=== PATIENT | male | born 1940 | race Caucasian/White ===

== ENCOUNTER 2019-12-14 09:30 | Outpatient (CLI) | payer MEDICARE, SELFPAY ==
--- NOTE | ~2019-12-14 | CT_ITS ---
EXAMINATION: CT lumbar spine [facility] EXAM DATE: 12/14/2019 10:36 INDICATION: Spinal stenosis, chronic low back pain. TECHNIQUE: Spiral CT of the lumbar spine was performed without contrast. Axial, coronal and sagittal images were reviewed. The dose-length product (DLP) for this examination was 900.25 mGy-cm. The e xposure was tailored according to patient size (auto mA exposure control), and iterative reconstructi on (ASIR) was used as additional dose reduction technique. Comparison is made to prior examination fr 08/18/2018. FINDINGS: There is partially sacralized L5 segment, transitional with a rudimentary L5-S1 disc space. Rudimentary T12 ribs. There is vacuum disc phenomenon from T11 through L5. Moderate to severe loss o f the L1-2 disc height, moderate loss at the other imaged thoracolumbar levels. Vertebral body height s relatively well-maintained. There is 5 mm anterolisthesis L4 on L5, 3 mm retrolisthesis L3 on L4 and 2 mm retrolisthesis L1 on L2 and L2 on L3. No spondylolysis. There are small to moderate-sized thoracic endplate bridging osteoph ytes. Scattered arterial sclerotic disease and mild sigmoid diverticulosis. Level by level evaluation: T11-12: There is a mild diffuse disc bulge. Facet arthropathy: Mild. Neural foraminal stenosis: Mild to moderate left. Central canal stenosis: Mild. T12-L1: There is a mild diffuse disc bulge. Facet arthropathy: Mild. Neural foraminal stenosis: No stenosis. Central canal stenosis: No stenosis. L1-L2: There is moderate disc osteophyte complex. Facet arthropathy: Mild to moderate. Neural foraminal stenosis: Moderate bilateral. Central canal stenosis: Mild to moderate. L2-L3: There is a moderate diffuse disc bulge. Facet arthropathy: Mild to moderate. Neural foraminal stenosis: Mild to moderate bilateral. Central canal stenosis: Mild to moderate. L3-L4: There is a moderate diffuse disc bulge. Facet arthropathy: Moderate to severe . Ligamentum flavum enlargement . Neural foraminal stenosis: Mild to moderate right, mild left. Central canal stenosis: Moderate. L4-L5: There is a moderate diffuse disc bulge. Facet arthropathy: Severe . Ligamentum flavum enlargement . Neural foraminal stenosis: Mild to moderate bilateral. Central canal stenosis: Severe. L5-S1: There is a congenitally narrowed disc space. Facet arthropathy: Mild to moderate. Neural foraminal stenosis: Mild right. Central canal stenosis: Mild. No appreciable interval change compared to 2019 exam. No acute lumbar findings. IMPRESSION: 1. Transitional sacralized L5 segment. 2. L4-5 grade 1 anterolisthesis, severe central canal stenosis. Moderate to severe central canal jalil nosis L3-4. 3. Lesser spondylosis above. Reviewed, dictated and finalized at location A. IMPRESSION: 1. Transitional sacralized L5 segment. 2. L4-5 grade 1 anterolisthesis, severe central canal stenosis. Moderate to se heri central canal stenosis L3-4. 3. Lesser spondylosis above.
== END 2019-12-14 09:31 | disposition home or self-care (01) ==
PROVIDERS: PCP Internal Medicine; Visit Provider Internal Medicine
DX: M54.5 Low back pain (principal)
CPT/HCPCS: 72131

== ENCOUNTER 2020-06-03 10:24 | Inpatient (IN) | payer MEDICARE, SELFPAY ==
[2020-06-03] VITALS (33 sets, daily range): BP systolic 97–130; BP diastolic 50–102; PULSE 69–85; RESP 13–20; TEMP 36.5–37.8; O2SAT 96–100; BMI 22.6
--- NOTE | ~2020-06-03 | XR_ITS ---
XR chest 1V portable DATE: 06/03/2020 11:32 INDICATION: Cough, fever. TECHNIQUE: Portable AP chest on June 03, 2020 at 1119 hours COMPARISON: None FINDINGS: Borderline heart size. Aortic calcification and unfolding. There is patchy infiltrate in the left perihilar and particularly lower lung zones. There is mild infiltrate or atelectasis in the right lower lung zone. No pleural effusion. No pneumothorax. Degenerative spurring of the thoracic spine. Osteopenia. IMPRESSION: Left perihilar and lower lung infiltrate and/atelectasis Mild infiltrate or atelectasis in the right lower lung Aortic atherosclerosis Osteopenia Reviewed, dictated and finalized at location B. ST WORKER
--- NOTE | ~2020-06-03 | XR_ITS ---
XR shoulder RT min 2V DATE: 06/03/2020 11:32 INDICATION: Fall yesterday. Right shoulder pain TECHNIQUE: 4 views COMPARISON: None FINDINGS: Diffuse osteopenia. Normal alignment at the acromion clavicular joint. There is evidence of right rotator cuff atrophy. N o fracture or dislocation, periosteal reaction or bone destruction is detected. Degenerative spurring of the thoracic spine. IMPRESSION: No fracture or dislocation Osteopenia Rotator cuff atrophy Reviewed, dictated and finalized at location B. TECHNICIAN
--- NOTE | ~2020-06-03 | XR_ITS ---
XR hip BI 2V w AP pelvis DATE: 06/03/2020 11:31 INDICATION: Hip pain following a fall yesterday. TECHNIQUE: AP pelvis. AP and lateral views of each hip COMPARISON: None FINDINGS: Diffuse osteopenia. Right total hip arthroplasty. Moderately severe osteoarthritic change at the left hip joint. The pubic symphysis and sacroiliac joints are normally aligned. No recent pelvic fracture is evident. No pelvic bone destruction is detected. No fracture or dislocation of either hip is noted. There is extensive calcification of the femoral arteries bilaterally. Prostate calcification. IMPRESSION: Moderately severe left hip osteoarthritis Status post right total hip arthroplasty Osteopenia No pelvic or hip fracture or dislocation is detected Reviewed, dictated and finalized at location B. ER SPORTS MANAGER
--- NOTE | ~2020-06-03 | CT_ITS ---
EXAMINATION: CT brain wo con DATE: 06/03/2020 11:19 INDICATION: Fall. Weakness. TECHNIQUE: Computed tomography (CT) of the head was performed without intravenous contrast. The mA wa s adjusted according to patient size. Iterative reconstruction technique was employed. Exam dose: 68 1.00 mGy-cm total exam DLP. COMPARISON: 01/29/2015 CT brain FINDINGS: Bilateral vertebral artery and carotid siphon internal carotid artery calcifications. There is nonspecific image attenuation of the subcortical and periventricular cerebral white matter, likel y due to chronic small vessel ischemic changes. No intracranial mass lesion or hemorrhage or cerebrovascular accident. No midline shifts or mass effe cts. No subdural or epidural hematoma. No skull fracture or bone destruction. The paranasal sinuses and mastoid air cells are normally developed and aerated. IMPRESSION: Cerebral atherosclerosis and chronic small vessel ischemic changes of the cerebral white matter No acute intracranial finding Reviewed, dictated and finalized at Location A. Reviewed, dictated and finalized at location B. SON ENGINEER
--- NOTE | ~2020-06-03 | CT_ITS ---
EXAMINATION: CT cervical spine wo con DATE: 06/03/2020 11:19 INDICATION: Fall. Weakness. TECHNIQUE: Computed tomography (CT) of the cervical spine was performed without intravenous contrast. Automated exposure control and iterative reconstruction technique were employed. Exam dose: 206.05 mGy-cm total exam DLP. COMPARISON: 01/29/2015 CT cervical spine FINDINGS: There is mild levoscoliosis of the cervical spine. No fracture or dislocation or locked facet. No prevertebral soft tissue swelling. C1 and C2 are normally aligned and the odontoid process is intact. There is 2.4 mm anterolisthesis at C3-4. There is severe degenerative disc disease and 3.3 mm retrolisthesis at C4-5. Moderately severe degenerative disc disease at C5-6 with minimal retrolisthesis. There is degenerative change at the apophyseal joints. There is fusion at the C3-4 apophyseal joints on the left. Uncovertebral joint spurring is noted at C3-4, C4-5 and C5-6, particularly pronounced on the right at C4-5. IMPRESSION: Prominent cervical spondylosis Reviewed, dictated and finalized at Location A. Reviewed, dictated and finalized at location B. IPPING CLERK
--- NOTE | 2020-06-03 10:25 | ECG_ITS ---
Measurements Intervals [place] Rate: 79 P: 60 [place]: 173 QRS: 47 QRSD: 102 T: 63 QT: 361 QTc: 414 Interpretive Statements SINUS RHYTHM INCOMPLETE RIGHT BUNDLE BRANCH BLOCK BASELINE ARTIFACT- I, II, III, AVR, AVL, AVF, V1-V4 BORDERLINE ECG Electronically Signed On 06-03-2020 10:48:13 CLASS A LIN[facility]AN by Dennys Burdick D.O.
--- NOTE | 2020-06-03 10:44 | PC.NURSE ---
patient here via EMS from home with increased weakness. arrives to this ED alert and oriented. see initial notes. denies known head injury. denies LOC. concerned for dehydration. provider in room now. on court recording monitor. EKG done. waiting for further orders.
--- NOTE | 2020-06-03 11:00 | ED.WEAKNESS ---
HPI - Weakness General Chief complaint: Weakness <Yissel Galeano PA-C - Last Filed: 06/03/20 12:56> Stated complaint: increased weakness <Yissel Galeano PA-C - Last Filed: 06/03/20 12:56> Time Seen by Provider: 06/03/20 10:29 <Yissel Galeano PA-C - Last Filed: 06/03/20 12:56> Source: patient <SARINA Da Silva Last Filed: 06/03/20 12:56> Mode of arrival: EMS <SARINA DaS ilva Last Filed: 06/03/20 12:56> Limitations: no limitations <Yissel Galeano PA-C - Last Filed: 06/03/20 12:56> History of Present Illness HPI Narrative: This is a 80 year old male that presents to the ER for generalized weakness. Reports over the last couple of days he has had trouble getting around his house. He lives at home with his who is in a wheelchair. Reports he had a fall yesterday. He had tripped over his carpet and fell on his left side. He does not think that he hit his head. He did not lose consciousness. Reports today he was having trouble getting out of bed, so they called EMS for lift assist. Patient decided to come be evaluated for generalized weakness. He does also report a cough and some congestion. Reports a fever. Also reports dysuria which started today. Denies chest pain, shortness of breath, abdominal pain, vomiting, or dysuria. <Yissel Galeano PA-C - Last Filed: 06/03/20 12:56> Related Data Home medications: Home Medications Medication Instructions Recorded Confirmed aspirin 81 mg tablet,delayed 81 mg PO DAILY 03/14/19 06/03/20 release finasteride 5 mg tablet 5 mg PO DAILY 03/14/19 06/03/20 multivitamin 1 tablet PO DAILY 03/14/19 06/03/20 peg 400-propylene glycol 0.4 %-0.3 1 drop EACH EYE BID 03/14/19 06/03/20 % eye drops psyllium seed (sugar) oral powder 1 tsp PO ONCE 03/14/19 06/03/20 mlxoqptqbiz-[id number]-hyal 750 tablet PO BID 12/10/19 06/03/20 750 mg-100 mg-125 mg-1.65 mg tablet polyethylene glycol 3350 17 17 gm PO DAILY 12/10/19 06/03/20 gram/dose oral powder folic acid 0.8 mg capsule 0.8 mg PO DAILY 02/05/20 04/03/20 mecobalamin (vitamin B12) 1,000 1,000 mcg PO DAILY 02/05/20 06/03/20 mcg chewable tablet carvedilol 12.5 mg BID 06/03/20 06/03/20 <Yissel Galeano PA-C - Last Filed: 06/03/20 12:56> Allergies/Adverse reactions: Allergies Allergy/AdvReac Type Severity Reaction Status Date / Time hydrochlorothiazide Allergy Unknown Hyponatremi Verified 06/03/20 15:53 a <Yissel Galeano PA-C - Last Filed: 06/03/20 12:56> Review of Systems Review of Systems: Narrative: CONSTITUTIONAL: Reports fever ENT: Reports congestion CARDIOVASCULAR: Denies chest pain RESPIRATORY: Reports cough. Denies dyspnea. GASTROINTESTINAL: Denies abdominal pain, nausea, vomiting GENITOURINARY: Reports dysuria. Denies hematuria. MUSCULOSKELETAL: Reports joint pain, and myalgia. NEUROLOGIC: Reports generalized weakness. <Yissel Galeano PA-C - Last Filed: 06/03/20 12:56> All systems reviewed & are unremarkable except as noted in HPI and below <Yissel Galeano PA-C - Last Filed: 06/03/20 12:56> [facility] Past Medical History Medical History: Medical History (Updated 06/03/20 @ 14:55 by Marilu Rosario NP) Abnormal finding of blood chemistry Arthralgia Benign essential hypertension BMI 24.0-24.9, adult BMI 25.0-25.9,adult BPH (benign prostatic hyperplasia) Chronic low back pain Colon cancer screening Constipation DJD (degenerative joint disease), multiple sites Elevated glucose Encounter for Medicare annual wellness exam Glaucoma Hyperlipidemia 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
[2020-06-03] MEDS: SODIUM CHLORIDE 0.9% IV 1,000 ML 999 ML IV CONT (11:13)
[2020-06-03 11:20] LABS: Add Urine Microscopic? YES; Appearance Urine Clear (Clear); Bilirubin Urine Negative (Negative); Blood Urine Negative (Negative); Color Urine Yellow (Yellow); Glucose Urine UA Negative (Negative); Ketones Urine Trace mg/dL (Negative); Leukocyte Esterase Ur Negative LEU/UL (Negative); Mucus Urine Rare /lpf; Nitrate Urine Negative (Negative); Protein Urine 1+ mg/dL (Negative); RBC Urine 0-2 /hpf (0-2); Specific Grav Ur 1.021 (1.001-1.035); Urobilinogen Urine Negative mg/dL (<2.0); WBC Urine 0-3 /hpf
[2020-06-03 11:48] LABS: Hematocrit 30.4 % (42.0-52.0); Hemoglobin 10.1 g/dL (14.0-18.0); Mean Corpuscular HGB Conc 33.2 g/dl (32-36); Mean Corpuscular Hemoglobin 32.9 pg (26-34); Platelet Count Result 131 k/mm3 (150-375); Red Blood Count 3.07 M/mm3 (4.6-6.20); White Blood Count 7.9 K/mm3 (4.5-10.0)
[2020-06-03 11:58] LABS: Lipase 62 U/L (23-300)
[2020-06-03 12:00] LABS: Lactic Acid Reflex 0.7 mmol/L (0.7-2.1)
[2020-06-03 12:02] LABS: Alanine Aminotransferase 22 U/L (4-50); Albumin Level 3.1 g/dL (3.5-5.1); Alkaline Phosphatase 34 U/L (38-126); Anion Gap 8 mmol/L (8-16); Aspartate Amino Transferase 30 U/L (17-59); Bilirubin,Total 0.3 mg/dL (0.2-1.3); Blood Urea Nitrogen 32 mg/dL (9-20); CRP 4.9 mg/dL (<1.0); Calcium 8.1 mg/dL (8.4-10.2); Carbon Dioxide 24 mmol/L (22-30); Chloride 107 mmol/L (98-107); Estimated CRCL calculation 66 ml/min; Estimated Glomerular Filt Rate > 60; Glucose 126 mg/dL (75-110); Potassium 3.3 mmol/L (3.4-5.0); Sodium 139 mmol/L (137-145)
[2020-06-03 12:04] LABS: Band Neutrophils Percent 4 % (0-6); Basophils Absolute Manual 0.07 K/mm3 (0.0-0.1); Basophils Percent Manual 1 % (0-1); Lymphocytes Absolute Manual 0.94 K/mm3 (1.1-4.5); Microcytosis 1+ (NORMAL); Monocytes Absolute Manual 0.15 K/mm3 (0.1-0.90); Monocytes Percent Manual 2 % (3-9); Neutrophils Absolute Manual 6.71 K/mm3 (1.3-6.7); Neutrophils Percent Manual 81 % (46-73); Platelet Estimate Adequate (Adequate); Total Cells Counted 100
[2020-06-03 12:05] LABS: Hypochromasia 1+ (NORMAL)
--- NOTE | 2020-06-03 12:10 | PC.NURSE ---
Called lab to add on Ldh and ferritin @ [phone]
[2020-06-03 12:21] LABS: Lactate Dehydrogenase 466 U/L (313-618)
--- NOTE | 2020-06-03 13:06 | PCCCNOTE ---
Spoke with patient concerning admission. Pt concerned that is wheelchair bound and may need assistance at home. Pt states that is capable and uses the phone without problem and may be able to call a cousin to assist. Informed pt to let know to call 911 if she cannot care for herself at home and needs assistance.
[2020-06-03] MEDS: POTASSIUM CHLORIDE 20 MEQ PACKET (FOR LIQUID) 40 MEQ PO (13:15)
--- NOTE | 2020-06-03 13:15 | PC.NURSE ---
assisting patient to drink OJ with KCL and water. denies any other needs. aware of plan for admission. no bed assignment yet. will update patient's when bed assigned.
--- NOTE | 2020-06-03 13:30 | PC.NURSE ---
2nd IV antibiotic started. resting on stretcher. on monitoring and evaluation advisor. alert. oriented. denies pain but states that he is weak and tired.
--- NOTE | 2020-06-03 14:30 | PC.NURSE ---
resting on stretcher. IV antibiotics done. patient finished KCL/OJ. ice water given. aware of admission upstairs. waiting for transfer.
--- NOTE | 2020-06-03 14:35 | PM.IMHP ---
H&P: HPI History of Present Illness Date/Time: 06/03/20 14:35 Chief Complaint: shortness of breath Narrative: Fernando Nava is a 80 year old male who lives at home with his who lives in wheelchair. The patient came to the emergency room due to generalized weakness. The last couple days the patient has been feeling really weak and having difficulty ambulating his house. His is not been able to help him much and she is wheelchair bound. The patient stated that he tripped over his carpeted yesterday and fell on his right side. The patient does not think that he hit his head or lost consciousness. The patient was doing okay but was unable to get out of bed today. He said he got up during the night to urinate but this morning he was not able to get out of bed. He said he thought he had a low-grade fever and a cough and some congestion. No chest pain now. No nausea vomiting. Patient has been able to take all of his medications except this a.m. doses. He stated he just did not have time to take his morning meds because it could get a bed. Patient was given Tylenol in the emergency. Patient was hydrated with IV fluids as well. Urinalysis was obtained but did not offer of any infection. The patient was also swabbed for COVID-19. His H&H is 10.1 and 30.4. Potassium was 3.3. Patient had been admitted for this several years ago but his sodium was low at that time. Today his sodium is normal. His blood sugars 126 but is last A1c last she was 5.6. He is not diabetic. Hip and pelvis x-ray was read as moderately severe left hip osteoarthritis status post right hip arthroplasty osteopenia at and no pelvic or hip fracture dislocations detected. Right shoulder x-ray was read as no fracture dislocation osteopenia rotator cuff atrophy. Chest x-ray was read by radiology is left perihilar lower lung infiltrate and atelectasis. Mild infiltrate or atelectasis in the right lower lung. Aortic atherosclerosis. And osteopenia. Cervical spine CT was read as prominent cervical spondylosis. Head CT was read as cerebral atherosclerosis and chronic small vessel ischemic changes of the cerebral white matter. no acute intracranial finding. Patient was given IV Tylenol, IV fluids Rocephin, azithromycin, and potassium liquid in the emergency room. The patient is being admitted to observation date of service is 06/03/2020. Review of Systems Review of Systems: All systems reviewed & are unremarkable except as noted in HPI and below Constitutional: Constitutional: Reports as per HPI and Reports no additional constitutional complaints Eyes: Eyes: Reports as per HPI and Reports no additional eye complaints ENT: Reports system reviewed and no additional complaints, except as documented and Reports Normal hearing present Cardiovascular: Cardiovascular: Reports no additional cardiovascular complaints Respiratory: Respiratory: Reports no additional respiratory complaints and Reports no additional respiratory complaints Gastrointestinal: Gastrointestinal: Reports as per HPI and Reports no additional gastrointestinal complaints Musculoskeletal: Musculoskeletal: Reports no additional musculoskeletal complaints Integumentary/Breasts: Skin/Breast: Reports system reviewed and no additional complaints, except as docu and Reports as per HPI Neurologic: Reports system reviewed and no additional complaints, except as documented, Reports as per HPI and Reports Normal hearing present Psychiatric: Psychiatric: Reports no additional psychiatric complaints and Reports as per HPI Endocrine: Endocrine: Reports no additional endocrine complaints Hematologic/Lymphatic: Hematologic/Lymphatic: Reports no additional hematologic/lymphatic complaints Allergic/Immunologic: Allergic/Immunologic: Reports no additional allergic/immunologic complaints [facility] Past Medical History Medical History (Updated 06/03/20 @ 14:55 by Marilu Rosario NP) Abnormal finding of blood lynda
--- NOTE | 2020-06-03 15:30 | PC.NURSE ---
attempted to notify patient's of admission to [facility] and provide phone number. no answer. does not have voicemail set up on her cell phone.
--- NOTE | 2020-06-03 15:39 | ADMGEN ---
This patient, Fernando Nava, was admitted to [facility] Surg Room 326-01. Patient/family oriented to hospital policies and general routines including ID bracelet, bed and alarms, visiting hours, pain management, procedures, bathroom and other care routines, personal items, smoking policy, room service/diet, and visiting hours. Information on how to activate the Rapid Response Team has been discussed. Patient/Family are encouraged to report perceived risks to care and to ask questions if they do not understand what they are told or what they should do.
[2020-06-03 21:18] LABS: SARS-CoV-2 RNA PCR Negative
[2020-06-04] VITALS (9 sets, daily range): BP systolic 99–128; BP diastolic 50–67; PULSE 65–92; RESP 16–20; TEMP 36.3–36.9; O2SAT 96–100
[2020-06-04 06:39] LABS: Lactic Acid Reflex 0.8 mmol/L (0.7-2.1)
[2020-06-04 06:41] LABS: Hematocrit 27.5 % (42.0-52.0); Mean Corpuscular HGB Conc 32.7 g/dl (32-36); Mean Corpuscular Hemoglobin 31.9 pg (26-34); Mean Corpuscular Volume 97.5 fl (80-100); Mean Platelet Volume 10.9 fl (7.4-10.4); Platelet Count Result 120 k/mm3 (150-375); Red Blood Count 2.82 M/mm3 (4.6-6.20); Red Cell Distribution Width 13.3 % (11.5-14.5); White Blood Count 7.9 K/mm3 (4.5-10.0)
[2020-06-04 06:43] LABS: Alanine Aminotransferase 21 U/L (4-50); Albumin Level 2.7 g/dL (3.5-5.1); Alkaline Phosphatase 32 U/L (38-126); Anion Gap 2 mmol/L (8-16); Aspartate Amino Transferase 28 U/L (17-59); Bilirubin,Total 0.3 mg/dL (0.2-1.3); Blood Urea Nitrogen 22 mg/dL (9-20); Calcium 8.2 mg/dL (8.4-10.2); Carbon Dioxide 26 mmol/L (22-30); Chloride 108 mmol/L (98-107); Estimated CRCL calculation 66 ml/min; Estimated Glomerular Filt Rate > 60; Glucose 108 mg/dL (75-110); Lactate Dehydrogenase 368 U/L (313-618); Magnesium 1.9 mg/dL (1.6-2.3); Potassium 3.5 mmol/L (3.4-5.0); Sodium 136 mmol/L (137-145)
[2020-06-04 07:10] LABS: Band Neutrophils Percent 8 % (0-6); Monocytes Absolute Manual 0.23 K/mm3 (0.1-0.90); Monocytes Percent Manual 3 % (3-9); Neutrophils Absolute Manual 6.55 K/mm3 (1.3-6.7); Neutrophils Percent Manual 75 % (46-73); Total Cells Counted 100
[2020-06-04] MEDS: PSYLLIUM POWDER PACKET 1 PACKET BY MOUTH (09:31)
[2020-06-04] MEDS: polyethylene glycoL 3350 17 GM POWD.PACK PO (09:31)
[2020-06-04] MEDS: PRAVASTATIN SODIUM 20 MG TABLET PO (09:32)
[2020-06-04] MEDS: carvediloL 25 MG TABLET BY MOUTH ×2 (09:32→21:12)
[2020-06-04] MEDS: ASPIRIN 81 MG ENTERIC TABLET PO (09:32)
[2020-06-04] MEDS: CYANOCOBALAMIN 1,000 MCG TABLET 1000 MCG PO (09:32)
[2020-06-04] MEDS: MULTIVITAMINS THERAPEUTIC TAB (*BKC) 1 TABLET PO (09:33)
[2020-06-04] MEDS: lisinopriL 20 MG TABLET 40 MG PO (09:33)
[2020-06-04] MEDS: FINASTERIDE 5 MG TABLET PO (09:33)
[2020-06-04] MEDS: amLODIPine BESYLATE 2.5 MG TABLET BY MOUTH (09:33)
[2020-06-04 09:50] LABS: Free T4 Free Thyroxine Reflex 1.28 ng/dL (0.78-2.19)
[2020-06-04 11:00] LABS: Total Triiodothyronine (T3) 0.52 NG/ML (0.97-1.69)
--- NOTE | 2020-06-04 11:21 | PCNSR ---
On 06/04/20, the student, Hien Velazquez, provided care and completed [facility] documentation on this patient. I have reviewed the student's documentation and agree with the findings.
--- NOTE | 2020-06-04 12:56 | PC.NURSE ---
Spoke to Dr. Tomlinson about pt bp being lower. 88\43 then retook and best bp was 95\57. Said to hold lisinopril 2100 dose today only.Also to hold carvedilol if sbp is less than 90.
[2020-06-04] MEDS: CALCIUM CARBONATE (TUMS) 500 MG (200 MG ELEMENTAL) PO (16:45)
--- NOTE | 2020-06-04 18:42 | PM.IMPN ---
Progress Note: A&P Assessment and Plan (1) Pneumonia: Qualifiers: Laterality: bilateral Lung location: lower lobe of lung Pneumonia type: due to unspecified organism Qualified Code(s): J18.9 - Pneumonia, unspecified organism Code(s): J18.9 - Pneumonia, unspecified organism Status: Acute Assessment and Plan: Continue Rocephin and Zithromax Improved (2) Person under investigation for severe acute respiratory syndrome coronavirus 2 (SARS-CoV-2) infection: Code(s): Z20.822 - Contact with and (suspected) exposure to COVID-19 Status: Acute Assessment and Plan: Ruled out. (3) Generalized weakness: Code(s): R53.1 - Weakness Status: Acute Assessment and Plan: Participating on therapy with PT/OT (4) Chronic low back pain: Qualifiers: Back pain laterality: right Sciatica presence: with sciatica Sciatica laterality: sciatica of right side Qualified Code(s): M54.41 - Lumbago with sciatica, right side; G89.29 - Other chronic pain Code(s): M54.5 - Low back pain; G89.29 - Other chronic pain Status: Acute Assessment and Plan: Stable Supportive care (5) BMI 24.0-24.9, adult: Code(s): Z68.24 - Body mass index [BMI] 24.0-24.9, adult Status: Acute Assessment and Plan: On dietary supplement. (6) DJD (degenerative joint disease), multiple sites: Qualifiers: Osteoarthritis type: primary Qualified Code(s): M89.49 - Other hypertrophic osteoarthropathy, multiple sites Code(s): M15.9 - Polyosteoarthritis, unspecified Status: Acute Assessment and Plan: Unchanged. Subjective Date/time seen: 06/04/20 18:42 Patient states that he feels well but weak. Review of Systems Review of Systems: Narrative: No new issues. Constitutional: Comments: no fevers, no rigors, no chills. Cardiovascular: Comments: no chest pain, no pnd, no orthopnea. Respiratory: Comments: sob with activity Gastrointestinal: Comments: no n/v/abdominal pain. Musculoskeletal: Comments: generalized weakness. Integumentary/Breasts: Comments: no rashes. Neurologic: Comments: no sensory motor deficit. Exam Narrative: Exam Narrative: Sitting in chair. Const: General: cooperative, comfortable, no acute distress, alert, awake and Physically active Nutritional Appearance: average body habitus Orientation/consciousness: patient oriented x3 HENMT: Head: normal to inspection and normocephalic Ears: hearing grossly normal bilaterally General nose exam: Normal external nose present Face and sinus: normal facial exam Eyes: General: appearance normal, both eyes and all related structures Pupils: Equal, round and reactive pupils present EOM: EOMs intact bilaterally Neck: Neck: no lymphadenopathy, supple and no JVD Lymphatic: no lymphadenopathy noted Resp: Effort & Inspection: normal respiratory effort and able to speak in complete sentences Auscultation: clear to auscultation bilaterally Cardio: Rate: regular rate Rhythm: regular rhythm GI: GI Palp: Yes Soft to palpation and Yes No hepatosplenomegaly present Skin: Lesions: no lesions Rashes: no rashes Wounds: no wounds Neuro: General: patient oriented x3 and CN's II-XI intact bilaterally Cranial nerves: Yes CN's II-XII intact bilaterally and Yes Equal, round and reactive pupils present Cognition (Neuro): normal cognition Speech: normal speech Motor exam (neuro): 5/5 motor strength present throughout Extrem: General: no pedal edema Objective Data Vital Signs Vital Signs: Vital Signs - 24 hr 06/03/20 20:00 06/04/20 00:00 06/04/20 04:00 Temperature 97.7 F 98.2 F 98.2 F Pulse Rate 78 74 73 Respiratory Rate 18 18 16 Blood Pressure 104/50 L 118/52 L 127/52 L Pulse Oximetry 97 97 96 06/04/20 08:00 06/04/20 09:32 06/04/20 12:00 Temperature 97.5 F L 98.4 F Pulse Rate 83 65 70 Respiratory Rate 18 18 Blood Pressure 126/50 L 99/54 L Pulse Oxime
[2020-06-05] VITALS (11 sets, daily range): BP systolic 105–149; BP diastolic 52–60; PULSE 66–77; RESP 18–20; TEMP 36.6–36.7; O2SAT 97–99
[2020-06-05] MEDS: amLODIPine BESYLATE 2.5 MG TABLET BY MOUTH (08:39)
[2020-06-05] MEDS: ASPIRIN 81 MG ENTERIC TABLET PO (08:40)
[2020-06-05] MEDS: carvediloL 25 MG TABLET BY MOUTH ×2 (08:40→22:13)
[2020-06-05] MEDS: CYANOCOBALAMIN 1,000 MCG TABLET 1000 MCG PO (08:41)
[2020-06-05] MEDS: FINASTERIDE 5 MG TABLET PO (08:41)
[2020-06-05] MEDS: MULTIVITAMINS THERAPEUTIC TAB (*BKC) 1 TABLET PO (08:42)
[2020-06-05] MEDS: polyethylene glycoL 3350 17 GM POWD.PACK PO (08:42)
[2020-06-05] MEDS: PRAVASTATIN SODIUM 20 MG TABLET PO (08:42)
[2020-06-05] MEDS: PSYLLIUM POWDER PACKET 1 PACKET BY MOUTH (08:42)
[2020-06-05] MEDS: lisinopriL 20 MG TABLET 40 MG PO ×2 (08:42→22:14)
--- NOTE | 2020-06-05 15:59 | PM.IMPN ---
Progress Note: A&P Assessment and Plan (1) Pneumonia: Qualifiers: Laterality: bilateral Lung location: lower lobe of lung Pneumonia type: due to unspecified organism Qualified Code(s): J18.9 - Pneumonia, unspecified organism Code(s): J18.9 - Pneumonia, unspecified organism Status: Acute Assessment and Plan: On Rocephin and Zithromax Improved (2) Osteopenia: Code(s): M85.80 - Other specified disorders of bone density and structure, unspecified site Status: Chronic Assessment and Plan: Not on biphosphonates Follow up in the outpatient setting. (3) Person under investigation for severe acute respiratory syndrome coronavirus 2 (SARS-CoV-2) infection: Code(s): Z20.822 - Contact with and (suspected) exposure to COVID-19 Status: Acute Assessment and Plan: Ruled out (4) Acute hypokalemia: Code(s): E87.6 - Hypokalemia Status: Acute Assessment and Plan: Replace as needed Continue to monitor (5) Generalized weakness: Code(s): R53.1 - Weakness Status: Acute Assessment and Plan: Continue PT/OT (6) Chronic low back pain: Qualifiers: Back pain laterality: right Sciatica presence: with sciatica Sciatica laterality: sciatica of right side Qualified Code(s): M54.41 - Lumbago with sciatica, right side; G89.29 - Other chronic pain Code(s): M54.5 - Low back pain; G89.29 - Other chronic pain Status: Acute Assessment and Plan: Stable (7) DJD (degenerative joint disease), multiple sites: Qualifiers: Osteoarthritis type: primary Qualified Code(s): M89.49 - Other hypertrophic osteoarthropathy, multiple sites Code(s): M15.9 - Polyosteoarthritis, unspecified Status: Acute Assessment and Plan: Unchanged (8) Spinal stenosis: Qualifiers: Spinal region: unspecified Qualified Code(s): M48.00 - Spinal stenosis, site unspecified Code(s): M48.00 - Spinal stenosis, site unspecified Status: Acute Assessment and Plan: Unchanged. Subjective Date/time seen: 06/05/20 15:59 Patient states that he feels weak. Review of Systems Review of Systems: Narrative: Feels weak. Constitutional: Comments: no fevers, no chills, no rigors. Cardiovascular: Comments: no chest pain, no orthopnea, no pnd. Respiratory: Comments: no cough, no sputum production. Gastrointestinal: Comments: poor appetite, no n/v/abdominal pain. Musculoskeletal: Comments: back pain. Integumentary/Breasts: Comments: no rashes Neurologic: Comments: no focal sensory motor deficit. Exam Narrative: Exam Narrative: Sitting in chair. Const: General: cooperative, comfortable, no acute distress, alert, awake and Physically active Nutritional Appearance: thin Orientation/consciousness: patient oriented x3 HENMT: Head: normocephalic Ears: hearing grossly normal bilaterally Face and sinus: normal facial exam Eyes: General: appearance normal, both eyes and all related structures Pupils: Equal, round and reactive pupils present EOM: EOMs intact bilaterally Neck: Neck: no lymphadenopathy, supple and no JVD Lymphatic: no lymphadenopathy noted Resp: Effort & Inspection: normal respiratory effort Auscultation: clear to auscultation bilaterally Cardio: Jugular venous distension: no JVD Rate: regular rate Rhythm: regular rhythm GI: GI Palp: Yes Soft to palpation and Yes No hepatosplenomegaly present Skin: Lesions: no lesions Rashes: no rashes Wounds: no wounds Neuro: General: patient oriented x3 and CN's II-XI intact bilaterally Cranial nerves: Yes CN's II-XII intact bilaterally and Yes Equal, round and reactive pupils present Cognition (Neuro): normal cognition Speech: normal speech Motor exam (neuro): 5/5 motor strength present throughout Extrem: General: no pedal edema Objective Data Vital Signs Vital Signs: Vital Signs - 24 hr 06/04/20 16:00
[2020-06-06] VITALS: PULSE 63
[2020-06-06 04:00] VITALS: PULSE 66
[2020-06-06 06:00] VITALS: BP 136/61; PULSE 75; RESP 18; TEMP 37.1; O2SAT 98
[2020-06-06] MEDS: amLODIPine BESYLATE 2.5 MG TABLET BY MOUTH (09:16)
[2020-06-06] MEDS: carvediloL 25 MG TABLET BY MOUTH ×2 (09:17→09:18)
[2020-06-06] MEDS: ASPIRIN 81 MG ENTERIC TABLET PO (09:19)
[2020-06-06] MEDS: CYANOCOBALAMIN 1,000 MCG TABLET 1000 MCG PO (09:34)
[2020-06-06] MEDS: FINASTERIDE 5 MG TABLET PO (09:34)
[2020-06-06] MEDS: lisinopriL 20 MG TABLET 40 MG PO (09:34)
[2020-06-06] MEDS: polyethylene glycoL 3350 17 GM POWD.PACK PO (09:35)
[2020-06-06] MEDS: PSYLLIUM POWDER PACKET 1 PACKET BY MOUTH (09:37)
[2020-06-06] MEDS: PRAVASTATIN SODIUM 20 MG TABLET PO (09:37)
--- NOTE | 2020-06-06 12:13 | PM.DS ---
DS: Admitting Diagnosis Admitting Diagnosis Admitting Diagnosis: (1) Pneumonia: (2) Person under investigation for severe acute respiratory syndrome coronavirus 2 (SARS-CoV-2) infection: (3) Acute hypokalemia: (4) Generalized weakness: (5) BPH (benign prostatic hyperplasia): (6) Hyperlipidemia: (7) Benign essential hypertension: DS: Summary Hospital Course Reason for hospitalization: Weakness. Hospital Course: Fernando Nava is a 80 year old male who lives at home with his . The patient came to the emergency room due to generalized weakness. The last couple days the patient had been feeling really weak and having difficulty ambulating his house. His is not been able to help him much and she is wheelchair bound. The patient stated that he tripped over his carpeted yesterday and fell on his right side, no LOC. He was unable to get out of bed the next day. He said he got up during the night to urinate but in the morning he was not able to get up. He felt had a low-grade fever and a cough and some congestion, no chest pain . No nausea or vomiting. He has been able to take all of his medications except this a.m. as he was not able to get up from bed. He was given Tylenol in the emergency. Patient was hydrated with IV fluids as well. Urinalysis was obtained but did not show any infection. The patient was also swabbed for COVID-19. His H&H is 10.1 and 30.4. Potassium was 3.3. Patient had been admitted for this several years ago but his sodium was low at that time. Today his sodium is normal. His blood sugars 126 but is last A1c last she was 5.6. He is not diabetic. Hip and pelvis x-ray was read as moderately severe left hip osteoarthritis status post right hip arthroplasty osteopenia at and no pelvic or hip fracture dislocations detected. Right shoulder x-ray was read as no fracture dislocation osteopenia rotator cuff atrophy. Chest x-ray was read by radiology is left perihilar lower lung infiltrate and atelectasis. Mild infiltrate or atelectasis in the right lower lung. Aortic atherosclerosis. And osteopenia. Cervical spine CT was read as prominent cervical spondylosis. Head CT was read as cerebral atherosclerosis and chronic small vessel ischemic changes of the cerebral white matter. no acute intracranial finding. Patient was given IV Tylenol, IV fluids Rocephin, azithromycin, and potassium liquid in the emergency room. The patient is being admitted to observation date of service is 06/03/2020. Patient participated in therapy sessions with PT/OT Was hydrated. No consults were obtained. No procedures were done. Patient was discharged home. Patient was ruled out for Covid 19 He was treated for community pneumonia Time Spent with Patient Time attestation: Total time spent providing and/or coordinating discharge services: Exam Const: General: comfortable, no acute distress, well developed, alert and awake Nutritional Appearance: thin Orientation/consciousness: patient oriented x3 HENMT: Head: normal to inspection, normocephalic and atraumatic Ears: hearing grossly normal bilaterally General nose exam: Normal external nose present Face and sinus: normal facial exam Eyes: General: appearance normal, both eyes and all related structures Pupils: Equal, round and reactive pupils present EOM: EOMs intact bilaterally Neck: Neck: no lymphadenopathy and no JVD Resp: Effort & Inspection: normal respiratory effort Auscultation: clear to auscultation bilaterally Cardio: Jugular venous distension: no JVD Rate: regular rate Rhythm: regular rhythm GI: GI Palp: Yes Soft to palpation and Yes No hepatosplenomegaly present Skin: Rashes: no rashes Neuro: General: patient oriented x3 and CN's II-XI intact bilaterally Cranial nerves: Yes CN's II-XII intact bilaterally and Yes Equal, round and reactive pupils present Speech: normal speech Gait exam (Neuro): No
[2020-06-06] MEDS: MULTIVITAMINS THERAPEUTIC TAB (*BKC) 1 TABLET PO (13:54)
== END 2020-06-06 12:45 | disposition home or self-care (01) | DRG 195 ==
LOC: ANHED 12:50 → ANH3MEDSUR 14:43
PROVIDERS: Nurse Practitioner; Physician Assistant; Admitting Provider Internal Medicine; Emergency Provider General Practice; PCP Internal Medicine; Visit Provider Internal Medicine
DX: J18.9 Pneumonia, unspecified organism (principal); Z20.822 Contact with and (suspected) exposure to COVID-19; W01.0XXA Fall on same level from slipping, tripping and stumbling without subsequent striking against object, initial encounter; M85.80 Other specified disorders of bone density and structure, unspecified site; E87.6 Hypokalemia; G89.29 Other chronic pain; M15.9 Polyosteoarthritis, unspecified; M48.00 Spinal stenosis, site unspecified; I10 Essential (primary) hypertension; E78.5 Hyperlipidemia, unspecified; E55.9 Vitamin D deficiency, unspecified; Z96.641 Presence of right artificial hip joint; N40.0 Benign prostatic hyperplasia without lower urinary tract symptoms
CPT/HCPCS: 36415; 70450; 71045; 72125; 73030; 73521; 80053; 81001; 82728; 83605; 83615; 83690; 83735; 84100; 84439; 84443; 84480; 85025; 85055; 86140; 87040; 87804; 93005; 96365; 96367; 96376; 97110; 97116; 97161; 97165; 97530; 97535; 99285; A9270; C9803; G0378; J0131; J0456; J0696; J7030; U0003; U0005

== ENCOUNTER 2020-12-15 07:14 | Inpatient (IN) | payer MEDICARE, SELFPAY ==
[2020-12-15] VITALS (11 sets, daily range): BP systolic 133–186; BP diastolic 54–80; PULSE 60–104; RESP 16–20; TEMP 36.4–36.8; O2SAT 94–100; BMI 23.7
--- NOTE | ~2020-12-15 | XR_ITS ---
EXAMINATION: XR chest 1V portable INDICATION: Dizziness TECHNIQUE: Portable AP chest at 0749 hours COMPARISON: 06/03/2020 FINDINGS: The lungs are free of acute opacities. There is no pleural effusion or pneumothorax. The ca rdiomediastinal silhouette is normal. IMPRESSION: 1. No acute cardiopulmonary abnormality. Reviewed, dictated and finalized at location A.
--- NOTE | ~2020-12-15 | MR_ITS ---
EXAMINATION: MR brain/brain stem wo/w con EXAM DATE: 12/15/2020 14:59 INDICATION: Disequilibrium . TECHNIQUE: Magnetic resonance imaging (MRI) of the brain/brain stem obtained without contrast. Sagit samantha T1, axial diffusion, gradient echo (T2*), T1, T2, FLAIR sequences obtained. Patient was then inj ected with 15 cc intravenous Multihance contrast. Axial and coronal postcontrast T1 weighted sequence s obtained. There is no prior study for comparison. FINDINGS: There are no areas of restricted diffusion to suggest acute infarction. There is no acute hemorrhage seen on the T2*, a hemosiderin sensitive sequence. No intraparenchymal brain mass lesion. There is mild periventricular and subcortical T2/FLAIR signal hyperintensity, nonspecific but probab ly related to small vessel ischemic disease (microangiopathy). Mild cerebral atrophy. There are no extra-axial collections. Flow voids are seen in the cerebral arteries on the T2-weighted sequences consistent with their expected patency. Patient has had bilateral ocular lens surgery. Soft tissue is unremarkable. There are no areas of abnormal enhancement on the postcontrast images. IMPRESSION: 1. No acute intracranial findings. 2. Chronic age related findings. Reviewed, dictated and finalized at location B.
--- NOTE | ~2020-12-15 | CT_ITS ---
EXAMINATION: CT brain wo con EXAM DATE: 12/15/2020 09:33 INDICATION: Dizziness. Balance disorder . TECHNIQUE: Spiral CT of the head was performed without contrast. Axial, coronal and sagittal images were reviewed. The dose-length product (DLP) for this examination was 605.33 mGy-cm. The exposure w as tailored according to patient size, and iterative reconstruction (ASIR) was used as additional dos e reduction technique. Comparison is made to prior examination from 06/03/2020. FINDINGS: There is no acute intraparenchymal hemorrhage. No evidence of intraparenchymal brain mass lesion. No evidence of acute infarction. Please note that initial head CT has limited sensitivity f or small or acute infarctions. There is mild periventricular and subcortical hypodensity, nonspecific but probably related to small vessel ischemic disease. There is mild prominence of the sulci and v entricles related to cerebral atrophy. There is intracranial carotid arteriosclerosis. There are n o extra-axial collections. There is no mass effect or midline shift. Patient has had bilateral ocul ar lens surgery. Soft tissue is unremarkable. The visualized sinuses and mastoid air cells are well aerated. IMPRESSION: 1. No acute intracranial findings. 2. Chronic age related findings. Reviewed, dictated and finalized at location B.
--- NOTE | 2020-12-15 07:32 | ED.GENADULT ---
HPI - General Adult General Chief complaint: Unspecified Stated complaint: STIFFNESS Time Seen by Provider: 12/15/20 07:32 Source: patient, EMS and RN notes reviewed Mode of arrival: EMS Limitations: no limitations History of Present Illness HPI narrative: Patient is 80 years old white male lives with his at home brought to the emergency room by ambulance because of dizziness and heaviness of the lower extremity bilaterally noticed more this morning. Patient complaining of weeks of balance issues FOR weeks. Today was standing shaving, trying to put his hands on the countertop around the sink which was slippery, patient felt unable to keep his standing and his legs are heavy, called his to call 911 patient was wondering if he have a stroke or not. Currently patient is awake, alert and oriented x4 denying any symptom except dry mouth. Patient did not eat his breakfast or took his medication this morning prior to arrival. Patient is fully vaccinated for COVID-19, patient is DNR. Patient on baby aspirin once a day, history of spinal stenosis, hypertension, hyperlipidemia Related Data Home Medications Medication Instructions Recorded Confirmed aspirin 81 mg tablet,delayed 81 mg PO DAILY 03/14/19 08/15/20 release finasteride 5 mg tablet 5 mg PO DAILY 03/14/19 08/15/20 multivitamin 1 tablet PO DAILY 03/14/19 08/15/20 peg 400-propylene glycol 0.4 %-0.3 1 drop EACH EYE BID 03/14/19 08/15/20 % eye drops vkgggizriqt-[id number]-hyal 750 tablet PO BID 12/10/19 08/15/20 750 mg-100 mg-125 mg-1.65 mg tablet polyethylene glycol 3350 17 17 gm PO DAILY 12/10/19 08/15/20 gram/dose oral powder mecobalamin (vitamin B12) 1,000 1,000 mcg PO DAILY 02/05/20 08/15/20 mcg chewable tablet calcium polycarbophil 625 mg tablet 1,250 mg PO BID 06/27/20 08/15/20 acetaminophen 500 mg tablet 500 mg PO Q6H PRN 08/14/20 08/15/20 calcium polycarbophil 625 mg tablet 1,250 mg PO BID 08/14/20 08/15/20 folic acid 0.8 mg capsule 0.4 mg PO DAILY cap 04/29/21 04/30/21 food supplemt, lactose-reduced ea PO 08/14/20 08/15/20 0.05 gram-1.5 kcal/mL oral liquid nystatin-triamcinolone 100,000 1 applic TOPICAL BID 08/14/20 08/15/20 unit/g-0.1 % topical cream polyvinyl alcohol-povidone (PF) 1 drp EACH EYE QHS 08/14/20 08/15/20 1.4 %-0.6 % eye drops in a dropperette Allergies Allergy/AdvReac Type Severity Reaction Status Date / Time hydrochlorothiazide Allergy Unknown Hyponatremi Verified 12/15/20 07:38 a Review of Systems Review of Systems: CONSTITUTIONAL: Denies fever, chills, or sweats. EYES: Denies visual changes, redness, or discharge. ENT: Denies rhinorrhea, congestion, sore throat, or otalgia. CARDIOVASCULAR: Denies chest pain, palpitations, or edema. RESPIRATORY: Denies cough or dyspnea. GASTROINTESTINAL: Denies abdominal pain, nausea, vomiting, or diarrhea. GENITOURINARY: Denies dysuria or hematuria. SKIN: Denies rash or itching. MUSCULOSKELETAL: Denies back pain, joint pain, or myalgia. NEUROLOGIC: Denies headache, numbness, or weakness. PSYCHIATRIC: Denies anxiety or depression. [facility] Past Medical History Medical History Abnormal finding of blood chemistry Arthralgia Benign essential hypertension BMI 21.0-21.9, adult BMI 23.0-23.9, adult BMI 24.0-24.9, adult BMI 25.0-25.9,adult BPH (benign prostatic hyperplasia) Chronic low back pain Colon cancer screening Colon cancer screening Constipation DJD (degenerative joint disease), multiple sites Elevated glucose Encounter for Medicare annual wellness exam [facility] discharge follow-up Hyperlipidemia On prison drug therapy Osteopenia Pedal edema Pre-diabetes Spinal stenosis UTI (urinary tract infection) Vision changes Vitamin D deficiency Surgical History Surgical History History of cataract extraction History of removal of pigmented skin lesion
--- NOTE | 2020-12-15 07:42 | ECG_ITS ---
Measurements Intervals [place] Rate: 62 P: 115 MI: 191 QRS: 175 QRSD: 106 T: 153 QT: 392 QTc: 399 Interpretive Statements SINUS RHYTHM LIMB LEAD REVERSAL BORDERLINE R WAVE PROGRESSION, ANTERIOR LEADS BASELINE ARTIFACT- I, II, III, AVR, AVF, V1 BORDERLINE ECG Electronically Signed On 12-15-2020 8:06:52 CDT by Dennys Burdick D.O.
[2020-12-15 09:39] LABS: Basophils Percent Auto 0.5 % (0.2-1.2); Eosinophils Absolute Auto 0.2 K/mm3 (0-0.3); Eosinophils Percent Auto 2.6 % (0-4.4); Hematocrit 35.9 % (42.0-52.0); Hemoglobin 11.8 g/dL (14.0-18.0); Immature Granulocyte Absolute 0.02 K/mm3 (0.00-0.031); Immature Granulocyte Percent A 0.3 % (0-0.5); Lymphocytes Absolute Auto 1.09 K/mm3 (0.9-3.2); Mean Corpuscular HGB Conc 32.9 g/dl (32-36); Mean Corpuscular Hemoglobin 31.6 pg (26-34); Mean Corpuscular Volume 96.2 fl (80-100); Mean Platelet Volume 10.5 fl (7.4-10.4); Monocytes Absolute Auto 0.5 K/mm3 (0.1-0.6); Neutrophils Absolute Auto 3.9 K/mm3 (1.3-6.7); Neutrophils Percent Auto 68.6 % (45.5-73.1); Platelet Count Result 166 k/mm3 (150-375); Red Blood Count 3.73 M/mm3 (4.6-6.20); Red Cell Distribution Width 14.2 % (11.5-14.5); White Blood Count 5.8 K/mm3 (4.5-10.0)
[2020-12-15 09:44] LABS: Add Urine Microscopic? NO; Appearance Urine Clear (Clear); Bilirubin Urine Negative (Negative); Blood Urine Negative (Negative); Color Urine Yellow (Yellow); Glucose Urine UA Negative (Negative); Ketones Urine Negative (Negative); Leukocyte Esterase Ur Negative LEU/UL (Negative); Nitrate Urine Negative (Negative); Protein Urine Negative (Negative); Specific Grav Ur 1.012 (1.001-1.035); Urobilinogen Urine Negative mg/dL (<2.0)
[2020-12-15 09:49] LABS: Prothrombin Time 12.7 Seconds (11.1-14.7)
[2020-12-15 09:50] LABS: Partial Thromboplastin Time 30.9 SECONDS (22.3-36.8)
[2020-12-15 09:55] LABS: Alanine Aminotransferase 26 U/L (4-50); Albumin Level 4.4 g/dL (3.5-5.1); Alkaline Phosphatase 62 U/L (38-126); Anion Gap 8 mmol/L (8-16); Aspartate Amino Transferase 29 U/L (17-59); Bilirubin,Total 0.6 mg/dL (0.2-1.3); Blood Urea Nitrogen 27 mg/dL (9-20); Calcium 9.6 mg/dL (8.4-10.2); Carbon Dioxide 27 mmol/L (22-30); Chloride 100 mmol/L (98-107); Estimated CRCL calculation 64 ml/min; Estimated Glomerular Filt Rate > 60; Glucose 116 mg/dL (65-110); Potassium 3.9 mmol/L (3.4-5.0); Sodium 135 mmol/L (137-145)
[2020-12-15 10:04] LABS: Troponin I < 0.012 ng/mL (0.000-0.034)
--- NOTE | 2020-12-15 11:23 | PM.IMHP ---
H&P: HPI History of Present Illness Date/Time: 12/15/20 11:23 This is a 80-year-old gentleman with past medical history hypertension, hyperlipidemia, spinal stenosis, BPH, was brought to the emergency department by EMS with dizziness. He tells me he was in the bathroom shaving while standing. He felt like he was going to slip, lowered himself to the floor without falling, did slightly scratchy his head but there was no injury. He then let his know to call 911 he was brought to the hospital. Otherwise he has in his usual state of health. No recent changes to his medications. No other associated symptoms such as fever, chills, nausea, vomiting, abdominal pain, chest pain, or otherwise. He is appropriate vaccinated. Chief Complaint: Fall Review of Systems Review of Systems: All systems reviewed & are unremarkable except as noted in HPI and below PMFSH Past Medical History Medical History Abnormal finding of blood chemistry Arthralgia Benign essential hypertension BMI 21.0-21.9, adult BMI 23.0-23.9, adult BMI 24.0-24.9, adult BMI 25.0-25.9,adult BPH (benign prostatic hyperplasia) Chronic low back pain Colon cancer screening Colon cancer screening Constipation DJD (degenerative joint disease), multiple sites Elevated glucose Encounter for Medicare annual wellness exam [facility] follow-up 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 Osteopenia Pedal edema Pre-diabetes Spinal stenosis UTI (urinary tract infection) Vision changes Vitamin D deficiency Surgical History Surgical History History of cataract extraction History of removal of pigmented skin lesion History of total right hip arthroplasty Family History Family History Mother Family history of coronary artery disease Hypertension Diabetes mellitus Family history of arthritis Family history of cardiovascular disease Father Family history of coronary artery disease Family history of arthritis Sibling Glaucoma Hypertension Social History Social History Social History: the patient lives with his . He does not have any children. 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 Patient is a lifelong non smoker. Smoking status: Never smoker Second hand tobacco smoke exposure: No Alcohol intake: never Substance use: never Gender identity (if verbalized by the patient): Male Sexual Orientation (if Verbalized by the Patient): Straight or Heterosexual Spiritual care concerns: No Meds Home Medications and Allergies Home Medications Medication Instructions Recorded Confirmed Type aspirin 81 mg tablet,delayed 81 mg PO DAILY 03/14/19 08/15/20 History release finasteride 5 mg tablet 5 mg PO DAILY 03/14/19 08/15/20 History multivitamin 1 tablet PO DAILY 03/14/19 08/15/20 History peg 400-propylene glycol 0.4 %-0.3 1 drop EACH EYE BID 03/14/19 08/15/20 History % eye drops jldponnwkdq-gukxpdula-[id number]-hyal 750 tablet PO BID 12/10/19 08/15/20 History 750 mg-100 mg-125 mg-1.65 mg tablet polyethylene glycol 3350 17 17 gm PO DAILY 12/10/19 08/15/20 History gram/dose oral powder mecobalamin (vitamin B12) 1,000 1,000 mcg PO DAILY 02/05/20 08/15/20 History mcg chewable tablet calcium polycarbophil 625 mg tablet 1,250 mg PO BID 06/27/20 08/15/20 History pravastatin 20 mg tablet See Rx Instructions .ROUTE 07/21/20 08/15/20 Rx .COMPLEX #90 tablet acetaminophen 500 mg tablet 500 mg PO Q6H PRN 08/14/20 08/15/20 History calcium polycarbophil 625 mg tablet 1,250 mg PO BID 08/14/20 08/15/20 History folic acid 0.8 mg capsule 0.4 mg PO DAILY cap 08/14/20 08/15/20 History food supplemt, la
--- NOTE | 2020-12-15 12:26 | PC.NURSE ---
Patient transferred from ED to [address] [place] [address] via stretcher.
--- NOTE | 2020-12-15 12:27 | ADMGEN ---
This patient, Fernando Nava, was admitted to [facility] Room 315-01 at 1220. Patient/family oriented to hospital policies and general routines including ID bracelet, bed and alarms, visiting hours, pain management, procedures, bathroom and other care routines, personal items, smoking policy, room service/diet, and visiting hours. Information on how to activate the Rapid Response Team has been discussed. Patient/Family are encouraged to report perceived risks to care and to ask questions if they do not understand what they are told or what they should do.
[2020-12-15] MEDS: SODIUM CHLORIDE 0.9% IV 1,000 ML 100 ML IV CONT (12:55)
[2020-12-15 14:08] LABS: Troponin I < 0.012 ng/mL (0.000-0.034)
[2020-12-15 15:07] LABS: Folic Acid > 20.0 ng/mL (2.76->20)
[2020-12-15 15:15] LABS: Thyroid Stimulating Hormone Reflex 0.238 uIU/mL (0.465-4.68)
[2020-12-15 18:17] LABS: Free T4 Free Thyroxine Reflex 1.14 ng/dL (0.78-2.19)
[2020-12-15 21:51] LABS: Total Triiodothyronine (T3) 1.17 NG/ML (0.97-1.69)
[2020-12-15] MEDS: ARTIFICIAL TEARS OPHTH SOLN 15 ML BOTTLE 1 DROP EACH EYE (22:50)
[2020-12-15] MEDS: calcium polycarbophiL 625 MG TABLET 1250 MG PO (22:50)
[2020-12-15] MEDS: lisinopriL 20 MG TABLET BY MOUTH (22:51)
[2020-12-15] MEDS: PRAVASTATIN SODIUM 20 MG TABLET BY MOUTH (22:51)
[2020-12-15] MEDS: HEPARIN SODIUM 5,000 UNITS/ML VIAL 5000 UNITS SUB-Q (22:51)
[2020-12-15] MEDS: carvediloL 25 MG TABLET PO (22:51)
[2020-12-16] VITALS (12 sets, daily range): BP systolic 107–156; BP diastolic 60–68; PULSE 60–87; RESP 18; TEMP 36.4–37; O2SAT 96–100
[2020-12-16] MEDS: polyethylene glycoL 3350 17 GM POWD.PACK PO (09:14)
[2020-12-16] MEDS: calcium polycarbophiL 625 MG TABLET 1250 MG PO ×2 (09:14→16:57)
[2020-12-16] MEDS: FOLIC ACID 0.4 MG TABLET PO (09:15)
[2020-12-16] MEDS: FINASTERIDE 5 MG TABLET PO (09:15)
[2020-12-16] MEDS: ASPIRIN 81 MG ENTERIC TABLET PO (09:15)
[2020-12-16] MEDS: ARTIFICIAL TEARS OPHTH SOLN 15 ML BOTTLE 1 DROP EACH EYE ×2 (09:16→16:57)
[2020-12-16] MEDS: HEPARIN SODIUM 5,000 UNITS/ML VIAL 5000 UNITS SUB-Q ×2 (09:20→21:14)
--- NOTE | 2020-12-16 11:43 | PM.IMPN ---
Progress Note: A&P Assessment and Plan (1) Fall: Qualifiers: Encounter type: subsequent encounter Qualified Code(s): W19.XXXD - Unspecified fall, subsequent encounter Code(s): W19.XXXA - Unspecified fall, initial encounter Status: Acute Assessment and Plan: He was standing in the bathroom shaving when he felt he was going to slip and lowered himself to the floor. There was no injury to the head. CT scan of head is negative for acute findings. Will have physical therapy and occupational therapy work with him, with safety evaluation Check vitamin-D: Normal Check thyroid status: TSH mildly decreased T4 and T3 normal B12 normal Troponin negative Electrolytes within normal limits Positive orthostatic vitals, repeat today after overnight hydration MR brain negative for any acute findings, chronic age-related findings noted. PT/OT evaluation and treatment (2) Pedal edema: Code(s): R60.0 - Localized edema Status: Acute Assessment and Plan: Mild, chronic, low-salt diet, monitor (3) Benign essential hypertension: Code(s): I10 - Essential (primary) hypertension Status: Acute Assessment and Plan: Given his orthostasis will hold his amlodipine as he also reports constipation. Monitor (4) Hyperlipidemia: Qualifiers: Hyperlipidemia type: mixed hyperlipidemia Qualified Code(s): E78.2 - Mixed hyperlipidemia Code(s): E78.5 - Hyperlipidemia, unspecified Status: Acute Assessment and Plan: Continue pravastatin (5) DVT prophylaxis: Code(s): Z29.9 - Encounter for prophylactic measures, unspecified Status: Acute Assessment and Plan: Heparin subQ Additional Plan Code status: DNR Dispo: Continue to work with physical and occupational therapy. Deemed to be weak and will require short-term rehab. Awaiting placement. The plan was discussed with the patient in detail. Subjective Date/time seen: 12/16/20 11:43 Uneventful night. Hemodynamically stable. He did have positive orthostatic drop in blood pressure from 170s to 150s systolic when checked yesterday. Appetite is good. He was able to eat all his breakfast this morning. Review of Systems Review of Systems: All systems reviewed & are unremarkable except as noted in HPI and below Exam Narrative: Gen: Alert, NAD Abd: Soft, NT, ND Heart: RRR Lungs: CTAB Ext: No lower extremity edema Objective Data Vital Signs Vital Signs: Vital Signs - 24 hr 12/15/20 12:34 12/15/20 12:40 12/15/20 13:12 Temperature 97.7 F Pulse Rate 69 63 Respiratory Rate 16 Blood Pressure 186/68 H Pulse Oximetry 99 100 12/15/20 16:00 12/15/20 18:30 12/15/20 18:31 Temperature Pulse Rate 69 Respiratory Rate Blood Pressure 172/72 H 175/74 H Pulse Oximetry 12/15/20 18:32 12/15/20 20:00 12/15/20 22:00 Temperature 97.5 F L Pulse Rate 70 64 Respiratory Rate 18 Blood Pressure 153/65 H 153/65 H Pulse Oximetry 96 12/16/20 00:00 12/16/20 04:00 12/16/20 06:00 Temperature 98.0 F Pulse Rate 64 62 68 Respiratory Rate 18 Blood Pressure 154/65 H Pulse Oximetry 96 Intake/Output Intake/Output: Intake & Output 12/13/20 12/14/20 12/15/20 12/16/20 23:59 23:59 23:59 23:59 Intake Total 620 630 Output Total 600 300 Balance 20 330 Meds/Results Medications: Active Medications Generic Name Dose Route Start Last Admin Trade Name Freq PRN Reason Stop Dose Admin Acetaminophen 500 mg 12/15/20 16:02 Acetaminophen 500 Mg Tablet PO Q6H PRN Pain Artificial Tears 1 drop 12/15/20 17:00 12/16/20 09:16 Artificial Tears Ophth Soln 15 Ml Bottle EACH EYE 1 drop BID MENDEL Administration Aspirin 81 mg 12/16/20 09:00 12/16/20 09:15 Aspirin 81 Mg Enteric Tablet PO 81 mg DAILY MENDEL Administration Calcium Polycarbophil 1,250 mg 12/15/20 17:00 12/16/20 09:14 Calcium Polycarbophil 625 Mg Tabl
[2020-12-16] MEDS: lisinopriL 20 MG TABLET PO (12:35)
[2020-12-16] MEDS: carvediloL 25 MG TABLET PO ×2 (14:54→21:14)
--- NOTE | 2020-12-16 16:31 | ECG_ITS ---
Measurements Intervals [place] Rate: 61 P: 57 MT: 180 QRS: 12 QRSD: 94 T: 36 QT: 392 QTc: 398 Interpretive Statements SINUS RHYTHM WITH SINUS ARRHYTHMIA INCOMPLETE RIGHT BUNDLE BRANCH BLOCK VOLTAGE CRITERIA FOR LVH BASELINE ARTIFACT- I, II, III, AVR, AVL, AVF BORDERLINE ECG Electronically Signed On 12-16-2020 16:43:22 CDT by Dennys Burdick D.O.
[2020-12-16] MEDS: SODIUM CHLORIDE 0.9% IV 1,000 ML 75 ML IV CONT (16:56)
[2020-12-16] MEDS: PRAVASTATIN SODIUM 20 MG TABLET BY MOUTH (21:15)
[2020-12-16] MEDS: HALOPERIDOL LACTATE 5 MG/ML VIAL IM (23:59)
[2020-12-17] VITALS (14 sets, daily range): BP systolic 120–174; BP diastolic 64–84; PULSE 56–82; RESP 14–20; TEMP 36.4–37.1; O2SAT 93–100
--- NOTE | 2020-12-17 00:14 | PM.EVENT ---
Event Note Event Note Event Note: a code purple was called because the patient was attempting to get out of bed. He stated that he needed to urinated. We were able to get him up to the bsc with 2 assist. The patient was calmer after he had urinated. Haldol had been ordered and given. He also has a dose of ativan ordered if needed.
[2020-12-17] MEDS: SODIUM CHLORIDE 0.9% IV 1,000 ML 75 ML IV CONT (06:14)
[2020-12-17 07:04] LABS: Anion Gap 10 mmol/L (8-16); Blood Urea Nitrogen 26 mg/dL (9-20); Calcium 9.4 mg/dL (8.4-10.2); Carbon Dioxide 28 mmol/L (22-30); Chloride 101 mmol/L (98-107); Estimated CRCL calculation 60 ml/min; Estimated Glomerular Filt Rate > 60; Glucose 103 mg/dL (65-110); Magnesium 2.2 mg/dL (1.6-2.3); Sodium 139 mmol/L (137-145)
--- NOTE | 2020-12-17 08:06 | PC.NURSE ---
12/16/20 at 2359--patient pulled IV out, tried to get out of bed, spilled water on floor and almost fell, staff had to catch him from falling, uncooperative, refused redirection, code soy called at this time, new orders received from doctor. TDialRNC
[2020-12-17] MEDS: lisinopriL 20 MG TABLET BY MOUTH (08:23)
[2020-12-17] MEDS: FINASTERIDE 5 MG TABLET PO (08:23)
[2020-12-17] MEDS: polyethylene glycoL 3350 17 GM POWD.PACK PO (08:23)
[2020-12-17] MEDS: ARTIFICIAL TEARS OPHTH SOLN 15 ML BOTTLE 1 DROP EACH EYE ×2 (08:23→18:36)
[2020-12-17] MEDS: calcium polycarbophiL 625 MG TABLET 1250 MG PO ×2 (08:23→18:36)
[2020-12-17] MEDS: FOLIC ACID 0.4 MG TABLET PO (08:23)
[2020-12-17] MEDS: ASPIRIN 81 MG ENTERIC TABLET PO (08:24)
[2020-12-17] MEDS: carvediloL 25 MG TABLET PO (08:24)
[2020-12-17] MEDS: HEPARIN SODIUM 5,000 UNITS/ML VIAL 5000 UNITS SUB-Q ×2 (08:25→21:16)
--- NOTE | 2020-12-17 10:40 | PM.IMPN ---
Progress Note: A&P Assessment and Plan (1) Fall: Qualifiers: Encounter type: subsequent encounter Qualified Code(s): W19.XXXD - Unspecified fall, subsequent encounter Code(s): W19.XXXA - Unspecified fall, initial encounter Status: Acute Assessment and Plan: He was standing in the bathroom shaving when he felt he was going to slip and lowered himself to the floor. There was no injury to the head. CT scan of head is negative for acute findings. Will have physical therapy and occupational therapy work with him Vitamin-D and B12 normal. Check thyroid status: TSH mildly decreased T4 and T3 normal Troponin negative Electrolytes within normal limits Positive orthostatic vitals, repeat today after overnight hydration consistent with persistent orthostatics. Recommend slow transitions. Avoid prolonged standing. Thigh-high compressive stockings while awake to decrease venous pooling. Decrease carvedilol dose. MR brain negative for any acute findings, chronic age-related findings noted. (2) Pedal edema: Code(s): R60.0 - Localized edema Status: Acute Assessment and Plan: Mild, chronic, low-salt diet, monitor (3) Benign essential hypertension: Code(s): I10 - Essential (primary) hypertension Status: Acute Assessment and Plan: Given his orthostasis will hold his amlodipine as he also reports constipation. Will increase his lisinopril to his home dose but decrease the dose of carvedilol to see if that will decrease his orthostasis. (4) Hyperlipidemia: Qualifiers: Hyperlipidemia type: mixed hyperlipidemia Qualified Code(s): E78.2 - Mixed hyperlipidemia Code(s): E78.5 - Hyperlipidemia, unspecified Status: Acute Assessment and Plan: Continue pravastatin (5) DVT prophylaxis: Code(s): Z29.9 - Encounter for prophylactic measures, unspecified Status: Acute Assessment and Plan: Heparin subQ Additional Plan Code status: DNR Dispo: Continue to work with physical and occupational therapy. Deemed to be weak and will require short-term rehab. Awaiting placement. The plan was discussed with the patient in detail. Subjective Date/time seen: 12/17/20 10:40 He did have a rough night, got confused and tried to climb out of bed. Was screaming imaginary people that he was seeing. He was given Haldol and slept the rest of the night. This morning he is alert and pleasant. He had good insight into what happened and is apologetic reporting he realizes he is in a different place than he is used to with confusion. This morning hemodynamically stable. Afebrile. Exam Narrative: Gen: Alert, NAD Abd: Soft, NT, ND Heart: RRR Lungs: CTAB Ext: No lower extremity edema Objective Data Vital Signs Vital Signs: Vital Signs - 24 hr 12/16/20 12:00 12/16/20 14:00 12/16/20 14:05 Temperature 98.6 F Pulse Rate 65 64 Respiratory Rate 18 Blood Pressure 121/68 107/60 Pulse Oximetry 98 12/16/20 14:54 12/16/20 16:00 12/16/20 20:00 Temperature Pulse Rate 68 60 70 Respiratory Rate 18 Blood Pressure Pulse Oximetry 98 12/16/20 21:14 12/16/20 22:00 12/17/20 00:00 Temperature 97.6 F Pulse Rate 79 65 78 Respiratory Rate 18 Blood Pressure 156/64 H Pulse Oximetry 100 12/17/20 04:00 12/17/20 06:00 12/17/20 07:50 Temperature 98.3 F 97.7 F Pulse Rate 82 70 67 Respiratory Rate 18 16 Blood Pressure 169/64 H 171/84 H Pulse Oximetry 98 99 12/17/20 08:00 12/17/20 08:05 12/17/20 08:10 Temperature 97.7 F 97.7 F Pulse Rate 63 67 72 Respiratory Rate 16 16 16 Blood Pressure 171/84 H 174/70 H 120/68 Pulse Oximetry 99 98 97 12/17/20 08:24 Temperature Pulse Rate 64 Respiratory Rate Blood Pressure Pulse Oximetry Intake/Output Intake/Output: Intake & Output 12/14/20 12/15/20 12/16/20 12/17/20 23:59 23:59 23:59 23:59 Intake Total 1620 1660 1240 Output Total 600 550 2
--- NOTE | 2020-12-17 15:40 | PC.NURSE ---
On 12/17/20, the students, Barb Marie and Nell Woodruff, provided care and completed [facility] Medical documentation on this patient. I have reviewed the student's documentation and agree with the findings.
[2020-12-17] MEDS: carvediloL 12.5 MG TABLET PO (21:15)
[2020-12-17] MEDS: PRAVASTATIN SODIUM 20 MG TABLET BY MOUTH (21:16)
[2020-12-18] VITALS (11 sets, daily range): BP systolic 123–177; BP diastolic 60–76; PULSE 55–70; RESP 16–18; TEMP 37.3–37.6; O2SAT 97–100
[2020-12-18] MEDS: lisinopriL 20 MG TABLET 40 MG BY MOUTH (08:16)
[2020-12-18] MEDS: ARTIFICIAL TEARS OPHTH SOLN 15 ML BOTTLE 1 DROP EACH EYE (08:16)
[2020-12-18] MEDS: calcium polycarbophiL 625 MG TABLET 1250 MG PO (08:17)
[2020-12-18] MEDS: FOLIC ACID 0.4 MG TABLET PO (08:17)
[2020-12-18] MEDS: ASPIRIN 81 MG ENTERIC TABLET PO (08:17)
[2020-12-18] MEDS: carvediloL 12.5 MG TABLET PO (08:17)
[2020-12-18] MEDS: FINASTERIDE 5 MG TABLET PO (08:17)
[2020-12-18] MEDS: HEPARIN SODIUM 5,000 UNITS/ML VIAL 5000 UNITS SUB-Q (08:18)
[2020-12-18] MEDS: polyethylene glycoL 3350 17 GM POWD.PACK PO (08:18)
--- NOTE | 2020-12-18 15:09 | PM.DS ---
DS: Admitting Diagnosis Admitting Diagnosis Fall DS: Discharge Diagnosis Discharge Diagnosis (1) Disequilibrium syndrome: Code(s): E87.8 - Other disorders of electrolyte and fluid balance, not elsewhere classified Status: Acute (2) Pedal edema: Code(s): R60.0 - Localized edema Status: Acute (3) Generalized weakness: Code(s): R53.1 - Weakness Status: Acute DS: Summary Hospital Course Reason for hospitalization: Patient slipped. Hospital Course: This is a 80-year-old gentleman with past medical history hypertension, hyperlipidemia, spinal stenosis, BPH, was brought to the emergency department by EMS with dizziness. He recalls that he was in the bathroom shaving while standing. He felt like he was going to slip, lowered himself to the floor without falling, did slightly scratchy his head but there was no injury. He then let his know to call 911 and then he was brought to the hospital. Otherwise he has in his usual state of health. No recent changes to his medications. No other associated symptoms such as fever, chills, nausea, vomiting, abdominal pain, chest pain, or otherwise. He is appropriate vaccinated. Vitamin-D and B12 normal. TSH was mildly decreased T4 and T3 normal. Troponin negative. Electrolytes within normal limits On admission, he was found to have positive orthostatic vitals. He was rehydrated; his carvedilol dose was lowered. Recommend slow transitions. Avoid prolonged standing. Thigh-high compressive stockings while awake to decrease venous pooling. A head CT scan has been unrevealing. MR brain negative for any acute findings, chronic age-related findings noted. He was evaluated by physical therapy and occupational therapy and deemed to be an excellent candidate for SNF acute rehabilitation. He did did experience an episode of confusion. He was given Haldol and slept the rest of the night. Time spent discussing smoking cessation with patient: more than 10 minutes Status at Discharge Functional status at discharge: independent ambulation Overall status at discharge: patient is back to baseline Time Spent with Patient Time attestation: Total time spent providing and/or coordinating discharge services: Time spent: Less than 30 minutes Exam Narrative: Gen: Alert, NAD Abd: Soft, NT, ND Heart: RRR Lungs: CTAB Ext: No lower extremity edema DS: Data Data Completed and Pending Completed studies during hospitalization: ITS Impressions Chest X-Ray 12/15/20 07:59 IMPRESSION: 1. No acute cardiopulmonary abnormality. Head CT 12/15/20 09:34 IMPRESSION: 1. No acute intracranial findings. 2. Chronic age related findings. Brain MRI 12/15/20 15:08 IMPRESSION: 1. No acute intracranial findings. 2. Chronic age related findings. Discharge Plan Discharge Attending physician on discharge: Faith Hahn Discharging Clinician: Faith Hahn Anticipated Discharge Date/Time: 12/18/20 15:30 Patient Disposition: SNF Activity: august shower Diet: heart healthy Discharge Instructions: Fall precautions. Core strengthening exercises. Patient Instructions: Weakness (DC), Core Strengthening Exercises (DC) Patient Language: Malay Stand Alone Forms: General Discharge Information, Jail Discharge Follow-up/Referrals: Jarrod Orta MD [Primary Care Provider] - Discharge Medications: Continued aspirin [Adult Low Dose Aspirin] 81 mg tablet,delayed release (DR/EC) 81 mg PO DAILY RF: 0 finasteride 5 mg tablet 5 mg PO DAILY RF: 0 multivitamin Tablet 1 tablet PO DAILY RF: 0 Systane Ultra 0.4-0.3 % drops 1 drop EACH EYE BID RF: 0 polyethylene glycol 3350 [Miralax] 17 gram/dose powder 17 gm PO DAILY RF: 0 Glucos Chond Cplx Advanced 750 mg-100 mg- 125 mg-1.65 mg tablet 750 tablet PO BID RF: 0 calcium polycarbophil [FiberCon] 625 mg tablet 1,250 mg PO BID RF: 0 nysta
== END 2020-12-18 18:45 | DRG 641 ==
LOC: ANHED 09:50 → ANH3MEDSUR 11:08
PROVIDERS: Admitting Provider Internal Medicine Nephrology; Emergency Provider Emergency Medicine; PCP Internal Medicine; Visit Provider Internal Medicine
DX: E87.8 Other disorders of electrolyte and fluid balance, not elsewhere classified (principal); R60.0 Localized edema; R53.1 Weakness; R42 Dizziness and giddiness; R41.0 Disorientation, unspecified; I10 Essential (primary) hypertension; E78.2 Mixed hyperlipidemia; N40.0 Benign prostatic hyperplasia without lower urinary tract symptoms; M48.00 Spinal stenosis, site unspecified; Z66 Do not resuscitate; Z98.49 Cataract extraction status, unspecified eye; Z79.82 Long term (current) use of aspirin; Z79.899 Other long term (current) drug therapy
CPT/HCPCS: 36415; 70450; 70553; 71045; 80048; 80053; 81003; 82306; 82607; 82746; 83735; 84439; 84443; 84480; 84484; 85025; 85610; 85730; 93005; 97110; 97116; 97161; 97165; 97530; 97535; 99285; A9270; A9577; J1630; J1644; J2060; J7030

== ENCOUNTER 2021-02-10 15:31 | Emergency (ER) | payer MEDICARE, SELFPAY ==
[2021-02-10 15:46] VITALS: BP 124/62; PULSE 67; RESP 12; TEMP 36.3; O2SAT 99
[2021-02-10 16:02] LABS: Basophils Percent Auto 0.2 % (0.2-1.2); Eosinophils Percent Auto 0.2 % (0-4.4); Hematocrit 29.9 % (42.0-52.0); Hemoglobin 9.9 g/dL (14.0-18.0); Immature Granulocyte Absolute 0.03 K/mm3 (0.00-0.031); Immature Granulocyte Percent A 0.3 % (0-0.5); Lymphocytes Absolute Auto 0.95 K/mm3 (0.9-3.2); Lymphocytes Percent Auto 9.6 % (18.3-44.2); Mean Corpuscular HGB Conc 33.1 g/dl (32-36); Mean Corpuscular Hemoglobin 31.9 pg (26-34); Mean Corpuscular Volume 96.5 fl (80-100); Mean Platelet Volume 10.8 fl (7.4-10.4); Monocytes Percent Auto 10.6 % (2.6-8.5); Neutrophils Absolute Auto 7.8 K/mm3 (1.3-6.7); Neutrophils Percent Auto 79.1 % (45.5-73.1); Platelet Count Result 167 k/mm3 (150-375); Red Cell Distribution Width 14.1 % (11.5-14.5); White Blood Count 9.9 K/mm3 (4.5-10.0)
[2021-02-10 16:13] LABS: Alanine Aminotransferase 32 U/L (4-50); Albumin Level 3.6 g/dL (3.5-5.1); Alkaline Phosphatase 46 U/L (38-126); Anion Gap 6 mmol/L (8-16); Aspartate Amino Transferase 30 U/L (17-59); Bilirubin,Total 0.4 mg/dL (0.2-1.3); Blood Urea Nitrogen 54 mg/dL (9-20); Calcium 8.9 mg/dL (8.4-10.2); Carbon Dioxide 25 mmol/L (22-30); Chloride 105 mmol/L (98-107); Estimated CRCL calculation 43 ml/min; Estimated Glomerular Filt Rate > 60; Glucose 122 mg/dL (65-110); Potassium 4.4 mmol/L (3.4-5.0); Sodium 136 mmol/L (137-145)
--- NOTE | 2021-02-10 16:14 | ED.GENADULT ---
HPI - General Adult General Chief complaint: Urogenital-Male Stated complaint: uti Time Seen by Provider: 02/10/21 15:35 Source: patient and RN notes reviewed History of Present Illness HPI narrative: Patient is a 81 y/o male complaining of mild to moderate burning with urination for several days. There is no known alleviating or exacerbating factor. He has no fever, chills, nausea, vomiting or back pain. Related Data Home Medications Medication Instructions Recorded Confirmed aspirin 81 mg tablet,delayed 81 mg PO DAILY 03/14/19 01/02/21 release finasteride 5 mg tablet 5 mg PO DAILY 03/14/19 01/02/21 multivitamin 1 tablet PO DAILY 03/14/19 01/02/21 peg 400-propylene glycol 0.4 %-0.3 1 drop EACH EYE BID 03/14/19 01/02/21 % eye drops [id number]-prsvbyhpn-[id number]-hyal 750 tablet PO BID 12/10/19 01/02/21 750 mg-100 mg-125 mg-1.65 mg tablet polyethylene glycol 3350 17 17 gm PO DAILY 12/10/19 01/02/21 gram/dose oral powder mecobalamin (vitamin B12) 1,000 1,000 mcg PO DAILY 02/05/20 01/02/21 mcg chewable tablet acetaminophen 500 mg tablet 500 mg PO Q6H PRN 08/14/20 01/02/21 food supplemt, lactose-reduced 1 ea PO TID 08/14/20 01/02/21 0.05 gram-1.5 kcal/mL oral liquid nystatin-triamcinolone 100,000 1 applic TOPICAL BID PRN 08/14/20 01/02/21 unit/g-0.1 % topical cream polyvinyl alcohol-povidone (PF) 1 drp EACH EYE QHS 08/14/20 01/02/21 1.4 %-0.6 % eye drops in a dropperette carvedilol [Coreg] See Rx Instructions .ROUTE .COMPLEX 12/15/20 01/02/21 folic acid 0.8 mg capsule 400 mcg PO BID cap 01/01/21 01/02/21 Allergies Allergy/AdvReac Type Severity Reaction Status Date / Time hydrochlorothiazide Allergy Unknown Hyponatremi Verified 01/01/21 13:52 a Review of Systems Constitutional: Constitutional: Denies chills, Denies fever(s), Denies headache(s) and Denies weakness Eyes: Eyes: Denies blurry vision ENT: Denies headache(s) and Denies neck pain Cardiovascular: Cardiovascular: Denies chest pain and Denies dyspnea Respiratory: Respiratory: Denies cough and Denies dyspnea Gastrointestinal: Gastrointestinal: Denies abdominal pain, Denies diarrhea, Denies nausea and Denies vomiting Genitourinary: Genitourinary: Denies hematuria and Reports dysuria Musculoskeletal: Musculoskeletal: Denies back pain and Denies neck pain Neurologic: Denies headache(s) and Denies weakness PMFSH Past Medical History Medical History Abnormal finding of blood chemistry Arthralgia Benign essential hypertension BMI 21.0-21.9, adult BMI 23.0-23.9, adult BMI 24.0-24.9, adult BMI 25.0-25.9,adult BPH (benign prostatic hyperplasia) Chronic low back pain Colon cancer screening Colon cancer screening Constipation DJD (degenerative joint disease), multiple sites Elevated glucose Encounter for Medicare annual wellness exam [facility] discharge follow-up Hyperlipidemia On fdc drug therapy Osteopenia Pedal edema Pre-diabetes Spinal stenosis UTI (urinary tract infection) Vision changes Vitamin B12 deficiency Vitamin D deficiency Surgical History Surgical History History of cataract extraction History of removal of pigmented skin lesion History of total right hip arthroplasty Family History Family History Mother Family history of coronary artery disease Hypertension Diabetes mellitus Family history of arthritis Family history of cardiovascular disease Father Family history of coronary artery disease Family history of arthritis Sibling Glaucoma Hypertension Social History Social History Social History: the patient lives with his . He does not have any children. He worked for [employer]. The patient is a full code last is the durable attorne
[2021-02-10 16:34] VITALS: BP 132/68; PULSE 65; RESP 18; O2SAT 98
[2021-02-10 16:40] LABS: Add Urine Microscopic? YES; Appearance Urine Cloudy (Clear); Bilirubin Urine Negative (Negative); Blood Urine Negative (Negative); Color Urine Amber (Yellow); Glucose Urine UA Negative (Negative); Ketones Urine Negative (Negative); Leukocyte Esterase Ur Negative LEU/UL (Negative); Mucus Urine Rare /lpf; Nitrate Urine Negative (Negative); Protein Urine Negative (Negative); RBC Urine 0-2 /hpf (0-2); Urobilinogen Urine Negative mg/dL (<2.0); WBC Urine 0-3 /hpf
[2021-02-10 21:20] VITALS: BP 133/70; PULSE 71; RESP 17; O2SAT 97
== END 2021-02-10 21:27 | disposition home or self-care (01) ==
PROVIDERS: Emergency Provider Emergency Medicine; PCP Internal Medicine
DX: N41.9 Inflammatory disease of prostate, unspecified (principal); I10 Essential (primary) hypertension; N40.0 Benign prostatic hyperplasia without lower urinary tract symptoms; H40.9 Unspecified glaucoma; E78.5 Hyperlipidemia, unspecified; M85.80 Other specified disorders of bone density and structure, unspecified site; R73.03 Prediabetes; Z87.440 Personal history of urinary (tract) infections; E55.9 Vitamin D deficiency, unspecified; E53.8 Deficiency of other specified B group vitamins; Z96.641 Presence of right artificial hip joint; Z98.49 Cataract extraction status, unspecified eye; Z87.891 Personal history of nicotine dependence; Z77.22 Contact with and (suspected) exposure to environmental tobacco smoke (acute) (chronic); Z79.82 Long term (current) use of aspirin
CPT/HCPCS: 36415; 80053; 81001; 85025; 99283

== ENCOUNTER 2021-05-19 21:14 | Observation (INO) | payer MEDICARE, SELFPAY ==
--- NOTE | ~2021-05-19 | CT_ITS ---
EXAMINATION: CT brain wo con EXAM DATE: 05/19/2021 22:52 INDICATION: Weakness. TECHNIQUE: Spiral CT of the head was performed without contrast. Axial, coronal and sagittal images were reviewed. The dose-length product (DLP) for this examination was 605.33 mGy-cm. The exposure w as tailored according to patient size, and iterative reconstruction (ASIR) was used as additional dos e reduction technique. Comparison is made to prior examination from 12/16/2019. FINDINGS: There is no acute intraparenchymal hemorrhage. No evidence of intraparenchymal brain mass lesion. No evidence of acute infarction. Please note that initial head CT has limited sensitivity f or small or acute infarctions. There is mild to moderate periventricular and subcortical hypodensity, nonspecific but probably related to small vessel ischemic disease. There is mild to moderate promi nence of the sulci and ventricles related to cerebral atrophy. There is intracranial carotid arteri osclerosis. There are no extra-axial collections. There is no mass effect or midline shift. Patien t has had bilateral ocular lens surgery. Soft tissue is unremarkable. The visualized sinuses and ma stoid air cells are well aerated. IMPRESSION: 1. No acute intracranial findings. 2. Chronic age related findings. Reviewed, dictated and finalized at location [facility]
[2021-05-19 21:30] VITALS: BP 132/57; PULSE 67; RESP 14; O2SAT 96
[2021-05-19 21:33] VITALS: TEMP 36.9
[2021-05-19 21:34] VITALS: PULSE 65
[2021-05-19 22:00] VITALS: BP 148/65; PULSE 65; RESP 16; O2SAT 97
--- NOTE | 2021-05-19 22:01 | ECG_ITS ---
Measurements Intervals Dawson Rate: 70 P: 44 VT: 211 QRS: 3 QRSD: 94 T: 34 QT: 377 QTc: 409 Interpretive Statements SINUS RHYTHM WITH SINUS ARRHYTHMIA WITH FIRST DEGREE AV BLOCK LEFT VENTRICULAR HYPERTROPHY BASELINE ARTIFACT- I, II, III, AVR, AVL, AVF, V1-V6 ABNORMAL ECG Electronically Signed On 05-20-2021 6:34:00 ASSISTANT STRENGTH COACH by Dennys Burdick D.O.
--- NOTE | 2021-05-19 22:24 | ED.WEAKNESS ---
HPI - Weakness General Chief complaint: Weakness Stated complaint: gen weak, R leg pain Time Seen by Provider: 05/19/21 21:29 Source: patient Mode of arrival: ambulatory Limitations: no limitations History of Present Illness HPI Narrative: Patient is an 81-year-old male complaining of generalized weakness that started yesterday but worse tonight, I was not able to get out of my bed accompanied by right lower extremity pain which he states is due to his arthritis. Patient states that his right lower extremity pain is nothing new. Any speech or visual disturbance, focal weakness or numbness, chest pain, shortness of breath, abdominal pain, nausea, vomiting, diarrhea or urinary symptoms. Related Data Home Medications Medication Instructions Recorded Confirmed aspirin 81 mg tablet,delayed 81 mg PO DAILY 03/14/19 01/02/21 release finasteride 5 mg tablet 5 mg PO DAILY 03/14/19 01/02/21 multivitamin 1 tablet PO DAILY 03/14/19 01/02/21 peg 400-propylene glycol 0.4 %-0.3 1 drop EACH EYE BID 03/14/19 01/02/21 % eye drops dffsghznzqj-ujpgroejv-beec924-hyal 750 tablet PO BID 12/10/19 01/02/21 750 mg-100 mg-125 mg-1.65 mg tablet polyethylene glycol 3350 17 17 gm PO DAILY 12/10/19 01/02/21 gram/dose oral powder mecobalamin (vitamin B12) 1,000 1,000 mcg PO DAILY 02/05/20 01/02/21 mcg chewable tablet acetaminophen 500 mg tablet 500 mg PO Q6H PRN 08/14/20 01/02/21 food supplemt, lactose-reduced 1 ea PO TID 08/14/20 01/02/21 0.05 gram-1.5 kcal/mL oral liquid nystatin-triamcinolone 100,000 1 applic TOPICAL BID PRN 08/14/20 01/02/21 unit/g-0.1 % topical cream polyvinyl alcohol-povidone (PF) 1 drp EACH EYE QHS 08/14/20 01/02/21 1.4 %-0.6 % eye drops in a dropperette carvedilol [Coreg] See Rx Instructions .ROUTE .COMPLEX 12/15/20 01/02/21 folic acid 0.8 mg capsule 400 mcg PO BID cap 01/01/21 01/02/21 Allergies Allergy/AdvReac Type Severity Reaction Status Date / Time hydrochlorothiazide Allergy Unknown Hyponatremi Verified 01/01/21 13:52 a Review of Systems Review of Systems: All systems reviewed & are unremarkable except as noted in HPI and below Constitutional: Constitutional: Denies body ache(s), Denies chills, Denies excessive sweating, Denies fatigue, Denies fever(s), Denies headache(s), Denies lethargy, Denies malaise and Denies weight loss Eyes: Eyes: Denies blurry vision, Denies change in vision and Denies loss of vision ENT: Denies dizziness, Denies ear discharge, Denies headache(s), Denies lip swelling, Denies epistaxis, Denies nasal congestion, Denies neck pain, Denies throat swelling and Denies tongue swelling Cardiovascular: Cardiovascular: Denies chest pain, Denies chest pain at rest, Denies chest pain with activity, Denies diaphoresis, Denies rapid heart rate, Denies edema, Denies irregular heart rhythm, Denies lightheadedness, Denies palpitations, Denies dyspnea and Denies dyspnea on exertion Respiratory: Respiratory: Denies chest congestion, Denies cough, Denies hemoptysis, Denies dyspnea and Denies dyspnea on exertion Gastrointestinal: Gastrointestinal: Denies abdominal pain, Denies melena, Denies hematochezia, Denies diarrhea, Denies nausea, Denies vomiting and Denies hematemesis Musculoskeletal: Musculoskeletal: Denies abnormal gait, Denies deformity, Denies joint swelling, Denies limited range of motion, Denies neck pain and Denies numbness Neurologic: Denies Abnormal speech present, Denies abnormal gait, Denies confusion, Denies dizziness, Denies headache(s), Denies focal weakness, Denies loss of vision, Denies numbness, Denies Other visual disturbances, Denies Sensory deficit (Neuro) and Denies weakness Psychiatric: Psychiatric: Denies confusion, Denies depression, Denies auditory hallucinations, Denies homicidal ideation and Denies suicidal ideation Endocrine: Endocrine: Denies cold intolerance, Denies excessive sweating, Denies fatigue, Denies heat intolerance and Denies palpitations Hematol
[2021-05-19 22:33] VITALS: BP 150/79; PULSE 72; RESP 18; O2SAT 96
[2021-05-19 23:00] VITALS: BP 165/78; PULSE 67; RESP 16; O2SAT 98
[2021-05-19 23:21] LABS: Basophils Percent Auto 0.4 % (0.2-1.2); Eosinophils Absolute Auto 0.1 K/mm3 (0-0.3); Eosinophils Percent Auto 1.8 % (0-4.4); Hematocrit 32.8 % (42.0-52.0); Hemoglobin 10.7 g/dL (14.0-18.0); Immature Granulocyte Absolute 0.02 K/mm3 (0.00-0.031); Immature Granulocyte Percent A 0.3 % (0-0.5); Lymphocytes Absolute Auto 1.02 K/mm3 (0.9-3.2); Lymphocytes Percent Auto 14.2 % (18.3-44.2); Mean Corpuscular HGB Conc 32.6 g/dl (32-36); Mean Corpuscular Hemoglobin 31.6 pg (26-34); Mean Corpuscular Volume 96.8 fl (80-100); Mean Platelet Volume 10.5 fl (7.4-10.4); Monocytes Absolute Auto 0.7 K/mm3 (0.1-0.6); Monocytes Percent Auto 9.3 % (2.6-8.5); Neutrophils Absolute Auto 5.3 K/mm3 (1.3-6.7); Platelet Count Result 169 k/mm3 (150-375); Red Blood Count 3.39 M/mm3 (4.6-6.20); Red Cell Distribution Width 14.2 % (11.5-14.5); White Blood Count 7.2 K/mm3 (4.5-10.0)
[2021-05-19 23:33] LABS: Alanine Aminotransferase 28 U/L (4-50); Albumin Level 4.3 g/dL (3.5-5.1); Alkaline Phosphatase 66 U/L (38-126); Anion Gap 4 mmol/L (8-16); Aspartate Amino Transferase 32 U/L (17-59); Bilirubin,Total 0.3 mg/dL (0.2-1.3); Blood Urea Nitrogen 41 mg/dL (9-20); Calcium 9.5 mg/dL (8.4-10.2); Carbon Dioxide 27 mmol/L (22-30); Chloride 105 mmol/L (98-107); Estimated Glomerular Filt Rate > 60; Glucose 115 mg/dL (65-110); Potassium 4.7 mmol/L (3.4-5.0); Sodium 136 mmol/L (137-145)
[2021-05-19 23:45] LABS: Troponin I < 0.012 ng/mL (0.000-0.034)
[2021-05-20] VITALS (12 sets, daily range): BP systolic 138–166; BP diastolic 54–85; PULSE 58–73; RESP 16–20; TEMP 36.3–36.6; O2SAT 96–100; BMI 26.9
[2021-05-20] MEDS: LACTATED RINGERS 1,000 ML 200 ML IV CONT (01:00)
--- NOTE | 2021-05-20 01:04 | PC.NURSE ---
RN attempted to walk pt with no success. Pt was able to stand with max assist pt unable to stand on his own. Once Rn let go of pt he fell back into the bed unable to bear all of his weight while standing. RN made MD aware. Family also updated.
[2021-05-20 01:20] LABS: Add Urine Microscopic? YES; Appearance Urine Clear (Clear); Bilirubin Urine Negative (Negative); Blood Urine Negative (Negative); Color Urine Amber (Yellow); Glucose Urine UA Negative (Negative); Ketones Urine Negative (Negative); Leukocyte Esterase Ur Negative LEU/UL (Negative); Nitrate Urine Negative (Negative); Protein Urine Negative (Negative); RBC Urine 0-2 /hpf (0-2); Squamous Epithelial Cell Urine Rare /hpf (Few); Urobilinogen Urine Negative mg/dL (<2.0); WBC Urine 0-3 /hpf
[2021-05-20 02:12] LABS: SARS-CoV-2 RNA PCR Negative
--- NOTE | 2021-05-20 05:10 | ADMGEN ---
This patient, Fernando Nava, was admitted to Medical Room 245-. Patient/family oriented to hospital policies and general routines including ID bracelet, bed and alarms, visiting hours, pain management, procedures, bathroom and other care routines, personal items, smoking policy, room service/diet, and visiting hours. Information on how to activate the Rapid Response Team has been discussed. Patient/Family are encouraged to report perceived risks to care and to ask questions if they do not understand what they are told or what they should do.
[2021-05-20] MEDS: LACTATED RINGERS 1,000 ML 90 ML IV CONT ×2 (06:24→19:08)
--- NOTE | 2021-05-20 09:48 | PM.IMHP ---
H&P: HPI History of Present Illness Date/Time: 05/20/21 09:48 Chief complaint generalized weakness and deconditioning. History of present illness: This is 83-year-old gentleman with a past medical history including but not limited to degenerative joint disease, chronic low back pain, prediabetes and fall presented emergency department after he could not get up from his bed. Patient is an 81-year-old male complaining of generalized weakness that started yesterday but worse tonight, I was not able to get out of my bed accompanied by right lower extremity pain which he states is due to his arthritis. Patient states that his right lower extremity pain is nothing new. Any speech or visual disturbance, focal weakness or numbness, chest pain, shortness of breath, abdominal pain, nausea, vomiting, diarrhea or urinary symptoms. Patient is admitted under observation status. Chief Complaint: Generalized weakness. Review of Systems Review of Systems: All systems reviewed & are unremarkable except as noted in HPI and below Constitutional: Constitutional: Reports as per HPI, Reports no additional constitutional complaints, Denies body ache(s), Denies chills, Denies excessive sweating, Denies fatigue, Denies fever(s), Denies headache(s), Denies lethargy, Denies malaise, Denies weakness and Denies weight loss Eyes: Eyes: Reports as per HPI, Denies blurry vision, Denies change in vision and Denies loss of vision ENT: Reports as per HPI, Denies dizziness, Denies ear discharge, Denies headache(s), Denies lip swelling, Denies epistaxis, Denies nasal congestion, Denies neck pain, Denies throat swelling and Denies tongue swelling Cardiovascular: Cardiovascular: Reports as per HPI, Reports no additional cardiovascular complaints, Denies chest pain, Denies chest pain at rest, Denies chest pain with activity, Denies diaphoresis, Denies rapid heart rate, Denies edema, Denies irregular heart rhythm, Denies lightheadedness, Denies palpitations, Denies dyspnea and Denies dyspnea on exertion Respiratory: Respiratory: Reports as per HPI, Reports no additional respiratory complaints, Denies chest congestion, Denies cough, Denies hemoptysis, Denies dyspnea and Denies dyspnea on exertion Gastrointestinal: Gastrointestinal: Reports as per HPI, Reports no additional gastrointestinal complaints, Denies abdominal pain, Denies melena, Denies hematochezia, Denies diarrhea, Denies nausea, Denies vomiting and Denies hematemesis Genitourinary: Genitourinary: Reports no additional male genitourinary complaints and Reports as per HPI Musculoskeletal: Musculoskeletal: Reports no additional musculoskeletal complaints, Reports as per HPI, Denies abnormal gait, Denies deformity, Denies joint swelling, Denies limited range of motion, Denies neck pain and Denies numbness Integumentary/Breasts: Skin/Breast: Reports system reviewed and no additional complaints, except as docu and Reports as per HPI Neurologic: Reports system reviewed and no additional complaints, except as documented, Reports as per HPI, Denies Abnormal speech present, Denies abnormal gait, Denies confusion, Denies dizziness, Denies headache(s), Denies focal weakness, Denies loss of vision, Denies numbness, Denies Other visual disturbances, Denies Sensory deficit (Neuro) and Denies weakness Psychiatric: Psychiatric: Reports no additional psychiatric complaints, Reports as per HPI, Denies confusion, Denies depression, Denies auditory hallucinations, Denies homicidal ideation and Denies suicidal ideation Endocrine: Endocrine: Denies cold intolerance, Denies excessive sweating, Denies fatigue, Denies heat intolerance and Denies palpitations Hematologic/Lymphatic: Hematologic/Lymphatic: Denies easy bleeding and Denies easy bruising Allergic/Immunologic: Allergic/Immunologic: Denies lip swelling, Denies throat swelling and Denies tongue swelling PMFSH Past Medical History Medical History A
[2021-05-20] MEDS: TOLNAFTATE 1% POWDER 45 GM BTL 1 APPLIC TOPICAL ×2 (10:09→20:07)
[2021-05-20 10:36] LABS: Basophils Percent Auto 0.5 % (0.2-1.2); Eosinophils Absolute Auto 0.1 K/mm3 (0-0.3); Eosinophils Percent Auto 2.2 % (0-4.4); Hematocrit 31.8 % (42.0-52.0); Hemoglobin 10.5 g/dL (14.0-18.0); Immature Granulocyte Absolute 0.01 K/mm3 (0.00-0.031); Immature Granulocyte Percent A 0.2 % (0-0.5); Lymphocytes Absolute Auto 1.09 K/mm3 (0.9-3.2); Lymphocytes Percent Auto 19.7 % (18.3-44.2); Mean Corpuscular Hemoglobin 31.9 pg (26-34); Mean Corpuscular Volume 96.7 fl (80-100); Mean Platelet Volume 10.2 fl (7.4-10.4); Monocytes Absolute Auto 0.6 K/mm3 (0.1-0.6); Neutrophils Absolute Auto 3.7 K/mm3 (1.3-6.7); Neutrophils Percent Auto 66.4 % (45.5-73.1); Platelet Count Result 159 k/mm3 (150-375); Red Blood Count 3.29 M/mm3 (4.6-6.20); Red Cell Distribution Width 14.4 % (11.5-14.5); White Blood Count 5.5 K/mm3 (4.5-10.0)
[2021-05-20] MEDS: PRAVASTATIN SODIUM 20 MG TABLET PO (11:08)
[2021-05-20] MEDS: MULTIVITAMINS THERAPEUTIC TAB (*BKC) 1 TABLET PO (11:08)
[2021-05-20] MEDS: amLODIPine BESYLATE 2.5 MG TABLET PO (11:08)
[2021-05-20] MEDS: FINASTERIDE 5 MG TABLET PO (11:08)
[2021-05-20] MEDS: lisinopriL 20 MG TABLET 40 MG PO (11:08)
[2021-05-20] MEDS: CYANOCOBALAMIN 1,000 MCG TABLET 1000 MCG PO (11:08)
[2021-05-20] MEDS: carvediloL 12.5 MG TABLET PO ×2 (11:08→20:07)
[2021-05-20] MEDS: ASPIRIN 81 MG ENTERIC TABLET PO (11:08)
[2021-05-20 11:24] LABS: Thyroid Stimulating Hormone 0.354 uIU/mL (0.465-4.680)
[2021-05-20 11:29] LABS: Creatine Kinase 153 U/L (55-170)
[2021-05-20 11:37] LABS: Vitamin D 25 Hydroxy 42.2 ng/mL
[2021-05-20 11:47] LABS: Vitamin B12 > 1000.0 pg/mL (239-931)
[2021-05-21 03:57] VITALS: PULSE 72; RESP 17; TEMP 36.4; O2SAT 98
[2021-05-21 04:28] VITALS: BP 168/77
[2021-05-21] MEDS: LACTATED RINGERS 1,000 ML 90 ML IV CONT (05:35)
[2021-05-21] MEDS: lisinopriL 20 MG TABLET 40 MG PO (08:32)
[2021-05-21] MEDS: ASPIRIN 81 MG ENTERIC TABLET PO (08:32)
[2021-05-21] MEDS: carvediloL 12.5 MG TABLET PO (08:32)
[2021-05-21] MEDS: MULTIVITAMINS THERAPEUTIC TAB (*BKC) 1 TABLET PO (08:32)
[2021-05-21] MEDS: CYANOCOBALAMIN 1,000 MCG TABLET 1000 MCG PO (08:32)
[2021-05-21] MEDS: amLODIPine BESYLATE 2.5 MG TABLET PO (08:33)
[2021-05-21] MEDS: TOLNAFTATE 1% POWDER 45 GM BTL 1 APPLIC TOPICAL (08:33)
[2021-05-21] MEDS: FINASTERIDE 5 MG TABLET PO (08:33)
[2021-05-21] MEDS: PRAVASTATIN SODIUM 20 MG TABLET PO (08:33)
--- NOTE | 2021-05-21 13:31 | PM.DS ---
DS: Admitting Diagnosis Discharge Date 05/21/2021 Admitting Diagnosis (1) Weakness generalized: Code(s): R53.1 - Weakness Status: Acute Assessment and Plan: Patient has experienced recurrent falls over the past 6 months. He denies 4 prior to this admission. He has previously been and wall into outpatient physical therapy with some improvement. Physical therapy and occupational therapy evaluation. Patient will be monitored on the medical unit. He was started on telemonitoring. No telemetry events overnight. Check B12, vitamin-D, TSH and cortisol. (2) Vitamin B12 deficiency: Code(s): E53.8 - Deficiency of other specified B group vitamins Status: Acute Assessment and Plan: Check vitamin B12 level and supplement as needed. (3) Dizziness: Code(s): R42 - Dizziness and giddiness Status: Acute Assessment and Plan: Patient is symptomatic at the time of my evaluation. (4) Fall: Qualifiers: Encounter type: subsequent encounter Qualified Code(s): W19.XXXD - Unspecified fall, subsequent encounter Code(s): W19.XXXA - Unspecified fall, initial encounter Status: Acute (5) Vitamin D deficiency: Code(s): E55.9 - Vitamin D deficiency, unspecified Status: Acute Assessment and Plan: Check vitamin-D level. (6) Elevated glucose: Code(s): R73.09 - Other abnormal glucose Status: Acute Assessment and Plan: HGB A1c is 5.3. Fasting blood sugar was 115. No indication for serial monitoring. DS: Discharge Diagnosis Discharge Diagnosis (1) Weakness generalized: Code(s): R53.1 - Weakness Status: Acute Assessment and Plan: Patient has experienced recurrent falls over the past 6 months. He denies 4 prior to this admission. He has previously been and wall into outpatient physical therapy with some improvement. Physical therapy and occupational therapy evaluation. Patient will be monitored on the medical unit. He was started on telemonitoring. No telemetry events overnight. Check B12, vitamin-D, TSH and cortisol. (2) Vitamin B12 deficiency: Code(s): E53.8 - Deficiency of other specified B group vitamins Status: Acute Assessment and Plan: Check vitamin B12 level and supplement as needed. (3) Dizziness: Code(s): R42 - Dizziness and giddiness Status: Acute Assessment and Plan: Patient is symptomatic at the time of my evaluation. (4) Fall: Qualifiers: Encounter type: subsequent encounter Qualified Code(s): W19.XXXD - Unspecified fall, subsequent encounter Code(s): W19.XXXA - Unspecified fall, initial encounter Status: Acute (5) Vitamin D deficiency: Code(s): E55.9 - Vitamin D deficiency, unspecified Status: Acute Assessment and Plan: Check vitamin-D level. (6) Elevated glucose: Code(s): R73.09 - Other abnormal glucose Status: Acute Assessment and Plan: HGB A1c is 5.3. Fasting blood sugar was 115. No indication for serial monitoring. DS: Summary Hospital Course Reason for hospitalization: Chief Complaint: Generalized weakness. Hospital Course: This is 83-year-old gentleman with a past medical history including but not limited to degenerative joint disease, chronic low back pain, prediabetes and fall presented emergency department after he could not get up from his bed. Patient is an 81-year-old male complaining of generalized weakness that started yesterday but worse tonight, I was not able to get out of my bed accompanied by right lower extremity pain which he states is due to his arthritis. Patient states that his right lower extremity pain is nothing new. Any speech or visual disturbance, focal weakness or numbness, chest pain, shortness of breath, abdominal pain, nausea, vomiting, diarrhea or urinary symptoms. Patient is admitted under observation status. For hospital course, see diagnosis above. Statu
[2021-05-21 14:15] VITALS: BP 156/71; PULSE 89; RESP 14; TEMP 36.2; O2SAT 100
[2021-05-21 14:49] LABS: Free T4 Free Thyroxine 1.04 ng/mL (0.78-2.19)
== END 2021-05-21 17:25 ==
LOC: ANHED 05-20 00:08 → ANH2MED 05-20 03:33
PROVIDERS: Internal Medicine; Admitting Provider Internal Medicine; Emergency Provider Emergency Medicine; PCP Internal Medicine; Visit Provider Internal Medicine
DX: R53.1 Weakness (principal); R26.81 Unsteadiness on feet; R42 Dizziness and giddiness; M79.604 Pain in right leg; R73.09 Other abnormal glucose; M54.9 Dorsalgia, unspecified; G89.29 Other chronic pain; W19.XXXA Unspecified fall, initial encounter; I10 Essential (primary) hypertension; H40.9 Unspecified glaucoma; E78.5 Hyperlipidemia, unspecified; M85.80 Other specified disorders of bone density and structure, unspecified site; E55.9 Vitamin D deficiency, unspecified; E53.8 Deficiency of other specified B group vitamins; Z87.891 Personal history of nicotine dependence; Z79.82 Long term (current) use of aspirin; Z20.822 Contact with and (suspected) exposure to COVID-19
CPT/HCPCS: 36415; 70450; 80053; 81001; 82306; 82550; 82607; 84439; 84443; 84484; 85025; 93005; 96360; 96361; 97110; 97161; 97165; 97530; 97535; 99285; A9270; C9803; G0378; J7120; U0003; U0005

== ENCOUNTER 2021-10-30 14:10 | Outpatient (CLI) | payer MEDICARE, SELFPAY ==
--- NOTE | ~2021-10-30 | XR_ITS ---
XR ankle RT 2V DATE: 10/30/2021 14:35 INDICATION: Fall. Ankle injury, pain TECHNIQUE: 2 views COMPARISON: None FINDINGS: There is soft tissue swelling of the right ankle. No fracture or dislocation of the ankle or disruption of the ankle mortise is detected. No periosteal reaction or bone destruction. Mild posterior calcaneal enthesopathy. Prominent posterior tibial artery calcification. IMPRESSION: Soft tissue swelling; no fracture or dislocation Prominent posterior tibial artery calcification Reviewed, dictated and finalized at location A.
--- NOTE | ~2021-10-30 | XR_ITS ---
XR hip RT 2V w AP pelvis DATE: 10/30/2021 14:35 INDICATION: Fall TECHNIQUE: AP pelvis. AP and lateral views of right hip COMPARISON: 06/03/2020 pelvis and bilateral hips FINDINGS: Status post right hip arthroplasty. Stable chronic bony spur-like process from the inferolateral aspect of the right ilium, present on . No pelvic fracture or bone destruction is detected. Normal alignment at the pubic symphysis and sacro iliac joints. There is osteopenia. There is prominent left hip osteoarthritis including joint space narrowing and spurring. IMPRESSION: Status post right hip arthroplasty Moderately severe osteoarthritis of left hip Osteopenia Reviewed, dictated and finalized at location A.
== END 2021-10-30 14:11 | disposition home or self-care (01) ==
PROVIDERS: PCP Internal Medicine; Visit Provider Internal Medicine
DX: M25.471 Effusion, right ankle (principal); M85.851 Other specified disorders of bone density and structure, right thigh; M16.11 Unilateral primary osteoarthritis, right hip; M79.89 Other specified soft tissue disorders
CPT/HCPCS: 73502; 73600

== ENCOUNTER 2021-11-09 08:45 | Inpatient (IN) | payer MEDICARE, SELFPAY ==
--- NOTE | ~2021-11-09 | XR_ITS ---
EXAMINATION: XR chest 1V portable DATE: 11/15/2021 05:54 INDICATION: Pneumonia TECHNIQUE: frontal view of the chest was obtained. COMPARISON: Chest radiograph dated 11/11/[address] dated 11/04/2021 FINDINGS: Improved aeration of the lungs. There is some mild perihilar bronchial wall thickening. There is been some decrease in mild patchy airspace opacities in the infrahilar regions of the bilateral lower regina g zones. No pleural effusion or pneumothorax. The cardiomediastinal silhouette is normal. There is mo re contrast material at the hepatic flexure of the colon related to earlier modified swallow study. IMPRESSION: 1. Decrease in mild opacities in bilateral lower lung zones consistent with improving pneumonia. Reviewed, dictated and finalized at location A. IMPRESSION: 1. Decrease in mild opacities in bilateral lower lung zones consistent with imp roving pneumonia.
--- NOTE | ~2021-11-09 | XR_ITS ---
EXAMINATION: XR chest 1V portable INDICATION: Transient alteration of awareness TECHNIQUE: Portable AP chest at 1036 hours COMPARISON: 11/09/2021 FINDINGS: There are minimal airspace opacities of the lung bases. No pleural effusion or pneumothorax . The cardiomediastinal silhouette is normal. IMPRESSION: 1. Minimal bibasilar airspace opacities, consistent with atelectasis versus pneumonia. Reviewed, dictated and finalized at location B. IMPRESSION: 1. Minimal bibasilar airspace opacities, consistent with atelectasis versus pne umonia.
--- NOTE | ~2021-11-09 | XR_ITS ---
EXAMINATION: XR chest 1V 11/09/2021 09:33 INDICATION: Altered mental status. Weakness. PROCEDURE: AP view of the chest COMPARISON: 12/15/2020 FINDINGS: The lungs are clear. The cardiomediastinal silhouette is within normal limits. There are no pleural effusions. There is no pneumothorax suspected. IMPRESSION: 1: NO ACUTE CARDIOPULMONARY DISEASE. Reviewed, dictated and finalized at location A.
--- NOTE | ~2021-11-09 | XR_ITS ---
MODIFIED ESOPHAGRAM HISTORY: Aspiration TECHNIQUE: Modified barium esophagram was performed on 11/14/2021. I administered fluoroscopy and perf ormed the exam with speech pathologist. Patient was seated for lateral fluoroscopic imaging for [place] stion of thin liquids, pudding, solids and quantified amounts, followed by thin liquids in uncontroll ed amounts. This was recorded on tape. 2 fluoroscopic spot images were recorded. The DAP for this pro cedure was 2.948 Gycm2. The amount of fluoroscopy time used during this procedure was 0.7 minutes. FINDINGS: Oral stage: Adequate function. Pharyngeal stage: There is reduced pharyngeal squeeze with vallecular and piriform sinus residue. No laryngeal penetration or aspiration.. Cervical/esophageal stage: Adequate function. IMPRESSION: Patient tolerated regular consistency oral feedings in the upright position. Please kenny elate with speech pathologist findings and specific feeding recommendations. Reviewed, dictated and finalized at location A. IMPRESSION: Patient tolerated regular consistency oral feedings in the upright position. Please correlate with speech pathologist findings and specific feedi ng recommendations.
--- NOTE | ~2021-11-09 | CT_ITS ---
EXAMINATION: CT brain wo con INDICATION: Altered mental status COMPARISON: 05/19/2021 TECHNIQUE: Standard unenhanced head CT. The dose-length product (DLP) was 681.00 mGy-cm. The mA was a djusted according to patient size. Iterative reconstruction technique was employed. FINDINGS: There is no acute intraparenchymal hemorrhage. No evidence of mass lesion. No evidence of a cute infarction. There is mild periventricular and subcortical hypodensity probably related to small vessel ischemic disease. There is mild prominence of the sulci and ventricles related to cerebral atr ophy. Intracranial calcified cerebral atherosclerosis is noted. There are no extra-axial collections. There is no mass effect or midline shift. Changes in the globes are likely from ocular lens surgery. The visualized sinuses and mastoid air cells are well aerated. IMPRESSION: 1. No acute intracranial abnormality. 2. Age related findings. Reviewed, dictated and finalized at location B.
--- NOTE | ~2021-11-09 | CT_ITS ---
EXAMINATION: CTA chest PE protocol DATE: 11/12/2021 17:21 INDICATION: Hypoxia, cough. Positive d-dimer. Covid-positive. TECHNIQUE: Computed tomography angiography (CTA) of the chest was performed with 100 mL Omnipaque-350 intravenous contrast timed to evaluate the pulmonary arteries. Coronal maximum intensity projection 3D-reconstructions were created by the technologist. Automated exposure control and iterative reconst ruction technique were employed. Exam dose: 383.03 mGy-cm total exam DLP. COMPARISON: 11/11/2021 portable AP chest FINDINGS: There is diagnostic contrast enhancement of the pulmonary arteries and no evidence of pulmo nary embolism. No thoracic aortic aneurysm or dissection is detected. Heart size is within normal limits. Coronary artery calcification. No hilar or mediastinal mass lesion or lymphadenopathy. No pericardial effusion. Small bilateral pleural effusions. There are mild patchy bilateral upper lobe infiltrates and more pr ominent bilateral lower lobe infiltrate and atelectasis, right greater than left. Degenerative spurri ng of the thoracic spine. No suspicious osteolytic or osteoblastic lesions are noted. IMPRESSION: Bilateral pulmonary infiltrates, more prominent in the lower lobes, right greater than l eft and bilateral small pleural effusions No evidence of pulmonary embolism Reviewed, dictated and finalized at Location A. Reviewed, dictated and finalized at location B. IMPRESSION: Bilateral pulmonary infiltrates, more prominent in the lower lobes , right greater than left and bilateral small pleural effusions No evidence of pulmonary embolism
--- NOTE | ~2021-11-09 | CT_ITS ---
EXAMINATION: CT brain wo con DATE: 11/13/2021 14:40 INDICATION: Confusion. Covid positive. TECHNIQUE: Computed tomography (CT) of the head was performed without intravenous contrast. The dose- length product was 605.33 mGy-cm. Automated exposure control and iterative reconstruction technique w ere employed. COMPARISON: CT dated 11/09/2021 FINDINGS: Mild generalized atrophy. There are scattered mild periventricular and subcortical white ma tter changes, most likely related to small vessel ischemic disease (microangiopathy). No ventriculome chantel or midline shift. Basilar cisterns are patent. There is intracranial atherosclerosis. Paranasal sinuses and mastoids are pneumatized. No depressed skull fractures. No acute intracranial hemorrhage, infarction or mass. IMPRESSION: 1. No acute intracranial abnormality. 2: Chronic age-related findings. Reviewed, dictated and finalized at location A.
[2021-11-09 08:47] VITALS: BP 139/69; PULSE 66; RESP 18; TEMP 37.2; O2SAT 99
--- NOTE | 2021-11-09 09:10 | ECG_ITS ---
Measurements Intervals [place] Rate: 64 P: 42 [place]: 208 QRS: 9 QRSD: 96 T: 20 QT: 361 QTc: 375 Interpretive Statements SINUS RHYTHM LEFT VENTRICULAR HYPERTROPHY BASELINE ARTIFACT- I, II, III, AVR, AVL, AVF, V1-V6 BORDERLINE ECG Electronically Signed On 11-09-2021 9:56:47 CDT by Dennys Burdick D.O.
--- NOTE | 2021-11-09 09:21 | PC.NURSE ---
pt wallet given to home health aide to return to .
[2021-11-09 09:47] LABS: Basophils Percent Auto 0.4 % (0.2-1.2); Eosinophils Absolute Auto 0.1 K/mm3 (0-0.3); Eosinophils Percent Auto 1.9 % (0-4.4); Hematocrit 30.3 % (42.0-52.0); Hemoglobin 9.8 g/dL (14.0-18.0); Immature Granulocyte Absolute 0.02 K/mm3 (0.00-0.031); Immature Granulocyte Percent A 0.4 % (0-0.5); Lymphocytes Absolute Auto 0.49 K/mm3 (0.9-3.2); Lymphocytes Percent Auto 9.3 % (18.3-44.2); Mean Corpuscular HGB Conc 32.3 g/dl (32-36); Mean Corpuscular Hemoglobin 31.5 pg (26-34); Mean Corpuscular Volume 97.4 fl (80-100); Mean Platelet Volume 9.9 fl (7.4-10.4); Monocytes Absolute Auto 0.9 K/mm3 (0.1-0.6); Monocytes Percent Auto 17.3 % (2.6-8.5); Neutrophils Absolute Auto 3.7 K/mm3 (1.3-6.7); Neutrophils Percent Auto 70.7 % (45.5-73.1); Platelet Count Result 182 k/mm3 (150-375); Red Blood Count 3.11 M/mm3 (4.6-6.20); Red Cell Distribution Width 15.1 % (11.5-14.5); White Blood Count 5.3 K/mm3 (4.5-10.0)
[2021-11-09 09:58] LABS: INR 1.2; Prothrombin Time 14.6 Seconds (11.1-14.7)
[2021-11-09 09:59] LABS: Partial Thromboplastin Time 33.1 SECONDS (22.3-36.8)
[2021-11-09 10:00] LABS: Lactic Acid Reflex 0.8 mmol/L (0.7-2.0)
[2021-11-09 10:01] LABS: Alanine Aminotransferase 20 U/L (6-50); Albumin Level 3.7 g/dL (3.5-5.1); Alkaline Phosphatase 66 U/L (38-126); Anion Gap 7 mmol/L (8-16); Aspartate Amino Transferase 26 U/L (17-59); Bilirubin,Total 0.3 mg/dL (0.2-1.3); Blood Urea Nitrogen 26 mg/dL (9-20); Calcium 9.1 mg/dL (8.4-10.2); Carbon Dioxide 27 mmol/L (22-30); Chloride 101 mmol/L (98-107); Estimated Glomerular Filt Rate > 60; Glucose 94 mg/dL (65-110); Potassium 4.2 mmol/L (3.4-5.0); Sodium 135 mmol/L (137-145)
[2021-11-09 10:02] LABS: Appearance Urine Slightly Cloudy (Clear); Bilirubin Urine Negative (Negative); Blood Urine Negative (Negative); Color Urine Yellow (Yellow); Glucose Urine UA Negative (Negative); Ketones Urine Negative (Negative); Leukocyte Esterase Ur Negative LEU/UL (Negative); Nitrate Urine Negative (Negative); Protein Urine Negative (Negative); Urobilinogen Urine 0.2 mg/dL (<2.0); pH Urine 7.5 (5.0-9.0)
[2021-11-09] MEDS: SODIUM CHLORIDE 0.9% IV 1,000 ML 999 ML IV CONT (10:05)
[2021-11-09 10:12] LABS: Amorphous Sediment Urine Few; Budding Yeast Urine Present /hpf; Mucus Urine Rare /lpf; WBC Urine 0-3 /hpf
[2021-11-09 10:22] LABS: Add Urine Microscopic? YES
--- NOTE | 2021-11-09 10:33 | ED.GENADULT ---
HPI - General Adult General Chief complaint: Weakness Stated complaint: weakness Source: RN notes reviewed History of Present Illness HPI narrative: Patient presents emergency department from home via EMS for weakness. Patient's caregiver is here with him currently states the patient was able to get up and ambulate today states that he has been having increased weakness over the past several days. Patient currently is awake and alert x2 at his baseline he denies any current pain he denies any chest pain shortness of breath abdominal pain nausea or vomiting patient states he has been feeling more tired over the past several days. Caregiver does state that they have been treating her rash in the patient's bilateral inguinal crease that they believe is a yeast infection Related Data Home Medications Medication Instructions Recorded Confirmed aspirin 81 mg tablet,delayed 81 mg PO DAILY 03/14/19 10/15/21 release (Adult Low Dose Aspirin) finasteride 5 mg tablet 5 mg PO DAILY 03/14/19 10/15/21 multivitamin 1 tablet PO DAILY 03/14/19 10/15/21 peg 400-propylene glycol 0.4 %-0.3 1 drop ophthalmic (eye) BID 03/14/19 10/15/21 % eye drops (Systane Ultra) [id number] 750 tablet PO BID 12/10/19 10/15/21 750 mg-100 mg-125 mg-1.65 mg tablet (Glucosamine Chondroit Complx Advan) polyethylene glycol 3350 17 17 gm PO DAILY 12/10/19 10/15/21 gram/dose oral powder (Miralax) acetaminophen 500 mg tablet 500 mg PO Q6H PRN Pain 08/14/20 10/15/21 (Tylenol Extra Strength) food supplemt, lactose-reduced 1 ea PO TID 08/14/20 10/15/21 0.05 gram-1.5 kcal/mL oral liquid (Ensure Plus) polyvinyl alcohol-povidone (PF) 1 drp EACH EYE QHS PRN Dry Eyes 08/14/20 10/15/21 1.4 %-0.6 % eye drops in a dropperette (Refresh Classic (PF)) Allergies Allergy/AdvReac Type Severity Reaction Status Date / Time hydrochlorothiazide Allergy Unknown Hyponatremi Verified 10/14/21 13:46 a Review of Systems Review of Systems: Gen.: Denies fevers or chills Eyes: Denies eye pain or visual change ENT: Denies congestion Respiratory: Denies shortness of breath or cough CV: Denies chest pain or palpitations GI: Denies abdominal pain nausea, emesis or diarrhea Musculoskeletal: Denies back pain or muscle pain Neuro: See HPI Skin: Denies rash Except as documented, all other systems reviewed and negative [facility] Past Medical History Medical History Abnormal finding of blood chemistry Arthralgia Benign essential hypertension BMI 21.0-21.9, adult BMI 23.0-23.9, adult BMI 24.0-24.9, adult BMI 25.0-25.9,adult BMI 26.0-26.9,adult BPH (benign prostatic hyperplasia) Chronic low back pain Colon cancer screening Colon cancer screening Constipation DJD (degenerative joint disease), multiple sites Elevated glucose Encounter for Medicare annual wellness exam Fall Glaucoma Hip pain, right Hospital discharge follow-up Hyperlipidemia Impacted cerumen of both ears 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 Osteopenia Pain and swelling of right ankle Pedal edema Pre-diabetes Spinal stenosis UTI (urinary tract infection) Vision changes Vitamin B12 deficiency Vitamin D deficiency Surgical History Surgical History History of cataract extraction History of removal of pigmented skin lesion History of total right hip arthroplasty Family History Family History Mother Family history of cardiovascular disease Diabetes mellitus Family history of arthritis Family history of coronary artery disease Hypertension Acute myocardial infarction Father Family history of arthritis Family history of coronary artery disease Sibling Glaucoma Hypertension Social History Social History Social History: the patient lives with his
[2021-11-09 11:29] LABS: SARS-CoV-2 RNA PCR Positive
--- NOTE | 2021-11-09 15:05 | PC.NURSE ---
This patient, Fernando Nava, was admitted to [facility] Surg Room 325-01. Patient/family oriented to hospital policies and general routines including ID bracelet, bed and alarms, visiting hours, pain management, procedures, bathroom and other care routines, personal items, smoking policy, room service/diet, and visiting hours.Report received from Valeria CHRISTY. Information on how to activate the Rapid Response Team has been discussed. Patient/Family are encouraged to report perceived risks to care and to ask questions if they do not understand what they are told or what they should do.
[2021-11-09 15:08] LABS: Thyroid Stimulating Hormone Reflex 0.081 uIU/mL (0.465-4.68)
[2021-11-09 15:10] VITALS: O2SAT 96; BMI 30.3
[2021-11-09 15:38] VITALS: BP 156/67; PULSE 64; RESP 18; TEMP 36.3; O2SAT 96
--- NOTE | 2021-11-09 15:45 | PM.IMHP ---
H&P: HPI History of Present Illness Date/Time: 11/09/21 15:45 Chief Complaint: weakness Narrative: date of service: 11/09/2021 Fernando Nava is an 81-year-old male with a history of BPH, hypertension, hyperlipidemia, and glaucoma who presented to the emergency department on 11/09/2021 with complaints of increased weakness. The patient is a fair historian. Information obtained from the ER note indicates that the patient presented with his caregiver who was concerned because he was not able to get up and ambulate. He had reportedly been more fatigued over the past several days. The patient does not relay this to me and his stated complaint is that he has had a cough for about 2 days. He does endorse feeling weak. He also states that he has had some irritation of his left groin that has been burning. His caregiver has been applying powder to this region which has improved. he denies any recent sick contacts. He did complete his COVID vaccination and believes he received two boosters. he does endorse feeling congested and has phlegm in his throat. He denies shortness of breath. He feels his voice is hoarse. On presentation to the ED, his vital signs were stable, he was afebrile, hemoglobin was 9.8, additional laboratory workup unremarkable, UA without concerns for infection, head CT with no acute findings, and CXR with no acute cardiopulmonary disease. PCR was positive for COVID-19. on evaluation in the ED, the patient was too weak to stand and therefore he is being admitted to the hospitalist service. supervising physician for this history and physical is Dr. Olivia Miranda Review of Systems Review of Systems: all systems reviewed with pertinent positives and negative as per HPI. He denies urinary symptoms including dysuria or hematuria. He does indicate that he occasionally has a slow stream. He had a fall about 2 weeks ago and hurt his ankle but he states this is resolved now. He typically gets around using a walker and sometimes will use a wheelchair. He states he has not really been out of bed all the past 2 days due to his weakness. Prior to this, he felt he was ambulating without difficulty and denied unsteadiness. He also endorses fatigue. Denies fevers or chills. No nausea or vomiting. States his appetite has been fair. He reports regular bowel movements and denies any blood in his stool. Denies chest pain or palpitations. He denies dizziness or lightheadedness. He keeps his eyes closed throughout most of the encounter. He states his eyes burn when he opens them due to salt water. he was not able to clarify on what this meant, but states this has been persistent for quite some time. He denies dysphagia or odynophagia. He states his main difficulty is getting food to his mouth as he does have a tremor when he is attempting to feed himself. He also has limited use of his hands due to severe arthritis. [facility] Past Medical History Medical History (Updated 11/09/21 @ 16:54 by Mayi Anton PA-C) Benign essential hypertension BPH (benign prostatic hyperplasia) Chronic low back pain Constipation DJD (degenerative joint disease), multiple sites Glaucoma Hyperlipidemia Impacted cerumen of both ears Osteopenia Pre-diabetes Spinal stenosis Vitamin B12 deficiency Vitamin D deficiency Surgical History Surgical History History of cataract extraction History of removal of pigmented skin lesion History of total right hip arthroplasty Family History Family History Mother Family history of cardiovascular disease Diabetes mellitus Family history of arthritis Family history of coronary artery disease Hypertension Acute myocardial infarction Father Family history of arthritis Family history of coronary artery disease Sibling Glaucoma Hypertension Social History Social History (
[2021-11-09 16:50] LABS: Free T4 Free Thyroxine Reflex 1.14 ng/dL (0.78-2.19)
[2021-11-09 17:46] LABS: Total Triiodothyronine (T3) 0.96 NG/ML (0.97-1.69)
[2021-11-09 20:00] VITALS: BP 129/52; PULSE 71; RESP 18; TEMP 37.2; O2SAT 100
[2021-11-09] MEDS: ARTIFICIAL TEARS OPHTH SOLN 15 ML BOTTLE 1 DROP EACH EYE (20:52)
[2021-11-09] MEDS: guaiFENesin 12 HR 600 MG TABCR PO (20:53)
[2021-11-09] MEDS: lisinopriL 20 MG TABLET 40 MG PO (20:53)
[2021-11-09] MEDS: PRAVASTATIN SODIUM 20 MG TABLET PO (20:55)
[2021-11-09 23:34] VITALS: BP 126/57; PULSE 71; RESP 17; TEMP 37.2; O2SAT 99
[2021-11-10 04:00] VITALS: BP 133/54; PULSE 72; RESP 17; TEMP 36.9; O2SAT 96
[2021-11-10 06:26] LABS: Basophils Percent Auto 0.5 % (0.2-1.2); Eosinophils Percent Auto 0.2 % (0-4.4); Hematocrit 29.4 % (42.0-52.0); Hemoglobin 9.6 g/dL (14.0-18.0); Immature Granulocyte Absolute 0.03 K/mm3 (0.00-0.031); Immature Granulocyte Percent A 0.5 % (0-0.5); Lymphocytes Absolute Auto 0.84 K/mm3 (0.9-3.2); Lymphocytes Percent Auto 15.3 % (18.3-44.2); Mean Corpuscular HGB Conc 32.7 g/dl (32-36); Mean Corpuscular Hemoglobin 31.3 pg (26-34); Mean Corpuscular Volume 95.8 fl (80-100); Mean Platelet Volume 10.2 fl (7.4-10.4); Neutrophils Absolute Auto 3.5 K/mm3 (1.3-6.7); Neutrophils Percent Auto 64.5 % (45.5-73.1); Platelet Count Result 161 k/mm3 (150-375); Red Blood Count 3.07 M/mm3 (4.6-6.20); Red Cell Distribution Width 14.9 % (11.5-14.5); White Blood Count 5.5 K/mm3 (4.5-10.0)
[2021-11-10 06:38] LABS: Alanine Aminotransferase 17 U/L (6-50); Albumin Level 3.3 g/dL (3.5-5.1); Alkaline Phosphatase 63 U/L (38-126); Anion Gap 7 mmol/L (8-16); Aspartate Amino Transferase 24 U/L (17-59); Bilirubin,Total 0.2 mg/dL (0.2-1.3); Blood Urea Nitrogen 21 mg/dL (9-20); CRP 4.7 mg/dL (<1.0); Calcium 8.5 mg/dL (8.4-10.2); Carbon Dioxide 26 mmol/L (22-30); Chloride 101 mmol/L (98-107); Estimated CRCL calculation 57 ml/min; Estimated Glomerular Filt Rate > 60; Glucose 89 mg/dL (65-110); Lactate Dehydrogenase 359 U/L (313-618); Potassium 4.1 mmol/L (3.4-5.0); Sodium 134 mmol/L (137-145)
[2021-11-10 08:00] VITALS: BP 131/55; PULSE 68; RESP 20; TEMP 36.7; O2SAT 91; O2SAT 96
[2021-11-10] MEDS: ARTIFICIAL TEARS OPHTH SOLN 15 ML BOTTLE 1 DROP EACH EYE ×2 (08:09→16:47)
[2021-11-10] MEDS: ENOXAPARIN 40 MG/0.4 ML SYRINGE SUB-Q (08:10)
[2021-11-10] MEDS: guaiFENesin 12 HR 600 MG TABCR PO ×2 (08:10→20:20)
[2021-11-10] MEDS: amLODIPine BESYLATE 2.5 MG TABLET PO (08:10)
[2021-11-10] MEDS: lisinopriL 20 MG TABLET 40 MG PO ×2 (08:11→20:20)
[2021-11-10] MEDS: ASPIRIN 81 MG ENTERIC TABLET PO (08:11)
[2021-11-10] MEDS: FOLIC ACID 0.4 MG TABLET PO (08:11)
[2021-11-10] MEDS: FINASTERIDE 5 MG TABLET PO (08:11)
[2021-11-10] MEDS: polyethylene glycoL 3350 17 GM POWD.PACK PO (08:13)
[2021-11-10] MEDS: TOLNAFTATE 1% POWDER 45 GM BTL 1 APPLIC TOPICAL ×2 (08:33→20:22)
[2021-11-10 12:00] VITALS: BP 129/50; PULSE 70; RESP 20; TEMP 36.8; O2SAT 99
--- NOTE | 2021-11-10 14:34 | PM.IMPN ---
Progress Note: A&P Assessment and Plan (1) COVID-19: Code(s): U07.1 - COVID-19 Status: Acute Assessment and Plan: PCR positive on 11/09/2021 CXR shows no acute findings patient with no supplemental oxygen requirement not a candidate for steroids or antiviral therapy as he is not hypoxic supportive care as needed. Bronchodilators, expectorants, incentive spirometry continue isolation precautions patient completed COVID vaccination and 2 boosters (2) Weakness: Code(s): R53.1 - Weakness Status: Acute Assessment and Plan: Suspect has been ongoing issue due to physical deconditioning, worsened secondary to acute viral illness B12, folate within normal limits appreciate PT/ OT eval. He will likely require rehab (3) Anemia: Code(s): D64.9 - Anemia, unspecified Status: Acute Assessment and Plan: appears stable on review of prior labs continue to monitor H&H evaluate iron panel (4) Falls: Code(s): W19.XXXA - Unspecified fall, initial encounter Status: Acute Assessment and Plan: patient with history of recent falls fall precautions appreciate PT/OT eval (5) Abnormal TSH: Code(s): R79.89 - Other specified abnormal findings of blood chemistry Status: Acute Assessment and Plan: TSH low with normal T4 Will need repeat reflex TSH as an outpatient upon resolution of acute illness Subjective Date/time seen: 11/10/21 14:34 Interval history: Date of service: 11/10/2021 Fernando Nava is an 81-year-old male with a history of BPH, hypertension, hyperlipidemia, and glaucoma?who is seen in follow up for COVID-19. He continues to endorse weakness. He still does not open his eyes still today. He states they are sensitive if he opens them. He tells me that drops usually help but he did not allow RN to give him eyedrops today. He endorses phlegm in his throat. He is having a hard time coughing it up. He denies shortness of breath. He denies chest pain. No abdominal pain, nausea, vomiting, fever, or chills. Review of Systems Review of Systems: All systems reviewed & are unremarkable except as noted in HPI and below Exam Narrative: General: Well-nourished, chronically ill-appearing 81-year-old male, sitting up in a chair with his eyes closed, comfortable, NARD Neuro: awake, alert and oriented to self only (states he is at [facility] and the year is 2018), speech clear, no focal neuro deficits noted HEENMT: normocephalic, atraumatic, does not open eyes, sclerae anicteric Respiratory: clear to auscultation bilaterally, nonlabored breathing Cardio: regular rate, regular rhythm with S1-S2 Abdomen: nondistended, normoactive bowel sounds, soft, nontender to palpation Extremities: no edema, erythema, or tenderness to palpation, DP pulses 2+ bilaterally Skin: no rashes or lesions, warm and dry Psych: appropriate mood, flat affect, judgment and insight fair Objective Data Vital Signs Vital Signs: Vital Signs - 24 hr 11/09/21 15:38 11/09/21 15:10 11/09/21 20:00 Temperature 97.4 F L 98.9 F Pulse Rate 64 71 Respiratory Rate 18 18 Blood Pressure 156/67 H 129/52 L Pulse Oximetry 96 96 100 Oxygen Delivery Room Air 11/09/21 20:00 11/09/21 23:34 11/10/21 04:00 Temperature 98.9 F 98.5 F Pulse Rate 71 71 72 Respiratory Rate 18 17 17 Blood Pressure 126/57 L 133/54 L Pulse Oximetry 100 99 96 Oxygen Delivery Room Air 11/10/21 08:28 11/10/21 08:00 11/10/21 08:00 Temperature 98.1 F Pulse Rate 68 Respiratory Rate 20 Blood Pressure 131/55 L Pulse Oximetry 96 91 Oxygen Delivery Room Air Room Air 11/10/21 12:00 Temperature 98.3 F Pulse Rate 70 Respiratory Rate 20 Blood Pressure 129/50 L Pulse Oximetry 99 Oxygen Delivery Intake/Output Intake/Output: Intake & Output 11/07/21 11/08/21 11/09/21 11/10/21 23:59 23:59 23:59 23:59 Intake Tot
[2021-11-10 20:00] VITALS: BP 128/54; PULSE 62; RESP 20; TEMP 36.5; O2SAT 84
[2021-11-10] MEDS: PRAVASTATIN SODIUM 20 MG TABLET PO (20:20)
[2021-11-11] VITALS (12 sets, daily range): BP systolic 113–143; BP diastolic 57–66; PULSE 64–75; RESP 18–28; TEMP 36.4–37.1; O2SAT 88–97
[2021-11-11 06:00] LABS: Hematocrit 31.2 % (42.0-52.0); Hemoglobin 10.1 g/dL (14.0-18.0); Mean Corpuscular HGB Conc 32.4 g/dl (32-36); Mean Corpuscular Hemoglobin 30.9 pg (26-34); Mean Corpuscular Volume 95.4 fl (80-100); Platelet Count Result 154 k/mm3 (150-375); Red Blood Count 3.27 M/mm3 (4.6-6.20); Red Cell Distribution Width 14.8 % (11.5-14.5); White Blood Count 5.8 K/mm3 (4.5-10.0)
[2021-11-11 06:11] LABS: Anion Gap 9 mmol/L (8-16); Blood Urea Nitrogen 23 mg/dL (9-20); Calcium 8.2 mg/dL (8.4-10.2); Carbon Dioxide 21 mmol/L (22-30); Chloride 101 mmol/L (98-107); Estimated CRCL calculation 63 ml/min; Estimated Glomerular Filt Rate > 60; Glucose 112 mg/dL (65-110); Potassium 3.7 mmol/L (3.4-5.0); Sodium 131 mmol/L (137-145)
[2021-11-11 07:26] LABS: Iron 12 ug/dL (49-181)
[2021-11-11 07:35] LABS: Percent Iron Saturation 5 % (20-50)
[2021-11-11] MEDS: ALBUTEROL SULFATE (*SP) AEROSOL 1 PUFF 2 PUFF INHALATION (08:39)
--- NOTE | 2021-11-11 10:00 | PM.IMPN ---
Progress Note: A&P Assessment and Plan (1) COVID-19: Code(s): U07.1 - COVID-19 Status: Acute Assessment and Plan: PCR positive on 11/09/2021 CXR shows no acute findings Oxygen has been applied at 3L for additional support, however, it seems to be possible fluid overload Consider antiviral and steroid therapy supportive care as needed. Bronchodilators, expectorants, incentive spirometry continue isolation precautions patient completed COVID vaccination and 2 boosters (2) Weakness: Code(s): R53.1 - Weakness Status: Acute Assessment and Plan: Suspect has been ongoing issue due to physical deconditioning, worsened secondary to acute viral illness B12, folate within normal limits appreciate PT/ OT eval. He will likely require rehab (3) Anemia: Code(s): D64.9 - Anemia, unspecified Status: Acute Assessment and Plan: appears stable on review of prior labs Current H/H 10.1/31.2 continue to monitor H&H Anemia labs iron 12, TIBC 238, % sat 5, ferritin 137 Iron supplement added BID (4) Falls: Code(s): W19.XXXA - Unspecified fall, initial encounter Status: Acute Assessment and Plan: patient with history of recent falls fall precautions appreciate PT/OT eval (5) Abnormal TSH: Code(s): R79.89 - Other specified abnormal findings of blood chemistry Status: Acute Assessment and Plan: TSH low with normal T4 Will need repeat reflex TSH as an outpatient upon resolution of acute illness Time Spent With Patient Time with patient: Greater than 35 minutes Subjective Date/time seen: 11/11/21 1000 Interval history: 11/11/21 1000 Patient is doing ok. He denies any chest pain, abdominal pain, weakness, fatigue, nausea, vomiting. He did sound very gurgly when I went in. I had to NT suction him, and got out a lot of greenish, florez fluid that was sent to the lab for culture. He did state that he feels a lot better after the suction. He also stated that he was not a fan of the procedure. Date of service: 11/10/2021 Fernando Nava is an 81-year-old male with a history of BPH, hypertension, hyperlipidemia, and glaucoma?who is seen in follow up for COVID-19. He continues to endorse weakness. He still does not open his eyes still today. He states they are sensitive if he opens them. He tells me that drops usually help but he did not allow RN to give him eyedrops today. He endorses phlegm in his throat. He is having a hard time coughing it up. He denies shortness of breath. He denies chest pain. No abdominal pain, nausea, vomiting, fever, or chills. Review of Systems Review of Systems: All systems reviewed & are unremarkable except as noted in HPI and below Objective Data Vital Signs Vital Signs: Vital Signs - 24 hr 11/10/21 20:00 11/11/21 00:00 11/11/21 04:00 Temperature 97.7 F 98.8 F 98.4 F Pulse Rate 62 64 75 Respiratory Rate 20 18 18 Blood Pressure 128/54 L 143/64 H 139/64 Pulse Oximetry 84 L 97 90 Oxygen Delivery Oxygen Flow Rate 11/11/21 08:12 11/11/21 08:44 11/11/21 08:54 Temperature Pulse Rate 72 72 Respiratory Rate 20 20 Blood Pressure Pulse Oximetry 93 Oxygen Delivery Nasal Cannula Oxygen Flow Rate 3 11/11/21 08:00 11/11/21 11:59 Temperature 98.3 F 97.8 F Pulse Rate 67 75 Respiratory Rate 28 H 28 H Blood Pressure 126/57 L 125/66 Pulse Oximetry 88 L 91 Oxygen Delivery Oxygen Flow Rate Intake/Output Intake/Output: Intake & Output 11/08/21 11/09/21 11/10/21 11/11/21 23:59 23:59 23:59 23:59 Intake Total 1240 2170 Balance 1240 2170 Meds/Results Medications: Active Medications Generic Name Dose Route Start Last Admin Trade Name Freq PRN Reason Stop Dose Admin Acetaminophen 650 mg 11/09/21 14:05 Acetaminophen 325 Mg Tablet PO Q4H PRN Mild pain 1-3 Albuterol 2 puff 11/09/21 14:05
[2021-11-11] MEDS: FUROSEMIDE INJ 40 MG/4 ML VIAL IV PUSH (10:28)
[2021-11-11] MEDS: ASPIRIN 81 MG ENTERIC TABLET PO (10:32)
[2021-11-11] MEDS: FINASTERIDE 5 MG TABLET PO (10:32)
[2021-11-11] MEDS: amLODIPine BESYLATE 2.5 MG TABLET PO (10:32)
[2021-11-11] MEDS: lisinopriL 20 MG TABLET 40 MG PO ×2 (10:32→21:33)
[2021-11-11] MEDS: FERROUS SULFATE 324 MG TABLET PO (10:33)
[2021-11-11] MEDS: ENOXAPARIN 40 MG/0.4 ML SYRINGE SUB-Q (10:33)
[2021-11-11] MEDS: FOLIC ACID 0.4 MG TABLET PO (10:33)
[2021-11-11] MEDS: guaiFENesin 12 HR 600 MG TABCR PO ×2 (10:33→21:33)
[2021-11-11] MEDS: TOLNAFTATE 1% POWDER 45 GM BTL 1 APPLIC TOPICAL ×2 (10:34→21:33)
[2021-11-11] MEDS: ARTIFICIAL TEARS OPHTH SOLN 15 ML BOTTLE 1 DROP EACH EYE ×2 (10:34→16:29)
[2021-11-11] MEDS: FUROSEMIDE INJ 40 MG/4 ML VIAL (10:35)
[2021-11-11] MEDS: polyethylene glycoL 3350 17 GM POWD.PACK PO (10:46)
[2021-11-11] MEDS: PRAVASTATIN SODIUM 20 MG TABLET PO (21:33)
[2021-11-12] VITALS (7 sets, daily range): BP systolic 118–146; BP diastolic 55–62; PULSE 66–91; RESP 17–20; TEMP 36.1–36.8; O2SAT 90–97
[2021-11-12 06:42] LABS: Hematocrit 29.8 % (42.0-52.0); Hemoglobin 9.9 g/dL (14.0-18.0); Mean Corpuscular HGB Conc 33.2 g/dl (32-36); Mean Corpuscular Hemoglobin 31.2 pg (26-34); Mean Platelet Volume 10.4 fl (7.4-10.4); Platelet Count Result 150 k/mm3 (150-375); Red Blood Count 3.17 M/mm3 (4.6-6.20); Red Cell Distribution Width 14.7 % (11.5-14.5); White Blood Count 5.4 K/mm3 (4.5-10.0)
[2021-11-12 07:18] LABS: Alanine Aminotransferase 20 U/L (6-50); Albumin Level 3.1 g/dL (3.5-5.1); Alkaline Phosphatase 54 U/L (38-126); Anion Gap 9 mmol/L (8-16); Aspartate Amino Transferase 29 U/L (17-59); Bilirubin,Total 0.4 mg/dL (0.2-1.3); Blood Urea Nitrogen 27 mg/dL (9-20); Calcium 8.2 mg/dL (8.4-10.2); Carbon Dioxide 24 mmol/L (22-30); Chloride 100 mmol/L (98-107); Estimated CRCL calculation 52 ml/min; Estimated Glomerular Filt Rate > 60; Glucose 107 mg/dL (65-110); Magnesium 2.2 mg/dL (1.6-2.3); Potassium 3.5 mmol/L (3.4-5.0); Sodium 133 mmol/L (137-145)
[2021-11-12 07:27] LABS: INR 1.2
[2021-11-12 07:28] LABS: Partial Thromboplastin Time 39.5 SECONDS (22.3-36.8)
[2021-11-12 07:42] LABS: D Dimer 3.79 ug/mL (<0.48)
[2021-11-12 08:47] LABS: Band Neutrophils Percent 35 % (0-6); Lymphocytes Absolute Manual 0.86 K/mm3 (1.1-4.5); Lymphocytes Percent Manual 16 % (18-44); Monocytes Absolute Manual 0.54 K/mm3 (0.1-0.90); Monocytes Percent Manual 10 % (3-9); Neutrophils Absolute Manual 3.94 K/mm3 (1.3-6.7); Neutrophils Percent Manual 38 % (46-73); Platelet Estimate Adequate (Adequate); Total Cells Counted 100
[2021-11-12] MEDS: FOLIC ACID 0.4 MG TABLET PO (09:21)
[2021-11-12] MEDS: FINASTERIDE 5 MG TABLET PO (09:21)
[2021-11-12] MEDS: guaiFENesin 12 HR 600 MG TABCR PO ×2 (09:21→20:47)
[2021-11-12] MEDS: ASPIRIN 81 MG ENTERIC TABLET PO (09:21)
[2021-11-12] MEDS: amLODIPine BESYLATE 2.5 MG TABLET PO (09:21)
[2021-11-12] MEDS: FERROUS SULFATE 324 MG TABLET PO ×2 (09:21→16:26)
[2021-11-12] MEDS: ENOXAPARIN 40 MG/0.4 ML SYRINGE SUB-Q (09:22)
[2021-11-12] MEDS: lisinopriL 20 MG TABLET 40 MG PO ×2 (09:22→20:47)
[2021-11-12] MEDS: TOLNAFTATE 1% POWDER 45 GM BTL 1 APPLIC TOPICAL ×2 (09:24→20:47)
[2021-11-12] MEDS: ARTIFICIAL TEARS OPHTH SOLN 15 ML BOTTLE 1 DROP EACH EYE ×2 (09:24→16:25)
[2021-11-12] MEDS: polyethylene glycoL 3350 17 GM POWD.PACK PO (09:31)
[2021-11-12] MEDS: FUROSEMIDE INJ 40 MG/4 ML VIAL IV PUSH (12:41)
--- NOTE | 2021-11-12 12:45 | PM.IMPN ---
Progress Note: A&P Assessment and Plan (1) COVID-19: Code(s): U07.1 - COVID-19 Status: Acute Assessment and Plan: PCR positive on 11/09/2021 CXR shows no acute findings Oxygen has been weaned off Consider antiviral and steroid therapy supportive care as needed. Bronchodilators, expectorants, incentive spirometry continue isolation precautions patient completed COVID vaccination and 2 boosters (2) Weakness: Code(s): R53.1 - Weakness Status: Acute Assessment and Plan: Suspect has been ongoing issue due to physical deconditioning, worsened secondary to acute viral illness B12, folate within normal limits appreciate PT/ OT eval. He will likely require rehab (3) Anemia: Code(s): D64.9 - Anemia, unspecified Status: Acute Assessment and Plan: appears stable on review of prior labs Current H/H 9.9/29.8 continue to monitor H&H Anemia labs iron 12, TIBC 238, % sat 5, ferritin 137 Iron supplement added BID (4) Falls: Code(s): W19.XXXA - Unspecified fall, initial encounter Status: Acute Assessment and Plan: patient with history of recent falls fall precautions appreciate PT/OT eval (5) Abnormal TSH: Code(s): R79.89 - Other specified abnormal findings of blood chemistry Status: Acute Assessment and Plan: TSH low with normal T4 Will need repeat reflex TSH as an outpatient upon resolution of acute illness (6) Elevated d-dimer: Code(s): R79.89 - Other specified abnormal findings of blood chemistry Status: Acute Assessment and Plan: Dimer 3.79 Probably related to covid CTA ordered Continue lovenox Time Spent With Patient Time with patient: Greater than 35 minutes Subjective Date/time seen: 11/12/21 1245 Interval history: 11/12/21 1245 patient is sitting in the chair when I went in there. I did ask the patient a cough any did have a good cough. He does sound tight a rattling and raspy was able to NT suction him. Patient also was really unable to help support himself or get himself up out of the chair did get him back to bed and he did have a bowel movement. sputum samples collected at the time of NT suction. Patient was coherent however according to the nurse the said he is very confused. He currently denies any chest pain, shortness of breath, nausea, vomiting, diarrhea, constipation, weakness or fatigue. Was able to put the patient on room air and is currently satting 91%. 11/11/21 1000 Patient is doing ok. He denies any chest pain, abdominal pain, weakness, fatigue, nausea, vomiting. He did sound very gurgly when I went in. I had to NT suction him, and got out a lot of greenish, florez fluid that was sent to the lab for culture. He did state that he feels a lot better after the suction. He also stated that he was not a fan of the procedure. Date of service: 11/10/2021 Fernando Nava is an 81-year-old male with a history of BPH, hypertension, hyperlipidemia, and glaucoma?who is seen in follow up for COVID-19. He continues to endorse weakness. He still does not open his eyes still today. He states they are sensitive if he opens them. He tells me that drops usually help but he did not allow RN to give him eyedrops today. He endorses phlegm in his throat. He is having a hard time coughing it up. He denies shortness of breath. He denies chest pain. No abdominal pain, nausea, vomiting, fever, or chills. Review of Systems Review of Systems: All systems reviewed & are unremarkable except as noted in HPI and below Exam Const: General: cooperative, no acute distress, well developed, alert, awake, ill appearing and tired appearing Nutritional Appearance: well nourished Orientation/consciousness: oriented to person, oriented to place, oriented to time and patient oriented x3 Limitations: no limitations
[2021-11-12] MEDS: levoFLOXacin 750 MG TABLET PO (16:25)
[2021-11-12] MEDS: PRAVASTATIN SODIUM 20 MG TABLET PO (20:47)
[2021-11-13] VITALS (8 sets, daily range): BP systolic 124–153; BP diastolic 59–66; PULSE 60–73; RESP 16–20; TEMP 35.7–37.2; O2SAT 94–100
--- NOTE | 2021-11-13 | ECHO_ITS ---
Patient Info Name: Fernando Nava Age: 81 years : 1940 Gender: Male Ht: 58 in Wt: 199 lbs BSA: 1.98 m2 HR: 62 bpm BP: 148 / 61 mmHg Technical Quality: Poor Exam Date: 11/13/2021 11:04 AM Exam Location: [facility] Patient Status: Inpatient Admit Date: 11/11/2021 Staff Ordering Physician: Charles Manley Kitchen Chef: Bao Mcclure RDCS, RT Attending Provider: Olivia Miranda MD Referring Physician: Vineet GAMEZ; Exam Type: CA echo doppler color flow Study Info Indications R06.02 - Shortness of breath Complete two-dimensional, color flow and Doppler transthoracic echocardiogram is performed. Summary 1. Complete two-dimensional, color flow and Doppler transthoracic echocardiogram is performed. 2. Technically suboptimal study due to poor sonographic images. 3. Left ventricular chamber dimension is moderately enlarged. 4. Left ventricular systolic function is preserved, estimated at 50-55%. 5. There is mildly increased left ventricular wall thickness. 6. The left ventricular diastolic function is grade I diastolic dysfunction. 7. E/e' 8 is minimally elevated. 8. Right ventricular systolic function is reduced based on abnormal TAPSE 1.5 cm. 9. The mitral valve has moderately calcified annulus. 10. No pulmonary hypertension, estimated pulmonary arterial systolic pressure is 33 mmHg. Left Ventricle Technically suboptimal study due to poor sonographic images. Left ventricular systolic function is preserved, estimated at 50-55%. E/e' 8 is minimally elevated. Left ventricular chamber dimension is moderately enlarged. There is mildly increased left ventricular wall thickness. The left ventricular diastolic function is grade I diastolic dysfunction. Right Ventricle Right ventricular systolic function is reduced based on abnormal TAPSE 1.5 cm. Right ventricular chamber dimension is not well visualized. Left Atria Left atrial chamber dimension is normal. Right Atria Right atrial chamber dimension is not well visualized. Aortic Valve The aortic valve is probable trileaflet. There is no aortic valve stenosis. There is no aortic valve regurgitation. Pulmonic Valve There is no pulmonic regurgitation. Mitral Valve The mitral valve has moderately calcified annulus. There is no mitral valve stenosis. There is no mitral valve regurgitation. Tricuspid Valve There is no tricuspid valve regurgitation. No pulmonary hypertension, estimated pulmonary arterial systolic pressure is 33 mmHg. Pericardium/Pleural There is no pericardial effusion. Inferior Vena Cava Inferior vena cava is not well visualized. Aorta The aortic root size at the sinus of Valsalva is not well visualized. Left Ventricular Outflow Tract Name Value Normal LVOT 2D LVOT Diameter 2.1 cm LVOT Doppler LVOT Peak Gradient 2 mmHg LVOT Mean Gradient 1 mmHg LVOT VTI 15 cm LVOT VTI/AV VTI Ratio 1.0 LVOT Stroke Volume 51 ml LVOT CO
[2021-11-13 06:25] LABS: Basophils Percent Auto 0.2 % (0.2-1.2); Eosinophils Percent Auto 0.2 % (0-4.4); Hematocrit 32.7 % (42.0-52.0); Hemoglobin 10.7 g/dL (14.0-18.0); Immature Granulocyte Absolute 0.02 K/mm3 (0.00-0.031); Immature Granulocyte Percent A 0.4 % (0-0.5); Lymphocytes Absolute Auto 0.61 K/mm3 (0.9-3.2); Lymphocytes Percent Auto 12.8 % (18.3-44.2); Mean Corpuscular HGB Conc 32.7 g/dl (32-36); Mean Corpuscular Hemoglobin 31.3 pg (26-34); Mean Corpuscular Volume 95.6 fl (80-100); Mean Platelet Volume 10.5 fl (7.4-10.4); Monocytes Absolute Auto 0.5 K/mm3 (0.1-0.6); Monocytes Percent Auto 9.9 % (2.6-8.5); Neutrophils Absolute Auto 3.6 K/mm3 (1.3-6.7); Neutrophils Percent Auto 76.5 % (45.5-73.1); Platelet Count Result 187 k/mm3 (150-375); Red Blood Count 3.42 M/mm3 (4.6-6.20); Red Cell Distribution Width 14.7 % (11.5-14.5); White Blood Count 4.8 K/mm3 (4.5-10.0)
[2021-11-13 06:46] LABS: Alanine Aminotransferase 37 U/L (6-50); Albumin Level 3.4 g/dL (3.5-5.1); Alkaline Phosphatase 61 U/L (38-126); Anion Gap 7 mmol/L (8-16); Aspartate Amino Transferase 47 U/L (17-59); Bilirubin,Total 0.6 mg/dL (0.2-1.3); Blood Urea Nitrogen 28 mg/dL (9-20); Calcium 8.8 mg/dL (8.4-10.2); Carbon Dioxide 30 mmol/L (22-30); Chloride 99 mmol/L (98-107); Estimated CRCL calculation 48 ml/min; Estimated Glomerular Filt Rate 58; Glucose 107 mg/dL (65-110); Magnesium 2.3 mg/dL (1.6-2.3); Potassium 3.8 mmol/L (3.4-5.0); Sodium 136 mmol/L (137-145)
[2021-11-13 06:48] LABS: NT Pro B Type Natriuretic Pept 482 pg/mL (5-100)
[2021-11-13] MEDS: amLODIPine BESYLATE 2.5 MG TABLET PO (10:14)
[2021-11-13] MEDS: ASPIRIN 81 MG ENTERIC TABLET PO (10:14)
[2021-11-13] MEDS: FERROUS SULFATE 324 MG TABLET PO (10:15)
[2021-11-13] MEDS: FOLIC ACID 0.4 MG TABLET PO (10:15)
[2021-11-13] MEDS: FINASTERIDE 5 MG TABLET PO (10:15)
--- NOTE | 2021-11-13 10:15 | PM.IMPN ---
Progress Note: A&P Assessment and Plan (1) COVID-19: Code(s): U07.1 - COVID-19 Status: Acute Assessment and Plan: PCR positive on 11/09/2021 CXR shows no acute findings CTA showed no PE bilateral infiltrates Oxygen has been weaned off Consider antiviral and steroid therapy Levaquin added Dimer- 3.79, Ferritin 253, CRP 22 11/13/21 Continue to trend labs supportive care as needed. Bronchodilators, expectorants, incentive spirometry continue isolation precautions patient completed COVID vaccination and 2 boosters BNP 482, Lasix is being given by day (2) Pneumonia: Qualifiers: Laterality: bilateral Lung location: lower lobe of lung Pneumonia type: due to unspecified organism Qualified Code(s): J18.9 - Pneumonia, unspecified organism Code(s): J18.9 - Pneumonia, unspecified organism Status: Acute Assessment and Plan: CTA indicates bilateral infiltrates Levaquin on board Trend Chest xray WBC is 4.8 Trend labs Adjust therapy as indicated Sputum culture growth of normal jaylene Swallow study ordered for possible aspiration (3) Weakness: Code(s): R53.1 - Weakness Status: Acute Assessment and Plan: Suspect has been ongoing issue due to physical deconditioning, worsened secondary to acute viral illness B12, folate within normal limits appreciate PT/ OT eval. He will likely require rehab (4) Anemia: Code(s): D64.9 - Anemia, unspecified Status: Acute Assessment and Plan: appears stable on review of prior labs Current H/H 10.7/11.1 continue to monitor H&H Anemia labs iron 12, TIBC 238, % sat 5, ferritin 137 Iron supplement added BID (5) Falls: Code(s): W19.XXXA - Unspecified fall, initial encounter Status: Acute Assessment and Plan: patient with history of recent falls fall precautions appreciate PT/OT eval (6) Abnormal TSH: Code(s): R79.89 - Other specified abnormal findings of blood chemistry Status: Acute Assessment and Plan: TSH low with normal T4 Will need repeat reflex TSH as an outpatient upon resolution of acute illness (7) Elevated d-dimer: Code(s): R79.89 - Other specified abnormal findings of blood chemistry Status: Acute Assessment and Plan: Dimer 3.79 Probably related to covid CTA shows bilateral infiltrates, no PE Elevated probably related to COVID Continue lovenox (8) Benign essential hypertension: Code(s): I10 - Essential (primary) hypertension Status: Acute Assessment and Plan: Current BP is 132/59 Continue home lisinopril 40mg PO Q12H Trend BP Adjust therapy as indicated Plan Talked to his about care, planning, and care from here 17 minutes Time Spent With Patient Time with patient: Greater than 35 minutes Subjective Date/time seen: 11/13/21 1015 Interval history: 11/13/21 1015 Patient is doing a little bit better it seems. He is back on 1 L however he denies being short of breath however then he says he can not breathe. It was noted that when he does eat or drink he does cough. Patient will say things like he can not breathe because he has COVID and he can not cough because he has COVID. CT did show that he has a bilateral infiltrate in the lower lobes. Patient also seems to be confused at times but is easy to reorient. Head CT is ordered and speech therapies also ordered for swallow study for possible aspiration 11/12/21 1245 patient is sitting in the chair when I went in there. I did ask the patient a cough any did have a good cough. He does sound tight a rattling and gill was able to NT suction him. Patient also was really unable to help support himself or get himself up out of the chair did get him back to bed and he did have a bowel movement. sputum samples [facility]
--- NOTE | 2021-11-13 10:15 | P.PNIM_ITS ---
Progress Note: A&P Assessment and Plan (1) COVID-19: Code(s): U07.1 - COVID-19 Status: Acute Assessment and Plan: * PCR positive on 11/09/2021 * CXR shows no acute findings * CTA showed no PE bilateral infiltrates * Oxygen has been weaned off * Consider antiviral and steroid therapy * Levaquin added * Dimer- 3.79, Ferritin 253, CRP 22 11/13/21 * Continue to trend labs * supportive care as needed. Bronchodilators, expectorants, incentive spirometry * continue isolation precautions * patient completed COVID vaccination and 2 boosters * BNP 482, Lasix is being given by day (2) Pneumonia: Qualifiers: Laterality: bilateral Lung location: lower lobe of lung Pneumonia type: due to unspecified organism Qualified Code(s): J18.9 - Pneumonia, unspecified organism Code(s): J18.9 - Pneumonia, unspecified organism Status: Acute Assessment and Plan: * CTA indicates bilateral infiltrates * Levaquin on board * Trend Chest xray * WBC is 4.8 * Trend labs * Adjust therapy as indicated * Sputum culture growth of normal jaylene * Swallow study ordered for possible aspiration (3) Weakness: Code(s): R53.1 - Weakness Status: Acute Assessment and Plan: * Suspect has been ongoing issue due to physical deconditioning, worsened secondary to acute viral illness * B12, folate within normal limits * appreciate PT/ OT eval. He will likely require rehab (4) Anemia: Code(s): D64.9 - Anemia, unspecified Status: Acute Assessment and Plan: * appears stable on review of prior labs * Current H/H 10.7/11.1 * continue to monitor H&H * Anemia labs iron 12, TIBC 238, % sat 5, ferritin 137 * Iron supplement added BID (5) Falls: Code(s): W19.XXXA - Unspecified fall, initial encounter Status: Acute Assessment and Plan: patient with history of recent falls * fall precautions * appreciate PT/OT eval (6) Abnormal TSH: Code(s): R79.89 - Other specified abnormal findings of blood chemistry Status: Acute Assessment and Plan: * TSH low with normal T4 * Will need repeat reflex TSH as an outpatient upon resolution of acute illness (7) Elevated d-dimer: Code(s): R79.89 - Other specified abnormal findings of blood chemistry Status: Acute Assessment and Plan: * Dimer 3.79 * Probably related to covid * CTA shows bilateral infiltrates, no PE * Elevated probably related to COVID * Continue lovenox (8) Benign essential hypertension: Code(s): I10 - Essential (primary) hypertension Status: Acute Assessment and Plan: * Current BP is 132/59 * Continue home lisinopril 40mg PO Q12H * Trend BP * Adjust therapy as indicated Plan Talked to his about care, planning, and care from here 17 minutes Time Spent With Patient Time with patient: Greater than 35 minutes Subjective Date/time seen: 11/13/21 1015 Interval history: 11/13/21 1015 Patient is doing a little bit better it seems. He is back on 1 L however he denies being short of breath however then he says he can not breathe. It was noted that when he does eat or drink he does cough. Patient will say things like he can not breathe because he has COVID and he can not cough because he has
[2021-11-13] MEDS: guaiFENesin 12 HR 600 MG TABCR PO (10:16)
[2021-11-13] MEDS: ENOXAPARIN 40 MG/0.4 ML SYRINGE SUB-Q (10:17)
[2021-11-13] MEDS: FUROSEMIDE INJ 40 MG/4 ML VIAL IV PUSH (10:20)
[2021-11-13] MEDS: polyethylene glycoL 3350 17 GM POWD.PACK PO (10:20)
[2021-11-13] MEDS: lisinopriL 20 MG TABLET 40 MG PO (10:21)
[2021-11-13] MEDS: TOLNAFTATE 1% POWDER 45 GM BTL 1 APPLIC TOPICAL ×2 (10:25→21:14)
[2021-11-13] MEDS: ARTIFICIAL TEARS OPHTH SOLN 15 ML BOTTLE 1 DROP EACH EYE ×2 (10:25→17:06)
[2021-11-13] MEDS: ACETAMINOPHEN 325 MG TABLET 650 MG PO (10:37)
--- NOTE | 2021-11-13 13:14 | PCSTNOTE ---
Bedside swallowing evaluation completed, please refer to evaluation report.
[2021-11-14] VITALS (7 sets, daily range): BP systolic 113–147; BP diastolic 64–94; PULSE 55–87; RESP 18–20; TEMP 36.1–36.8; O2SAT 95–99
[2021-11-14 06:19] LABS: Basophils Percent Auto 0.5 % (0.2-1.2); Eosinophils Absolute Auto 0.1 K/mm3 (0-0.3); Eosinophils Percent Auto 2.3 % (0-4.4); Hematocrit 33.4 % (42.0-52.0); Hemoglobin 11.1 g/dL (14.0-18.0); Immature Granulocyte Absolute 0.03 K/mm3 (0.00-0.031); Immature Granulocyte Percent A 0.8 % (0-0.5); Lymphocytes Absolute Auto 0.97 K/mm3 (0.9-3.2); Lymphocytes Percent Auto 25.1 % (18.3-44.2); Mean Corpuscular HGB Conc 33.2 g/dl (32-36); Mean Corpuscular Hemoglobin 31.5 pg (26-34); Mean Corpuscular Volume 94.9 fl (80-100); Mean Platelet Volume 10.1 fl (7.4-10.4); Monocytes Absolute Auto 0.5 K/mm3 (0.1-0.6); Monocytes Percent Auto 12.7 % (2.6-8.5); Neutrophils Absolute Auto 2.3 K/mm3 (1.3-6.7); Neutrophils Percent Auto 58.6 % (45.5-73.1); Platelet Count Result 213 k/mm3 (150-375); Red Blood Count 3.52 M/mm3 (4.6-6.20); Red Cell Distribution Width 14.3 % (11.5-14.5); White Blood Count 3.9 K/mm3 (4.5-10.0)
[2021-11-14 06:41] LABS: Alanine Aminotransferase 40 U/L (6-50); Albumin Level 3.5 g/dL (3.5-5.1); Alkaline Phosphatase 52 U/L (38-126); Anion Gap 9 mmol/L (8-16); Aspartate Amino Transferase 48 U/L (17-59); Bilirubin,Total 0.6 mg/dL (0.2-1.3); Blood Urea Nitrogen 25 mg/dL (9-20); Calcium 8.5 mg/dL (8.4-10.2); Carbon Dioxide 28 mmol/L (22-30); Chloride 99 mmol/L (98-107); Estimated CRCL calculation 57 ml/min; Estimated Glomerular Filt Rate > 60; Glucose 98 mg/dL (65-110); Magnesium 2.4 mg/dL (1.6-2.3); Potassium 3.4 mmol/L (3.4-5.0); Sodium 136 mmol/L (137-145)
[2021-11-14] MEDS: ENOXAPARIN 40 MG/0.4 ML SYRINGE SUB-Q (08:56)
[2021-11-14] MEDS: ARTIFICIAL TEARS OPHTH SOLN 15 ML BOTTLE 1 DROP EACH EYE ×2 (08:57→15:26)
[2021-11-14] MEDS: TOLNAFTATE 1% POWDER 45 GM BTL 1 APPLIC TOPICAL ×2 (08:57→21:08)
--- NOTE | 2021-11-14 10:00 | PM.IMPN ---
Progress Note: A&P Assessment and Plan (1) COVID-19: Code(s): U07.1 - COVID-19 Status: Acute Assessment and Plan: PCR positive on 11/09/2021 CXR shows no acute findings, repeat xray in the am CTA showed no PE bilateral infiltrates Oxygen has been weaned off, continues on room air Consider antiviral and steroid therapy Levaquin added, day 3 Dimer- 3.79, Ferritin 253, CRP 22 11/13/21 Continue to trend labs supportive care as needed. Bronchodilators, expectorants, incentive spirometry continue isolation precautions patient completed COVID vaccination and 2 boosters BNP 482, No indication for lasix today (2) Pneumonia: Qualifiers: Laterality: bilateral Lung location: lower lobe of lung Pneumonia type: due to unspecified organism Qualified Code(s): J18.9 - Pneumonia, unspecified organism Code(s): J18.9 - Pneumonia, unspecified organism Status: Acute Assessment and Plan: CTA indicates bilateral infiltrates Levaquin on board Trend Chest xray, repeat in the am WBC is 3.9 Trend labs Adjust therapy as indicated Sputum culture growth of normal jaylene Barium swallow has been ordered awaiting recommendations (3) Weakness: Code(s): R53.1 - Weakness Status: Acute Assessment and Plan: Suspect has been ongoing issue due to physical deconditioning, worsened secondary to acute viral illness B12, folate within normal limits appreciate PT/ OT eval. He will likely require rehab (4) Anemia: Code(s): D64.9 - Anemia, unspecified Status: Acute Assessment and Plan: appears stable on review of prior labs Current H/H 11.4/33.4 continue to monitor H&H Anemia labs iron 12, TIBC 238, % sat 5, ferritin 137 Iron supplement added BID (5) Falls: Code(s): W19.XXXA - Unspecified fall, initial encounter Status: Acute Assessment and Plan: patient with history of recent falls fall precautions appreciate PT/OT eval (6) Abnormal TSH: Code(s): R79.89 - Other specified abnormal findings of blood chemistry Status: Acute Assessment and Plan: TSH low with normal T4 Will need repeat reflex TSH as an outpatient upon resolution of acute illness (7) Elevated d-dimer: Code(s): R79.89 - Other specified abnormal findings of blood chemistry Status: Acute Assessment and Plan: Dimer 3.79 Probably related to covid CTA shows bilateral infiltrates, no PE Elevated probably related to COVID Continue lovenox (8) Benign essential hypertension: Code(s): I10 - Essential (primary) hypertension Status: Acute Assessment and Plan: Current BP is 146/75 Continue home lisinopril 40mg PO Q12H Trend BP Adjust therapy as indicated Time Spent With Patient Time with patient: Greater than 35 minutes Subjective Date/time seen: 11/14/21 1000 Interval history: 11/14/21 1000 Patient sitting in the chair. Patient stated that he is doing okay right now. He denies any chest pain, shortness of breath, nausea, vomiting, diarrhea, constipation, weakness or fatigue. Patient did state that he is still having a productive cough and that there was a lot coming up. He also stated that he is having trouble with the days as they are starting to really run together. He also stated that he knows he is in the hospital he knows who he is the date was not accurate. 11/13/21 1015 Patient is doing a little bit better it seems. He is back on 1 L however he denies being short of breath however then he says he can not breathe. It was noted that when he does eat or drink he does cough. Patient will say things like he can not breathe because he has COVID and he can not cough because he has COVID. CT did show that he has a bilateral infiltrate in the lower lobes. Patient also seems to be con
--- NOTE | 2021-11-14 10:00 | P.PNIM_ITS ---
Progress Note: A&P Assessment and Plan (1) COVID-19: Code(s): U07.1 - COVID-19 Status: Acute Assessment and Plan: * PCR positive on 11/09/2021 * CXR shows no acute findings, repeat xray in the am * CTA showed no PE bilateral infiltrates * Oxygen has been weaned off, continues on room air * Consider antiviral and steroid therapy * Levaquin added, day 3 * Dimer- 3.79, Ferritin 253, CRP 22 11/13/21 * Continue to trend labs * supportive care as needed. Bronchodilators, expectorants, incentive spirometry * continue isolation precautions * patient completed COVID vaccination and 2 boosters * BNP 482, No indication for lasix today (2) Pneumonia: Qualifiers: Laterality: bilateral Lung location: lower lobe of lung Pneumonia type: due to unspecified organism Qualified Code(s): J18.9 - Pneumonia, unspecified organism Code(s): J18.9 - Pneumonia, unspecified organism Status: Acute Assessment and Plan: * CTA indicates bilateral infiltrates * Levaquin on board * Trend Chest xray, repeat in the am * WBC is 3.9 * Trend labs * Adjust therapy as indicated * Sputum culture growth of normal jaylene * Barium swallow has been ordered awaiting recommendations (3) Weakness: Code(s): R53.1 - Weakness Status: Acute Assessment and Plan: * Suspect has been ongoing issue due to physical deconditioning, worsened secondary to acute viral illness * B12, folate within normal limits * appreciate PT/ OT eval. He will likely require rehab (4) Anemia: Code(s): D64.9 - Anemia, unspecified Status: Acute Assessment and Plan: * appears stable on review of prior labs * Current H/H 11.4/33.4 * continue to monitor H&H * Anemia labs iron 12, TIBC 238, % sat 5, ferritin 137 * Iron supplement added BID (5) Falls: Code(s): W19.XXXA - Unspecified fall, initial encounter Status: Acute Assessment and Plan: patient with history of recent falls * fall precautions * appreciate PT/OT eval (6) Abnormal TSH: Code(s): R79.89 - Other specified abnormal findings of blood chemistry Status: Acute Assessment and Plan: * TSH low with normal T4 * Will need repeat reflex TSH as an outpatient upon resolution of acute illness (7) Elevated d-dimer: Code(s): R79.89 - Other specified abnormal findings of blood chemistry Status: Acute Assessment and Plan: * Dimer 3.79 * Probably related to covid * CTA shows bilateral infiltrates, no PE * Elevated probably related to COVID * Continue lovenox (8) Benign essential hypertension: Code(s): I10 - Essential (primary) hypertension Status: Acute Assessment and Plan: * Current BP is 146/75 * Continue home lisinopril 40mg PO Q12H * Trend BP * Adjust therapy as indicated Time Spent With Patient Time with patient: Greater than 35 minutes Subjective Date/time seen: 11/14/21 1000 Interval history: 11/14/21999 Patient sitting in the chair. Patient stated that he is doing okay right now. He denies any chest pain, shortness of breath, nausea, vomiting, diarrhea, constipation, weakness or fatigue. Patient did state that he is still having a productive cough and that there was a lot coming up. He also stated that he is
--- NOTE | 2021-11-14 11:46 | PC.NURSE ---
pt at [facility]
--- NOTE | 2021-11-14 12:27 | PCSTNOTE ---
Please refer to the Modified Barium Swallow Evaluation in the EMR.
--- NOTE | 2021-11-14 15:03 | PC.NURSE ---
pt to possible discharge tomorrow, pt to work with speech tomorrow prior to discharging, diet reordered per SKIP Mccoy
[2021-11-15] VITALS: PULSE 55
[2021-11-15 04:00] VITALS: BP 143/77; PULSE 60; PULSE 71; RESP 18; TEMP 36.4; O2SAT 96
[2021-11-15 06:29] LABS: Basophils Percent Auto 0.3 % (0.2-1.2); Eosinophils Absolute Auto 0.1 K/mm3 (0-0.3); Eosinophils Percent Auto 3.3 % (0-4.4); Hematocrit 34.5 % (42.0-52.0); Hemoglobin 11.4 g/dL (14.0-18.0); Immature Granulocyte Absolute 0.05 K/mm3 (0.00-0.031); Immature Granulocyte Percent A 1.3 % (0-0.5); Lymphocytes Absolute Auto 0.97 K/mm3 (0.9-3.2); Lymphocytes Percent Auto 24.6 % (18.3-44.2); Mean Corpuscular Hemoglobin 31.1 pg (26-34); Monocytes Absolute Auto 0.5 K/mm3 (0.1-0.6); Monocytes Percent Auto 12.9 % (2.6-8.5); Neutrophils Absolute Auto 2.3 K/mm3 (1.3-6.7); Neutrophils Percent Auto 57.6 % (45.5-73.1); Platelet Count Result 225 k/mm3 (150-375); Red Blood Count 3.67 M/mm3 (4.6-6.20); Red Cell Distribution Width 14.2 % (11.5-14.5)
[2021-11-15 06:37] LABS: Alanine Aminotransferase 39 U/L (6-50); Albumin Level 3.4 g/dL (3.5-5.1); Alkaline Phosphatase 64 U/L (38-126); Anion Gap 10 mmol/L (8-16); Aspartate Amino Transferase 39 U/L (17-59); Bilirubin,Total 0.5 mg/dL (0.2-1.3); Blood Urea Nitrogen 26 mg/dL (9-20); Calcium 8.7 mg/dL (8.4-10.2); Carbon Dioxide 25 mmol/L (22-30); Chloride 102 mmol/L (98-107); Estimated CRCL calculation 57 ml/min; Estimated Glomerular Filt Rate > 60; Glucose 99 mg/dL (65-110); Magnesium 2.2 mg/dL (1.6-2.3); Potassium 3.3 mmol/L (3.4-5.0); Sodium 137 mmol/L (137-145)
[2021-11-15 08:00] VITALS: BP 139/74; PULSE 60; PULSE 70; RESP 18; TEMP 36.4; O2SAT 97
[2021-11-15 08:57] VITALS: O2SAT 95
[2021-11-15] MEDS: ENOXAPARIN 40 MG/0.4 ML SYRINGE SUB-Q (09:27)
[2021-11-15] MEDS: ARTIFICIAL TEARS OPHTH SOLN 15 ML BOTTLE 1 DROP EACH EYE ×2 (09:27→17:17)
[2021-11-15] MEDS: TOLNAFTATE 1% POWDER 45 GM BTL 1 APPLIC TOPICAL (09:27)
[2021-11-15] MEDS: POTASSIUM CHLORIDE 20 MEQ TABLET 40 MEQ PO (09:27)
--- NOTE | 2021-11-15 09:30 | PM.DS ---
DS: Admitting Diagnosis Discharge Date 11/15/21929 Admitting Diagnosis COVID, PNA, anemia DS: Discharge Diagnosis Discharge Diagnosis (1) COVID-19: Code(s): U07.1 - COVID-19 Status: Acute Assessment and Plan: PCR positive on 11/09/2021 CXR shows no acute findings, repeat xray in the am CTA showed no PE bilateral infiltrates Oxygen has been weaned off, continues on room air Consider antiviral and steroid therapy Levaquin added, day 4 Dimer- 3.79, Ferritin 253, CRP 22 11/13/21 Continue to trend labs supportive care as needed. Bronchodilators, expectorants, incentive spirometry continue isolation precautions patient completed COVID vaccination and 2 boosters BNP 482, No indication for lasix today (2) Pneumonia: Qualifiers: Laterality: bilateral Lung location: lower lobe of lung Pneumonia type: due to unspecified organism Qualified Code(s): J18.9 - Pneumonia, unspecified organism Code(s): J18.9 - Pneumonia, unspecified organism Status: Acute Assessment and Plan: CTA indicates bilateral infiltrates Levaquin on board Trend Chest xray, repeat in the am WBC is 4.0 Trend labs Adjust therapy as indicated Sputum culture growth of normal jaylene Barium swallow has been ordered awaiting recommendations (3) Weakness: Code(s): R53.1 - Weakness Status: Acute Assessment and Plan: Suspect has been ongoing issue due to physical deconditioning, worsened secondary to acute viral illness B12, folate within normal limits appreciate PT/ OT eval. He will likely require rehab (4) Anemia: Code(s): D64.9 - Anemia, unspecified Status: Acute Assessment and Plan: appears stable on review of prior labs Current H/H 11.4/34.5 continue to monitor H&H Anemia labs iron 12, TIBC 238, % sat 5, ferritin 137 Iron supplement added BID (5) Falls: Code(s): W19.XXXA - Unspecified fall, initial encounter Status: Acute Assessment and Plan: patient with history of recent falls fall precautions appreciate PT/OT eval (6) Abnormal TSH: Code(s): R79.89 - Other specified abnormal findings of blood chemistry Status: Acute Assessment and Plan: TSH low with normal T4 Will need repeat reflex TSH as an outpatient upon resolution of acute illness (7) Elevated d-dimer: Code(s): R79.89 - Other specified abnormal findings of blood chemistry Status: Acute Assessment and Plan: Dimer 3.79 Probably related to covid CTA shows bilateral infiltrates, no PE Elevated probably related to COVID Continue lovenox (8) Benign essential hypertension: Code(s): I10 - Essential (primary) hypertension Status: Acute Assessment and Plan: Current BP is 139/74 Continue home lisinopril 40mg PO Q12H Trend BP Adjust therapy as indicated DS: Summary Hospital Course Hospital Course: patient is an 81-year-old male with a past medical history of BPH, hypertension, hyperlipidemia, glaucoma who reported to the ED with complaints of increased weakness. Chest x-ray from today showed mild opacities in the bilateral lower zones consistent with improving pneumonia. Sputum culture was obtained however grew normal jaylene. Patient was noted to be iron deficient any anemia and iron was started on patient. CTA was performed to rule out PE. BNP was slightly elevated at 42 Lasix has been given p.r.n.. Patient did become very gurgly and was unable to clear secretions. Patient was into section multiple times and patient was encouraged to cough. Patient also became confused head CT was performed showed No intracranial abnormality. patient was supplied with supplemental oxygen which has been weaned to room air. Patient currently denies any chest pain, shortness of breath, nausea, vomiting, diarrhe
--- NOTE | 2021-11-15 09:30 | P.DS_ITS ---
DS: Admitting Diagnosis Discharge Date 11/15/21929 Admitting Diagnosis COVID, PNA, anemia DS: Discharge Diagnosis Discharge Diagnosis (1) COVID-19: Code(s): U07.1 - COVID-19 Status: Acute Assessment and Plan: * PCR positive on 11/09/2021 * CXR shows no acute findings, repeat xray in the am * CTA showed no PE bilateral infiltrates * Oxygen has been weaned off, continues on room air * Consider antiviral and steroid therapy * Levaquin added, day 4 * Dimer- 3.79, Ferritin 253, CRP 22 11/13/21 * Continue to trend labs * supportive care as needed. Bronchodilators, expectorants, incentive spirometry * continue isolation precautions * patient completed COVID vaccination and 2 boosters * BNP 482, No indication for lasix today (2) Pneumonia: Qualifiers: Laterality: bilateral Lung location: lower lobe of lung Pneumonia type: due to unspecified organism Qualified Code(s): J18.9 - Pneumonia, un specified organism Code(s): J18.9 - Pneumonia, unspecified organism Status: Acute Assessment and Plan: * CTA indicates bilateral infiltrates * Levaquin on board * Trend Chest xray, repeat in the am * WBC is 4.0 * Trend labs * Adjust therapy as indicated * Sputum culture growth of normal jaylene * Barium swallow has been ordered awaiting recommendations (3) Weakness: Code(s): R53.1 - Weakness Status: Acute Assessment and Plan: * Suspect has been ongoing issue due to physical deconditioning, worsened second tiffanie to acute viral illness * B12, folate within normal limits * appreciate PT/ OT eval. He will likely require rehab (4) Anemia: Code(s): D64.9 - Anemia, unspecified Status: Acute Assessment and Plan: * appears stable on review of prior labs * Current H/H 11.4/34.5 * continue to monitor H&H * Anemia labs iron 12, TIBC 238, % sat 5, ferritin 137 * Iron supplement added BID (5) Falls: Code(s): W19.XXXA - Unspecified fall, initial encounter Status: Acute Assessment and Plan: patient with history of recent falls * fall precautions * appreciate PT/OT eval (6) Abnormal TSH: Code(s): R79.89 - Other specified abnormal findings of blood chemistry Status: Acute Assessment and Plan: * TSH low with normal T4 * Will need repeat reflex TSH as an outpatient upon resolution of acute illness (7) Elevated d-dimer: Code(s): R79.89 - Other specified abnormal findings of blood chemistry Status: Acute Assessment and Plan: * Dimer 3.79 * Probably related to covid * CTA shows bilateral infiltrates, no PE * Elevated probably related to COVID * Continue lovenox (8) Benign essential hypertension: Code(s): I10 - Essential (primary) hypertension Status: Acute Assessment and Plan: * Current BP is 139/74 * Continue home lisinopril 40mg PO Q12H * Trend BP * Adjust therapy as indicated DS: Summary Hospital Course Hospital Course: patient is an 81-year-old male with a past medical history of BPH, hypertension, hyperlipidemia, glaucoma who reported to the ED with complaints of increased weakness. Chest x-ray from today showed mild opacities in the bilateral lower zones consistent with improving pneumonia. Sputum culture was obtained however
[2021-11-15 12:00] VITALS: BP 135/68; PULSE 62; PULSE 75; RESP 18; TEMP 36.6; O2SAT 97
[2021-11-15 16:00] VITALS: BP 150/83; PULSE 66; PULSE 73; RESP 20; TEMP 36.9; O2SAT 96
[2021-11-15] MEDS: FERROUS SULFATE 324 MG TABLET PO (17:17)
== END 2021-11-15 18:30 | DRG 177 ==
LOC: ANHED 11:37 → ANH3MEDSUR 13:42
PROVIDERS: Physician Assistant; Admitting Provider Family Medicine; Emergency Provider Emergency Medicine; PCP Internal Medicine; Visit Provider Nurse Practitioner
DX: U07.1 COVID-19 (principal); J18.9 Pneumonia, unspecified organism; I10 Essential (primary) hypertension; N40.0 Benign prostatic hyperplasia without lower urinary tract symptoms; M15.9 Polyosteoarthritis, unspecified; D50.9 Iron deficiency anemia, unspecified; E78.5 Hyperlipidemia, unspecified; E55.9 Vitamin D deficiency, unspecified; E53.8 Deficiency of other specified B group vitamins; G89.29 Other chronic pain; H40.9 Unspecified glaucoma; R73.03 Prediabetes; R21 Rash and other nonspecific skin eruption; R53.1 Weakness; M48.00 Spinal stenosis, site unspecified; M85.80 Other specified disorders of bone density and structure, unspecified site; Z79.899 Other long term (current) drug therapy; R79.89 Other specified abnormal findings of blood chemistry; Z79.82 Long term (current) use of aspirin; Z98.49 Cataract extraction status, unspecified eye; Z96.641 Presence of right artificial hip joint; Z91.81 History of falling
CPT/HCPCS: 36415; 70450; 71045; 71275; 80048; 80053; 81001; 82728; 83540; 83550; 83605; 83615; 83735; 83880; 84439; 84443; 84480; 85025; 85027; 85380; 85610; 85730; 86140; 87070; 87205; 92526; 92610; 92611; 93005; 93306; 94640; 96372; 97110; 97162; 97166; 97530; 97535; 99285; A9270; C9803; G0378; J1650; J1940; J1956; J7030; Q9967; U0003; U0005

== ENCOUNTER 2021-12-06 21:51 | Inpatient (IN) | payer MEDICARE, SELFPAY ==
--- NOTE | ~2021-12-06 | CT_ITS ---
EXAMINATION: CT brain wo con DATE: 12/06/2021 22:35 INDICATION: Weakness. Transient alteration of awareness. TECHNIQUE: Computed tomography (CT) of the head was performed without intravenous contrast. The mA wa s adjusted according to patient size. Iterative reconstruction technique was employed. The dose-lengt h product was 605.33 mGy-cm. COMPARISON: Head CT 11/13/2021 FINDINGS: There are scattered areas of low attenuation in the cerebral white matter, which is within normal limits for the patient's age. There is no intracranial hemorrhage, acute infarction, or abnorm al intracranial mass lesion. The ventricles are normal in size. There is mild mucosal thickening in t he ethmoid sinuses. The mastoid air cells are normal. IMPRESSION: 1. Normal aging brain. Reviewed, dictated and finalized at location A. IMPRESSION: 1. Normal aging brain.
--- NOTE | ~2021-12-06 | US_ITS ---
. EXAMINATION: US renal BI DATE: 12/07/2021 13:30 INDICATION: Acute kidney injury. TECHNIQUE: Multiple ultrasound grayscale images of the kidneys were obtained. COMPARISON: CT abdomen and pelvis 12/22/2018 FINDINGS: The right kidney measures 10.9 x 4.8 x 5.2 cm. The left kidney measures 11.6 x 5.5 x 5.0 cm. The kidn eys demonstrate normal parenchymal echogenicity. There is no hydronephrosis. The bladder is normal. IMPRESSION: 1. Normal kidneys. No hydronephrosis. Reviewed, dictated and finalized at location A.
--- NOTE | ~2021-12-06 | US_ITS ---
EXAMINATION: US venous doppler [facility] DATE: 12/08/2021 09:38 INDICATION: Concern for deep venous thrombosis presenting unresponsive post syncopal episode with gen eralized abdominal pain. TECHNIQUE: Grayscale ultrasound images without and with compression and Doppler ultrasound images of the bilateral lower extremity veins were obtained. COMPARISON: None. FINDINGS: The visualized portions of right common femoral vein, profunda (deep) femoral vein, femoral vein, pop liteal vein, posterior tibial veins, peroneal veins, gastrocnemius vein and greater saphenous vein ou tflow are patent. The visualized portions of left common femoral vein, profunda femoral vein, femoral vein, popliteal v ein, posterior tibial veins, peroneal veins, gastrocnemius vein and greater saphenous vein outflow ar e patent. IMPRESSION: 1. No deep venous thrombosis in either lower limb. Reviewed, dictated and finalized at location A.
--- NOTE | ~2021-12-06 | XR_ITS ---
EXAMINATION: XR abdomen obstructive series DATE: 12/07/2021 14:02 INDICATION: Generalized abdominal pain. TECHNIQUE: Upright and supine views of the abdomen on 3 radiographs were obtained. COMPARISON: Chest CT 11/12/2021 FINDINGS: There are no dilated loops of bowel. There is a small volume of stool in the colon. No free intraperitoneal gas. There is a total right hip arthroplasty. IMPRESSION: 1. Normal bowel gas pattern. Reviewed, dictated and finalized at location A.
--- NOTE | ~2021-12-06 | XR_ITS ---
EXAMINATION: XR chest 1V portable DATE: 12/06/2021 22:30 INDICATION: Syncope. TECHNIQUE: A single frontal view of the chest was obtained. COMPARISON: Chest single view 11/15/2021, chest CT 11/12/2021 FINDINGS: The patient is rotated to his right. There are mild airspace opacities in the lower lung zo brian. No pleural effusion or pneumothorax. The heart size is normal. IMPRESSION: 1. Mild airspace opacities in the lower lung zones, consistent with atelectasis versus pneumonia. Reviewed, dictated and finalized at location A.
[2021-12-06 21:52] VITALS: BP 127/66; PULSE 96; RESP 18; TEMP 36.9; O2SAT 97
--- NOTE | 2021-12-06 22:00 | ECG_ITS ---
Measurements Intervals [place] Rate: 93 P: 59 PA: 176 QRS: 23 QRSD: 88 T: 68 QT: 344 QTc: 430 Interpretive Statements SINUS RHYTHM LOW QRS VOLTAGE IN PRECORDIAL LEADS [QRS DEFLECTION < 1.0 mV IN CHEST LEADS] NONSPECIFIC T-WAVE ABNORMALITY BORDERLINE ECG COMPARED TO ECG 11/09/2021 08:54:06 T-WAVE ABNORMALITY NOW PRESENT Electronically Signed On 12-07-2021 16:14:33 CDT by Orville Ramirez M.D.
--- NOTE | 2021-12-06 22:06 | ED.GENADULT ---
HPI - General Adult General Chief complaint: Altered Mental Status Stated complaint: unresponsive at [facility] home did 2 min of cpr Time Seen by Provider: 12/06/21 21:53 Source: patient, EMS, RN notes reviewed and old records reviewed Mode of arrival: EMS Limitations: dementia History of Present Illness HPI narrative: This is an 81 year old male who presents from skilled nursing for unresponsiveness. EMS states patient was found in wheelchair slumped over and unresponsive. [facility] staff placed patient in his bed and started CPR on patient for 2 minutes. IT has been reported that CPR was stopped because patient was agitated. EMS states on their arrival, patient had strong pulses and her was alert oriented x 3. He complains of some chest soreness from CPR. He states he is upset that he was bother at skilled nursing. He states he does not remember being dizziness, lightheaded, sob, or chest pain. Related Data Home Medications Medication Instructions Recorded Confirmed aspirin 81 mg tablet,delayed 81 mg PO DAILY 03/14/19 12/07/21 release (Adult Low Dose Aspirin) finasteride 5 mg tablet 5 mg PO DAILY 03/14/19 12/07/21 multivitamin 1 tablet PO 1200 03/14/19 12/07/21 peg 400-propylene glycol 0.4 %-0.3 1 drop ophthalmic (eye) BID 03/14/19 12/07/21 % eye drops (Systane Ultra) polyethylene glycol 3350 17 17 gm PO DAILY PRN Constipation 12/10/19 12/07/21 gram/dose oral powder (Miralax) acetaminophen 500 mg tablet 500 mg PO Q6H PRN Pain 08/14/20 12/07/21 (Tylenol Extra Strength) amlodipine 2.5 mg tablet 2.5 mg PO DAILY 11/09/21 12/07/21 cranberry fruit concentrate 250 mg 250 mg PO BID 11/09/21 12/07/21 chewable tablet (Azo Cranberry) folic acid 400 mcg tablet 0.4 mg PO DAILY 11/09/21 12/07/21 [id number]-[id number]-ith C-Mn 500 1 cap PO BID 11/09/21 12/07/21 mg-400 mg capsule (Glucosamine Chondroitin Maximum Strength) lisinopril 40 mg tablet 40 mg PO Q12H 11/09/21 12/07/21 omega 3-vlt-erb-fish oil 1,000 mg 1,000 cap PO 1700 11/09/21 12/07/21 (120 mg-180 mg) capsule (Fish Oil) pravastatin 20 mg tablet 20 mg PO HS 11/09/21 12/07/21 phenazopyridine 200 mg tablet 250 mg PO BID 12/07/21 12/07/21 Allergies Allergy/AdvReac Type Severity Reaction Status Date / Time hydrochlorothiazide Allergy Unknown Hyponatremi Verified 11/09/21 16:05 a Review of Systems Review of Systems: All systems reviewed & are unremarkable except as noted in HPI and below Constitutional: Constitutional: Denies chills, Denies fatigue and Denies fever(s) ENT: Denies nasal congestion and Denies sore throat Cardiovascular: Cardiovascular: Denies chest pain Respiratory: Respiratory: Denies chest congestion and Denies cough Gastrointestinal: Gastrointestinal: Denies abdominal pain, Denies nausea and Denies vomiting [facility] Past Medical History Medical History (Updated 12/07/21 @ 00:15 by Lori Davidson MD) Arthralgia BPH (benign prostatic hyperplasia) Disequilibrium syndrome DJD (degenerative joint disease), multiple sites Glaucoma Hyperlipidemia Osteopenia Pneumonia Spinal stenosis Subclinical hyperthyroidism UTI (urinary tract infection) Vitamin B12 deficiency Vitamin D deficiency Surgical History Surgical History History of cataract extraction History of removal of pigmented skin lesion History of total right hip arthroplasty Family History Family History Mother Family history of cardiovascular disease Diabetes mellitus Family history of arthritis Family history of coronary artery disease Hypertension Acute myocardial infarction Father Family history of arthritis Family history of coronary artery disease Sibling Glaucoma Hypertension Social History Social History (Updated 11/09/21 @ 16:51 by Mayi Anton PA-C) Social History: Mr. Nava lives at home with his . Both he and his
[2021-12-06 22:13] LABS: Alveolar/Arterial O2 Gradient 60.1 mmHg; Base Excess ABG 1.1 mEq/l (+/-2.0); Fractional Inspired Oxygen 32 %; Oxygen Content ABG 10.9 %vol (16.0-22.0); Oxygen Saturation ABG 98.6 % (95.0-100.0); Oxyhemoglobin 91.9 % THb (90.0-100.0); PCO2 ABG 36.5 mmHg (35.0-45.0); PO2 ABG 125.4 mmHg (80.0-100.0); PO2 FiO2 Ratio Arterial Blood 3.92 %; Total Hemoglobin 8.2 g/dL (12.0-18.0); pH ABG 7.453 (7.350-7.450)
[2021-12-06 22:14] LABS: Device NASAL CANNULA; Modified Allen's Test Pass; Site Drawn LEFT RADIAL
--- NOTE | 2021-12-06 22:27 | PC.NURSE ---
Pt Covid + on 11/09/21.
[2021-12-06 23:01] LABS: Basophils Absolute Auto 0.1 K/mm3 (0.0-0.1); Basophils Percent Auto 0.4 % (0.2-1.2); Eosinophils Absolute Auto 0.1 K/mm3 (0-0.3); Eosinophils Percent Auto 0.5 % (0-4.4); Hematocrit 27.5 % (42.0-52.0); Hemoglobin 8.6 g/dL (14.0-18.0); Immature Granulocyte Absolute 0.12 K/mm3 (0.00-0.031); Lymphocytes Absolute Auto 0.83 K/mm3 (0.9-3.2); Lymphocytes Percent Auto 6.7 % (18.3-44.2); Mean Corpuscular HGB Conc 31.3 g/dl (32-36); Mean Corpuscular Hemoglobin 30.7 pg (26-34); Mean Corpuscular Volume 98.2 fl (80-100); Mean Platelet Volume 10.5 fl (7.4-10.4); Monocytes Absolute Auto 0.9 K/mm3 (0.1-0.6); Monocytes Percent Auto 7.3 % (2.6-8.5); Neutrophils Absolute Auto 10.5 K/mm3 (1.3-6.7); Neutrophils Percent Auto 84.1 % (45.5-73.1); Platelet Count Result 188 k/mm3 (150-375); Red Cell Distribution Width 15.5 % (11.5-14.5); White Blood Count 12.4 K/mm3 (4.5-10.0)
[2021-12-06 23:11] LABS: Alanine Aminotransferase 21 U/L (6-50); Albumin Level 3.7 g/dL (3.5-5.1); Alkaline Phosphatase 85 U/L (38-126); Anion Gap 9 mmol/L (8-16); Aspartate Amino Transferase 27 U/L (17-59); Bilirubin,Total 1.6 mg/dL (0.2-1.3); Blood Urea Nitrogen 39 mg/dL (9-20); Calcium 9.4 mg/dL (8.4-10.2); Carbon Dioxide 24 mmol/L (22-30); Chloride 103 mmol/L (98-107); Estimated CRCL calculation 27 ml/min; Estimated Glomerular Filt Rate 31; Glucose 136 mg/dL (65-110); Lactic Acid Reflex 0.9 mmol/L (0.7-2.0); Potassium 4.1 mmol/L (3.4-5.0); Sodium 136 mmol/L (137-145)
[2021-12-06 23:16] LABS: INR 1.1; Prothrombin Time 13.9 Seconds (11.1-14.7)
--- NOTE | 2021-12-06 23:16 | PC.NURSE ---
Patient report received from WESTLEY Win. Assumed care of patient at this time.
[2021-12-06 23:20] LABS: Add Urine Microscopic? YES; Appearance Urine Clear (Clear); Bilirubin Urine 1+ (Negative); Blood Urine 1+ (Negative); Glucose Urine UA Trace mg/dL (Negative); Ketones Urine 1+ mg/dL (Negative); Leukocyte Esterase Ur 3+ LEU/UL (Negative); Nitrate Urine Positive (Negative); Protein Urine 2+ mg/dL (Negative); Specific Grav Ur <= 1.005 (1.001-1.035)
[2021-12-06 23:22] LABS: Troponin I < 0.012 ng/mL (0.000-0.034)
[2021-12-06 23:22] LABS: Color Urine Dark Orange (Yellow)
[2021-12-06 23:24] LABS: Bacteria Urine Trace /hpf; Squamous Epithelial Cell Urine Rare /hpf (Few)
[2021-12-06] MEDS: SODIUM CHLORIDE 0.9% IV 1,000 ML 999 ML IV CONT (23:27)
--- NOTE | 2021-12-06 23:33 | PC.NURSE ---
Patients calls to get update.
[2021-12-06 23:41] LABS: Thyroid Stimulating Hormone 0.324 uIU/mL (0.465-4.680)
[2021-12-07] VITALS (17 sets, daily range): BP systolic 108–133; BP diastolic 48–64; PULSE 81–108; RESP 12–24; TEMP 36.4–37.4; O2SAT 93–97; BMI 26.0
--- NOTE | 2021-12-07 | ECHO_ITS ---
Patient Info Name: Fernando Nava Age: 81 years : 1940 Gender: Male Ht: 71 in Wt: 186 lbs BSA: 2.07 m2 HR: 95 bpm BP: 125 / 59 mmHg Heart Rhythm: Sinus Rhythm Technical Quality: Poor Exam Date: 12/07/2021 11:16 AM Exam Location: [facility] Pulmonary Patient Status: Inpatient Admit Date: 12/07/2021 Staff Ordering Physician: Yves Kilgore MD Integrated Logistics Support Manager: Florencia Jarquin RDCS Attending Provider: Wendy Childers DO Exam Type: CA echo dop color flow w con Study Info Indications - cardiac arrest Complete two-dimensional, color flow and Doppler transthoracic echocardiogram is performed with contrast to opacify the left ventricle and to improve the deliniation of the left ventricle endocardial borders. Contrast/Agitated Saline Contrast/Ag. Saline: Definity Amount: 3.00 ml Administered By: Florencia Jarquin RDCS Existing IV Access: Yes IV Access Condition: patent with no signs of infiltration Summary 1. Technically suboptimal study due to poor sonographic images. 2. Left ventricular chamber dimension is mildly enlarged. 3. Left ventricular systolic function is normal, estimated at 60-65%. 4. The left ventricular diastolic function is grade I diastolic dysfunction. 5. E/e' 9 is minimally elevated. 6. Left atrial chamber dimension is mildly enlarged. 7. There is mild aortic valve sclerosis. 8. No pulmonary hypertension, estimated pulmonary arterial systolic pressure is 35 mmHg. Left Ventricle Technically suboptimal study due to poor sonographic images. E/e' 9 is minimally elevated. Left ventricular chamber dimension is mildly enlarged. Left ventricular systolic function is normal, estimated at 60-65%. The left ventricular diastolic function is grade I diastolic dysfunction. Right Ventricle Right ventricular chamber dimension is normal. Right ventricular systolic function is normal. Left Atria Left atrial chamber dimension is mildly enlarged. Right Atria Right atrial chamber dimension is normal. Aortic Valve The aortic valve is trileaflet. There is mild aortic valve sclerosis. There is no aortic valve stenosis. There is no aortic valve regurgitation. Pulmonic Valve There is no pulmonic regurgitation. Mitral Valve There is no mitral valve stenosis. There is no mitral valve regurgitation. Tricuspid Valve There is no tricuspid valve regurgitation. No pulmonary hypertension, estimated pulmonary arterial systolic pressure is 35 mmHg. Pericardium/Pleural There is no pericardial effusion. Inferior Vena Cava Normal inferior vena cava with >50% collapse upon inspiration consistent with normal right atrial pressure, 5 mmHg. Aorta The aortic root size at the sinus of Valsalva is normal. Left Ventricular Outflow Tract Name Value Normal LVOT 2D LVOT Diameter 2.11 cm LVOT Doppler LVOT Peak Gradient 4 mmHg LVOT Mean Gradient 2 mmHg LVOT VTI 15.88 cm LVOT VTI/AV VTI Ratio 0.59 LVOT Stroke Volum
--- NOTE | 2021-12-07 00:22 | PC.NURSE ---
Patient calls back to get update. Informed her that patient will be admitted.
--- NOTE | 2021-12-07 08:54 | PM.IMHP ---
H&P: HPI History of Present Illness Date/Time: 12/07/21 08:54 Chief Complaint: Unresponsive episodes Narrative: 81yo male with dementia, BPH, HTN and HLD here after being found unresponsive at the care home. Patient is alert but confused and unable to provide history. When asked was hospitalized he states ?I was walking down the road was stung by a bug?. Majority history obtained from his and from the chart. Patient was hospitalized here in the end of October COVID pneumonia. He was also treated for bacterial pneumonia. He was discharged on 11/15/2021 to [facility] in [place]. While at that facility, he developed an episode of unresponsiveness. The staff did CPR and patient was sent to [facility] for evaluation. The states that an evaluation was completed but no etiology was found. She does not believe that a stress test or heart catheterization was performed. She does mention that the patient does have a history of episodes of difficulty awakening at home and when he does awaken he becomes agitated. Patient was discharged from [facility] around November 25. At [facility], he has been doing well as far as the is aware. She has not seen him because of COVID. She was not told the that the patient was having any concerning symptoms. She felt the patient was eating well. There has been no nausea, vomiting or diarrhea that she was aware of. No other symptoms such as chest pain or shortness of breath. On the evening prior to admission, care home staff noted patient was unresponsive. He was in wheelchair slumped over. Patient was moved to a bed and CPR was started. The states she was told that the patient's pulse was ?weak?. Per EMS notes, patient was unresponsive, whitehead and no pulse appreciated. Patient placed in bed on CPR board and CPR performed for about 2 minutes. CPR was stopped when patient awoke and became agitated. EMS arrived and patient has strong pulses. Patient has no memory of this but according to the notes he was upset that he was bothered. He denied dizziness, lightheadedness, shortness of breath or chest pain prior to the onset of symptoms. He did complain of soreness in the chest. EKG in the field showing no acute ST findings. Patient brought to the ED for evaluation. In [facility] ED, he ws hemodynamically stable. EKG showed normal sinus rhythm with minor nonspecific T-wave changes. Chest x-ray showed mild airspace opacities in the lower lung zones consistent with atelectasis versus pneumonia. Brain CT showed normal aging brain. No acute findings. Labs showing elevated WBC to 12K, worsening anemia with Hgb 8.6, and МАРИНА with BUN 39 and Cr 2.1. TB 1.6 but LFTs o/w normal. UA abnormal as well. He was given Rocephin once and IV fluid bolus. He was admitted for further care. Spoke with about care plan. Verified with that patient is Full Code. Review of Systems Review of Systems: ROS unobtainable: Yes unobtainable due to mental status PMFSH Past Medical History Medical History (Updated 12/07/21 @ 09:16 by Yves Kilgore MD) Arthralgia Benign essential hypertension BPH (benign prostatic hyperplasia) Dementia Disequilibrium syndrome DJD (degenerative joint disease), multiple sites Glaucoma Hyperlipidemia Osteopenia Pneumonia Spinal stenosis Subclinical hyperthyroidism UTI (urinary tract infection) Vitamin B12 deficiency Vitamin D deficiency Surgical History Surgical History History of cataract extraction History of removal of pigmented skin lesion History of total right hip arthroplasty Family History Family History Mother Family history of cardiovascular disease Diabetes mellitus Family history of arthritis Family history of coronary artery disease Hypertension Acute myocardial infarction Father Fam
[2021-12-07] MEDS: SODIUM CHLORIDE 0.9% IV 1,000 ML 70 ML IV CONT (11:16)
[2021-12-07] MEDS: MULTIVITAMINS THERAPEUTIC TAB (*BKC) 1 TABLET PO (11:22)
[2021-12-07] MEDS: polyethylene glycoL 3350 17 GM POWD.PACK PO (11:23)
[2021-12-07] MEDS: PERFLUTREN LIPID MICROSPHERES 1.5 ML VIAL DILUTED TO 10 ML TOTAL VOLUME IV PUSH (11:40)
--- NOTE | 2021-12-07 12:01 | IVDEFINITY ---
Prior to administration of IV Definity the patient was educated on the risks and benefits of the imaging enhancing agent including potential adverse side effects. The patient verbalized understanding. Allergies were verified. No exclusion criteria were identified and at least one of the following inclusion criteria were met: 1) physician request, 2) patient technically difficult to image (per the [place] [employer] guidelines of two or more segments not discernable within the apical view), or 3) questionable left ventricular function. ?
[2021-12-07 12:16] LABS: Basophils Absolute Auto 0.1 K/mm3 (0.0-0.1); Basophils Percent Auto 0.5 % (0.2-1.2); Eosinophils Absolute Auto 0.1 K/mm3 (0-0.3); Eosinophils Percent Auto 1.2 % (0-4.4); Hematocrit 26.2 % (42.0-52.0); Hemoglobin 8.1 g/dL (14.0-18.0); Immature Granulocyte Absolute 0.09 K/mm3 (0.00-0.031); Immature Granulocyte Percent A 0.8 % (0-0.5); Lymphocytes Absolute Auto 0.66 K/mm3 (0.9-3.2); Lymphocytes Percent Auto 5.9 % (18.3-44.2); Mean Corpuscular HGB Conc 30.9 g/dl (32-36); Mean Corpuscular Hemoglobin 30.8 pg (26-34); Mean Corpuscular Volume 99.6 fl (80-100); Mean Platelet Volume 10.1 fl (7.4-10.4); Monocytes Absolute Auto 0.9 K/mm3 (0.1-0.6); Monocytes Percent Auto 8.1 % (2.6-8.5); Neutrophils Absolute Auto 9.4 K/mm3 (1.3-6.7); Neutrophils Percent Auto 83.5 % (45.5-73.1); Platelet Count Result 177 k/mm3 (150-375); Red Blood Count 2.63 M/mm3 (4.6-6.20); Red Cell Distribution Width 15.7 % (11.5-14.5); Reticulocyte Hemoglobin Conten 34.1 pg (28.2-35.7); Reticulocyte Percent 2.58 % (0.7-4.3); Reticulocytes Absolute 0.07 B/L (32.2-175.7); White Blood Count 11.2 K/mm3 (4.5-10.0)
[2021-12-07 12:27] LABS: Lactate Dehydrogenase 252 U/L (120-246); Lipase 61 U/L (23-300)
[2021-12-07 12:31] LABS: Alanine Aminotransferase 20 U/L (6-50); Albumin Level 3.4 g/dL (3.5-5.1); Alkaline Phosphatase 74 U/L (38-126); Anion Gap 6 mmol/L (8-16); Aspartate Amino Transferase 25 U/L (17-59); Bilirubin,Total 1.3 mg/dL (0.2-1.3); Blood Urea Nitrogen 35 mg/dL (9-20); CRP 5.1 mg/dL (<1.0); Calcium 8.7 mg/dL (8.4-10.2); Carbon Dioxide 26 mmol/L (22-30); Chloride 104 mmol/L (98-107); Creatine Kinase 113 U/L (55-170); Estimated CRCL calculation 30 ml/min; Estimated Glomerular Filt Rate 34; Glucose 112 mg/dL (65-110); Potassium 4.2 mmol/L (3.4-5.0); Sodium 136 mmol/L (137-145)
[2021-12-07 12:40] LABS: Troponin I 0.015 ng/mL (0.000-0.034)
[2021-12-07 12:52] LABS: Iron 35 ug/dL (49-181)
[2021-12-07 13:01] LABS: Percent Iron Saturation 16 % (20-50)
[2021-12-07 13:36] LABS: Folic Acid > 20.0 ng/mL (2.76->20)
[2021-12-07] MEDS: FERROUS SULFATE 324 MG TABLET PO (18:12)
[2021-12-07] MEDS: ARTIFICIAL TEARS OPHTH SOLN 15 ML BOTTLE 1 DROP EACH EYE (18:12)
[2021-12-07 19:02] LABS: Creatinine Urine 76.2 mg/dL
[2021-12-07 19:31] LABS: IFOB Positive Control Positive; Immunochemical Fecal Occult Bl Positive (N)
[2021-12-07 19:35] LABS: Sodium Urine Random 89 meq/L
[2021-12-07] MEDS: methylPREDNISolone SOD SUCC 40 MG VIAL IV PUSH (19:59)
[2021-12-07] MEDS: PRAVASTATIN SODIUM 20 MG TABLET PO (19:59)
[2021-12-07 20:26] LABS: Eosinophil Urine None Seen % (None Seen)
--- NOTE | 2021-12-07 23:09 | PCRCNOTE ---
Pt placed on apnea link CHRISTIANO screening monitor. Pt on room air and sleeping soundly when applied at 2300.
[2021-12-08] VITALS (16 sets, daily range): BP systolic 124–162; BP diastolic 51–79; PULSE 73–102; RESP 12–18; TEMP 36.3–37.4; O2SAT 93–99
[2021-12-08] MEDS: SODIUM CHLORIDE 0.9% IV 1,000 ML 70 ML IV CONT ×2 (01:24→17:10)
[2021-12-08] MEDS: methylPREDNISolone SOD SUCC 40 MG VIAL IV PUSH (05:39)
[2021-12-08] MEDS: FINASTERIDE 5 MG TABLET PO (08:56)
[2021-12-08] MEDS: FOLIC ACID 0.4 MG TABLET PO (08:56)
[2021-12-08] MEDS: amLODIPine BESYLATE 2.5 MG TABLET PO (08:57)
[2021-12-08] MEDS: FERROUS SULFATE 324 MG TABLET PO ×2 (08:57→17:12)
[2021-12-08] MEDS: ARTIFICIAL TEARS OPHTH SOLN 15 ML BOTTLE 1 DROP EACH EYE ×2 (08:57→18:12)
[2021-12-08] MEDS: ASPIRIN 81 MG ENTERIC TABLET PO (08:58)
[2021-12-08 09:22] LABS: Hemoglobin 8.2 g/dL (14.0-18.0); Mean Corpuscular HGB Conc 29.3 g/dl (32-36); Mean Corpuscular Hemoglobin 30.9 pg (26-34); Mean Corpuscular Volume 105.7 fl (80-100); Mean Platelet Volume 10.7 fl (7.4-10.4); Platelet Count Result 163 k/mm3 (150-375); Red Blood Count 2.65 M/mm3 (4.6-6.20); Red Cell Distribution Width 16.6 % (11.5-14.5); White Blood Count 12.7 K/mm3 (4.5-10.0)
[2021-12-08 09:44] LABS: Alanine Aminotransferase 19 U/L (6-50); Albumin Level 3.5 g/dL (3.5-5.1); Alkaline Phosphatase 80 U/L (38-126); Anion Gap 13 mmol/L (8-16); Aspartate Amino Transferase 23 U/L (17-59); Blood Urea Nitrogen 29 mg/dL (9-20); Calcium 8.2 mg/dL (8.4-10.2); Carbon Dioxide 19 mmol/L (22-30); Chloride 107 mmol/L (98-107); Estimated CRCL calculation 33 ml/min; Estimated Glomerular Filt Rate 39; Glucose 144 mg/dL (65-110); Potassium 4.1 mmol/L (3.4-5.0); Sodium 139 mmol/L (137-145)
[2021-12-08 10:22] LABS: Band Neutrophils Percent 14 % (0-6); Lymphocytes Absolute Manual 0.63 K/mm3 (1.1-4.5); Monocytes Absolute Manual 0.12 K/mm3 (0.1-0.90); Monocytes Percent Manual 1 % (3-9); Neutrophils Absolute Manual 11.93 K/mm3 (1.3-6.7); Neutrophils Percent Manual 80 % (46-73); Total Cells Counted 100
[2021-12-08 10:23] LABS: Platelet Estimate Adequate (Adequate)
[2021-12-08 10:24] LABS: Anisocytosis 1+ (NORMAL)
--- NOTE | 2021-12-08 10:24 | WPDNEUROLOGY ---
Neurology EEG Report General Information Date of Study: 12/08/21 TEST eeg DIAGNOSIS possible seizures CONDITION OF RECORDING awake drowsy and sleep EEG NUMBER [id number] CLINICAL HISTORY patient says he is here in the hospital because he was acting funny and family made him come in. EEG DESCRIPTION Background rhythm consists of low to medium voltage 5 to 7 hertz per 2nd theta admixed with 3 to 4 hertz per 2nd delta activity and intermittent low-voltage 15 to 18 hertz per 2nd beta activity. Bilateral symmetrical sleep activity seen during sleep. Hyperventilation not done. Photic stimulation not done. Non paroxysmal. Nonfocal. Nonlateralizing. IMPRESSION Abnormal record due to the presence of bihemispheric theta and delta activity with absence of normal background rhythm. These abnormalities are suggestive of underlying organic or metabolic encephalopathy or else postictal state clinical correlation recommended
[2021-12-08 11:06] LABS: Lactate Dehydrogenase 283 U/L (120-246)
[2021-12-08] MEDS: MULTIVITAMINS THERAPEUTIC TAB (*BKC) 1 TABLET PO (12:51)
--- NOTE | 2021-12-08 16:06 | PM.IMPN ---
Progress Note: A&P Assessment and Plan (1) Unresponsive episode: Code(s): R41.89 - Other symptoms and signs involving cognitive functions and awareness Status: Acute Assessment and Plan: Patient again had an unresponsive event that resulted in CPR. This has occurred at 2 separate facilities. He has had difficulty with waking up at home but CPR has never been performed. Cardiac arrest unlikely with negative troponin and EKG by EMS showing no acute changes. He may have episodes of bradycardia while sleeping (CHRISTIANO?) giving the impression that he has lost a pulse. Apnea link not bad with AHI 9.4 and RI 14 but spending 242minutes with SpO2<88%. Unresponsiveness could be related to UTI and/or acute kidney injury. Consider also seizures. EEG was positive. CT of the brain showed no acute findings. Echo showing EF 60-65% with grade I diastolic dysfunction. Will consult Neuro. Doubt TIA but he did have possible AFib. Will continue tele. Consider cardiac monitoring as outpatient. O2 at night and check apnea link on nocturnal O2. (2) Acute kidney injury: Code(s): N17.9 - Acute kidney failure, unspecified Status: Acute Assessment and Plan: Patient with acute kidney injury. Etiology unclear. No evidence of recent contrast study. He is on lisinopril but not on diuretic therapy. Probably related to acute UTI. Renal ultrasound normal. Cr trending down slowly. Continue IV fluids. (3) Acute UTI: Code(s): N39.0 - Urinary tract infection, site not specified Status: Acute Assessment and Plan: UA noted. Patient did receive a dose of Rocephin in the ED. BCx NGTD. Urine culture not collected but collected after Abx started. Continue IV antibiotics. Urine culture could be negative since he has already received antibiotics. (4) Anemia: Code(s): D64.9 - Anemia, unspecified Status: Acute Assessment and Plan: Patient with chronic anemia running mostly in the 9-11 range. Hemoglobin 11.4 after discharge on 11/15/2021. Hemoglobin 8.6 on admission. Unclear if he is having episodes of blood loss. Stool is guaiac positive. He is on aspirin but not on PPI or H2 ne. He is on iron to suggest underlying iron deficiency. He has positive FINA. No schistocytes by smear. LDH 283. B12/Folate normal. Iron low with 16% saturation. Steroids added for possible hemolysis but even the Bili level normal now. Hemolysis seeming less likely. Stop steroids. Hematology consulted. Add PPI. Continue iron. (5) Benign essential hypertension: Code(s): I10 - Essential (primary) hypertension Status: Acute Assessment and Plan: BP stable. 128/51. Continue amlodipine. Lisinopril remains on hold. (6) Abnormal TSH: Code(s): R79.89 - Other specified abnormal findings of blood chemistry Status: Acute Assessment and Plan: TSH has been low for the past few months. Free T4 has been normal so no treatment required. (7) Dementia: Code(s): F03.90 - Unspecified dementia without behavioral disturbance Status: Acute Assessment and Plan: Patient is alert but confused related to his underlying dementia. He probably also has Parkinisons clinically. Follow. Neuro to see. Continue PT/OT. Plan DVT Prophylaxis: Heparin Code status: Full Diet: heart healthy Subjective Date/time seen: 12/08/21 16:06 Interval history: 81yo male with dementia, BPH, HTN and HLD here after being found unresponsive at the assisted.? Patient is alert but confused. History is unreliable. Review of Systems Review of Systems: ROS unobtainable: Yes unobtainable due to mental status Exam Narrative: AF 97.4 128/51 89 12 96% ra Gen - NARD Chest - CTA bilaterally, nml RR CV - RRR. S1-S2. Telemetry showing 1 brief run of narrow complex irregular rhythm possibly AFib. Abd -soft. Nontender. Positive bowel sounds. Ext -trace ross ankle edema. Neuro -aler
[2021-12-08] MEDS: PANTOPRAZOLE SODIUM IV 40 MG VIAL IV PUSH (20:45)
[2021-12-08] MEDS: PRAVASTATIN SODIUM 20 MG TABLET PO (20:45)
--- NOTE | 2021-12-08 21:40 | PCRCNOTE ---
pt placed on 2 liters NC for his apnea link test. SP02 96%
[2021-12-09] VITALS (8 sets, daily range): BP systolic 135–155; BP diastolic 61–68; PULSE 70–86; RESP 16–20; TEMP 36.4–36.8; O2SAT 95–99
[2021-12-09 06:39] LABS: Basophils Percent Auto 0.1 % (0.2-1.2); Hematocrit 24.6 % (42.0-52.0); Hemoglobin 7.6 g/dL (14.0-18.0); Immature Granulocyte Absolute 0.19 K/mm3 (0.00-0.031); Immature Granulocyte Percent A 1.3 % (0-0.5); Lymphocytes Absolute Auto 1.11 K/mm3 (0.9-3.2); Lymphocytes Percent Auto 7.3 % (18.3-44.2); Mean Corpuscular HGB Conc 30.9 g/dl (32-36); Mean Corpuscular Volume 97.2 fl (80-100); Mean Platelet Volume 10.8 fl (7.4-10.4); Monocytes Percent Auto 6.8 % (2.6-8.5); Neutrophils Absolute Auto 12.8 K/mm3 (1.3-6.7); Neutrophils Percent Auto 84.5 % (45.5-73.1); Platelet Count Result 174 k/mm3 (150-375); Red Blood Count 2.53 M/mm3 (4.6-6.20); Red Cell Distribution Width 16.3 % (11.5-14.5); White Blood Count 15.2 K/mm3 (4.5-10.0)
[2021-12-09 06:57] LABS: Albumin Level 3.1 g/dL (3.5-5.1); Anion Gap 7 mmol/L (8-16); Blood Urea Nitrogen 31 mg/dL (9-20); Calcium 7.8 mg/dL (8.4-10.2); Carbon Dioxide 22 mmol/L (22-30); Chloride 108 mmol/L (98-107); Estimated CRCL calculation 35 ml/min; Estimated Glomerular Filt Rate 42; Glucose 119 mg/dL (65-110); Magnesium 1.8 mg/dL (1.6-2.3); Potassium 3.9 mmol/L (3.4-5.0); Sodium 137 mmol/L (137-145)
[2021-12-09] MEDS: SODIUM CHLORIDE 0.9% IV 1,000 ML 70 ML IV CONT ×2 (08:00→23:32)
[2021-12-09] MEDS: FINASTERIDE 5 MG TABLET PO (09:24)
[2021-12-09] MEDS: FOLIC ACID 0.4 MG TABLET PO (09:24)
[2021-12-09] MEDS: PANTOPRAZOLE SODIUM IV 40 MG VIAL IV PUSH ×2 (09:24→21:28)
[2021-12-09] MEDS: ASPIRIN 81 MG ENTERIC TABLET PO (09:25)
[2021-12-09] MEDS: polyethylene glycoL 3350 17 GM POWD.PACK PO (09:25)
[2021-12-09] MEDS: FERROUS SULFATE 324 MG TABLET PO ×2 (09:25→17:26)
[2021-12-09] MEDS: amLODIPine BESYLATE 2.5 MG TABLET PO (09:25)
[2021-12-09] MEDS: ARTIFICIAL TEARS OPHTH SOLN 15 ML BOTTLE 1 DROP EACH EYE ×2 (09:25→17:25)
--- NOTE | 2021-12-09 11:24 | PM.IMPN ---
Progress Note: A&P Assessment and Plan (1) Unresponsive episode: Code(s): R41.89 - Other symptoms and signs involving cognitive functions and awareness Status: Acute Assessment and Plan: Patient again had an unresponsive event that resulted in CPR. This has occurred at 2 separate facilities. He has had difficulty with waking up at home but CPR has never been performed. Cardiac arrest unlikely with negative troponin and EKG by EMS showing no acute changes. He may have episodes of bradycardia while sleeping (CHRISTIANO?) giving the impression that he has lost a pulse. Apnea link not bad with AHI 9.4 and RI 14 but spending 242minutes with SpO2<88%. Unresponsiveness could be related to UTI and/or acute kidney injury. Consider also seizures. EEG with bihemispheric theta and delta activity with absence of normal background rhythm. Suggestive of underlying organic or metabolic encephalopathy state. CT of the brain showed no acute findings. Echo showing EF 60-65% with grade I diastolic dysfunction. Consulted Neuro. Doubt TIA but he did have possible AFib. Will continue tele. Consider cardiac monitoring as outpatient. O2 at night and check apnea link on nocturnal O2. Leukocytosis worsened today likely due to steroid treatment. Hemoglobin continues to lower no known sign of bleeding anywhere. FOBT does come back positive. Consult GI on PPI IV b.i.d. Only antiplatelet therapy is aspirin not on any anticoagulant. Some of the drop in H&H some of this would be related to hemodilution On admission creatinine was 2.1 to improve down to 1.6 baseline 0.9-1 Repeat apnea link waiting 2 L nasal cannula with oxygen desaturation less than 88% of 7 minute (day prior apnea had desaturation less than 88% of 242 minute) (2) Acute kidney injury: Code(s): N17.9 - Acute kidney failure, unspecified Status: Acute Assessment and Plan: Patient with acute kidney injury. Etiology unclear. No evidence of recent contrast study. He is on lisinopril but not on diuretic therapy. Probably related to acute UTI. Renal ultrasound normal. Cr trending down slowly. Continue IV fluids. (3) Acute UTI: Code(s): N39.0 - Urinary tract infection, site not specified Status: Acute Assessment and Plan: UA noted. Patient did receive a dose of Rocephin in the ED. BCx NGTD. Urine culture not collected but collected after Abx started. Continue IV antibiotics. Urine culture could be negative since he has already received antibiotics. (4) Anemia: Code(s): D64.9 - Anemia, unspecified Status: Acute Assessment and Plan: Patient with chronic anemia running mostly in the 9-11 range. Hemoglobin 11.4 after discharge on 11/15/2021. Hemoglobin 8.6 on admission. Unclear if he is having episodes of blood loss. Stool is guaiac positive. He is on aspirin but not on PPI or H2 ne. He is on iron to suggest underlying iron deficiency. He has positive FINA. No schistocytes by smear. LDH 283. B12/Folate normal. Iron low with 16% saturation. Steroids added for possible hemolysis but even the Bili level normal now. Hemolysis seeming less likely. Stop steroids. Hematology consulted. Add PPI. Continue iron. FOBT is positive GI consulted PPI b.i.d. Hold aspirin hemodynamics stable (5) Benign essential hypertension: Code(s): I10 - Essential (primary) hypertension Status: Acute Assessment and Plan: BP stable. 128/51. Continue amlodipine. Lisinopril remains on hold due to renal dysfunction (6) Abnormal TSH: Code(s): R79.89 - Other specified abnormal findings of blood chemistry Status: Acute Assessment and Plan: TSH has been low for the past few months. Free T4 has been normal so no treatment required. (7) Dementia: Code(s): F03.90 - Unspecified dementia without behavioral disturbance Status: Acute Assessment and Plan: Patient is alert but confused related to his under
--- NOTE | 2021-12-09 12:28 | PDONCCN ---
HPI - Date of Consult Date/Time: 12/09/21 12:28 Requesting Physician: Ashu Wills MD Primary Care Provider: Jarrod Orta MD - Consult Narrative Reason for consult: Normocytic anemia Narrative: Fernando Nava is a 81 year old male with history of hypertension, hyperlipidemia and dementia [facility]. According the patient he was walking in the park and stung by about and brought into the hospital by some bystanders. Patient was hospitalized to the hospital in October due to COVID pneumonia. He denies any previous history of kidney disease but informed me that he was anemic in the past as well. He denies any melena hematochezia but does have some blood in the urine occasionally. He has been eating fine and weight remain stable. Labs showed hemoglobin of 8.6. Iron level was low at 35 with saturation of 16%. Ferritin was elevated. Total bilirubin was slightly elevated but came down to normal. LDH was slightly high elevated. Creatinine was 2.1 with kidney function of about 31%. Head CT came back normal. He was diagnosed with UTI and has been receiving treatment with IV antibiotics. He remains tired and fatigued. Review of Systems - Review of Systems All systems reviewed & are unremarkable except as noted in HPI and [facility] Medical History: Medical History (Last Updated 12/07/21 @ 09:16 by Yves Kilgore MD) Arthralgia Benign essential hypertension BPH (benign prostatic hyperplasia) Dementia Disequilibrium syndrome DJD (degenerative joint disease), multiple sites Glaucoma Hyperlipidemia Osteopenia Pneumonia Spinal stenosis Subclinical hyperthyroidism UTI (urinary tract infection) Vitamin B12 deficiency Vitamin D deficiency Surgical History: Surgical History (Last Reviewed 12/07/21 @ 09:16 by Yves Kilgore MD) History of cataract extraction History of removal of pigmented skin lesion History of total right hip arthroplasty Family History: Family History (Last Reviewed 12/07/21 @ 09:16 by Yves Kilgore MD) Mother Family history of cardiovascular disease Diabetes mellitus Family history of arthritis Family history of coronary artery disease Hypertension Acute myocardial infarction Father Family history of arthritis Family history of coronary artery disease Sibling Glaucoma Hypertension - Social History Social History: Social History (Last Updated 12/07/21 @ 09:18 by Yves Kilgore MD) Alcohol Use: Alcohol intake: unknown Substance Use: Substance use: unknown Others: Spiritual care concerns: No Smoking Status: Smoking status: Never smoker Exam - Vital Signs Vital Signs - 24 hr 12/08/21 14:00 12/08/21 16:00 12/08/21 16:30 Temperature 36.5 C Pulse Rate 89 87 82 Respiratory Rate 12 Blood Pressure 139/64 Pulse Oximetry 95 Oxygen Delivery Oxygen Flow Rate Fraction of Inspired Oxygen 12/08/21 18:00 12/08/21 20:00 12/08/21 20:00 Temperature 37.4 C Pulse Rate 81 86 86 Respiratory Rate 16 Blood Pressure 146/72 H Pulse Oximetry 93 Oxygen Delivery Oxygen Flow Rate Fraction of Inspired Oxygen 12/08/21 20:45 12/08/21 21:41 12/08/21 23:47 Temperature 37.3 C Pulse Rate 84 83 Respiratory Rate 14 16 Blood Pressure 151/79 H Pulse Oximetry 94 96 Oxygen Delivery Room Air Nasal Cannula Oxygen Flow Rate 2 Fraction of Inspired Oxygen 28 12/09/21 00:00 12/09/21 04:00 12/09/21 07:59 Temperature Pulse Rate 72 82 83 Respiratory Rate Blood Pressure Pulse Oximetry 97 Oxygen Delivery Nasal Cannula Oxygen Flow Rate 1.5 Fraction of Inspired Oxygen 12/09/21 08:00 12/09/21 08:00 12/09/21 08:00 Temperature 36.4 C Pulse Rate 83 80 Respiratory Rate 16 Blood Pressure 155/68 H Pulse Oximetry 98 Oxygen Delivery Room Air Oxygen Flow Rate Fraction of Inspired Oxygen - Exam HEENT: EOMI, PERRL
--- NOTE | 2021-12-09 12:37 | WPDNEURCNPN ---
Assessment and Plan Assessment and plan (1) Dementia: Code(s): F03.90 - Unspecified dementia without behavioral disturbance Status: Acute (2) Unresponsive episode: Code(s): R41.89 - Other symptoms and signs involving cognitive functions and awareness Status: Acute (3) Anemia: Code(s): D64.9 - Anemia, unspecified Status: Acute (4) Falls: Code(s): W19.XXXA - Unspecified fall, initial encounter Status: Acute (5) Neurologic gait dysfunction: Code(s): R26.9 - Unspecified abnormalities of gait and mobility Status: Acute Plan vasovagal syncope versus TIA in addition to the history gait dysfunction in the family raising the possibility of genetic cerebellar disease has had MRI of the brain in 2020 which was negative at this stage CT of the head is negative would like to follow the patient for the gait disorder on a regular basis present problem could be vasovagal Consult date: 12/09/21 Time Seen: 11:30 HPI: Fernando Nava is a 81 year old male admitted to the hospital for the complaints of change in the mental status through the ER where he was brought from the snf with the information that he was found in wheelchairs slumped over and unresponsive he was given CPR for 2 minutes at the snf then subsequently stopped as the patient was agitated EMS were called to the scene who noted the strong pulses and him being awake alert oriented complaining of chest soreness from CPR has been taking multiple medications as outlined including aspirin, and pravastatin, does have ongoing history of this a clue BM syndrome, with spinal stenosis and B12 deficiency and vitamin-D deficiency in addition to the history of total right hip arthroplasty but never smoker and documented initial examination grossly unremarkable with normal vital signs normal CBC and BMP with BUN 39 creatinine 2.1 blood sugar 236 lactic acid only 0.9 but UA abnormal with positive nitrate and normal ABG, subsequently negative chest x-ray negative CT scan of the head normal EKG with no AFib, subsequently Doppler study venous lower extremities negative, normal abdominal x-rays, has also been seen by store keeper for normocytic anemia Review of Systems Review of Systems: All systems reviewed & are unremarkable except as noted in HPI and below PMFSH Past Medical History Medical History (Updated 12/09/21 @ 12:51 by Sameer Conway MD) Arthralgia Benign essential hypertension BPH (benign prostatic hyperplasia) Dementia Disequilibrium syndrome DJD (degenerative joint disease), multiple sites Glaucoma Hyperlipidemia Osteopenia Pneumonia Spinal stenosis Subclinical hyperthyroidism UTI (urinary tract infection) Vitamin B12 deficiency Vitamin D deficiency Surgical History Surgical History History of cataract extraction History of removal of pigmented skin lesion History of total right hip arthroplasty Family History Family History Mother Family history of cardiovascular disease Diabetes mellitus Family history of arthritis Family history of coronary artery disease Hypertension Acute myocardial infarction Father Family history of arthritis Family history of coronary artery disease Sibling Glaucoma Hypertension Social History Social History (Updated 12/07/21 @ 09:18 by Yves Kilgore MD) Social History: He is retired from [employer]. He was at home with his but more recently now at snf. He has no children. His PCP is Dr. Orta. He has designated his , Kasie, as his surrogate decision maker. He is a full code Smoking status: Never smoker Alcohol intake: unknown Substance use: unknown Spiritual care concerns: No Meds Home Medications and Allergies Home Medications Medication Instructions Recorded Confirmed Type aspirin 81 mg tablet,delayed 81
[2021-12-09] MEDS: MULTIVITAMINS THERAPEUTIC TAB (*BKC) 1 TABLET PO (13:19)
[2021-12-09] MEDS: IRON SUCROSE COMPLEX 500 MG in SODIUM CHLORIDE 0.9% IV 250 ML 78.57 MG IVPB (13:20)
[2021-12-09] MEDS: EPOETIN ALFA-EPBX 20,000 UNITS/ML VIAL 20000 UNITS SUB-Q (13:45)
--- NOTE | 2021-12-09 15:23 | WPDGICN ---
Assessment and Plan Assessment and plan (1) Anemia: Code(s): D64.9 - Anemia, unspecified Status: Acute Assessment and Plan: Although he apparently has been anemic somewhat chronically, his blood counts are significantly lower now. His hemoglobin was up to 12 in September. Since then has been in the high 90s or up to 11.4. MCV is actually on the high side and serum ferritin is elevated at 505. Previous levels done several months ago were in the normal range. (2) Blood in stool: Code(s): K92.1 - Melena Status: Acute Assessment and Plan: I explained to the patient and his that he may have gastrointestinal pathology causing his anemia including possibility of AVMs, polyps, gastritis or ulcers. We will schedule him for EGD and colonoscopy to be done on Tuesday. Will start him on a clear liquid diet, And begin his prep tomorrow (3) Falls: Code(s): W19.XXXA - Unspecified fall, initial encounter Status: Acute Assessment and Plan: he does not recall having fallen. It is unclear if this is a recurrent issue. Anemia could be a contributing factor (4) Unresponsive episode: Code(s): R41.89 - Other symptoms and signs involving cognitive functions and awareness Status: Acute GI Consult Note Consult date/time: 12/09/21 15:23 HPI: Fernando Nava is a 81 year old male Who was admitted after he had been found unresponsive on the grounds of his fdc. He has gotten over COVID which he had 1 month ago. He has been it at [facility] and seemed to be doing well. He and his who is present during my examination states that he has had no recent gastrointestinal issues such as abdominal pain, nausea, vomiting or change in bowel habits. He states that he avoids constipation by eating a lot of fiber. He has been found to have anemia and Hemoccult-positive stools. His states that he has battled anemia most of his life. He is currently getting an iron infusion after having been seen by Hematology/Oncology. Today his hemoglobin is 7.6. On admission was 8.6 and 1 month ago was 11.4. he has Hemoccult-positive stool. He did have a Cologuard test a while back but has not had a colonoscopy for many many years. Review of Systems Review of Systems: All systems reviewed & are unremarkable except as noted in HPI and below PMFSH Past Medical History Medical History Arthralgia Benign essential hypertension BPH (benign prostatic hyperplasia) Dementia Disequilibrium syndrome DJD (degenerative joint disease), multiple sites Glaucoma Hyperlipidemia Osteopenia Pneumonia Spinal stenosis Subclinical hyperthyroidism UTI (urinary tract infection) Vitamin B12 deficiency Vitamin D deficiency Surgical History Surgical History History of cataract extraction History of removal of pigmented skin lesion History of total right hip arthroplasty Family History Family History Mother Family history of cardiovascular disease Diabetes mellitus Family history of arthritis Family history of coronary artery disease Hypertension Acute myocardial infarction Father Family history of arthritis Family history of coronary artery disease Sibling Glaucoma Hypertension Social History Social History Social History: He is retired from [employer]. He was at home with his but more recently now at fdc. He has no children. His PCP is Dr. Orta. He has designated his , Kasie, as his surrogate decision maker. He is a full code Smoking status: Never smoker Alcohol intake: unknown Substance use: unknown Spiritual care concerns: No Meds Home Medications and Allergies Home Medications Medication Instructions Record
[2021-12-09] MEDS: PRAVASTATIN SODIUM 20 MG TABLET PO (21:28)
[2021-12-09] MEDS: ACETAMINOPHEN 500 MG TABLET PO (21:29)
[2021-12-10] VITALS (9 sets, daily range): BP systolic 140–166; BP diastolic 72–79; PULSE 62–89; RESP 18–20; TEMP 36.3–37.1; O2SAT 94–97
[2021-12-10 04:48] LABS: Basophils Percent Auto 0.2 % (0.2-1.2); Eosinophils Absolute Auto 0.1 K/mm3 (0-0.3); Eosinophils Percent Auto 1.5 % (0-4.4); Hematocrit 22.8 % (42.0-52.0); Hemoglobin 7.2 g/dL (14.0-18.0); Immature Granulocyte Absolute 0.26 K/mm3 (0.00-0.031); Immature Granulocyte Percent A 2.8 % (0-0.5); Lymphocytes Absolute Auto 1.35 K/mm3 (0.9-3.2); Lymphocytes Percent Auto 14.3 % (18.3-44.2); Mean Corpuscular HGB Conc 31.6 g/dl (32-36); Mean Corpuscular Hemoglobin 30.9 pg (26-34); Mean Corpuscular Volume 97.9 fl (80-100); Mean Platelet Volume 10.8 fl (7.4-10.4); Monocytes Absolute Auto 0.8 K/mm3 (0.1-0.6); Neutrophils Absolute Auto 6.9 K/mm3 (1.3-6.7); Neutrophils Percent Auto 73.2 % (45.5-73.1); Platelet Count Result 174 k/mm3 (150-375); Red Blood Count 2.33 M/mm3 (4.6-6.20); Red Cell Distribution Width 16.9 % (11.5-14.5); White Blood Count 9.4 K/mm3 (4.5-10.0)
[2021-12-10 04:59] LABS: Alanine Aminotransferase 33 U/L (6-50); Albumin Level 2.9 g/dL (3.5-5.1); Alkaline Phosphatase 63 U/L (38-126); Anion Gap 4 mmol/L (8-16); Aspartate Amino Transferase 38 U/L (17-59); Bilirubin,Total 0.9 mg/dL (0.2-1.3); Blood Urea Nitrogen 30 mg/dL (9-20); Calcium 7.6 mg/dL (8.4-10.2); Carbon Dioxide 26 mmol/L (22-30); Chloride 109 mmol/L (98-107); Estimated CRCL calculation 35 ml/min; Estimated Glomerular Filt Rate 42; Glucose 97 mg/dL (65-110); Magnesium 1.7 mg/dL (1.6-2.3); Potassium 3.5 mmol/L (3.4-5.0); Sodium 139 mmol/L (137-145)
[2021-12-10] MEDS: FOLIC ACID 0.4 MG TABLET PO (08:33)
[2021-12-10] MEDS: PANTOPRAZOLE SODIUM IV 40 MG VIAL IV PUSH ×2 (08:33→21:55)
[2021-12-10] MEDS: ARTIFICIAL TEARS OPHTH SOLN 15 ML BOTTLE 1 DROP EACH EYE ×2 (08:33→17:31)
[2021-12-10] MEDS: polyethylene glycoL 3350 17 GM POWD.PACK PO (08:34)
[2021-12-10] MEDS: FINASTERIDE 5 MG TABLET PO (08:34)
[2021-12-10] MEDS: amLODIPine BESYLATE 2.5 MG TABLET PO (08:34)
[2021-12-10] MEDS: BISACODYL 5 MG TABLET EC 10 MG PO ×3 (12:01→21:55)
[2021-12-10] MEDS: MULTIVITAMINS THERAPEUTIC TAB (*BKC) 1 TABLET PO (12:04)
[2021-12-10] MEDS: polyethylene glycoL 3350 238 GM BOTTLE PO (14:45)
[2021-12-10 16:21] LABS: Albumin 3.1 g/dL (3.8-4.8); Alpha 1 Globulin 0.5 g/dL (0.2-0.3); Alpha 2 Globulin 0.8 g/dL (0.5-0.9); Beta 1 Globulin 0.3 g/dL (0.4-0.6); Gamma Globulin 1.1 g/dL (0.8-1.7); Protein, Total 6.2 g/dL (6.1-8.1)
--- NOTE | 2021-12-10 16:43 | PM.IMPN ---
Progress Note: A&P Assessment and Plan (1) Unresponsive episode: Code(s): R41.89 - Other symptoms and signs involving cognitive functions and awareness Status: Acute Assessment and Plan: Patient again had an unresponsive event that resulted in CPR. This has occurred at 2 separate facilities. He has had difficulty with waking up at home but CPR has never been performed. Cardiac arrest unlikely with negative troponin and EKG by EMS showing no acute changes. He may have episodes of bradycardia while sleeping (CHRISTIANO?) giving the impression that he has lost a pulse. Apnea link not bad with AHI 9.4 and RI 14 but spending 242minutes with SpO2<88%. Unresponsiveness could be related to UTI and/or acute kidney injury. Consider also seizures. EEG with bihemispheric theta and delta activity with absence of normal background rhythm. Suggestive of underlying organic or metabolic encephalopathy state. CT of the brain showed no acute findings. Echo showing EF 60-65% with grade I diastolic dysfunction. Consulted Neuro. Doubt TIA but he did have possible AFib. Will continue tele. Consider cardiac monitoring as outpatient. O2 at night and check apnea link on nocturnal O2. Leukocytosis worsened today likely due to steroid treatment. Hemoglobin continues to lower no known sign of bleeding anywhere. FOBT does come back positive. Consult GI on PPI IV b.i.d. Only antiplatelet therapy is aspirin not on any anticoagulant. Some of the drop in H&H some of this would be related to hemodilution Appreciated GI consult. Plan for EGD colonoscopy in the morning. H&H continues to drop not requiring any transfusion continue to monitor. On admission creatinine was 2.1 to improve down to 1.6 baseline 0.9-1 Repeat apnea link waiting 2 L nasal cannula with oxygen desaturation less than 88% of 7 minute (day prior apnea had desaturation less than 88% of 242 minute) needs to be on a nocturnal oxygen 2 L at night which needs to be arranged at discharge (2) Acute kidney injury: Code(s): N17.9 - Acute kidney failure, unspecified Status: Acute Assessment and Plan: Patient with acute kidney injury. Etiology unclear. No evidence of recent contrast study. He is on lisinopril but not on diuretic therapy. Probably related to acute UTI. Renal ultrasound normal. Cr trending down slowly. Continue IV fluids. (3) Acute UTI: Code(s): N39.0 - Urinary tract infection, site not specified Status: Acute Assessment and Plan: UA noted. Patient did receive a dose of Rocephin in the ED. BCx NGTD. Urine culture not collected but collected after Abx started. Continue IV antibiotics. Urine culture could be negative since he has already received antibiotics. (4) Anemia: Code(s): D64.9 - Anemia, unspecified Status: Acute Assessment and Plan: Patient with chronic anemia running mostly in the 9-11 range. Hemoglobin 11.4 after discharge on 11/15/2021. Hemoglobin 8.6 on admission. Unclear if he is having episodes of blood loss. Stool is guaiac positive. He is on aspirin but not on PPI or H2 ne. He is on iron to suggest underlying iron deficiency. He has positive FINA. No schistocytes by smear. LDH 283. B12/Folate normal. Iron low with 16% saturation. Steroids added for possible hemolysis but even the Bili level normal now. Hemolysis seeming less likely. Stop steroids. Hematology consulted. Add PPI. Continue iron. FOBT is positive GI consulted PPI b.i.d. Hold aspirin hemodynamics stable (5) Benign essential hypertension: Code(s): I10 - Essential (primary) hypertension Status: Acute Assessment and Plan: BP stable. 128/51. Continue amlodipine. Lisinopril remains on hold due to renal dysfunction (6) Abnormal TSH: Code(s): R79.89 - Other specified abnormal findings of blood chemistry Status: Acute Assessment and Plan: TSH has been low for the past few months. Free T4 has been nor
--- NOTE | 2021-12-10 16:56 | ADMGEN ---
This patient, Fernando Nava, was admitted to Medical Room 254-01. Patient/family oriented to hospital policies and general routines including ID bracelet, bed and alarms, visiting hours, pain management, procedures, bathroom and other care routines, personal items, smoking policy, room service/diet, and visiting hours. Information on how to activate the Rapid Response Team has been discussed. Patient/Family are encouraged to report perceived risks to care and to ask questions if they do not understand what they are told or what they should do.
--- NOTE | 2021-12-10 16:58 | PC.NURSE ---
This patient, Fernando Nava, was transferred to [254 ] on 12/10/21 at 1650. Personal belongings sent with patient. Report given to [WESTLEY Tamayo @ [phone] ]. Appropriate documentation sent with patient.
[2021-12-10 17:55] LABS: Glucose Point of Care 100 mg/dl (65-105)
[2021-12-10] MEDS: SODIUM CHLORIDE 0.9% IV 1,000 ML 70 ML IV CONT (21:00)
[2021-12-10] MEDS: PRAVASTATIN SODIUM 20 MG TABLET PO (21:55)
[2021-12-10 22:13] LABS: Myoglobin, Urine <27 mcg/L (<28)
[2021-12-11] VITALS (12 sets, daily range): BP systolic 134–168; BP diastolic 57–87; PULSE 67–85; RESP 16–20; TEMP 36.2–36.9; O2SAT 94–100
[2021-12-11 04:59] LABS: Basophils Percent Auto 0.4 % (0.2-1.2); Eosinophils Absolute Auto 0.3 K/mm3 (0-0.3); Hematocrit 22.1 % (42.0-52.0); Immature Granulocyte Absolute 0.37 K/mm3 (0.00-0.031); Immature Granulocyte Percent A 4.4 % (0-0.5); Lymphocytes Absolute Auto 1.78 K/mm3 (0.9-3.2); Lymphocytes Percent Auto 21.2 % (18.3-44.2); Mean Corpuscular HGB Conc 30.8 g/dl (32-36); Mean Corpuscular Hemoglobin 30.8 pg (26-34); Mean Platelet Volume 10.8 fl (7.4-10.4); Monocytes Absolute Auto 0.7 K/mm3 (0.1-0.6); Monocytes Percent Auto 8.2 % (2.6-8.5); Neutrophils Absolute Auto 5.3 K/mm3 (1.3-6.7); Neutrophils Percent Auto 62.8 % (45.5-73.1); Nucleated Red Blood Cells Absolute Auto 0.1 K/mm3 (0.0-0.012); Nucleated Red Blood Cells Perc 0.6 % (0.0-0.2); Platelet Count Result 180 k/mm3 (150-375); Red Blood Count 2.21 M/mm3 (4.6-6.20); Red Cell Distribution Width 17.1 % (11.5-14.5); White Blood Count 8.4 K/mm3 (4.5-10.0)
[2021-12-11 05:09] LABS: Hemoglobin 6.8 g/dL (14.0-18.0)
[2021-12-11 05:31] LABS: Alanine Aminotransferase 28 U/L (6-50); Albumin Level 2.7 g/dL (3.5-5.1); Alkaline Phosphatase 60 U/L (38-126); Anion Gap 5 mmol/L (8-16); Aspartate Amino Transferase 26 U/L (17-59); Bilirubin,Total 0.9 mg/dL (0.2-1.3); Blood Urea Nitrogen 18 mg/dL (9-20); Calcium 7.9 mg/dL (8.4-10.2); Carbon Dioxide 26 mmol/L (22-30); Chloride 106 mmol/L (98-107); Estimated CRCL calculation 47 ml/min; Estimated Glomerular Filt Rate 58; Glucose 95 mg/dL (65-110); Magnesium 1.5 mg/dL (1.6-2.3); Potassium 3.7 mmol/L (3.4-5.0); Sodium 137 mmol/L (137-145)
--- NOTE | 2021-12-11 07:18 | PC.NURSE ---
Dr Tomlinson notified pt hemoglobin 6.8, no order received for transfusion at this time as patient is stable.
[2021-12-11] MEDS: PANTOPRAZOLE SODIUM IV 40 MG VIAL IV PUSH ×2 (08:18→20:20)
[2021-12-11] MEDS: polyethylene glycoL 3350 17 GM POWD.PACK PO (08:18)
[2021-12-11] MEDS: CEFDINIR 300 MG CAPSULE PO ×2 (08:19→20:20)
[2021-12-11] MEDS: ARTIFICIAL TEARS OPHTH SOLN 15 ML BOTTLE 1 DROP EACH EYE ×2 (08:19→16:40)
[2021-12-11 08:35] LABS: Glucose Point of Care 86 mg/dl (65-105)
[2021-12-11] MEDS: MAGNESIUM SULF 2 GM/WATER 50ML 2 GM/50 ML BAG IVPB (09:14)
--- NOTE | 2021-12-11 11:15 | PC.NURSE ---
Patient leaving the floor at 1115 for procedure.
[2021-12-11] MEDS: LACTATED RINGERS 1,000 ML 150 ML IV CONT (11:50)
--- NOTE | 2021-12-11 12:05 | WPDANESEPPF ---
Anes - Initial Pre Proc Eval Procedure: Operation Date: 12/11/21 14:15 Proposed Procedures p Esophagogastroduodenoscopy & Colonoscopy - Jw Slaughter MD Date/Time: 12/11/21 12:05 Surgeon: Ashu Wills MD Pre Op Diagnosis: Syncope,Acute Kidney Injury,UTI,Anemia Patient Data Age: 81 Gender: M Height: 1.8 m Weight: 85.9 kg Last Vital Signs Temp 97.3 F L 12/11/21 10:58 Pulse 71 12/11/21 10:58 Resp 16 12/11/21 10:58 BP 153/64 H 12/11/21 10:58 Pulse Ox 96 12/11/21 10:58 O2 Del Method Room Air 12/11/21 08:19 O2 Flow Rate 2 12/10/21 23:30 FiO2 28 12/08/21 21:41 Allergies Allergy/AdvReac Type Severity Reaction Status Date / Time hydrochlorothiazide Allergy Unknown Hyponatremi Verified 11/09/21 16:05 a Home Medications Medication Instructions Recorded Confirmed Type aspirin 81 mg tablet,delayed 81 mg PO DAILY 03/14/19 12/07/21 History release (Adult Low Dose Aspirin) finasteride 5 mg tablet 5 mg PO DAILY 03/14/19 12/07/21 History multivitamin 1 tablet PO 1200 03/14/19 12/07/21 History peg 400-propylene glycol 0.4 %-0.3 1 drop ophthalmic (eye) BID 03/14/19 12/07/21 History % eye drops (Systane Ultra) polyethylene glycol 3350 17 17 gm PO DAILY PRN Constipation 12/10/19 12/07/21 History gram/dose oral powder (Miralax) acetaminophen 500 mg tablet 500 mg PO Q6H PRN Pain 08/14/20 12/07/21 History (Tylenol Extra Strength) amlodipine 2.5 mg tablet 2.5 mg PO DAILY 11/09/21 12/07/21 History cranberry fruit concentrate 250 mg 250 mg PO BID 11/09/21 12/07/21 History chewable tablet (Azo Cranberry) folic acid 400 mcg tablet 0.4 mg PO DAILY 11/09/21 12/07/21 History sdfnflecahl-axkzvqvqx-aoh C-Mn 500 1 cap PO BID 11/09/21 12/07/21 History mg-400 mg capsule (Glucosamine Chondroitin Maximum Strength) lisinopril 40 mg tablet 40 mg PO Q12H 11/09/21 12/07/21 History omega 1-was-khu-fish oil 1,000 mg 1,000 cap PO 1700 11/09/21 12/07/21 History (120 mg-180 mg) capsule (Fish Oil) pravastatin 20 mg tablet 20 mg PO HS 11/09/21 12/07/21 History ferrous sulfate 325 mg (65 mg 324 mg PO BIDWM #60 tabs 11/15/21 12/07/21 Rx iron) tablet phenazopyridine 200 mg tablet 250 mg PO BID 12/07/21 12/07/21 History Laboratory Tests 12/07/21 12/07/21 12/10/21 12:02 18:19 17:50 WBC RBC Hgb Hct MCV MCH MCHC RDW Plt Count MPV Immature Gran % (Auto) Neut % (Auto) Lymph % (Auto) [place] % (Auto) Eos % (Auto) Baso % (Auto) Lymph # (Auto) [place] # (Auto) Eos # (Auto) Baso # (Auto) Abs Immat Gran (auto) Absolute Neuts (auto) Absolute Nucleated RBC Nucleated RBC % Sodium Potassium Chloride Carbon Dioxide Anion Gap BUN Creatinine Estim Creat Clear Calc Estimated GFR Glucose POC Capillary Glucose 100 mg/dl mg/dl (65-105) Calcium Magnesium Total Bilirubin AST ALT Alkaline Phosphatase Total Protein 6.2 g/dL g/dL (6.1-8.1) Albumin 3.1 g/dL L g/dL (3.8-4.8) Qiyhh-4-Jhuppnwwk 0.5 g/dL H g/dL (0.2-0.3) Mbcpm-6-Umnodnwaa 0.8 g/dL g/dL (0.5-0.9) Bfgq-1-Zboosfce 0.3 g/dL L g/dL (0.4-0.6) Rwac-5-Cbnutnqj 0.4 g/dL g/dL (0.2-0.5) Gamma Globulins 1.1 g/dL g/dL (0.8-1.7) Abnorm Protein Band 1 see below Abnorm Protein Band 3 Not Reportable PEP Interpretation see below A Urine Myoglobin <27 mcg/L mcg/L (<28) Blood Type Antibody Screen Crossmatch
--- NOTE | 2021-12-11 12:40 | SUR.OPER ---
EGD end 1234 COLONOSCOPY START 1240
--- NOTE | 2021-12-11 13:30 | PC.NURSE ---
Patient returned from GI lab per stretcher.
[2021-12-11] MEDS: FINASTERIDE 5 MG TABLET PO (13:45)
[2021-12-11] MEDS: FOLIC ACID 0.4 MG TABLET PO (13:46)
[2021-12-11] MEDS: amLODIPine BESYLATE 2.5 MG TABLET PO (13:46)
[2021-12-11] MEDS: MULTIVITAMINS THERAPEUTIC TAB (*BKC) 1 TABLET PO (13:46)
[2021-12-11] MEDS: SODIUM CHLORIDE 0.9% IV 250 ML 30 ML IV CONT (13:51)
--- NOTE | 2021-12-11 14:14 | PM.IMPN ---
Progress Note: A&P Assessment and Plan (1) Unresponsive episode: Code(s): R41.89 - Other symptoms and signs involving cognitive functions and awareness Status: Acute Assessment and Plan: Patient again had an unresponsive event that resulted in CPR. This has occurred at 2 separate facilities. He has had difficulty with waking up at home but CPR has never been performed. Cardiac arrest unlikely with negative troponin and EKG by EMS showing no acute changes. He may have episodes of bradycardia while sleeping (CHRISTIANO?) giving the impression that he has lost a pulse. Apnea link not bad with AHI 9.4 and RI 14 but spending 242minutes with SpO2<88%. Unresponsiveness could be related to UTI and/or acute kidney injury. Consider also seizures. EEG with bihemispheric theta and delta activity with absence of normal background rhythm. Suggestive of underlying organic or metabolic encephalopathy state. CT of the brain showed no acute findings. Echo showing EF 60-65% with grade I diastolic dysfunction. Consulted Neuro. Doubt TIA but he did have possible AFib. Will continue tele. Consider cardiac monitoring as outpatient. O2 at night and check apnea link on nocturnal O2. Leukocytosis worsened today likely due to steroid treatment. Hemoglobin continues to lower no known sign of bleeding anywhere. FOBT does come back positive. Consult GI on PPI IV b.i.d. Only antiplatelet therapy is aspirin not on any anticoagulant. Some of the drop in H&H some of this would be related to hemodilution H&H dropped to 6.88/26 transfuse 1 unit of PRBC. Appreciated GI consult. Plan for EGD colonoscopy Today On admission creatinine was 2.1 to improve down to 1.6 baseline 0.9-1 Repeat apnea link waiting 2 L nasal cannula with oxygen desaturation less than 88% of 7 minute (day prior apnea had desaturation less than 88% of 242 minute) needs to be on a nocturnal oxygen 2 L at night which needs to be arranged at discharge (2) Acute kidney injury: Code(s): N17.9 - Acute kidney failure, unspecified Status: Acute Assessment and Plan: Patient with acute kidney injury. Etiology unclear. No evidence of recent contrast study. He is on lisinopril but not on diuretic therapy. Probably related to acute UTI. Renal ultrasound normal. Cr trending down slowly. Continue IV fluids. (3) Acute UTI: Code(s): N39.0 - Urinary tract infection, site not specified Status: Acute Assessment and Plan: UA noted. Patient did receive a dose of Rocephin in the ED. BCx NGTD. Urine culture not collected but collected after Abx started. Continue IV antibiotics. Urine culture could be negative since he has already received antibiotics. Switched to Omnicef (4) Anemia: Code(s): D64.9 - Anemia, unspecified Status: Acute Assessment and Plan: Patient with chronic anemia running mostly in the 9-11 range. Hemoglobin 11.4 after discharge on 11/15/2021. Hemoglobin 8.6 on admission. Unclear if he is having episodes of blood loss. Stool is guaiac positive. He is on aspirin but not on PPI or H2 ne. He is on iron to suggest underlying iron deficiency. He has positive FINA. No schistocytes by smear. LDH 283. B12/Folate normal. Iron low with 16% saturation. Steroids added for possible hemolysis but even the Bili level normal now. Hemolysis seeming less likely. Stop steroids. Hematology consulted. Add PPI. Continue iron. FOBT is positive GI consulted PPI b.i.d. Hold aspirin hemodynamics stable (5) Benign essential hypertension: Code(s): I10 - Essential (primary) hypertension Status: Acute Assessment and Plan: BP stable. 128/51. Continue amlodipine. Lisinopril remains on hold due to renal dysfunction (6) Abnormal TSH: Code(s): R79.89 - Other specified abnormal findings of blood chemistry Status: Acute Assessment and Plan: TSH has been low for the past few months. Free T4 has been normal so no
[2021-12-11 16:00] LABS: Hematocrit 28.6 % (42.0-52.0)
[2021-12-11] MEDS: FERROUS SULFATE 324 MG TABLET PO (16:40)
[2021-12-11 17:22] LABS: Glucose Point of Care 77 mg/dl (65-105)
[2021-12-11 20:20] LABS: Glucose Point of Care 125 mg/dl (65-105)
[2021-12-11] MEDS: PRAVASTATIN SODIUM 20 MG TABLET PO (20:20)
[2021-12-11 20:48] LABS: Soluble Transferrin Receptor 0.93 mg/L (0.76-1.76)
[2021-12-12 03:37] VITALS: BP 154/68; PULSE 82; RESP 18; TEMP 36.5; O2SAT 96
[2021-12-12 06:01] LABS: Basophils Percent Auto 0.5 % (0.2-1.2); Eosinophils Absolute Auto 0.3 K/mm3 (0-0.3); Eosinophils Percent Auto 2.9 % (0-4.4); Hematocrit 25.3 % (42.0-52.0); Hemoglobin 8.1 g/dL (14.0-18.0); Immature Granulocyte Percent A 3.5 % (0-0.5); Lymphocytes Absolute Auto 1.52 K/mm3 (0.9-3.2); Lymphocytes Percent Auto 17.6 % (18.3-44.2); Mean Corpuscular Hemoglobin 30.3 pg (26-34); Mean Corpuscular Volume 94.8 fl (80-100); Mean Platelet Volume 10.6 fl (7.4-10.4); Monocytes Absolute Auto 0.7 K/mm3 (0.1-0.6); Monocytes Percent Auto 7.7 % (2.6-8.5); Neutrophils Absolute Auto 5.9 K/mm3 (1.3-6.7); Neutrophils Percent Auto 67.8 % (45.5-73.1); Nucleated Red Blood Cells Absolute Auto 0.1 K/mm3 (0.0-0.012); Nucleated Red Blood Cells Perc 0.8 % (0.0-0.2); Platelet Count Result 164 k/mm3 (150-375); Red Blood Count 2.67 M/mm3 (4.6-6.20); Red Cell Distribution Width 17.2 % (11.5-14.5); White Blood Count 8.7 K/mm3 (4.5-10.0)
[2021-12-12 06:20] LABS: Alanine Aminotransferase 24 U/L (6-50); Albumin Level 2.8 g/dL (3.5-5.1); Alkaline Phosphatase 70 U/L (38-126); Anion Gap 5 mmol/L (8-16); Aspartate Amino Transferase 26 U/L (17-59); Blood Urea Nitrogen 14 mg/dL (9-20); Calcium 7.8 mg/dL (8.4-10.2); Carbon Dioxide 26 mmol/L (22-30); Chloride 106 mmol/L (98-107); Estimated CRCL calculation 47 ml/min; Estimated Glomerular Filt Rate 58; Glucose 101 mg/dL (65-110); Magnesium 1.9 mg/dL (1.6-2.3); Potassium 3.6 mmol/L (3.4-5.0); Sodium 137 mmol/L (137-145)
[2021-12-12 09:00] VITALS: O2SAT 98
--- NOTE | 2021-12-12 09:05 | WPDANESPN ---
Anes - Prog Note Post-Op Date/Time: 12/12/21 09:05 Cardiovascular status: normal Respiratory status: normal Airway patency: baseline Mental status: baseline (confused ) Post-Op hydration status: normal Vital Signs: Last Vital Signs Temp 97.7 F 12/12/21 03:37 Pulse 82 12/12/21 03:37 Resp 18 12/12/21 03:37 BP 154/68 H 12/12/21 03:37 Pulse Ox 96 12/12/21 03:37 O2 Del Method Room Air 12/11/21 20:31 O2 Flow Rate 2 12/10/21 23:30 FiO2 28 12/08/21 21:41 Pain Score (VAS): 0 I/O: Intake & Output 12/11/21 12/12/21 12/12/21 23:59 07:59 15:59 Intake Total 590 140 Output Total 750 Balance -160 140 Laboratory Tests 12/12/21 05:13 12/12/21 05:13 12/07/21 12/11/21 12/11/21 12:02 08:21 15:48 WBC RBC Hgb 9.0 L Hct 28.6 L MCV MCH MCHC RDW Plt Count MPV Immature Gran % (Auto) Neut % (Auto) Lymph % (Auto) [place] % (Auto) Eos % (Auto) Baso % (Auto) Lymph # (Auto) [place] # (Auto) Eos # (Auto) Baso # (Auto) Abs Immat Gran (auto) Absolute Neuts (auto) Absolute Nucleated RBC Nucleated RBC % Sodium Potassium Chloride Carbon Dioxide Anion Gap BUN Creatinine Estim Creat Clear Calc Estimated GFR Glucose POC Capillary Glucose Calcium Magnesium [place] Transferrin Receptr 0.93 Total Bilirubin AST ALT Alkaline Phosphatase Total Protein Albumin Blood Type A Positive Antibody Screen Negative Crossmatch See Detail 12/11/21 12/11/21 12/12/21 17:19 20:09 05:13 WBC 8.7 RBC 2.67 L Hgb 8.1 L Hct 25.3 L MCV 94.8 D MCH 30.3 MCHC 32.0 RDW 17.2 H Plt Count 164 MPV 10.6 H Immature Gran % (Auto) 3.5 H Neut % (Auto) 67.8 Lymph % (Auto) 17.6 L [place] % (Auto) 7.7 Eos % (Auto) 2.9 Baso % (Auto) 0.5 Lymph # (Auto) 1.52 [place] # (Auto) 0.7 H Eos # (Auto) 0.3 Baso # (Auto) 0.0 Abs Immat Gran (auto) 0.30 H Absolute Neuts (auto) 5.9 Absolute Nucleated RBC 0.1 H Nucleated RBC % 0.8 H Sodium Potassium Chloride Carbon Dioxide Anion Gap BUN Creatinine Estim Creat Clear Calc Estimated GFR Glucose POC Capillary Glucose 77 125 H Calcium Magnesium [place] Transferrin Receptr Total Bilirubin AST ALT Alkaline Phosphatase Total Protein Albumin Blood Type Antibody Screen Crossmatch 12/12/21 05:13 WBC RBC Hgb Hct MCV MCH MCHC RDW Plt Count MPV Immature Gran % (Auto) Neut % (Auto) Lymph % (Auto) [place] % (Auto) Eos % (Auto) Baso % (Auto) Lymph # (Auto) [place] # (Auto) Eos # (Auto) Baso # (Auto) Abs Immat Gran (auto) Absolute Neuts (auto) Absolute Nucleated RBC Nucleated RBC % Sodium 137 Potassium 3.6 Chloride 106 Carbon Dioxide 26 Anion Gap 5 L BUN 14 Creatinine 1.20 Estim Creat Clear Calc 47 Estimated GFR 58 L Glucose 101 POC Capillary Glucose Calcium 7.8 L Magnesium 1.9 [place] Transferrin Receptr Total Bilirubin 1.0 AST 26 ALT 24 Alkaline Phosphatase 70 Total Protein 6.0 L Albumin 2.8 L Blood Type Antibody Screen Crossmatch Post-procedural complaints: none Patient Feedback: Patient satisfied with anesthetic care.
[2021-12-12 09:08] VITALS: BP 151/81; PULSE 84; RESP 16; O2SAT 99
[2021-12-12] MEDS: CEFDINIR 300 MG CAPSULE PO ×2 (09:09→21:20)
[2021-12-12] MEDS: FOLIC ACID 0.4 MG TABLET PO (09:09)
[2021-12-12] MEDS: ASPIRIN 81 MG ENTERIC TABLET PO (09:09)
[2021-12-12] MEDS: PANTOPRAZOLE SODIUM IV 40 MG VIAL IV PUSH ×2 (09:09→21:20)
[2021-12-12] MEDS: polyethylene glycoL 3350 17 GM POWD.PACK PO (09:09)
[2021-12-12] MEDS: FINASTERIDE 5 MG TABLET PO (09:09)
[2021-12-12] MEDS: amLODIPine BESYLATE 2.5 MG TABLET PO (09:09)
[2021-12-12] MEDS: ARTIFICIAL TEARS OPHTH SOLN 15 ML BOTTLE 1 DROP EACH EYE ×2 (09:09→17:08)
[2021-12-12] MEDS: FERROUS SULFATE 324 MG TABLET PO ×2 (09:09→17:08)
[2021-12-12] MEDS: MULTIVITAMINS THERAPEUTIC TAB (*BKC) 1 TABLET PO (12:30)
[2021-12-12 13:39] VITALS: BP 127/59; PULSE 76; RESP 18; TEMP 36.7; O2SAT 98
--- NOTE | 2021-12-12 15:00 | PM.IMPN ---
Progress Note: A&P Assessment and Plan (1) Unresponsive episode: Code(s): R41.89 - Other symptoms and signs involving cognitive functions and awareness Status: Acute Assessment and Plan: Patient again had an unresponsive event that resulted in CPR. This has occurred at 2 separate facilities. He has had difficulty with waking up at home but CPR has never been performed. Cardiac arrest unlikely with negative troponin and EKG by EMS showing no acute changes. He may have episodes of bradycardia while sleeping (CHRISTIANO?) giving the impression that he has lost a pulse. Apnea link not bad with AHI 9.4 and RI 14 but spending 242minutes with SpO2<88%. Unresponsiveness could be related to UTI and/or acute kidney injury. Consider also seizures. EEG with bihemispheric theta and delta activity with absence of normal background rhythm. Suggestive of underlying organic or metabolic encephalopathy state. CT of the brain showed no acute findings. Echo showing EF 60-65% with grade I diastolic dysfunction. Consulted Neuro. Doubt TIA but he did have possible AFib. Will continue tele. Consider cardiac monitoring as outpatient. O2 at night and check apnea link on nocturnal O2. Leukocytosis worsened today likely due to steroid treatment. Hemoglobin continues to lower no known sign of bleeding anywhere. FOBT does come back positive. Consult GI on PPI IV b.i.d. Only antiplatelet therapy is aspirin not on any anticoagulant. Some of the drop in H&H some of this would be related to hemodilution H&H dropped to 6.88/ transfuse 1 unit of PRBC. Appropriate rise to 9 currently at 8 continue to monitor H&H Appreciated GI consult. 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 Diverticulosis without perforation abscess without bleeding. On admission creatinine was 2.1 to improve down to 1.6 baseline 0.9-1. Continues to improve Repeat apnea link waiting 2 L nasal cannula with oxygen desaturation less than 88% of 7 minute (day prior apnea had desaturation less than 88% of 242 minute) needs to be on a nocturnal oxygen 2 L at night which needs to be arranged at discharge (2) Acute kidney injury: Code(s): N17.9 - Acute kidney failure, unspecified Status: Acute Assessment and Plan: Patient with acute kidney injury. Etiology unclear. No evidence of recent contrast study. He is on lisinopril but not on diuretic therapy. Probably related to acute UTI. Renal ultrasound normal. Cr trending down slowly. Continue IV fluids. Will stop IV fluids (3) Acute UTI: Code(s): N39.0 - Urinary tract infection, site not specified Status: Acute Assessment and Plan: UA noted. Patient did receive a dose of Rocephin in the ED. BCx NGTD. Urine culture not collected but collected after Abx started. Continue IV antibiotics. Urine culture could be negative since he has already received antibiotics. Switched to Omnicef (4) Anemia: Code(s): D64.9 - Anemia, unspecified Status: Acute Assessment and Plan: Patient with chronic anemia running mostly in the 9-11 range. Hemoglobin 11.4 after discharge on 11/15/2021. Hemoglobin 8.6 on admission. Unclear if he is having episodes of blood loss. Stool is guaiac positive. He is on aspirin but not on PPI or H2 ne. He is on iron to suggest underlying iron deficiency. He has positive FINA. No schistocytes by smear. LDH 283. B12/Folate normal. Iron low with 16% saturation. Steroids added for possible hemolysis but even the Bili level normal now. Hemolysis seeming less likely. Stop steroids. Hematology consulted. Add PPI. Continue iron. FOBT is positive GI consulted PPI b.i.d. Hold aspirin hemodynamics stable (5) Benign essential hypertension: Code(s): I10 - Essential (primary) hypertension Status: Acute Assessment and Plan: BP stable. 128/51. Continue amlodipine. Lisinopril remains on ho
[2021-12-12 19:52] LABS: Glucose Point of Care 115 mg/dl (65-105)
[2021-12-12] MEDS: PRAVASTATIN SODIUM 20 MG TABLET PO (21:20)
[2021-12-12 21:42] VITALS: BP 158/83; PULSE 76; RESP 20; TEMP 36.3; O2SAT 98
[2021-12-13 05:17] LABS: Basophils Percent Auto 0.5 % (0.2-1.2); Eosinophils Absolute Auto 0.3 K/mm3 (0-0.3); Eosinophils Percent Auto 3.8 % (0-4.4); Hemoglobin 8.4 g/dL (14.0-18.0); Immature Granulocyte Absolute 0.24 K/mm3 (0.00-0.031); Immature Granulocyte Percent A 3.3 % (0-0.5); Lymphocytes Absolute Auto 1.77 K/mm3 (0.9-3.2); Mean Corpuscular HGB Conc 31.1 g/dl (32-36); Mean Corpuscular Hemoglobin 30.9 pg (26-34); Mean Corpuscular Volume 99.3 fl (80-100); Mean Platelet Volume 10.4 fl (7.4-10.4); Monocytes Absolute Auto 0.6 K/mm3 (0.1-0.6); Monocytes Percent Auto 8.1 % (2.6-8.5); Neutrophils Absolute Auto 4.5 K/mm3 (1.3-6.7); Neutrophils Percent Auto 60.3 % (45.5-73.1); Nucleated Red Blood Cells Perc 0.4 % (0.0-0.2); Platelet Count Result 198 k/mm3 (150-375); Red Blood Count 2.72 M/mm3 (4.6-6.20); Red Cell Distribution Width 17.8 % (11.5-14.5); White Blood Count 7.4 K/mm3 (4.5-10.0)
[2021-12-13 05:21] LABS: Alanine Aminotransferase 25 U/L (6-50); Albumin Level 3.1 g/dL (3.5-5.1); Alkaline Phosphatase 69 U/L (38-126); Anion Gap 8 mmol/L (8-16); Aspartate Amino Transferase 29 U/L (17-59); Blood Urea Nitrogen 16 mg/dL (9-20); Calcium 8.4 mg/dL (8.4-10.2); Carbon Dioxide 26 mmol/L (22-30); Chloride 104 mmol/L (98-107); Estimated CRCL calculation 47 ml/min; Estimated Glomerular Filt Rate 58; Glucose 111 mg/dL (65-110); Magnesium 1.8 mg/dL (1.6-2.3); Potassium 3.4 mmol/L (3.4-5.0); Sodium 138 mmol/L (137-145)
[2021-12-13 05:32] LABS: Total Protein/Creatinine Ratio 438 mg/g creat (22-128)
[2021-12-13 06:00] VITALS: BP 168/72; PULSE 75; RESP 21; TEMP 36.4; O2SAT 100
[2021-12-13 08:59] VITALS: BP 138/89; PULSE 88; RESP 17; O2SAT 100
[2021-12-13] MEDS: amLODIPine BESYLATE 2.5 MG TABLET PO (09:00)
[2021-12-13] MEDS: FOLIC ACID 0.4 MG TABLET PO (09:00)
[2021-12-13] MEDS: polyethylene glycoL 3350 17 GM POWD.PACK PO (09:00)
[2021-12-13] MEDS: ASPIRIN 81 MG ENTERIC TABLET PO (09:00)
[2021-12-13] MEDS: FINASTERIDE 5 MG TABLET PO (09:00)
[2021-12-13] MEDS: PANTOPRAZOLE SODIUM IV 40 MG VIAL IV PUSH ×2 (09:00→20:36)
[2021-12-13] MEDS: ARTIFICIAL TEARS OPHTH SOLN 15 ML BOTTLE 1 DROP EACH EYE ×2 (09:00→17:50)
[2021-12-13] MEDS: FERROUS SULFATE 324 MG TABLET PO ×2 (09:00→17:50)
[2021-12-13] MEDS: MULTIVITAMINS THERAPEUTIC TAB (*BKC) 1 TABLET PO (12:40)
[2021-12-13 14:48] VITALS: BP 110/63; PULSE 83; RESP 16; TEMP 36.1; O2SAT 100
--- NOTE | 2021-12-13 15:51 | P.PNIM_ITS ---
Progress Note: A&P Assessment and Plan (1) Unresponsive episode: Code(s): R41.89 - Other symptoms and signs involving cognitive functions and awareness Status: Acute Assessment and Plan: Patient again had an unresponsive event that resulted in CPR. This has occurred at 2 separate facilities. He has had difficulty with waking up at home but CPR has never been performed. Cardiac arrest unlikely with negative troponin and EKG by EMS showing no acute changes. He may have episodes of bradycardia while sleeping (CHRISTIANO?) giving the impression that he has lost a pulse. Apnea link not bad with AHI 9.4 and RI 14 but spending 242minutes with SpO2<88%. Unresponsiveness could be related to UTI and/or acute kidney injury. Consider also seizures. EEG with bihemispheric theta and delta activity with absence of normal background rhythm. Suggestive of underlying organic or metabolic encephalopathy state. CT of the brain showed no acute findings. Echo showing EF 60-65% with grade I diastolic dysfunction. Consulted Neuro. Doubt TIA but he did have possible AFib. Will continue tele. Consider cardiac monitoring as outpatient. O2 at night and check apnea link on nocturnal O2. Leukocytosis worsened today likely due to steroid treatment. Hemoglobin continues to lower no known sign of bleeding anywhere. FOBT does come back positive. Consult GI on PPI IV b.i.d. Only antiplatelet therapy is aspirin not on any anticoagulant. Some of the drop in H&H some of this would be related to hemodilution H&H dropped to 6.88/ transfuse 1 unit of PRBC. Appropriate rise to 9 currently at 8 continue to monitor H&H Appreciated GI consult. 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 Diverticulosis without perforation abscess without bleeding. On admission creatinine was 2.1 to improve down to 1.6 baseline 0.9-1. Continues to improve Repeat apnea link waiting 2 L nasal cannula with oxygen desaturation less than 88% of 7 minute (day prior apnea had desaturation less than 88% of 242 minute) needs to be on a nocturnal oxygen 2 L at night which needs to be arranged at discharge (2) Acute kidney injury: Code(s): N17.9 - Acute kidney failure, unspecified Status: Acute Assessment and Plan: Patient with acute kidney injury. Etiology unclear. No evidence of recent contrast study. He is on lisinopril but not on diuretic therapy. Probably related to acute UTI. Renal ultrasound normal. Cr trending down slowly. Continue IV fluids. stopped IV fluids (3) Acute UTI: Code(s): N39.0 - Urinary tract infection, site not specified Status: Acute Assessment and Plan: UA noted. Patient did receive a dose of Rocephin in the ED. BCx NGTD. Urine culture not collected but collected after Abx started. Continue IV antibiotics. Urine culture could be negative since he has already received antibiotics. Switched to Omnicef (4) Anemia: Code(s): D64.9 - Anemia, unspecified Status: Acute Assessment and Plan: Patient with chronic anemia running mostly in the 9-11 range. Hemoglobin 11.4 after discharge on 11/15/2021. Hemoglobin 8.6 on admission. Unclear if he is having episodes of blood loss. Stool is guaiac positive. He is on aspirin but not on PPI or H2 ne. He is on iron to suggest underlying iron deficiency. He has positive FINA. No schistocytes by smear. LDH 283. B12/Folate normal. Iron low with 16% saturation. Steroids added for possible hemolysis but even the Bili level normal now. Hemolysis seeming less likely. Stop steroids. Hematology consulted. Add PPI. Continue iron. FOBT is positive GI con
[2021-12-13 19:54] VITALS: BP 132/74; PULSE 82; RESP 18; TEMP 36.3; O2SAT 98
[2021-12-13] MEDS: PRAVASTATIN SODIUM 20 MG TABLET PO (20:36)
[2021-12-14 03:18] VITALS: BP 135/71; PULSE 84; RESP 18; TEMP 36; O2SAT 92
[2021-12-14 05:32] LABS: Basophils Percent Auto 0.6 % (0.2-1.2); Eosinophils Absolute Auto 0.3 K/mm3 (0-0.3); Eosinophils Percent Auto 3.9 % (0-4.4); Hematocrit 25.7 % (42.0-52.0); Hemoglobin 8.1 g/dL (14.0-18.0); Immature Granulocyte Absolute 0.25 K/mm3 (0.00-0.031); Immature Granulocyte Percent A 3.8 % (0-0.5); Lymphocytes Absolute Auto 1.82 K/mm3 (0.9-3.2); Lymphocytes Percent Auto 27.3 % (18.3-44.2); Mean Corpuscular HGB Conc 31.5 g/dl (32-36); Mean Corpuscular Hemoglobin 31.3 pg (26-34); Mean Corpuscular Volume 99.2 fl (80-100); Mean Platelet Volume 10.5 fl (7.4-10.4); Monocytes Absolute Auto 0.7 K/mm3 (0.1-0.6); Monocytes Percent Auto 10.7 % (2.6-8.5); Neutrophils Absolute Auto 3.6 K/mm3 (1.3-6.7); Neutrophils Percent Auto 53.7 % (45.5-73.1); Platelet Count Result 190 k/mm3 (150-375); Red Blood Count 2.59 M/mm3 (4.6-6.20); Red Cell Distribution Width 18.5 % (11.5-14.5); White Blood Count 6.7 K/mm3 (4.5-10.0)
[2021-12-14 05:42] LABS: Alanine Aminotransferase 26 U/L (6-50); Alkaline Phosphatase 68 U/L (38-126); Anion Gap 6 mmol/L (8-16); Aspartate Amino Transferase 29 U/L (17-59); Bilirubin,Total 0.9 mg/dL (0.2-1.3); Blood Urea Nitrogen 15 mg/dL (9-20); Calcium 8.1 mg/dL (8.4-10.2); Carbon Dioxide 29 mmol/L (22-30); Chloride 103 mmol/L (98-107); Estimated CRCL calculation 47 ml/min; Estimated Glomerular Filt Rate 58; Glucose 104 mg/dL (65-110); Magnesium 1.7 mg/dL (1.6-2.3); Potassium 3.2 mmol/L (3.4-5.0); Sodium 138 mmol/L (137-145)
[2021-12-14] MEDS: polyethylene glycoL 3350 17 GM POWD.PACK PO (08:17)
[2021-12-14] MEDS: amLODIPine BESYLATE 2.5 MG TABLET PO (08:18)
[2021-12-14] MEDS: PANTOPRAZOLE SODIUM IV 40 MG VIAL IV PUSH (08:18)
[2021-12-14] MEDS: FERROUS SULFATE 324 MG TABLET PO (08:18)
[2021-12-14] MEDS: ARTIFICIAL TEARS OPHTH SOLN 15 ML BOTTLE 1 DROP EACH EYE (08:18)
[2021-12-14] MEDS: FOLIC ACID 0.4 MG TABLET PO (08:18)
[2021-12-14] MEDS: ASPIRIN 81 MG ENTERIC TABLET PO (08:18)
[2021-12-14] MEDS: FINASTERIDE 5 MG TABLET PO (08:18)
--- NOTE | 2021-12-14 10:16 | PM.DS ---
DS: Admitting Diagnosis Discharge Date 12/14/2021 Admitting Diagnosis Unresponsiveness DS: Discharge Diagnosis Discharge Diagnosis (1) Unresponsive episode: Code(s): R41.89 - Other symptoms and signs involving cognitive functions and awareness Status: Acute (2) Acute kidney injury: Code(s): N17.9 - Acute kidney failure, unspecified Status: Acute (3) Acute UTI: Code(s): N39.0 - Urinary tract infection, site not specified Status: Acute (4) Anemia: Code(s): D64.9 - Anemia, unspecified Status: Acute (5) Benign essential hypertension: Code(s): I10 - Essential (primary) hypertension Status: Acute (6) Abnormal TSH: Code(s): R79.89 - Other specified abnormal findings of blood chemistry Status: Acute (7) Dementia: Code(s): F03.90 - Unspecified dementia without behavioral disturbance Status: Acute DS: Summary Hospital Course Reason for hospitalization: 81yo male with dementia, BPH, HTN and HLD here after being found unresponsive at the custodial. Patient is alert but confused and unable to provide history.? When asked was hospitalized he states ?I was walking down the road was stung by a bug?.? Majority history obtained from his and from the chart.? Patient was hospitalized here in the end of October COVID pneumonia.? He was also treated for bacterial pneumonia. He was discharged on 11/15/2021 to [facility] in [place].? While at that facility, he developed an episode of unresponsiveness.? The staff did CPR and patient was sent to [facility] for evaluation.? The states that an evaluation was completed but no etiology was found.? She does not believe that a stress test or heart catheterization was performed.? She does mention that the patient does have a history of episodes of difficulty awakening at home and when he does awaken he becomes agitated.? Patient was discharged from [facility] around November 25.? At [facility], he has been doing well as far as the is aware.? She has not seen him because of COVID.? She was not told the that the patient was having any concerning symptoms.? She felt the patient was eating well.? There has been no nausea, vomiting or diarrhea that she was aware of.? No other symptoms such as chest pain or shortness of breath.? On the evening prior to admission, custodial staff noted patient was unresponsive.? He was in wheelchair slumped over.? Patient was moved to a bed and CPR was started.? The states she was told that the patient's pulse was ?weak?.? Per EMS notes, patient was unresponsive, whitehead and no pulse appreciated. Patient placed in bed on CPR board and CPR performed for about 2 minutes. CPR was stopped when patient awoke and became agitated. EMS arrived and patient has strong pulses.? Patient has no memory of this but according to the notes he was upset that he was bothered.? He denied dizziness, lightheadedness, shortness of breath or chest pain prior to the onset of symptoms. He did complain of soreness in the chest. EKG in the field showing no acute ST findings. Patient brought to the ED for evaluation. In [facility] ED, he ws hemodynamically stable.? EKG showed normal sinus rhythm with minor nonspecific T-wave changes.? Chest x-ray showed mild airspace opacities in the lower lung zones consistent with atelectasis versus pneumonia.? Brain CT showed normal aging brain.? No acute findings. Labs showing elevated WBC to 12K, worsening anemia with Hgb 8.6, and МАРИНА with BUN 39 and Cr 2.1.? TB 1.6 but LFTs o/w normal. UA abnormal as well. He was given Rocephin once and IV fluid bolus. He was admitted for further care. Spoke with about care plan. Verified with that patient is Full Code. Hospital Course: # unresponsive episode: Patient press an unresponsive event that resulted in CPR.? This has occurred at 2 separate facilities.? He has had difficulty with waking up a
[2021-12-14 11:53] LABS: EDCOVIDSCREEN Negative (Negative)
[2021-12-14] MEDS: POTASSIUM CHLORIDE 20 MEQ TABLET 40 MEQ PO (14:09)
== END 2021-12-14 14:21 | DRG 683 ==
LOC: ANHED 12-07 00:15 → ANHIMU 12-07 02:11 → ANH2MED 12-10 16:48
PROVIDERS: Internal Medicine; Internal Medicine Gastroenterology; Admitting Provider Internal Medicine; Emergency Provider General Practice; PCP Internal Medicine; Visit Provider Internal Medicine
PROC: 0DJ08ZZ Inspection of Upper Intestinal Tract, Via Natural or Artificial Opening Endoscopic (ICD-10-PCS; CPT 43235; principal; 2021-12-11 14:15)
DX: N17.9 Acute kidney failure, unspecified (principal); K51.20 Ulcerative (chronic) proctitis without complications; N39.0 Urinary tract infection, site not specified; R55 Syncope and collapse; Z20.822 Contact with and (suspected) exposure to COVID-19; R41.89 Other symptoms and signs involving cognitive functions and awareness; I10 Essential (primary) hypertension; N40.0 Benign prostatic hyperplasia without lower urinary tract symptoms; D63.1 Anemia in chronic kidney disease; E78.5 Hyperlipidemia, unspecified; K57.30 Diverticulosis of large intestine without perforation or abscess without bleeding; H40.9 Unspecified glaucoma; M25.50 Pain in unspecified joint; G20 Parkinson's disease; F02.80 Dementia in other diseases classified elsewhere, unspecified severity, without behavioral disturbance, psychotic disturbance, mood disturbance, and anxiety; D50.9 Iron deficiency anemia, unspecified; M85.80 Other specified disorders of bone density and structure, unspecified site; K44.9 Diaphragmatic hernia without obstruction or gangrene; E53.8 Deficiency of other specified B group vitamins; E55.9 Vitamin D deficiency, unspecified; D72.829 Elevated white blood cell count, unspecified; R79.89 Other specified abnormal findings of blood chemistry; I48.91 Unspecified atrial fibrillation; Z96.641 Presence of right artificial hip joint; Z79.82 Long term (current) use of aspirin; Z86.16 Personal history of COVID-19; Z99.3 Dependence on wheelchair
CPT/HCPCS: 36415; 36430; 36600; 70450; 71045; 74019; 76775; 80053; 80069; 81001; 82248; 82274; 82550; 82570; 82607; 82728; 82746; 82805; 82948; 83540; 83550; 83605; 83615; 83690; 83735; 83874; 84155; 84156; 84165; 84166; 84238; 84300; 84443; 84484; 85014; 85018; 85025; 85046; 85610; 85730; 85999; 86140; 86850; 86880; 86900; 86901; 86920; 87040; 87086; 87088; 87426; 88184; 88305; 93005; 93970; 94762; 95816; 96361; 96365; 96366; 96367; 96375; 96376; 97110; 97162; 97167; 97530; 97535; 99285; A9270; C8929; C9113; C9803; G0378; J0696; J1756; J2704; J2920; J3475; J7030; J7050; J7120; P9016; Q5105; Q9957

== ENCOUNTER 2021-12-18 15:00 | Outpatient (CLI) | payer MEDICARE, SELFPAY ==
[2021-12-18 15:29] LABS: Basophils Percent Auto 0.7 % (0.2-1.2); Eosinophils Absolute Auto 0.2 K/mm3 (0-0.3); Eosinophils Percent Auto 3.6 % (0-4.4); Hematocrit 28.6 % (42.0-52.0); Immature Granulocyte Absolute 0.08 K/mm3 (0.00-0.031); Immature Granulocyte Percent A 1.3 % (0-0.5); Lymphocytes Absolute Auto 1.19 K/mm3 (0.9-3.2); Lymphocytes Percent Auto 19.7 % (18.3-44.2); Mean Corpuscular HGB Conc 31.5 g/dl (32-36); Mean Corpuscular Hemoglobin 31.8 pg (26-34); Mean Corpuscular Volume 101.1 fl (80-100); Mean Platelet Volume 9.8 fl (7.4-10.4); Monocytes Absolute Auto 0.5 K/mm3 (0.1-0.6); Monocytes Percent Auto 8.6 % (2.6-8.5); Neutrophils Percent Auto 66.1 % (45.5-73.1); Platelet Count Result 268 k/mm3 (150-375); Red Blood Count 2.83 M/mm3 (4.6-6.20); Red Cell Distribution Width 19.4 % (11.5-14.5)
[2021-12-18 16:03] LABS: Iron 69 ug/dL (49-181)
[2021-12-18 16:05] LABS: Alanine Aminotransferase 29 U/L (6-50); Albumin Level 3.7 g/dL (3.5-5.1); Alkaline Phosphatase 77 U/L (38-126); Anion Gap 9 mmol/L (8-16); Aspartate Amino Transferase 37 U/L (17-59); Bilirubin,Total 0.6 mg/dL (0.2-1.3); Blood Urea Nitrogen 30 mg/dL (9-20); Carbon Dioxide 23 mmol/L (22-30); Chloride 107 mmol/L (98-107); Estimated Glomerular Filt Rate 58; Glucose 161 mg/dL (65-110); Potassium 4.1 mmol/L (3.4-5.0); Sodium 139 mmol/L (137-145)
[2021-12-18 16:15] LABS: Percent Iron Saturation 27 % (20-50)
[2021-12-18 17:17] LABS: Folic Acid > 20.0 ng/mL (2.76->20)
== END 2021-12-18 15:01 | disposition home or self-care (01) ==
LOC: ANHLAB 15:04
PROVIDERS: PCP Internal Medicine; Visit Provider Internal Medicine Hematology & Oncology
DX: D64.9 Anemia, unspecified (principal)
CPT/HCPCS: 36415; 80053; 82607; 82728; 82746; 83540; 83550; 85025

== ENCOUNTER 2021-12-30 01:32 | Day surgery (SDC) | payer MEDICARE, SELFPAY ==
[2021-12-29 14:45] VITALS: BMI 26.4
--- NOTE | ~2021-12-30 | BM_ITS ---
EXAMINATION: CCL bone marrow asp w bx diag DATE: 12/30/2021 09:54 INDICATION: Chronic anemia. TECHNIQUE: A time-out was performed to verify the patient's name, date of , and procedure to b e performed. The procedure including the risks, benefits, and alternatives was discussed with the pat ient. Risks discussed included bleeding and infection. The patient understood the risks and agreed to proceed. The skin overlying the left ilium was prepped and draped in usual sterile fashion. Anesth etic was administered with 1% lidocaine subcutaneously. An 11 gauge needle was inserted into the iliu m with fluoroscopic guidance. Bone marrow was aspirated. An 8 gauge needle was then inserted into the ilium with fluoroscopic guidance. A core bone marrow biopsy was obtained. There were no immediate co mplications. Fluoroscopy exposure time was 0.0 minutes. The total number of images was 10. FINDINGS: Real-time fluoroscopy demonstrates a marker overlying the left posterior superior iliac spi ne. IMPRESSION: 1. Fluoro-guided bone marrow aspiration. 2. Fluoro-guided bone marrow core biopsy. Reviewed, dictated and finalized at location A.
[2021-12-30 08:11] VITALS: BMI 27.3
[2021-12-30 08:11] LABS: Basophils Absolute Auto 0.1 K/mm3 (0.0-0.1); Basophils Percent Auto 1.1 % (0.2-1.2); Eosinophils Absolute Auto 0.3 K/mm3 (0-0.3); Eosinophils Percent Auto 5.4 % (0-4.4); Hematocrit 31.6 % (42.0-52.0); Hemoglobin 10.1 g/dL (14.0-18.0); Immature Granulocyte Absolute 0.02 K/mm3 (0.00-0.031); Immature Granulocyte Percent A 0.4 % (0-0.5); Lymphocytes Absolute Auto 1.14 K/mm3 (0.9-3.2); Lymphocytes Percent Auto 24.8 % (18.3-44.2); Mean Corpuscular Hemoglobin 32.2 pg (26-34); Mean Corpuscular Volume 100.6 fl (80-100); Mean Platelet Volume 10.4 fl (7.4-10.4); Monocytes Absolute Auto 0.5 K/mm3 (0.1-0.6); Neutrophils Absolute Auto 2.7 K/mm3 (1.3-6.7); Neutrophils Percent Auto 58.3 % (45.5-73.1); Platelet Count Result 237 k/mm3 (150-375); Red Blood Count 3.14 M/mm3 (4.6-6.20); Red Cell Distribution Width 17.3 % (11.5-14.5); White Blood Count 4.6 K/mm3 (4.5-10.0)
[2021-12-30 08:14] VITALS: BP 152/81; PULSE 68; RESP 15; TEMP 36.4; O2SAT 100
[2021-12-30 08:41] LABS: INR 1.1; Prothrombin Time 13.4 Seconds (11.1-14.7)
[2021-12-30 09:52] VITALS: BP 177/63; PULSE 63; RESP 18; O2SAT 100
--- NOTE | 2021-12-30 13:00 | SUR.PHASEII ---
Patient sent back to [facility] with written discharge instruction and Nurse Bekah was given verbal instructions and report on patient as well. Patient and family educated care of incision, pain control, and s/s of infection. Patient and family verbalizes understanding of given instruction. Patient v/s within pre arrival range. Denies pain and discomfort. Patient discharged.
== END 2021-12-30 10:50 | disposition home or self-care (01) ==
PROVIDERS: PCP Internal Medicine; Referring Provider Internal Medicine Hematology & Oncology; Visit Provider Radiology Diagnostic Radiology
DX: D64.9 Anemia, unspecified (principal); I10 Essential (primary) hypertension; E78.5 Hyperlipidemia, unspecified; F03.90 Unspecified dementia, unspecified severity, without behavioral disturbance, psychotic disturbance, mood disturbance, and anxiety; N40.0 Benign prostatic hyperplasia without lower urinary tract symptoms; M85.80 Other specified disorders of bone density and structure, unspecified site; E55.9 Vitamin D deficiency, unspecified; E53.8 Deficiency of other specified B group vitamins; Z79.82 Long term (current) use of aspirin
CPT/HCPCS: 36415; 38222; 85025; 85610; 88184; 88185; 88305; 88311; 88313; 88341; 88342; 88360; J1642; J7040

== ENCOUNTER 2022-02-03 16:54 | Outpatient (CLI) | payer MEDICARE, SELFPAY ==
[2022-02-03 17:41] LABS: Basophils Percent Auto 0.7 % (0.2-1.2); Eosinophils Absolute Auto 0.2 K/mm3 (0-0.3); Eosinophils Percent Auto 3.1 % (0-4.4); Hemoglobin 11.3 g/dL (14.0-18.0); Immature Granulocyte Absolute 0.02 K/mm3 (0.00-0.031); Immature Granulocyte Percent A 0.4 % (0-0.5); Lymphocytes Percent Auto 18.4 % (18.3-44.2); Mean Corpuscular HGB Conc 32.3 g/dl (32-36); Mean Corpuscular Hemoglobin 32.4 pg (26-34); Mean Corpuscular Volume 100.3 fl (80-100); Mean Platelet Volume 10.9 fl (7.4-10.4); Monocytes Absolute Auto 0.6 K/mm3 (0.1-0.6); Monocytes Percent Auto 10.3 % (2.6-8.5); Neutrophils Absolute Auto 3.7 K/mm3 (1.3-6.7); Neutrophils Percent Auto 67.1 % (45.5-73.1); Platelet Count Result 189 k/mm3 (150-375); Red Blood Count 3.49 M/mm3 (4.6-6.20); White Blood Count 5.4 K/mm3 (4.5-10.0)
[2022-02-03 17:49] LABS: Hemoglobin A1C 4.9 % (<5.7)
[2022-02-03 17:53] LABS: Cholesterol 185 mg/dL (0-200); HDL Direct 74 mg/dL; Triglycerides 81 mg/dL (<150)
[2022-02-03 17:54] LABS: Alanine Aminotransferase 26 U/L (6-50); Albumin Level 4.1 g/dL (3.5-5.1); Alkaline Phosphatase 83 U/L (38-126); Anion Gap 11 mmol/L (8-16); Aspartate Amino Transferase 30 U/L (17-59); Bilirubin,Total 0.3 mg/dL (0.2-1.3); Blood Urea Nitrogen 35 mg/dL (9-20); Calcium 9.9 mg/dL (8.4-10.2); Carbon Dioxide 26 mmol/L (22-30); Chloride 102 mmol/L (98-107); Estimated Glomerular Filt Rate > 60; Glucose 101 mg/dL (65-110); Potassium 4.3 mmol/L (3.4-5.0); Sodium 139 mmol/L (137-145)
[2022-02-03 18:03] LABS: LDL Cholesterol Direct 71 mg/dL
[2022-02-03 18:11] LABS: Vitamin D 25 Hydroxy 46.4 ng/mL
[2022-02-03 18:34] LABS: Thyroid Stimulating Hormone 0.446 uIU/mL (0.465-4.680)
[2022-02-03 19:58] LABS: Iron 65 ug/dL (49-181)
[2022-02-03 20:04] LABS: Percent Iron Saturation 22 % (20-50)
[2022-02-03 20:11] LABS: Free T4 Free Thyroxine 1.46 ng/mL (0.78-2.19)
== END 2022-02-03 16:55 | disposition home or self-care (01) ==
PROVIDERS: Internal Medicine; PCP Internal Medicine; Visit Provider Internal Medicine
DX: K92.1 Melena (principal); I10 Essential (primary) hypertension; D50.9 Iron deficiency anemia, unspecified; E55.9 Vitamin D deficiency, unspecified; Z13.29 Encounter for screening for other suspected endocrine disorder; Z79.899 Other long term (current) drug therapy; E78.5 Hyperlipidemia, unspecified; R73.09 Other abnormal glucose
CPT/HCPCS: 36415; 80053; 80061; 82306; 82728; 83036; 83540; 83550; 84439; 84443; 85025

== ENCOUNTER 2022-02-05 12:48 | Observation (INO) | payer MEDICARE, SELFPAY ==
[2022-02-05] VITALS (24 sets, daily range): BP systolic 120–161; BP diastolic 58–88; PULSE 52–65; RESP 11–19; TEMP 36.4–36.6; O2SAT 90–100
--- NOTE | ~2022-02-05 | XR_ITS ---
EXAMINATION: XR chest 1V portable DATE: 02/05/2022 13:36 INDICATION: Transient alteration of awareness. TECHNIQUE: A single frontal view of the chest was obtained. COMPARISON: Chest single view 12/06/2021, chest CT 11/12/2021 FINDINGS: There is mild scarring at the lung apices. No pleural effusion or pneumothorax. The heart s ize is normal. IMPRESSION: 1. Mild scarring at the lung apices. Reviewed, dictated and finalized at location A.
--- NOTE | ~2022-02-05 | CT_ITS ---
EXAMINATION: CT brain wo con INDICATION: Altered mental status and weakness COMPARISON: 12/06/2021 TECHNIQUE: Standard unenhanced head CT. The dose-length product (DLP) was 605.33 mGy-cm. The mA was a djusted according to patient size. Iterative reconstruction technique was employed. FINDINGS: There is no acute intraparenchymal hemorrhage. No evidence of mass lesion. No evidence of a cute infarction. There is moderate periventricular and subcortical hypodensity probably related to sm all vessel ischemic disease. There is moderate prominence of the sulci and ventricles related to cere bral atrophy. Intracranial calcified cerebral atherosclerosis is noted. There are no extra-axial khushboo ections. There is no mass effect or midline shift. Changes in the globes are likely from ocular lens surgery. There is mild mucosal thickening of the paranasal sinuses. IMPRESSION: 1. No acute intracranial abnormality. 2. Age related findings. Reviewed, dictated and finalized at location B.
--- NOTE | ~2022-02-05 | XR_ITS ---
EXAMINATION: XR lumbar spine min 4V DATE: 02/06/2022 10:14 INDICATION: Nontraumatic low back pain TECHNIQUE: Anteroposterior, lateral, and bilateral oblique views of the lumbar spine, and cone-down l ateral view of the lumbosacral junction were obtained. COMPARISON: Lumbar spine CT dated 12/06/2019 FINDINGS: Left side sacralized L5 segment. 8 mm anterolisthesis L4 on L5 with associated severe bilateral facet osteoarthritis. No pars interarticularis defects. Chronic anterior wedging with 20% anterior vertebr al body height loss at T11 and 10% anterior vertebral body height loss at T12. Severe disc height los s with vacuum phenomena at L1-L2. Moderate disc height loss at L2-L3 and mild disc height loss at T11 -T12. Moderate to severe left hip osteoarthritis. Partially visualized right total hip arthroplasty. Moderate bilateral sacral clinical osteoarthritis. IMPRESSION: 1. Severe lumbar spondylosis. 2. Chronic grade 1-2 anterolisthesis L4 on sacralized L5 segment with severe bilateral facet osteoart hritis but without pars intra-articularis defects. Reviewed, dictated and finalized at location A. IMPRESSION: 1. Severe lumbar spondylosis. 2. Chronic grade 1-2 anterolisthesis L4 on sacralized L5 segment with severe bi lateral facet osteoarthritis but without pars intra-articularis defects.
--- NOTE | 2022-02-05 13:21 | ECG_ITS ---
Measurements Intervals [place] Rate: 57 P: 49 MS: 221 QRS: -8 QRSD: 87 T: 7 QT: 393 QTc: 383 Interpretive Statements SINUS BRADYCARDIA WITH PACS WITH FIRST DEGREE AV BLOCK LOW QRS VOLTAGE IN PRECORDIAL LEADS [QRS DEFLECTION < 1.0 mV IN CHEST LEADS] VOLTAGE CRITERIA FOR LVH [MEETS CRITERIA IN ONE OF: R(aVL), S(V1), R(V5), R(V5/V6)+S(V1)] COMPARED TO ECG 12/06/2021 22:41:29 HEART RATE IS REDUCED AND PREMATURE ATRIAL CONTRACTIONS ARE SEEN Electronically Signed On 02-05-2022 14:12:56 CDT by Harjit Wahl M.D.
--- NOTE | 2022-02-05 13:24 | ED.GENADULT ---
HPI - General Adult General Chief complaint: Urogenital-Male Stated complaint: uti Time Seen by Provider: 02/05/22 12:52 History of Present Illness HPI narrative: Patient is an 82-year-old male with a history of hypertension, hyperlipidemia, CKD presenting with generalized weakness. Patient lives at home with his and has a sweatband shaper to assist with the activities. Yesterday, he was noted to be generally weaker than normal. Today, the patient's sweatband shaper struggled to help him to the bathroom due to this weakness. States that he is normally able to ambulate without much assistance. Patient's is concerned he has a UTI as he has had several in the past and he has had increasing urinary frequency. Patient denies headache, chest pain, shortness of breath, cough, abdominal pain, nausea or vomiting, diarrhea, leg swelling. Related Data Home Medications Medication Instructions Recorded Confirmed aspirin 81 mg tablet,delayed 81 mg PO DAILY 03/14/19 02/05/22 release (Adult Low Dose Aspirin) finasteride 5 mg tablet 5 mg PO DAILY 03/14/19 02/06/22 multivitamin 1 tablet PO 1200 03/14/19 02/05/22 polyethylene glycol 3350 17 17 gm PO DAILY PRN Constipation 12/10/19 02/05/22 gram/dose oral powder (Miralax) acetaminophen 500 mg tablet 500 mg PO Q6H PRN Pain 08/14/20 02/05/22 (Tylenol Extra Strength) amlodipine 2.5 mg tablet 2.5 mg PO DAILY 11/09/21 02/05/22 cranberry fruit concentrate 250 mg 250 mg PO BID 11/09/21 02/05/22 chewable tablet (Azo Cranberry) birqdotkmrs-hniqvtcfm-nuh C-Mn 500 1 cap PO BID 11/09/21 02/05/22 mg-400 mg capsule (Glucosamine Chondroitin Maximum Strength) omega 3-pim-ocx-fish oil 1,000 mg 1,000 cap PO 1700 11/09/21 02/05/22 (120 mg-180 mg) capsule (Fish Oil) pravastatin 20 mg tablet 20 mg PO HS 11/09/21 02/05/22 carvedilol 12.5 mg tablet 12.5 mg PO BID 02/06/22 02/06/22 lisinopril 40 mg tablet 40 mg PO BID 02/06/22 02/06/22 Allergies Allergy/AdvReac Type Severity Reaction Status Date / Time hydrochlorothiazide Allergy Unknown Hyponatremi Verified 02/05/22 12:51 a Review of Systems Review of Systems: All systems reviewed & are unremarkable except as noted in HPI and below PMFSH Past Medical History Medical History (Updated 02/07/22 @ 20:06 by Tatiana Hobbs MD) Acquired ankle/foot deformity Aftercare following right hip joint replacement surgery Arthralgia Benign essential hypertension Bilateral sacroiliitis Blood in stool BMI 25.0-25.9,adult BPH (benign prostatic hyperplasia) Chronic pain of right lower extremity CKD (chronic kidney disease) COVID-19 Dementia Disequilibrium syndrome DJD (degenerative joint disease), multiple sites Elevated d-dimer Fall at home [facility] follow-up Hyperlipidemia Midline low back pain with right-sided sciatica Osteopenia Pneumonia Prostate cancer screening Spinal stenosis Subclinical hyperthyroidism Unexplained weight loss Unresponsive episode UTI (urinary tract infection) Vitamin B12 deficiency Vitamin D deficiency Surgical History Surgical History History of cataract extraction History of removal of pigmented skin lesion History of total right hip arthroplasty Presence of right artificial hip joint Family History Family History Mother Family history of cardiovascular disease Diabetes mellitus Family history of arthritis Family history of coronary artery disease Hypertension Acute myocardial infarction Father Family history of arthritis Family history of coronary artery disease Sibling Glaucoma Hypertension Social History Social History (Updated 02/05/22 @ 23:02 by Marilu Rosario NP) Social History: He is retired from [employer]. He was at home with his . He has no children. His PCP is Dr. Orta. He has designated his , Kasie, as his surrogate decision maker.
[2022-02-05] MEDS: SODIUM CHLORIDE 0.9% IV 1,000 ML 999 ML IV CONT (13:33)
[2022-02-05 13:38] LABS: Basophils Percent Auto 0.5 % (0.2-1.2); Eosinophils Absolute Auto 0.1 K/mm3 (0-0.3); Eosinophils Percent Auto 1.4 % (0-4.4); Hematocrit 32.7 % (42.0-52.0); Hemoglobin 10.6 g/dL (14.0-18.0); Immature Granulocyte Absolute 0.02 K/mm3 (0.00-0.031); Immature Granulocyte Percent A 0.3 % (0-0.5); Lymphocytes Absolute Auto 1.05 K/mm3 (0.9-3.2); Lymphocytes Percent Auto 16.6 % (18.3-44.2); Mean Corpuscular HGB Conc 32.4 g/dl (32-36); Mean Corpuscular Hemoglobin 32.2 pg (26-34); Mean Corpuscular Volume 99.4 fl (80-100); Mean Platelet Volume 10.3 fl (7.4-10.4); Monocytes Absolute Auto 0.7 K/mm3 (0.1-0.6); Monocytes Percent Auto 10.8 % (2.6-8.5); Neutrophils Absolute Auto 4.4 K/mm3 (1.3-6.7); Neutrophils Percent Auto 70.4 % (45.5-73.1); Platelet Count Result 171 k/mm3 (150-375); Red Blood Count 3.29 M/mm3 (4.6-6.20); Red Cell Distribution Width 14.9 % (11.5-14.5); White Blood Count 6.3 K/mm3 (4.5-10.0)
[2022-02-05 13:40] LABS: Add Urine Microscopic? NO; Appearance Urine Clear (Clear); Bilirubin Urine Negative (Negative); Blood Urine Negative (Negative); Color Urine Yellow (Yellow); Glucose Urine UA Negative (Negative); Ketones Urine Negative (Negative); Leukocyte Esterase Ur Negative LEU/UL (Negative); Nitrate Urine Negative (Negative); Protein Urine Negative (Negative); Specific Grav Ur 1.019 (1.001-1.035); Urobilinogen Urine Negative mg/dL (<2.0)
[2022-02-05 13:46] LABS: Alanine Aminotransferase 24 U/L (6-50); Alkaline Phosphatase 72 U/L (38-126); Anion Gap 13 mmol/L (8-16); Aspartate Amino Transferase 25 U/L (17-59); Bilirubin,Total 0.3 mg/dL (0.2-1.3); Blood Urea Nitrogen 35 mg/dL (9-20); Calcium 9.6 mg/dL (8.4-10.2); Carbon Dioxide 27 mmol/L (22-30); Chloride 98 mmol/L (98-107); Estimated CRCL calculation 44 ml/min; Estimated Glomerular Filt Rate 58; Glucose 103 mg/dL (65-110); Potassium 4.2 mmol/L (3.4-5.0); Sodium 138 mmol/L (137-145)
[2022-02-05 13:57] LABS: Troponin I < 0.012 ng/mL (0.000-0.034)
[2022-02-05 17:01] LABS: Troponin I < 0.012 ng/mL (0.000-0.034)
--- NOTE | 2022-02-05 17:35 | PM.IMHP ---
H&P: HPI History of Present Illness Date/Time: 02/05/22 17:35 Chief Complaint: Weakness Narrative: This is a 82-year-old male patient who has a history of hypertension, hyperlipidemia and chronic kidney disease. The patient came to the emergency room with complaints of generalized weakness. The patient lives at home with his and she is the caregiver for the patient. It was noted that the patient was weaker than normal yesterday. The patient's caregiver struggled with getting him to the bathroom today. This is due to the weakness. The patient is typically ambulatory without much assistance. The patient denies having any falls. The patient's was concerned about him having urinary tract infection. The explained that the patient typically gets this way when he has urinary tract infections. He has no chest pain or palpitations. No fever chills. No complaints of any urinary symptoms. His H&H is 10.6 and 32.7. Two days ago it was 11.3 and 35.2. this appears to be his baseline. Although the patient does look rather pale. Troponin was negative x2. Urine is found to be negative. The patient is being admitted for observation status on the date of service of 02/05/2022. Review of Systems Review of Systems: See HPI All systems reviewed & are unremarkable except as noted in HPI and below Constitutional: Constitutional: Reports as per HPI and Reports no additional constitutional complaints Eyes: Eyes: Reports as per HPI and Reports no additional eye complaints ENT: Reports system reviewed and no additional complaints, except as documented and Reports Normal hearing present Cardiovascular: Cardiovascular: Reports no additional cardiovascular complaints Respiratory: Respiratory: Reports no additional respiratory complaints and Reports no additional respiratory complaints Gastrointestinal: Gastrointestinal: Reports as per HPI and Reports no additional gastrointestinal complaints Musculoskeletal: Musculoskeletal: Reports no additional musculoskeletal complaints Integumentary/Breasts: Skin/Breast: Reports system reviewed and no additional complaints, except as docu and Reports as per HPI Neurologic: Reports system reviewed and no additional complaints, except as documented, Reports as per HPI and Reports Normal hearing present Psychiatric: Psychiatric: Reports no additional psychiatric complaints and Reports as per HPI Endocrine: Endocrine: Reports no additional endocrine complaints Hematologic/Lymphatic: Hematologic/Lymphatic: Reports no additional hematologic/lymphatic complaints Allergic/Immunologic: Allergic/Immunologic: Reports no additional allergic/immunologic complaints [facility] Past Medical History Medical History (Updated 02/05/22 @ 23:14 by Marilu Rosario NP) Acquired ankle/foot deformity Aftercare following right hip joint replacement surgery Arthralgia Benign essential hypertension Bilateral sacroiliitis Blood in stool BMI 25.0-25.9,adult BPH (benign prostatic hyperplasia) Chronic pain of right lower extremity CKD (chronic kidney disease) COVID-19 Dementia Disequilibrium syndrome DJD (degenerative joint disease), multiple sites Elevated d-dimer Fall at home [facility] follow-up Hyperlipidemia Midline low back pain with right-sided sciatica Osteopenia Pneumonia Prostate cancer screening Spinal stenosis Subclinical hyperthyroidism Unexplained weight loss Unresponsive episode UTI (urinary tract infection) Vitamin B12 deficiency Vitamin D deficiency Surgical History Surgical History History of cataract extraction History of removal of pigmented skin lesion History of total right hip arthroplasty Presence of right artificial hip joint Family History Family History Mother Family history of cardiovascular disease Diabetes mellitus Family histo
--- NOTE | 2022-02-05 21:00 | ADMGEN ---
This patient, Fernando Nava, was admitted to [facility] Room 332-01. Patient/family oriented to hospital policies and general routines including ID bracelet, bed and alarms, visiting hours, pain management, procedures, bathroom and other care routines, personal items, smoking policy, room service/diet, and visiting hours. Information on how to activate the Rapid Response Team has been discussed. Patient/Family are encouraged to report perceived risks to care and to ask questions if they do not understand what they are told or what they should do.
[2022-02-05 23:31] LABS: Hematocrit 30.1 % (42.0-52.0); Hemoglobin 9.9 g/dL (14.0-18.0)
[2022-02-05 23:39] LABS: Influenza Control Positive
[2022-02-06] MEDS: OMEGA 3 POLYUNSAT FATTY ACIDS 1 GM CAP PO ×2 (02:46→18:10)
[2022-02-06 06:00] VITALS: BP 142/67; PULSE 78; RESP 20; TEMP 36.6; O2SAT 97
[2022-02-06 06:25] LABS: Hemoglobin 10.6 g/dL (14.0-18.0)
[2022-02-06 06:42] LABS: Alanine Aminotransferase 23 U/L (6-50); Albumin Level 3.7 g/dL (3.5-5.1); Alkaline Phosphatase 82 U/L (38-126); Anion Gap 6 mmol/L (8-16); Aspartate Amino Transferase 23 U/L (17-59); Bilirubin,Total 0.3 mg/dL (0.2-1.3); Blood Urea Nitrogen 25 mg/dL (9-20); Calcium 9.2 mg/dL (8.4-10.2); Carbon Dioxide 28 mmol/L (22-30); Chloride 106 mmol/L (98-107); Estimated CRCL calculation 48 ml/min; Estimated Glomerular Filt Rate > 60; Glucose 91 mg/dL (65-110); Lactic Acid Reflex 0.5 mmol/L (0.7-2.0); Magnesium 2.3 mg/dL (1.6-2.3); Sodium 140 mmol/L (137-145)
[2022-02-06 07:36] LABS: Thyroid Stimulating Hormone Reflex 0.648 uIU/mL (0.465-4.68)
[2022-02-06] MEDS: PANTOPRAZOLE 40 MG TABLET PO (09:43)
[2022-02-06] MEDS: MAGNESIUM 13.5 MG TABLET (250 MG MAG GLUCONATE) PO (09:43)
[2022-02-06] MEDS: ASPIRIN 81 MG ENTERIC TABLET PO (09:43)
[2022-02-06] MEDS: FERROUS SULFATE 324 MG TABLET PO ×2 (09:43→18:10)
[2022-02-06] MEDS: amLODIPine BESYLATE 2.5 MG TABLET PO (09:43)
[2022-02-06] MEDS: TOLNAFTATE 1% POWDER 45 GM BTL 1 APPLIC TOPICAL ×2 (09:45→20:59)
[2022-02-06 10:56] LABS: Hematocrit 30.6 % (42.0-52.0)
--- NOTE | 2022-02-06 15:37 | PM.IMPN ---
Progress Note: A&P Assessment and Plan (1) Weakness: Code(s): R53.1 - Weakness Status: Acute Assessment and Plan: -the patient had COVID back in October so we did not retest him. -We will check influenza a and B. - the patient has anemia so will check his H&H every 6 hours. And check his stool for occult blood. -the patient does not appear to have an Infectious Disease. His urine is negative and there was no acute cardiopulmonary disease. -his head CT shows no acute intracranial abnormality. Age-related findings. - the patient has a history of dementia and perhaps his deconditioning. Who have PT and OT evaluate the patient. ems coordinator consultation with greatly be appreciated for possible acute rehab. The patient is agreeable and it does not sound like the is able to take care of him at home. Is becoming more difficult for the caregiver to take care of him. It sounds like the patient is typically able to make it to the bathroom on his own but is requiring a lot help at this time. - I will also x-ray his lower back just to make sure that there was no acute problems. - check magnesium level -PT OT evaluation greatly be appreciated - check influenza a and B. (2) Anemia: Code(s): D64.9 - Anemia, unspecified Status: Acute Assessment and Plan: -The patient appears to be at his baseline. -on check his H&H every 6 hours. Two days ago the patient's hemoglobin was 11.3 and today it is 10.6. - check stool for occult blood. (3) CKD (chronic kidney disease): Code(s): N18.9 - Chronic kidney disease, unspecified Status: Acute Assessment and Plan: -Patient's GFR is 58. His BUN is 35 and creatinine 1.2. (4) Dementia: Code(s): F03.90 - Unspecified dementia, unspecified severity, without behavioral disturbance, psychotic disturbance, mood disturbance, and anxiety Status: Acute Assessment and Plan: -The patient is answering questions appropriately. (5) Hyperlipidemia: Qualifiers: Hyperlipidemia type: mixed hyperlipidemia Qualified Code(s): E78.2 - Mixed hyperlipidemia Code(s): E78.5 - Hyperlipidemia, unspecified Status: Acute Assessment and Plan: Hold pravastatin for now. Unsure if this is causing his weakness. Continue with [place] 3. (6) Neurologic gait dysfunction: Code(s): R26.9 - Unspecified abnormalities of gait and mobility Status: Acute Assessment and Plan: -PT and OT consult was greatly be appreciated. -caretaker grounds evaluation greatly be appreciated for possible rehab for strengthening (7) Hyponatremia: Code(s): E87.1 - Hypo-osmolality and hyponatremia Status: Resolved Assessment and Plan: Resolved Time Spent With Patient Time with patient: 15 - 25 minutes Subjective Date/time seen: 02/06/22 1000 This pt. was examined at the bedside in interval assessment after being admitted to the hospital for generalized weakness. He is still awaiting placement at a SNF. He denies any complaints today that are acute such as CP, dyspnea, N/V/D, headache, lightheadedness or dizziness. He does complain about constipation and pain with urination. Review of Systems Review of Systems: All systems reviewed & are unremarkable except as noted in HPI and below Exam Const: General: comfortable and no acute distress HENMT: Mouth: Yes moist mucous membranes Eyes: General: appearance normal, both eyes and all related structures EOM: EOMs intact bilaterally Neck: Neck: supple and no JVD Resp: Effort & Inspection: normal respiratory effort Cardio: Rate: regular rate Rhythm: regular rhythm Heart sounds: no gallops, no murmurs and no rubs GI: GI Palp: Yes Soft to palpation, No Tenderness to palpation present (GI) and No Guarding due to palpation present (GI) Auscultation: normal bowel sounds Skin: General skin exam: normal color, no rashes or lesions noted and no estevan
[2022-02-06 16:28] LABS: Basophils Percent Auto 0.6 % (0.2-1.2); Eosinophils Absolute Auto 0.1 K/mm3 (0-0.3); Eosinophils Percent Auto 2.3 % (0-4.4); Hematocrit 32.9 % (42.0-52.0); Hemoglobin 10.8 g/dL (14.0-18.0); Immature Granulocyte Absolute 0.01 K/mm3 (0.00-0.031); Immature Granulocyte Percent A 0.2 % (0-0.5); Lymphocytes Absolute Auto 1.08 K/mm3 (0.9-3.2); Lymphocytes Percent Auto 21.1 % (18.3-44.2); Mean Corpuscular HGB Conc 32.8 g/dl (32-36); Mean Corpuscular Hemoglobin 31.9 pg (26-34); Mean Corpuscular Volume 97.1 fl (80-100); Mean Platelet Volume 10.3 fl (7.4-10.4); Monocytes Absolute Auto 0.6 K/mm3 (0.1-0.6); Monocytes Percent Auto 11.1 % (2.6-8.5); Neutrophils Absolute Auto 3.3 K/mm3 (1.3-6.7); Neutrophils Percent Auto 64.7 % (45.5-73.1); Platelet Count Result 188 k/mm3 (150-375); Red Blood Count 3.39 M/mm3 (4.6-6.20); Red Cell Distribution Width 14.7 % (11.5-14.5); White Blood Count 5.1 K/mm3 (4.5-10.0)
[2022-02-06 16:32] VITALS: BP 162/67; PULSE 63; RESP 18; TEMP 36.3; O2SAT 100
[2022-02-06 18:10] VITALS: PULSE 63
[2022-02-06] MEDS: lisinopriL 20 MG TABLET 40 MG PO (18:10)
[2022-02-06] MEDS: carvediloL 12.5 MG TABLET PO (18:10)
[2022-02-06] MEDS: PRAVASTATIN SODIUM 20 MG TABLET PO (20:57)
[2022-02-06 22:00] VITALS: BP 135/54; PULSE 63; RESP 16; TEMP 36.1; O2SAT 100
[2022-02-07 06:00] VITALS: BP 161/79; PULSE 60; RESP 16; TEMP 36.1; O2SAT 100
[2022-02-07 06:46] LABS: Basophils Percent Auto 0.4 % (0.2-1.2); Eosinophils Absolute Auto 0.2 K/mm3 (0-0.3); Eosinophils Percent Auto 3.7 % (0-4.4); Hematocrit 29.7 % (42.0-52.0); Hemoglobin 9.7 g/dL (14.0-18.0); Immature Granulocyte Absolute 0.01 K/mm3 (0.00-0.031); Immature Granulocyte Percent A 0.2 % (0-0.5); Lymphocytes Absolute Auto 1.43 K/mm3 (0.9-3.2); Lymphocytes Percent Auto 30.9 % (18.3-44.2); Mean Corpuscular HGB Conc 32.7 g/dl (32-36); Mean Corpuscular Hemoglobin 31.6 pg (26-34); Mean Corpuscular Volume 96.7 fl (80-100); Mean Platelet Volume 11.2 fl (7.4-10.4); Monocytes Absolute Auto 0.6 K/mm3 (0.1-0.6); Neutrophils Absolute Auto 2.4 K/mm3 (1.3-6.7); Neutrophils Percent Auto 51.8 % (45.5-73.1); Platelet Count Result 174 k/mm3 (150-375); Red Blood Count 3.07 M/mm3 (4.6-6.20); Red Cell Distribution Width 14.6 % (11.5-14.5); White Blood Count 4.6 K/mm3 (4.5-10.0)
[2022-02-07 06:52] LABS: Alanine Aminotransferase 21 U/L (6-50); Albumin Level 3.5 g/dL (3.5-5.1); Alkaline Phosphatase 75 U/L (38-126); Anion Gap 6 mmol/L (8-16); Aspartate Amino Transferase 21 U/L (17-59); Bilirubin,Total 0.2 mg/dL (0.2-1.3); Blood Urea Nitrogen 28 mg/dL (9-20); Calcium 8.7 mg/dL (8.4-10.2); Carbon Dioxide 26 mmol/L (22-30); Chloride 106 mmol/L (98-107); Estimated CRCL calculation 44 ml/min; Estimated Glomerular Filt Rate 58; Glucose 95 mg/dL (65-110); Magnesium 2.3 mg/dL (1.6-2.3); Potassium 3.8 mmol/L (3.4-5.0); Sodium 138 mmol/L (137-145)
[2022-02-07] MEDS: PANTOPRAZOLE 40 MG TABLET PO (08:48)
[2022-02-07] MEDS: FERROUS SULFATE 324 MG TABLET PO ×2 (08:48→17:24)
[2022-02-07] MEDS: lisinopriL 20 MG TABLET 40 MG PO ×2 (08:49→17:23)
[2022-02-07] MEDS: MAGNESIUM 13.5 MG TABLET (250 MG MAG GLUCONATE) PO (08:49)
[2022-02-07] MEDS: FINASTERIDE 5 MG TABLET PO (08:49)
[2022-02-07] MEDS: ASPIRIN 81 MG ENTERIC TABLET PO (08:49)
[2022-02-07] MEDS: amLODIPine BESYLATE 2.5 MG TABLET PO (08:49)
[2022-02-07 08:50] VITALS: PULSE 72
[2022-02-07] MEDS: carvediloL 12.5 MG TABLET PO ×2 (08:50→17:24)
[2022-02-07] MEDS: TOLNAFTATE 1% POWDER 45 GM BTL 1 APPLIC TOPICAL ×2 (08:50→20:35)
[2022-02-07] MEDS: ACETAMINOPHEN 500 MG TABLET PO (08:55)
[2022-02-07] MEDS: MULTIVITAMINS THERAPEUTIC TAB (*BKC) 1 TABLET PO (11:43)
--- NOTE | 2022-02-07 15:10 | PM.IMPN ---
Progress Note: A&P Assessment and Plan (1) Weakness: Code(s): R53.1 - Weakness Status: Acute Assessment and Plan: Stable labs CT head, CXR and Lumbar x-ray negative for any acute findings. No focal findings. PT eval performed. Awaiting placement at [facility], patient prefers [facility]. (2) Anemia: Code(s): D64.9 - Anemia, unspecified Status: Chronic Assessment and Plan: Stable Occult blood stool pending. Continue Supplemental Iron. (3) CKD (chronic kidney disease): Code(s): N18.9 - Chronic kidney disease, unspecified Status: Chronic Assessment and Plan: At baseline (4) Dementia: Code(s): F03.90 - Unspecified dementia, unspecified severity, without behavioral disturbance, psychotic disturbance, mood disturbance, and anxiety Status: Chronic Assessment and Plan: At baseline neurological status. (5) Hyperlipidemia: Qualifiers: Hyperlipidemia type: mixed hyperlipidemia Qualified Code(s): E78.2 - Mixed hyperlipidemia Code(s): E78.5 - Hyperlipidemia, unspecified Status: Chronic Assessment and Plan: Continue Pravastatin. Pt. does not appear to have dehydration or Rhabdo. (6) Neurologic gait dysfunction: Code(s): R26.9 - Unspecified abnormalities of gait and mobility Status: Chronic Assessment and Plan: PT/OT ordered. Placement pending. (7) Hyponatremia: Code(s): E87.1 - Hypo-osmolality and hyponatremia Status: Resolved Assessment and Plan: Resolved Time Spent With Patient Time with patient: 15 - 25 minutes Subjective Date/time seen: 02/07/22 0965 This pt. was examined at the bedside today and appears to be unchanged from yesterday with his weakness and his overall debility. He has no CP, dyspnea, N/V/D, and we are currently awaiting placement at the patient preferred [facility]. Review of Systems Review of Systems: All systems reviewed & are unremarkable except as noted in HPI and below Exam Const: General: comfortable and no acute distress HENMT: Mouth: Yes moist mucous membranes Eyes: General: appearance normal, both eyes and all related structures EOM: EOMs intact bilaterally Neck: Neck: supple and no JVD Resp: Effort & Inspection: normal respiratory effort Cardio: Rate: regular rate Rhythm: regular rhythm Heart sounds: no gallops, no murmurs and no rubs GI: Auscultation: normal bowel sounds Skin: General skin exam: normal color, no rashes or lesions noted and no erythema Wounds: no wounds Neuro: General: No gait normal (High fall risk) Speech: normal speech Motor exam (neuro): 5/5 motor strength present throughout and Normal motor muscle tone present throughout Sensory Exam: normal sensation Extrem: General: normal to inspection, no edema and no pedal edema Other: Freely and equally MAEW without deficits. Psych: Mental Status: mental status grossly normal Affect: normal affect Objective Data Vital Signs Vital Signs: Vital Signs - 24 hr 02/06/22 15:11 02/06/22 16:32 02/06/22 18:10 Temperature 97.3 F L Pulse Rate 63 63 Respiratory Rate 18 Blood Pressure 162/67 H Pulse Oximetry 100 Oxygen Delivery Room Air 02/06/22 22:00 02/06/22 20:40 02/07/22 06:00 Temperature 97.0 F L 96.9 F L Pulse Rate 63 60 Respiratory Rate 16 16 Blood Pressure 135/54 L 161/79 H Pulse Oximetry 100 100 Oxygen Delivery Room Air 02/07/22 08:50 Temperature Pulse Rate 72 Respiratory Rate Blood Pressure Pulse Oximetry Oxygen Delivery Intake/Output Intake/Output: Intake & Output 02/04/22 02/05/22 02/06/22 02/07/22 23:59 23:59 23:59 23:59 Intake Total 1000 1140 1000 Output Total 200 550 Balance 982 048 1347 Meds/Results Medications: Active Medications Generic Name Dose Route Start Last Admin Trade Name Freq PRN Reason Stop Dose Admin Chris
[2022-02-07 16:00] VITALS: BP 161/89; PULSE 53; RESP 16; TEMP 36.6; O2SAT 100
[2022-02-07 17:24] VITALS: PULSE 64
[2022-02-07] MEDS: OMEGA 3 POLYUNSAT FATTY ACIDS 1 GM CAP PO (17:25)
[2022-02-07] MEDS: polyethylene glycoL 3350 17 GM POWD.PACK PO (17:29)
[2022-02-07] MEDS: PRAVASTATIN SODIUM 20 MG TABLET PO (20:34)
[2022-02-07 22:00] VITALS: BP 144/67; PULSE 66; RESP 18; TEMP 36.4; O2SAT 99
[2022-02-08 06:00] VITALS: BP 136/75; PULSE 63; RESP 18; TEMP 36.1; O2SAT 98
[2022-02-08 06:19] LABS: Add Urine Microscopic? NO; Appearance Urine Clear (Clear); Bilirubin Urine Negative (Negative); Blood Urine Negative (Negative); Color Urine Straw (Yellow); Glucose Urine UA Negative (Negative); Ketones Urine Negative (Negative); Leukocyte Esterase Ur Negative LEU/UL (Negative); Nitrate Urine Negative (Negative); Protein Urine Negative (Negative); Specific Grav Ur 1.012 (1.001-1.035); Urobilinogen Urine Negative mg/dL (<2.0)
[2022-02-08 06:31] LABS: Basophils Percent Auto 0.7 % (0.2-1.2); Eosinophils Absolute Auto 0.2 K/mm3 (0-0.3); Eosinophils Percent Auto 3.8 % (0-4.4); Hematocrit 30.2 % (42.0-52.0); Hemoglobin 9.9 g/dL (14.0-18.0); Immature Granulocyte Absolute 0.01 K/mm3 (0.00-0.031); Immature Granulocyte Percent A 0.2 % (0-0.5); Lymphocytes Absolute Auto 1.24 K/mm3 (0.9-3.2); Mean Corpuscular HGB Conc 32.8 g/dl (32-36); Mean Corpuscular Hemoglobin 32.5 pg (26-34); Mean Platelet Volume 10.8 fl (7.4-10.4); Monocytes Absolute Auto 0.5 K/mm3 (0.1-0.6); Neutrophils Absolute Auto 2.5 K/mm3 (1.3-6.7); Neutrophils Percent Auto 55.3 % (45.5-73.1); Platelet Count Result 177 k/mm3 (150-375); Red Blood Count 3.05 M/mm3 (4.6-6.20); Red Cell Distribution Width 14.6 % (11.5-14.5); White Blood Count 4.4 K/mm3 (4.5-10.0)
[2022-02-08 06:46] LABS: INR 1.2; Prothrombin Time 14.5 Seconds (11.1-14.7)
[2022-02-08 06:51] LABS: Alanine Aminotransferase 21 U/L (6-50); Albumin Level 3.5 g/dL (3.5-5.1); Alkaline Phosphatase 73 U/L (38-126); Anion Gap 6 mmol/L (8-16); Aspartate Amino Transferase 23 U/L (17-59); Bilirubin,Total 0.3 mg/dL (0.2-1.3); Blood Urea Nitrogen 29 mg/dL (9-20); Calcium 8.6 mg/dL (8.4-10.2); Carbon Dioxide 28 mmol/L (22-30); Chloride 105 mmol/L (98-107); Estimated CRCL calculation 53 ml/min; Estimated Glomerular Filt Rate > 60; Glucose 96 mg/dL (65-110); Magnesium 2.3 mg/dL (1.6-2.3); Potassium 3.6 mmol/L (3.4-5.0); Sodium 139 mmol/L (137-145)
[2022-02-08] MEDS: lisinopriL 20 MG TABLET 40 MG PO (09:40)
[2022-02-08] MEDS: PANTOPRAZOLE 40 MG TABLET PO (09:40)
[2022-02-08] MEDS: ASPIRIN 81 MG ENTERIC TABLET PO (09:40)
[2022-02-08 09:41] VITALS: PULSE 74
[2022-02-08] MEDS: FERROUS SULFATE 324 MG TABLET PO (09:41)
[2022-02-08] MEDS: FINASTERIDE 5 MG TABLET PO (09:41)
[2022-02-08] MEDS: carvediloL 12.5 MG TABLET PO (09:41)
[2022-02-08] MEDS: amLODIPine BESYLATE 2.5 MG TABLET PO (09:41)
[2022-02-08] MEDS: MAGNESIUM 13.5 MG TABLET (250 MG MAG GLUCONATE) PO (09:43)
[2022-02-08] MEDS: TOLNAFTATE 1% POWDER 45 GM BTL 1 APPLIC TOPICAL (09:45)
--- NOTE | 2022-02-08 11:46 | PM.DS ---
DS: Admitting Diagnosis Discharge Date 02/08/2022 Admitting Diagnosis Weakness, Anemia, CKD, Dementia, HLD, Neurologic gait dysfunction DS: Discharge Diagnosis Discharge Diagnosis (1) Weakness: Code(s): R53.1 - Weakness Status: Acute Assessment and Plan: Stable labs CT head, CXR and Lumbar x-ray negative for any acute findings. No focal findings. PT eval performed and SNF is preferred. Awaiting placement at SNF, patient prefers [facility]. (2) Anemia: Code(s): D64.9 - Anemia, unspecified Status: Chronic Assessment and Plan: Stable at 9.9 Occult blood stool pending. Continue Supplemental Iron. (3) CKD (chronic kidney disease): Code(s): N18.9 - Chronic kidney disease, unspecified Status: Chronic Assessment and Plan: At baseline (4) Dementia: Code(s): F03.90 - Unspecified dementia, unspecified severity, without behavioral disturbance, psychotic disturbance, mood disturbance, and anxiety Status: Chronic Assessment and Plan: At baseline neurological status. (5) Hyperlipidemia: Qualifiers: Hyperlipidemia type: mixed hyperlipidemia Qualified Code(s): E78.2 - Mixed hyperlipidemia Code(s): E78.5 - Hyperlipidemia, unspecified Status: Chronic Assessment and Plan: Continue Pravastatin. Pt. does not appear to have dehydration or Rhabdo. (6) Neurologic gait dysfunction: Code(s): R26.9 - Unspecified abnormalities of gait and mobility Status: Chronic Assessment and Plan: PT/OT ordered. Placement pending. (7) Hyponatremia: Code(s): E87.1 - Hypo-osmolality and hyponatremia Status: Resolved Assessment and Plan: Resolved DS: Summary Hospital Course Reason for hospitalization: Weakness Hospital Course: this 82-year-old male patient with significant past medical history of hypertension, hyperlipidemia, chronic kidney disease and dementia was admitted to the hospital on 02/05/2022 after presenting to the emergency room with complaints of generalized weakness. At the time patient had been living at home with his and she was the primary caregiver for the patient. At the time of presentation it was noted the patient appeared to be increasingly weak more so than normal. The caregiver had significant difficulty in toileting him as well as caring for him and was concerned about possible urinary tract infection but was amiable to the idea of fci facility placement at this time. Workup in the ER was performed with labs as well as imaging of the head and all was negative. Patient was evaluated by Physical therapy, and was deemed to need fci facility. His inpatient course has been uneventful while here and he has remained stable. He is ready for discharge today to the [place]. Status at Discharge Functional status at discharge: uses cane/walker Overall status at discharge: other (Pt. is likely at new baseline.) Time Spent with Patient Time attestation: Total time spent providing and/or coordinating discharge services: Time spent: Greater than 30 minutes Specific discharge activities: Discharge instructions, and follow up. Exam Const: General: comfortable and no acute distress HENMT: Mouth: Yes moist mucous membranes Eyes: General: appearance normal, both eyes and all related structures EOM: EOMs intact bilaterally Neck: Neck: supple and no JVD Resp: Effort & Inspection: normal respiratory effort Cardio: Rate: regular rate Rhythm: regular rhythm Heart sounds: no gallops, no murmurs and no rubs GI: Auscultation: normal bowel sounds Skin: General skin exam: normal color, no rashes or lesions noted and no erythema Wounds: no wounds Neuro: General: No gait normal (High fall risk) Speech: normal speech Motor exam (neuro): 5/5 motor strength present throughout and Normal motor muscle tone present throughout Sensory
[2022-02-08] MEDS: MULTIVITAMINS THERAPEUTIC TAB (*BKC) 1 TABLET PO (12:25)
[2022-02-08 12:44] LABS: EDCOVIDSCREEN Negative (Negative)
[2022-02-08 14:00] VITALS: BP 148/67; PULSE 68; RESP 18; TEMP 35.7; O2SAT 99
== END 2022-02-08 16:10 ==
LOC: ANHED 13:06 → ANH3MEDSUR 19:00
PROVIDERS: Nurse Practitioner; Admitting Provider Chiropractor; Emergency Provider Emergency Medicine; PCP Internal Medicine; Visit Provider Nurse Practitioner Adult Health
DX: R53.1 Weakness (principal); D64.9 Anemia, unspecified; I12.9 Hypertensive chronic kidney disease with stage 1 through stage 4 chronic kidney disease, or unspecified chronic kidney disease; E78.5 Hyperlipidemia, unspecified; N18.9 Chronic kidney disease, unspecified; Z79.82 Long term (current) use of aspirin; Z96.641 Presence of right artificial hip joint; F03.90 Unspecified dementia, unspecified severity, without behavioral disturbance, psychotic disturbance, mood disturbance, and anxiety; E53.8 Deficiency of other specified B group vitamins; E55.9 Vitamin D deficiency, unspecified; R26.9 Unspecified abnormalities of gait and mobility; E87.1 Hypo-osmolality and hyponatremia; Z87.440 Personal history of urinary (tract) infections; Z20.822 Contact with and (suspected) exposure to COVID-19
CPT/HCPCS: 36415; 51701; 70450; 71045; 72110; 80053; 81003; 82728; 83605; 83735; 84443; 84484; 85014; 85018; 85025; 85610; 86850; 86900; 86901; 87426; 87804; 93005; 97110; 97116; 97161; 97166; 97530; 99285; A9270; C9803; G0378; J7030

== ENCOUNTER 2022-05-05 16:15 | Observation (INO) | payer MEDICARE, SELFPAY ==
[2022-05-05] VITALS (10 sets, daily range): BP systolic 107–172; BP diastolic 61–85; PULSE 56–69; RESP 13–18; TEMP 36.4–36.9; O2SAT 97–99; BMI 28.3
--- NOTE | ~2022-05-05 | XR_ITS ---
EXAM: XR hip RT min 2V DATE: 05/08/2022 16:44 HISTORY: Pain to right hip . COMPARISON: 10/30/2021. FINDINGS: Right hip arthroplasty, no hardware fracture or abnormal perihilar hardware lucency. Decre ased mineralization. No fracture or dislocation. No lytic or blastic lesion. Stable spurlike ossifica tion at the right ilium. Joint spaces are maintained. No erosion or periosteal change. Prosthetic and vascular calcification. IMPRESSION: No acute osseous finding in the right hip. No radiographic evidence of hardware-related c omplication. Reviewed, dictated and finalized at location [facility]. O STATION MANAGER IMPRESSION: No acute osseous finding in the right hip. No radiographic evidence of hardware-related complication.
--- NOTE | ~2022-05-05 | CT_ITS ---
CT scan of the lumbar spine CLINICAL HISTORY: Abnormal ambulation TECHNIQUE: Following intravenous administration of 100 cc of Omnipaque 350 contrast material, axial i maging of the lumbar spine was performed. Sagittal and coronal reformatted images were constructed. D ose reduction technique was used on this scan by utilizing automated exposure control and iterative r econstruction technique. FINDINGS: No acute fracture identified. 5 mm anterolisthesis of L4 over L5 present. There is advanced degenerative disc narrowing at L1-L2. There is mild degenerative disc change at L2-L3 and L4-L5. At L1-L2, there is probable disc bulge and mild facet arthropathy. Suspected minimal thecal sac compr ession present. There is probable severe bilateral neural foraminal narrowing. At L2-L3, there is mild disc bulge and mild facet arthropathy. No malka canal stenosis but identified . There is probable moderate bilateral neural foraminal narrowing. At L3-L4, disc bulge and facet arthropathy result in probable moderate thecal sac compression. There is probable severe right neural foraminal narrowing and moderate left neural foraminal narrowing. At L4-L5, disc uncovering/disc bulge and facet arthropathy contribute to probable severe thecal sac c ompression/spinal canal stenosis. There is moderate to severe bilateral neural foraminal narrowing. At L5-S1, there is no disc bulge or herniation. No definite canal stenosis or neural foraminal narrow ing. Paravertebral soft tissues are unremarkable. IMPRESSION: 5 mm anterolisthesis of L4 over L5. Moderate to advanced degenerative spondylosis, as detailed above. There is probable severe thecal sac compression/spinal canal stenosis at L4-L5, and moderate thecal sac compression at L3-L4. Multilevel bilateral neural foraminal narrowing is present, as detailed above. Reviewed, dictated and finalized at [facility]. INSPECTOR IMPRESSION: 5 mm anterolisthesis of L4 over L5. Moderate to advanced degenerative spondylosis, as detailed above. There is prob able severe thecal sac compression/spinal canal stenosis at L4-L5, and moderate thecal sac compression at L3-L4. Multilevel bilateral neural foraminal narrowi ng is present, as detailed above.
--- NOTE | ~2022-05-05 | MR_ITS ---
MRI of the brain Clinical History: Confusion Technique: Axial and sagittal T1-weighted images were acquired. These were followed by axial T2-weigh safia, diffusion weighted, gradient, and FLAIR images. COMPARISON: 12/15/2020 Findings: There is no acute infarct, intracranial hemorrhage, or mass lesion. Mild chronic white esme er changes are similar to prior exam. Ventricles and subarachnoid spaces are dilated. Orbits are unremarkable. Paranasal sinuses and mastoi d air cells are clear. Major intracranial flow voids appear intact. Sagittal midline structures are intact. IMPRESSION: No acute abnormality. Mild chronic white matter changes and moderate generalized atrophy. Reviewed, dictated and finalized at [facility].
--- NOTE | ~2022-05-05 | CT_ITS ---
CT ANGIOGRAM NECK AND HEAD History: Confusion, altered mental status. Technique: Serial spiral axial images through the head and neck were obtained during arterial phase I V injection of 100 cc of Omnipaque 350. 3-D postprocessing and MIP images were then reconstructed on the remote workstation. Dose reduction technique was used on this scan by utilizing automated exposur e control and iterative reconstruction technique. The dose-length product (DLP) was 1835.81 mGy-cm. CTA neck findings: Bilateral vertebral arteries are patent. Bilateral common carotid, internal carot id, and external carotid arteries are patent. The proximal right internal carotid artery demonstrates 0% stenosis relative to the normal distal artery lumen diameter. The proximal left internal carotid artery demonstrates 0% stenosis relative to the normal distal artery lumen diameter. CTA head findings: Distal vertebral arteries, basilar artery, and posterior cerebral arteries are pat ent. Distal internal carotid arteries, middle cerebral arteries, and anterior cerebral arteries are p atent. No large vessel occlusion. No stenosis or aneurysm. Impression: No significant abnormality seen. Reviewed, dictated and finalized at location . OND SELECTOR Impression: No significant abnormality seen.
--- NOTE | ~2022-05-05 | XR_ITS ---
Portable chest x-ray Comparison: 02/05/2022 Clinical History: Confusion Findings: Lungs are clear, without focal consolidation or pleural effusion. Cardiomediastinal silho uette is stable. Bones and soft tissues are unremarkable. Impression: Clear lungs. Reviewed, dictated and finalized at location . 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
--- NOTE | 2022-05-05 16:33 | ECG_ITS ---
Measurements Intervals [place] Rate: 60 P: 46 TN: 226 QRS: -9 QRSD: 90 T: 8 QT: 387 QTc: 387 Interpretive Statements SINUS RHYTHM WITH SINUS ARRHYTHMIA WITH FIRST DEGREE AV BLOCK VOLTAGE CRITERIA FOR LVH BASELINE ARTIFACT- I, II, III, AVR, AVL, AVF, V1-V6 BORDERLINE ECG COMPARED TO ECG 02/05/2022 13:30:29 SINUS RHYTHM NOW PRESENT Electronically Signed On 05-05-2022 19:17:24 DENTAL HYGIENE ADMINISTRATIVE ASSISTANT by Dennys Burdick D.O.
[2022-05-05 17:10] LABS: Basophils Percent Auto 0.7 % (0.2-1.2); Eosinophils Absolute Auto 0.1 K/mm3 (0-0.3); Eosinophils Percent Auto 2.5 % (0-4.4); Hematocrit 34.2 % (42.0-52.0); Hemoglobin 11.2 g/dL (14.0-18.0); Immature Granulocyte Absolute 0.03 K/mm3 (0.00-0.031); Immature Granulocyte Percent A 0.5 % (0-0.5); Lymphocytes Absolute Auto 0.59 K/mm3 (0.9-3.2); Lymphocytes Percent Auto 10.4 % (18.3-44.2); Mean Corpuscular HGB Conc 32.7 g/dl (32-36); Mean Corpuscular Hemoglobin 31.2 pg (26-34); Mean Corpuscular Volume 95.3 fl (80-100); Mean Platelet Volume 10.2 fl (7.4-10.4); Monocytes Absolute Auto 0.7 K/mm3 (0.1-0.6); Monocytes Percent Auto 11.5 % (2.6-8.5); Neutrophils Absolute Auto 4.2 K/mm3 (1.3-6.7); Neutrophils Percent Auto 74.4 % (45.5-73.1); Platelet Count Result 192 k/mm3 (150-375); Red Blood Count 3.59 M/mm3 (4.6-6.20); White Blood Count 5.7 K/mm3 (4.5-10.0)
[2022-05-05 17:27] LABS: Alanine Aminotransferase 33 U/L (6-50); Albumin Level 3.9 g/dL (3.5-5.1); Alkaline Phosphatase 78 U/L (38-126); Anion Gap 4 mmol/L (8-16); Aspartate Amino Transferase 33 U/L (17-59); Bilirubin,Total 0.3 mg/dL (0.2-1.3); Blood Urea Nitrogen 33 mg/dL (9-20); Calcium 9.3 mg/dL (8.4-10.2); Carbon Dioxide 31 mmol/L (22-30); Chloride 102 mmol/L (98-107); Estimated CRCL calculation 41 ml/min; Estimated Glomerular Filt Rate 53; Glucose 98 mg/dL (65-110); Potassium 4.8 mmol/L (3.4-5.0); Sodium 137 mmol/L (137-145)
--- NOTE | 2022-05-05 17:59 | PM.IMHP ---
H&P: HPI History of Present Illness Date/Time: 05/05/22 17:59 Chief Complaint: Weakness Narrative: This is an 82-year-old male patient with a history of hypertension, hyperlipidemia, chronic kidney disease, and gait imbalances. The patient has been having marked weakness over last several weeks. The patient has been unable to get out of his wheelchair. The patient does have at home care. He lives with his who is in a wheelchair. The family reports that he has been confused. He denies any chest pain or shortness of breath. The patient has been progressively declining. H&H is 11.2 and 34.2. Urinalysis was negative. The patient was negative for influenza A/B and COVID. The patient is being admitted for observation status on the date of service of 05/05/2022. Review of Systems Review of Systems: See HPI All systems reviewed & are unremarkable except as noted in HPI and below Constitutional: Constitutional: Reports as per HPI and Reports no additional constitutional complaints Eyes: Eyes: Reports as per HPI and Reports no additional eye complaints ENT: Reports system reviewed and no additional complaints, except as documented and Reports Normal hearing present Cardiovascular: Cardiovascular: Reports no additional cardiovascular complaints Respiratory: Respiratory: Reports no additional respiratory complaints and Reports no additional respiratory complaints Gastrointestinal: Gastrointestinal: Reports as per HPI and Reports no additional gastrointestinal complaints Musculoskeletal: Musculoskeletal: Reports no additional musculoskeletal complaints Integumentary/Breasts: Skin/Breast: Reports system reviewed and no additional complaints, except as docu and Reports as per HPI Neurologic: Reports system reviewed and no additional complaints, except as documented, Reports as per HPI and Reports Normal hearing present Psychiatric: Psychiatric: Reports no additional psychiatric complaints and Reports as per HPI Endocrine: Endocrine: Reports no additional endocrine complaints Hematologic/Lymphatic: Hematologic/Lymphatic: Reports no additional hematologic/lymphatic complaints Allergic/Immunologic: Allergic/Immunologic: Reports no additional allergic/immunologic complaints [facility] Past Medical History Medical History (Updated 05/06/22 @ 00:48 by Marilu Rosario NP) Acquired ankle/foot deformity Aftercare following right hip joint replacement surgery Arthralgia Benign essential hypertension Bilateral sacroiliitis Blood in stool BMI 25.0-25.9,adult BPH (benign prostatic hyperplasia) Chronic anemia Chronic pain of right lower extremity CKD (chronic kidney disease) COVID-19 Dementia Disequilibrium syndrome DJD (degenerative joint disease), multiple sites Elevated d-dimer Encounter for routine adult health examination without abnormal findings Fall at home [facility] discharge follow-up Hyperlipidemia Hypersomnolence Midline low back pain with right-sided sciatica 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 Osteopenia Pneumonia Prostate cancer screening Spinal stenosis Subclinical hyperthyroidism Unexplained weight loss Unresponsive episode UTI (urinary tract infection) Vitamin B12 deficiency Vitamin D deficiency Surgical History Surgical History History of cataract extraction History of removal of pigmented skin lesion History of total right hip arthroplasty Presence of right artificial hip joint S/P tonsillectomy Family History Family History Mother Family history of cardiovascular disease Diabetes mellitus Family history of arthritis Family history of coronary artery disease Hypertension Acute myocardial infarction Father Family history of arthritis Family history of coronary artery disease Sibling Glaucoma Hypertension Social History Social History (Reviewed 05/06/22 @ 00:35 by
[2022-05-05 18:26] LABS: Appearance Urine Clear (Clear); Bilirubin Urine Negative (Negative); Blood Urine Negative (Negative); Color Urine Yellow (Yellow); Glucose Urine UA Negative (Negative); Ketones Urine Negative (Negative); Leukocyte Esterase Ur Negative LEU/UL (Negative); Nitrate Urine Negative (Negative); Protein Urine Negative (Negative); Specific Grav Ur 1.015 (1.001-1.035); Urobilinogen Urine 0.2 mg/dL (<2.0)
[2022-05-05 18:27] LABS: Add Urine Microscopic? NO
[2022-05-05 18:30] LABS: Influenza A QL RT-PCR Negative (Negative); Influenza B QL RT-PCR Negative (Negative); SARS-CoV-2 RNA PCR Negative
--- NOTE | 2022-05-05 18:34 | ED.WEAKNESS ---
HPI - Weakness General Chief complaint: Weakness Stated complaint: weakness 3-4 days Time Seen by Provider: 05/05/22 16:34 Source: patient and family Mode of arrival: EMS Limitations: no limitations History of Present Illness HPI Narrative: 82-year-old with history of hypertension, hyperlipidemia, CKD, gait imbalance was brought in from home by EMS with complaints of marked weakness for last several weeks. Patient states that he is was unable to get out of his wheelchair this morning. Family also reports that he has been confused. Patient denies any headache, chest pain, shortness of breath. He states he just feels weak and son were at the bedside states he is progressively declining. MD Complaint: generalized weakness Onset (ago): week(s) Duration: constant Location: generalized Migration: none Severity: moderate Relieving factors: none Exacerbating factors: none Context: new medication Associated symptoms: denies other symptoms Related Data Home Medications Medication Instructions Recorded Confirmed aspirin 81 mg tablet,delayed 81 mg PO DAILY 03/14/19 03/02/22 release (Adult Low Dose Aspirin) multivitamin 1 tablet PO 1200 03/14/19 03/02/22 polyethylene glycol 3350 17 17 gm PO DAILY PRN Constipation 12/10/19 03/02/22 gram/dose oral powder (Miralax) acetaminophen 500 mg tablet 500 mg PO Q6H PRN Pain 08/14/20 03/02/22 (Tylenol Extra Strength) cranberry fruit concentrate 250 mg 250 mg PO BID 11/09/21 03/02/22 chewable tablet (Azo Cranberry) [id number]-[id number] C-Mn 500 1 cap PO BID 11/09/21 03/02/22 mg-400 mg capsule (Glucosamine Chondroitin Maximum Strength) omega 9-mrs-lta-fish oil 1,000 mg 1,000 cap PO 1700 11/09/21 03/02/22 (120 mg-180 mg) capsule (Fish Oil) pravastatin 20 mg tablet 20 mg PO HS 11/09/21 03/02/22 lisinopril 40 mg tablet 40 mg PO BID 02/06/22 03/02/22 amlodipine 2.5 mg tablet mg 05/05/22 carvedilol 12.5 mg tablet mg 05/05/22 finasteride 5 mg tablet mg 05/05/22 folic acid-vit B6-vit B12 2.2 tablet 05/05/22 mg-25 mg-0.5 mg tablet (Folplex) nystatin-triamcinolone 100,000 applic topical 05/05/22 unit/g-0.1 % topical cream sulfamethoxazole 800 tablet 05/05/22 mg-trimethoprim 160 mg tablet Allergies Allergy/AdvReac Type Severity Reaction Status Date / Time hydrochlorothiazide Allergy Unknown Hyponatremi Verified 05/05/22 17:02 a Review of Systems Review of Systems: All systems reviewed & are unremarkable except as noted in HPI and below Constitutional: Constitutional: Reports no additional constitutional complaints Eyes: Eyes: Reports no additional eye complaints ENT: Reports system reviewed and no additional complaints, except as documented Cardiovascular: Cardiovascular: Reports no additional cardiovascular complaints Respiratory: Respiratory: Reports no additional respiratory complaints Gastrointestinal: Gastrointestinal: Reports no additional gastrointestinal complaints Musculoskeletal: Musculoskeletal: Reports no additional musculoskeletal complaints Neurologic: Reports system reviewed and no additional complaints, except as documented Psychiatric: Psychiatric: Reports no additional psychiatric complaints PMFSH Past Medical History Medical History Acquired ankle/foot deformity Aftercare following right hip joint replacement surgery Arthralgia Benign essential hypertension Bilateral sacroiliitis Blood in stool BMI 25.0-25.9,adult BPH (benign prostatic hyperplasia) Chronic anemia Chronic pain of right lower extremity CKD (chronic kidney disease) COVID-19 Dementia Disequilibrium syndrome DJD (degenerative joint disease), multiple sites Elevated d-dimer Encounter for routine adult health examination without abnormal findings Fall at home Follow [facility] discharge follow-up Hyperlipidemia Hypersomnolence Midline low back pain with right-sided sciatica On long te
[2022-05-05] MEDS: SODIUM CHLORIDE 0.9% IV 1,000 ML 75 ML IV CONT (20:04)
--- NOTE | 2022-05-05 20:37 | PC.NURSE ---
Patient arrived on 3 Med-Surg at 20:30 at 05/05/2022
--- NOTE | 2022-05-06 | ECHO_ITS ---
Patient Info Name: Fernando Nava Age: 82 years : 1940 Gender: Male Ht: 70 in Wt: 197 lbs BSA: 2.12 m2 HR: 65 bpm BP: 154 / 72 mmHg Heart Rhythm: Sinus Rhythm Technical Quality: Poor Exam Date: 05/06/2022 2:02 PM Exam Location: [facility] Pulmonary Exam Room: [facility] Patient Status: Outpatient Admit Date: 05/05/2022 Staff Ordering Physician: Yelena Harden PA-C Credit Historian: Kat Alfaro RDCS Attending Provider: Yelena Harden PA-C Referring Physician: Dereck ABRAHAM; Exam Type: CA echo dop color flow w con Study Info Indications - weakness Complete two-dimensional, color flow and Doppler transthoracic echocardiogram is performed with contrast to opacify the left ventricle and to improve the deliniation of the left ventricle endocardial borders. Contrast/Agitated Saline Contrast/Ag. Saline: Definity Amount: 2.00 ml Administered By: Kat Alfaro [facility] Existing IV Access: Yes IV Access Condition: patent with no signs of infiltration Reason for Poor Study: patient body habitus Summary 1. Technically difficult echocardiogram with reduced image quality. 2. Definity contrast used to improve visualization. 3. Normal left ventricular size and systolic function. 4. Dilated left atrium. 5. Mitral valve annular appearance is consistent with the or at least suspicious of presence of annuloplasty ring. 6. No residual mitral regurgitation. 7. Mildly sclerotic aortic valve. Left Ventricle Left ventricular chamber dimension is normal. Left ventricular systolic function is normal, estimated at Empty. The left ventricular diastolic function is grade I diastolic dysfunction. Right Ventricle Right ventricular chamber dimension is normal. Left Atria Left atrial chamber dimension is moderately enlarged. Right Atria Right atrial chamber dimension is normal. Aortic Valve The aortic valve is trileaflet. There is mild aortic valve sclerosis. Pulmonic Valve The pulmonic valve is not well visualized. Mitral Valve The annuloplasty ring prosthetic mitral valve leaflefts are Empty. There is no regurgitation of the annuloplasty ring prosthetic mitral valve. Tricuspid Valve The tricuspid valve leaflets are normal. Pericardium/Pleural The pericardium appears normal. Aorta The aortic root size at the sinus of Valsalva is normal. Left Ventricular Outflow Tract Name Value Normal LVOT 2D LVOT Diameter 2.13 cm LVOT Doppler LVOT Peak Gradient 4 mmHg LVOT Mean Gradient 2 mmHg LVOT VTI 24.41 cm LVOT VTI/AV VTI Ratio 0.91 LVOT Stroke Volume 87.11 ml LVOT CO 15.01 l/min LVOT CI 7.08 L/min/m2 Pulmonic Valve Name Value Normal RVOT Doppler
--- NOTE | 2022-05-06 03:18 | PC.NURSE ---
Due to low urine output during the night from a [place], Bladder scanned during the night and obtained a urine output of 249 ml. No orders given to put a straight cath in. Will continue to monitor.
[2022-05-06 05:46] VITALS: BP 154/72; PULSE 71; RESP 16; TEMP 36.8; O2SAT 97
[2022-05-06 05:56] LABS: Basophils Absolute Auto 0.1 K/mm3 (0.0-0.1); Eosinophils Absolute Auto 0.1 K/mm3 (0-0.3); Eosinophils Percent Auto 2.9 % (0-4.4); Hematocrit 32.1 % (42.0-52.0); Hemoglobin 10.6 g/dL (14.0-18.0); Immature Granulocyte Absolute 0.03 K/mm3 (0.00-0.031); Immature Granulocyte Percent A 0.6 % (0-0.5); Lymphocytes Absolute Auto 0.63 K/mm3 (0.9-3.2); Mean Corpuscular Hemoglobin 31.4 pg (26-34); Mean Platelet Volume 10.6 fl (7.4-10.4); Monocytes Absolute Auto 0.6 K/mm3 (0.1-0.6); Monocytes Percent Auto 12.6 % (2.6-8.5); Neutrophils Absolute Auto 3.4 K/mm3 (1.3-6.7); Neutrophils Percent Auto 69.9 % (45.5-73.1); Platelet Count Result 186 k/mm3 (150-375); Red Blood Count 3.38 M/mm3 (4.6-6.20); White Blood Count 4.8 K/mm3 (4.5-10.0)
[2022-05-06 06:08] LABS: Magnesium 2.3 mg/dL (1.6-2.3)
[2022-05-06 06:14] LABS: Lactic Acid Reflex 0.6 mmol/L (0.7-2.0)
[2022-05-06 07:33] LABS: Thyroid Stimulating Hormone Reflex 0.661 uIU/mL (0.465-4.68)
[2022-05-06] MEDS: PYRIDOXINE HCL 25 MG TABLET PO (08:57)
[2022-05-06] MEDS: lisinopriL 20 MG TABLET 40 MG PO ×2 (08:59→17:19)
[2022-05-06] MEDS: amLODIPine BESYLATE 2.5 MG TABLET PO (08:59)
[2022-05-06] MEDS: CYANOCOBALAMIN 500 MCG TABLET PO (08:59)
[2022-05-06] MEDS: FERROUS SULFATE 324 MG TABLET PO ×2 (08:59→17:19)
[2022-05-06] MEDS: FINASTERIDE 5 MG TABLET PO (08:59)
[2022-05-06] MEDS: FOLIC ACID 1 MG TABLET PO (08:59)
[2022-05-06] MEDS: ASPIRIN 81 MG ENTERIC TABLET PO (08:59)
[2022-05-06 09:00] VITALS: PULSE 75
[2022-05-06] MEDS: carvediloL 12.5 MG TABLET PO ×2 (09:00→20:38)
--- NOTE | 2022-05-06 10:18 | WPDNEURCNPN ---
Assessment and Plan Assessment and plan (1) Dementia: Code(s): F03.90 - Unspecified dementia, unspecified severity, without behavioral disturbance, psychotic disturbance, mood disturbance, and anxiety Status: Chronic (2) Neurologic gait dysfunction: Code(s): R26.9 - Unspecified abnormalities of gait and mobility Status: Chronic (3) Weakness: Code(s): R53.1 - Weakness Status: Acute Plan Fernando Nava is a 82 year old male with a history of dementia, vitamin B12 deficiency, hypertension, hyperlipidemia, CKD presenting due to worsening confusion and gait issues. Etiology is unclear but considering worsening dementia vs metabolic encephalopathy vs myopathy vs demyelinating processes such as AIDP/CIDP. - MRI brain w/o contrast - Check labs - Vitamin B12, folate, TSH, CK, thiamine Consult date: 05/06/22 Reason for consult: Dementia, weakness HPI: Fernando Nava is a 82 year old male with a history of dementia, vitamin B12 deficiency, hypertension, hyperlipidemia, CKD presenting due to worsening confusion and gait issues. Patient has had worsening generalized weakness over the past several weeks. He has been unable to get out of his wheelchair, which a new concern for him. Family also reports worsening confusion. He does not take any medication for dementia. He was taken to [place] ED where initial work-up has been unrevealing. CT head negative for acute process and only showed age related changes. UA was negative. Labs were unremarkable other than findings related to chronic kidney disease. Patient reports that his primary concern is respiratory difficulty. He reports a recent history of lung collapse , although CXR from this admission is clear. He does endorse history of confusion and difficulty remembering conversations at time, but cannot give much history regarding timing and frequency of his symptoms. He did also mention having a tumor in his spine, which he was concerned about. He lives with his grandson and his grandson's family. He walks independently at baseline, but has not been able to walk as far due to difficulty with breathing while waking. His current concerns are headache in the back of the head and back pain as well. He denies ever being diagnosed with dementia. Review of Systems Constitutional: Constitutional: Reports fatigue Eyes: Eyes: Reports no additional eye complaints ENT: Comments: hearing loss Cardiovascular: Cardiovascular: Reports no additional cardiovascular complaints Respiratory: Respiratory: Reports dyspnea on exertion Gastrointestinal: Gastrointestinal: Reports constipation Genitourinary: Genitourinary: Reports no additional male genitourinary complaints Musculoskeletal: Musculoskeletal: Reports back pain and Reports neck pain Integumentary/Breasts: Skin/Breast: Reports system reviewed and no additional complaints, except as docu Neurologic: Reports as per HPI Psychiatric: Psychiatric: Reports anxiety, Reports confusion and Reports depression [facility] Past Medical History Medical History Acquired ankle/foot deformity Aftercare following right hip joint replacement surgery Arthralgia Benign essential hypertension Bilateral sacroiliitis Blood in stool BMI 25.0-25.9,adult BPH (benign prostatic hyperplasia) Chronic anemia Chronic pain of right lower extremity CKD (chronic kidney disease) COVID-19 Dementia Disequilibrium syndrome DJD (degenerative joint disease), multiple sites Elevated d-dimer Encounter for routine adult health examination without abnormal findings Fall at home [facility] Hyperlipidemia Hypersomnolence Midline low back pain with right-sided sciatica On watermaster drug therapy Osteopenia Pneumonia Prostate cancer screening Spinal stenosis Subclinical hyperthyroidism Unexplained weight loss Unresponsive episode UTI (urinary tract infection)
--- NOTE | 2022-05-06 10:52 | PCPTNOTE ---
attempted PT eval at 1050--pt out of room for CT scan.
--- NOTE | 2022-05-06 10:54 | PCOTNOTE ---
Attempted OT evaluation, patient is currently off the unit for a test, will follow.
--- NOTE | 2022-05-06 11:21 | PM.IMPN ---
Progress Note: A&P Assessment and Plan (1) Dementia: Code(s): F03.90 - Unspecified dementia, unspecified severity, without behavioral disturbance, psychotic disturbance, mood disturbance, and anxiety Status: Chronic Assessment and Plan: -presents for worsening confusion/weakness -hx of dementia, could be worsening dementia -neuro consulted -ddx includes metabolic encephalopathy vs myopathy vs demyelinating processes -labs grossly unremarkable -CXR negative -CTA brain/carotids pending -echo pending -MRI brain ordered -check Vit B12, folate, TSH, CK (2) Weakness: Code(s): R53.1 - Weakness Status: Acute Assessment and Plan: -workup as noted above -PT OT evaluation greatly be appreciated -healthcare science specialist evaluation greatly appreciated for possible rehab facility (3) Chronic anemia: Code(s): D64.9 - Anemia, unspecified Status: Acute Assessment and Plan: -at baseline -cont ferrous sulfate (4) Benign essential hypertension: Code(s): I10 - Essential (primary) hypertension Status: Acute Assessment and Plan: -continue Coreg, Lisinopril, Amlodipine (5) Glaucoma of both eyes: Code(s): H40.9 - Unspecified glaucoma Status: Acute Assessment and Plan: -continue home meds (6) Hyperlipidemia: Qualifiers: Hyperlipidemia type: mixed hyperlipidemia Qualified Code(s): E78.2 - Mixed hyperlipidemia Code(s): E78.5 - Hyperlipidemia, unspecified Status: Chronic Assessment and Plan: -continue pravastatin and Breda 3 (7) BPH (benign prostatic hyperplasia): Qualifiers: Lower urinary tract symptom detail: urinary frequency Lower urinary tract symptom presence: symptoms present Qualified Code(s): N40.1 - Benign prostatic hyperplasia with lower urinary tract symptoms; R35.0 - Frequency of micturition Code(s): N40.0 - Benign prostatic hyperplasia without lower urinary tract symptoms Status: Acute Assessment and Plan: -continue Proscar Subjective Date/time seen: 05/06/22 11:01 Interval history: Fernando Nava is a 82 year old male with a history of dementia, vitamin B12 deficiency, hypertension, hyperlipidemia, CKD, admitted for worsening confusion and gait issues. He is A/O x 3 currently. Somnolent but arousable. No specific complaints. Denies BLANCA, cp, sob. Review of Systems Review of Systems: All systems reviewed & are unremarkable except as noted in HPI and below Exam Narrative: General: No acute distress, elderly, somnolent but arousable Eyes: PERRL, no scleral icterus HEENT: NCAT, external ears normal, dry mucous membranes Respiratory: No respiratory distress, Lungs CTA bilaterally, no wheezing Cardiovascular: RRR, no murmur Abdominal: Soft, nontender, non distended, no rebound or guarding Musculoskeletal: Moves all 4 extremities, no edema Neurological: A/Ox3, no facial asymmetry Skin: Warm, dry, no rashes Objective Data Vital Signs Vital Signs: Vital Signs - 24 hr 05/05/22 16:18 05/05/22 17:31 05/05/22 18:01 Temperature 97.6 F Pulse Rate 59 L 56 L 59 L Respiratory Rate 14 14 14 Blood Pressure 169/79 H 142/85 H 159/85 H Pulse Oximetry 98 99 98 Oxygen Delivery Room Air 05/05/22 18:31 05/05/22 19:02 05/05/22 19:31 Temperature Pulse Rate 59 L 58 L 63 Respiratory Rate 13 15 14 Blood Pressure 172/79 H 159/79 H 146/80 H Pulse Oximetry 98 97 97 Oxygen Delivery 05/05/22 20:02 05/05/22 20:03 05/05/22 20:15 Temperature Pulse Rate 64 64 63 Respiratory Rate 14 14 15 Blood Pressure 107/74 Pulse Oximetry 98 97 98 Oxygen Delivery 05/05/22 20:30 05/06/22 01:59 05/06/22 05:46 Temperature 98.4 F 98.2 F Pulse Rate 69 71 Respiratory Rate 18 16 Blood Pressure 110/61 154/72 H Pulse Oximetry 97 97 Oxygen Delivery Room Air 05/06/22 09:00 Temperature Pulse Rate 75 Respira
[2022-05-06 11:23] VITALS: BMI 10.0
[2022-05-06 11:56] LABS: Creatine Kinase 45 U/L (55-170)
[2022-05-06 12:32] LABS: Thyroid Stimulating Hormone Reflex 0.643 uIU/mL (0.465-4.68)
[2022-05-06 13:09] LABS: Folic Acid > 20.0 ng/mL (2.76->20)
[2022-05-06 14:59] VITALS: BP 172/76; PULSE 66; RESP 17; TEMP 36.1; O2SAT 98
[2022-05-06] MEDS: PERFLUTREN LIPID MICROSPHERES 1.5 ML VIAL DILUTED TO 10 ML TOTAL VOLUME IV PUSH (15:00)
[2022-05-06] MEDS: MULTIVITAMINS THERAPEUTIC TAB (*BKC) 1 TABLET PO (15:13)
[2022-05-06] MEDS: SODIUM CHLORIDE 0.9% IV 1,000 ML 75 ML IV CONT (15:14)
[2022-05-06] MEDS: OMEGA 3 POLYUNSAT FATTY ACIDS 1 GM CAP PO (17:19)
[2022-05-06 20:38] VITALS: PULSE 68
[2022-05-06] MEDS: PRAVASTATIN SODIUM 20 MG TABLET PO (20:38)
[2022-05-06 22:00] VITALS: BP 134/55; PULSE 66; RESP 17; TEMP 36.3; O2SAT 99
[2022-05-07] MEDS: SODIUM CHLORIDE 0.9% IV 1,000 ML 75 ML IV CONT ×3 (00:06→18:24)
[2022-05-07 06:00] VITALS: BP 132/53; PULSE 60; RESP 18; TEMP 36.4; O2SAT 98
[2022-05-07 06:41] LABS: Basophils Percent Auto 0.6 % (0.2-1.2); Eosinophils Absolute Auto 0.2 K/mm3 (0-0.3); Eosinophils Percent Auto 3.6 % (0-4.4); Hematocrit 31.1 % (42.0-52.0); Immature Granulocyte Absolute 0.01 K/mm3 (0.00-0.031); Immature Granulocyte Percent A 0.2 % (0-0.5); Lymphocytes Absolute Auto 0.85 K/mm3 (0.9-3.2); Lymphocytes Percent Auto 16.3 % (18.3-44.2); Mean Corpuscular HGB Conc 32.2 g/dl (32-36); Mean Corpuscular Hemoglobin 30.5 pg (26-34); Mean Corpuscular Volume 94.8 fl (80-100); Mean Platelet Volume 10.4 fl (7.4-10.4); Monocytes Absolute Auto 0.7 K/mm3 (0.1-0.6); Monocytes Percent Auto 14.1 % (2.6-8.5); Neutrophils Absolute Auto 3.4 K/mm3 (1.3-6.7); Neutrophils Percent Auto 65.2 % (45.5-73.1); Platelet Count Result 168 k/mm3 (150-375); Red Blood Count 3.28 M/mm3 (4.6-6.20); White Blood Count 5.2 K/mm3 (4.5-10.0)
[2022-05-07 07:04] LABS: Anion Gap 2 mmol/L (8-16); Blood Urea Nitrogen 20 mg/dL (9-20); Calcium 8.5 mg/dL (8.4-10.2); Carbon Dioxide 27 mmol/L (22-30); Chloride 106 mmol/L (98-107); Estimated CRCL calculation 44 ml/min; Estimated Glomerular Filt Rate 58; Glucose 87 mg/dL (65-110); Potassium 3.7 mmol/L (3.4-5.0); Sodium 135 mmol/L (137-145)
[2022-05-07 08:55] VITALS: PULSE 60
[2022-05-07] MEDS: carvediloL 12.5 MG TABLET PO ×2 (08:55→20:51)
[2022-05-07] MEDS: PYRIDOXINE HCL 25 MG TABLET PO (08:56)
[2022-05-07] MEDS: FOLIC ACID 1 MG TABLET PO (08:56)
[2022-05-07] MEDS: lisinopriL 20 MG TABLET 40 MG PO ×2 (08:56→16:26)
[2022-05-07] MEDS: CYANOCOBALAMIN 500 MCG TABLET PO (08:56)
[2022-05-07] MEDS: amLODIPine BESYLATE 2.5 MG TABLET PO (08:57)
[2022-05-07] MEDS: ASPIRIN 81 MG ENTERIC TABLET PO (08:57)
[2022-05-07] MEDS: FINASTERIDE 5 MG TABLET PO (08:57)
[2022-05-07] MEDS: FERROUS SULFATE 324 MG TABLET PO ×2 (08:57→16:26)
[2022-05-07] MEDS: ACETAMINOPHEN 325 MG TABLET 650 MG PO (08:58)
[2022-05-07 10:29] VITALS: O2SAT 95
--- NOTE | 2022-05-07 11:37 | WPDNEUROPN ---
Progress Note: A&P Assessment and Plan (1) Generalized weakness: Code(s): R53.1 - Weakness Status: Acute (2) Lumbar spondylolysis: Code(s): M43.06 - Spondylolysis, lumbar region Status: Acute (3) Dementia: Code(s): F03.90 - Unspecified dementia, unspecified severity, without behavioral disturbance, psychotic disturbance, mood disturbance, and anxiety Status: Acute (4) Encephalopathy: Code(s): G93.40 - Encephalopathy, unspecified Status: Acute Plan Fernando Nava is a 82 year old male with a history of dementia, vitamin B12 deficiency, hypertension, hyperlipidemia, CKD presenting due to worsening confusion and gait issues. Etiology is unclear but considering worsening dementia vs metabolic encephalopathy regarding confusion. Patient did express concerns regarding his short term recall and there is evidence of cortical volume loss on his MRI. We discussed option of starting medication for dementia and he is agreeable. As for worsening generalized weakness, could be from deconditioning or pain related. Also considering spinal stenosis and radiculopathy given the lumbar CT findings, it's unclear how mobile he is at home, but he does have increased tone in his ankles which is likely a chronic finding. Less common causes such as myopathy or AIDP/CIDP are also considerations. - CK pending - If gait issues persist, can do EMG/NCS as outpatient - Could consider outpatient Neurosurgery evaluation - Start Donepezil 5mg daily Subjective Date/time seen: 05/07/22 11:37 Interval history: Fernando Nava is a 82 year old male with a history of dementia, vitamin B12 deficiency, hypertension, hyperlipidemia, CKD presenting due to worsening confusion and gait issues. Patient has had worsening generalized weakness over the past several weeks. He has been unable to get out of his wheelchair, which a new concern for him. Family also reports worsening confusion. He does not take any medication for dementia. He was taken to [place] ED where initial work-up has been unrevealing. CT head negative for acute process and only showed age related changes. UA was negative. Labs were unremarkable other than findings related to chronic kidney disease. Patient reports that he has knee pain but cannot recall how long he has been having problems with his gait. He reports using a walker mostly at home and sometimes wheelchair. He has issues with short term recall, but has good exterminator memory. He does not recall being diagnosed with dementia in the past. He denies any new numbness or paraesthesias in the lower extremities. MRI brain showed moderate atrophy but no other significant abnormalities. TSH was slightly low. B12 and folate are within normal range. CT lumbar spine showed 5mm anterolisthesis of L4/L5 as well as moderate to severe spondylosis and probable severe thecal sac compression/spinal canal stenosis at L4-L5 and moderate thecal sac compression at L3-L4. Also noted multilevel bilateral neural foraminal narrowing. Review of Systems Constitutional: Constitutional: Reports weakness Eyes: Eyes: Reports no additional eye complaints ENT: Reports system reviewed and no additional complaints, except as documented Cardiovascular: Cardiovascular: Reports no additional cardiovascular complaints Respiratory: Respiratory: Reports no additional respiratory complaints Gastrointestinal: Gastrointestinal: Reports no additional gastrointestinal complaints Genitourinary: Comments: urinary retention Musculoskeletal: Musculoskeletal: Reports arthralgias Comments: R knee pain Integumentary/Breasts: Skin/Breast: Reports system reviewed and no additional complaints, except as docu Neurologic: Reports as per HPI Psychiatric: Psychiatric: Reports confusion Exam Const: General: comfortable and no acute distress HENMT: Mouth: Yes moist mucous membranes Eyes: Pupils: Equal, round and reactive pupils present
--- NOTE | 2022-05-07 12:31 | PM.IMPN ---
Progress Note: A&P Assessment and Plan (1) Dementia: Code(s): F03.90 - Unspecified dementia, unspecified severity, without behavioral disturbance, psychotic disturbance, mood disturbance, and anxiety Status: Chronic Assessment and Plan: Patient presents for worsening confusion and weakness. CT head/neck showing no significant abnormalities. Brain MRI showing no acute abnormalities. Echocardiogram is pending. Patient does have a history of dementia but is mostly oriented today and yesterday. B12, folate, CK and TSH normal. Neuro was consulted and appreciate their input. Aricept was recommended which will start today. This can prolong the QT interval but his QTC was 387. Will stop Zofran. Suspect patient with transient symptoms and is now back to baseline. Follow up on Echo results Discussed with . All questions answered to her satisfaction. (2) Weakness: Code(s): R53.1 - Weakness Status: Acute Assessment and Plan: CT of the lumbar spine shows probable severe thecal sac compression and spinal canal stenosis at L4-L5 with more moderate compression at L3-L4. PT and OT has been ordered. Of called his and have left a message. Patient may need neuro surgery evaluation but this can be done as an outpatient. Patient already has severe underlying debility. He has 24 hour a day caregivers and uses a walker and wheelchair for mobility. [facility] being [facility] and patient can be discharged at any time. senior project coordinator working with family to arrange this. (3) Chronic anemia: Code(s): D64.9 - Anemia, unspecified Status: Acute Assessment and Plan: Hgb 10 and at baseline. Recent iron studies in January were normal. Cont ferrous sulfate for now. (4) Benign essential hypertension: Code(s): I10 - Essential (primary) hypertension Status: Acute Assessment and Plan: Patient's blood pressure was reviewed on 05/07 Blood pressure remains well controlled. Will continue current medications of Coreg, Lisinopril, Amlodipine (5) BPH (benign prostatic hyperplasia): Qualifiers: Lower urinary tract symptom detail: urinary frequency Lower urinary tract symptom presence: symptoms present Qualified Code(s): N40.1 - Benign prostatic hyperplasia with lower urinary tract symptoms; R35.0 - Frequency of micturition Code(s): N40.0 - Benign prostatic hyperplasia without lower urinary tract symptoms Status: Acute Assessment and Plan: Chiu catheter secured. Chiu placed last night for retention but unclear on volume. Continue Proscar. Chiu trial possibly tomorrow. Subjective Date/time seen: 05/07/22 12:31 Interval history: 82yo male with a history of dementia, HTN and CKD admitted for worsening confusion and gait issues. He is A/O x 3 currently. No complaints today. No CP or SOB. Exam Narrative: Gen - NARD Chest - clear anteriorly, nml RR CV - RRR S1/S2 Abd - soft, ND, +BS - Chiu secured draining clear yellow urine Ext - No pedal edema Neuro - Alert and oriented x3 (not month). Psych - Nml mood and affect Skin - Warm and dry Objective Data Vital Signs Vital Signs: Vital Signs - 24 hr 05/06/22 14:59 05/06/22 20:38 05/06/22 22:00 Temperature 97 F L 97.4 F L Pulse Rate 66 68 66 Respiratory Rate 17 17 Blood Pressure 172/76 H 134/55 L Pulse Oximetry 98 99 Oxygen Delivery 05/06/22 20:00 05/07/22 06:00 05/07/22 08:55 Temperature 97.6 F Pulse Rate 60 60 Respiratory Rate 18 Blood Pressure 132/53 L Pulse Oximetry 98 Oxygen Delivery Room Air 05/07/22 10:29 05/07/22 09:05 Temperature Pulse Rate Respiratory Rate Blood Pressure Pulse Oximetry 95 Oxygen Delivery Room Air Room Air Intake/Output Intake/Output: Intake & Output 05/04/22 05/05/22 05/06/22 05/07/22 23:59 23:59 23:59 23:59 Intake Total 1830 2240 Output Total 2
[2022-05-07] MEDS: MULTIVITAMINS THERAPEUTIC TAB (*BKC) 1 TABLET PO (12:37)
[2022-05-07 14:30] VITALS: BP 146/70; PULSE 61; RESP 17; TEMP 35.9; O2SAT 99
--- NOTE | 2022-05-07 15:56 | WPDURCON ---
Assessment and Plan Assessment and plan (1) BPH (benign prostatic hyperplasia): Qualifiers: Lower urinary tract symptom presence: symptoms present Lower urinary tract symptom detail: urinary frequency Qualified Code(s): N40.1 - Benign prostatic hyperplasia with lower urinary tract symptoms; R35.0 - Frequency of micturition Code(s): N40.0 - Benign prostatic hyperplasia without lower urinary tract symptoms Status: Acute Assessment and Plan: Continue Finasteride. Keep Chiu in place for 7-10 days then f/u in the office for a voiding trial. No further evaluation from urology at this time. Urology Consult Note HPI Date Seen: 05/07/22 Time Seen: 15:56 Requesting Physician: Yelena Harden PA-C Primary Care Provider: Jarrod Orta MD Consult Narrative Reason for consult: Retention Narrative: Fernando Nava is a 82 year old male who is a patient of Dr. Woods that presented to the ER by EMS for worsening weakness and confusion on 05/05/22. WBC is 5.2, creatinine is 1.20, UA is not indicative of infection. He remains on Finasteride for his BPH, but was found to be in retention with a new catheter placed in the ER. It is unclear what his residual was. He states that prior to his arrival at the hospital he was straining to urinate and it would take him 15 minutes sometimes to generate a urine stream. He also states he had the urge to urinate frequently at home. He has tried Tamsulosin before but stopped it because it made him urinate to often. He denies symptoms of a UTI, urine in the bag is clear and draining to gravity. Review of Systems Cardiovascular: Cardiovascular: Denies chest pain Respiratory: Respiratory: Reports no additional respiratory complaints Gastrointestinal: Gastrointestinal: Denies nausea and Denies vomiting Genitourinary: Genitourinary: Denies hematuria, Denies dysuria, Denies flank pain, Reports urinary frequency, Reports urinary hesitancy and Denies urinary urgency PMF Past Medical History Medical History Acquired ankle/foot deformity Aftercare following right hip joint replacement surgery Arthralgia Benign essential hypertension Bilateral sacroiliitis Blood in stool BMI 25.0-25.9,adult BPH (benign prostatic hyperplasia) Chronic anemia Chronic pain of right lower extremity CKD (chronic kidney disease) COVID-19 Dementia Disequilibrium syndrome DJD (degenerative joint disease), multiple sites Elevated d-dimer Encounter for routine adult health examination without abnormal findings Fall at home [facility] Hyperlipidemia Hypersomnolence Midline low back pain with right-sided sciatica On group home drug therapy Osteopenia Pneumonia Prostate cancer screening Spinal stenosis Subclinical hyperthyroidism Unexplained weight loss Unresponsive episode UTI (urinary tract infection) Vitamin B12 deficiency Vitamin D deficiency Surgical History Surgical History History of cataract extraction History of removal of pigmented skin lesion History of total right hip arthroplasty Presence of right artificial hip joint S/P tonsillectomy Family History Family History Mother Family history of cardiovascular disease Diabetes mellitus Family history of arthritis Family history of coronary artery disease Hypertension Acute myocardial infarction Father Family history of arthritis Family history of coronary artery disease Sibling Glaucoma Hypertension Social History Social History Social History: He is retired from [employer]. He lives at home with his . He has no children. His PCP is Dr. Orta. He has designated his , Kasie, as his surrogate decision maker. code status full code Smok
[2022-05-07] MEDS: OMEGA 3 POLYUNSAT FATTY ACIDS 1 GM CAP PO (16:26)
[2022-05-07] MEDS: PRAVASTATIN SODIUM 20 MG TABLET PO (20:50)
[2022-05-07 20:51] VITALS: PULSE 88
[2022-05-07] MEDS: DONEPEZIL HCL 5 MG TABLET PO (20:51)
[2022-05-07 21:29] VITALS: BP 154/73; PULSE 61; RESP 16; TEMP 36.2; O2SAT 98
[2022-05-08 05:20] VITALS: BP 167/73; PULSE 61; RESP 16; TEMP 36.3; O2SAT 98
--- NOTE | 2022-05-08 06:31 | PC.NURSE ---
Patient resting most of night, but during a bout of confusion patient attempted to exit bed, pulled on his palmer and pulled out his IV site. Patient otherwise is easily oriented back to hospital and somewhat situation. VSS and patient otherwise remains stable and had an uneventful night.
[2022-05-08] MEDS: PYRIDOXINE HCL 25 MG TABLET PO (09:27)
[2022-05-08] MEDS: carvediloL 12.5 MG TABLET PO ×2 (09:27→21:27)
[2022-05-08] MEDS: ASPIRIN 81 MG ENTERIC TABLET PO (09:27)
[2022-05-08] MEDS: CYANOCOBALAMIN 500 MCG TABLET PO (09:27)
[2022-05-08] MEDS: FERROUS SULFATE 324 MG TABLET PO ×2 (09:27→16:58)
[2022-05-08] MEDS: lisinopriL 20 MG TABLET 40 MG PO ×2 (09:27→16:58)
[2022-05-08] MEDS: FINASTERIDE 5 MG TABLET PO (09:28)
[2022-05-08] MEDS: FOLIC ACID 1 MG TABLET PO (09:28)
[2022-05-08] MEDS: amLODIPine BESYLATE 2.5 MG TABLET PO (09:28)
[2022-05-08] MEDS: MULTIVITAMINS THERAPEUTIC TAB (*BKC) 1 TABLET PO (11:58)
[2022-05-08 14:00] VITALS: BP 168/82; PULSE 63; RESP 20; TEMP 36; O2SAT 98
[2022-05-08] MEDS: SODIUM CHLORIDE 0.9% IV 1,000 ML 75 ML IV CONT (14:17)
--- NOTE | 2022-05-08 15:38 | PM.IMPN ---
Progress Note: A&P Assessment and Plan (1) Dementia: Code(s): F03.90 - Unspecified dementia, unspecified severity, without behavioral disturbance, psychotic disturbance, mood disturbance, and anxiety Status: Chronic Assessment and Plan: Patient presents for worsening confusion and weakness. CT head/neck showing no significant abnormalities. Brain MRI showing no acute abnormalities. Echocardiogram showing normal LV size and systolic function but has grade I diastolic dysfunction. Patient does have a history of dementia but is mostly alert and appropriate. B12, folate, CK and TSH normal. Neuro was consulted and appreciate their input. Aricept was recommended and was started. This can prolong the QT interval but his QTC was 387; Zofran dtopped. Suspect patient with transient symptoms and is now back to baseline. (2) Weakness: Code(s): R53.1 - Weakness Status: Acute Assessment and Plan: CT of the lumbar spine shows probable severe thecal sac compression and spinal canal stenosis at L4-L5 with more moderate compression at L3-L4. PT and OT ordered. Patient may need neuro surgery evaluation but this can be done as an outpatient. Patient already has severe underlying debility. He has 24 hour a day caregivers and uses a walker and wheelchair for mobility. snf facility placement is being arranged and patient can be discharged at any time. footwear sales coordinator working with family to arrange this. Stop IV fluids. (3) Chronic anemia: Code(s): D64.9 - Anemia, unspecified Status: Acute Assessment and Plan: Hgb 10 and at baseline. Recent iron studies in January were normal. Cont ferrous sulfate for now. (4) Benign essential hypertension: Code(s): I10 - Essential (primary) hypertension Status: Acute Assessment and Plan: Patient's blood pressure was reviewed on 05/08 Blood pressure mildly elevated at times Will continue current medications of Coreg, Lisinopril, Amlodipine (5) BPH (benign prostatic hyperplasia): Qualifiers: Lower urinary tract symptom detail: urinary frequency Lower urinary tract symptom presence: symptoms present Qualified Code(s): N40.1 - Benign prostatic hyperplasia with lower urinary tract symptoms; R35.0 - Frequency of micturition Code(s): N40.0 - Benign prostatic hyperplasia without lower urinary tract symptoms Status: Acute Assessment and Plan: Chiu catheter secured. Chiu placed overnight on 05/06 for retention but unclear on volume. Neurogenic related to his spinal disease? Urology consulted and recommended continuing Proscar and to keep Chiu in place for 7-10 days before doing a voiding trial in the urologist's office. Plan Right hip pain - probably sciatic symptoms. Will check xray to exclude occult fracture. Subjective Date/time seen: 05/08/22 15:38 Interval history: 82yo male with a history of dementia, HTN and CKD admitted for worsening confusion and gait issues. He is alert and appropriate. He feels weak. Eating okay. Pain in the right hip posterior aspect which radiates to the ankle and is chronic. No n/v. No CP or SOB. Exam Narrative: Gen - NARD Chest - clear anteriorly, nml RR CV - irregularly irregular Abd - soft, ND, +BS - Chiu secured draining clear yellow urine Ext - No pedal edema. right hip ROM limited but intact with minimal pain Neuro - Alert and appropriate Psych - Nml mood and affect Skin - Warm and dry Objective Data Vital Signs Vital Signs: Vital Signs - 24 hr 05/07/22 20:51 05/07/22 21:29 05/08/22 05:20 Temperature 97.2 F L 97.4 F L Pulse Rate 88 61 61 Respiratory Rate 16 16 Blood Pressure 154/73 H 167/73 H Pulse Oximetry 98 98 Oxygen Delivery 05/08/22 14:00 05/08/22 08:50 Temperature 96.8 F L Pulse Rate 63 Respiratory Rate 20 Blood Pressure 168/82 H Pulse Oximetry 98 Oxygen Delivery Room Air Intake/Outp
[2022-05-08] MEDS: OMEGA 3 POLYUNSAT FATTY ACIDS 1 GM CAP PO (16:58)
[2022-05-08] MEDS: polyethylene glycoL 3350 17 GM POWD.PACK PO (16:59)
[2022-05-08] MEDS: ACETAMINOPHEN 325 MG TABLET 650 MG PO (21:26)
[2022-05-08] MEDS: PRAVASTATIN SODIUM 20 MG TABLET PO (21:27)
[2022-05-08] MEDS: DONEPEZIL HCL 5 MG TABLET PO (21:27)
[2022-05-08 21:46] VITALS: BP 157/75; PULSE 63; RESP 20; TEMP 36.4; O2SAT 96
[2022-05-09 06:00] VITALS: BP 176/71; PULSE 62; RESP 16; TEMP 36; O2SAT 98
[2022-05-09] MEDS: FERROUS SULFATE 324 MG TABLET PO ×2 (09:29→17:31)
[2022-05-09] MEDS: FINASTERIDE 5 MG TABLET PO (09:29)
[2022-05-09] MEDS: FOLIC ACID 1 MG TABLET PO (09:29)
[2022-05-09] MEDS: lisinopriL 20 MG TABLET 40 MG PO ×2 (09:29→17:33)
[2022-05-09] MEDS: amLODIPine BESYLATE 2.5 MG TABLET PO (09:29)
[2022-05-09] MEDS: CYANOCOBALAMIN 500 MCG TABLET PO (09:29)
[2022-05-09 09:30] VITALS: PULSE 64
[2022-05-09] MEDS: carvediloL 12.5 MG TABLET PO ×2 (09:30→20:29)
[2022-05-09] MEDS: ASPIRIN 81 MG ENTERIC TABLET PO (09:30)
[2022-05-09] MEDS: polyethylene glycoL 3350 17 GM POWD.PACK PO (09:30)
[2022-05-09] MEDS: PYRIDOXINE HCL 25 MG TABLET PO (09:30)
--- NOTE | 2022-05-09 11:00 | PCOTNOTE ---
Attempted to see pt for Occupational Therapy. Due to increase confusion and decrease ability to follow commands, therapy session was ended. Therapist assisted pt with bed mobility to scoot up better requiring max assist with max cueing for follow through. Will continue per poc duration/frequency tomorrow.
[2022-05-09] MEDS: MULTIVITAMINS THERAPEUTIC TAB (*BKC) 1 TABLET PO (12:33)
[2022-05-09 14:00] VITALS: BP 169/68; PULSE 63; RESP 18; TEMP 36.2; O2SAT 97
--- NOTE | 2022-05-09 14:54 | PM.IMPN ---
Progress Note: A&P Assessment and Plan (1) Dementia: Code(s): F03.90 - Unspecified dementia, unspecified severity, without behavioral disturbance, psychotic disturbance, mood disturbance, and anxiety Status: Chronic Assessment and Plan: Patient presents for worsening confusion and weakness. CT head/neck showing no significant abnormalities. Brain MRI showing no acute abnormalities. Echocardiogram showing normal LV size and systolic function but has grade I diastolic dysfunction. B12, folate, CK and TSH normal. Patient does have a history of dementia but is mostly alert and appropriate. Neuro was consulted and appreciate their input. Aricept was recommended and was started. Suspect patient had transient symptoms and is now back to baseline. No evidence of seizures (2) Weakness: Code(s): R53.1 - Weakness Status: Acute Assessment and Plan: CT of the lumbar spine shows probable severe thecal sac compression and spinal canal stenosis at L4-L5 with more moderate compression at L3-L4. PT and OT ordered. Patient may need neuro surgery evaluation but this can be done as an outpatient. Patient already has severe underlying debility. He has 24 hour a day caregivers and uses a walker and wheelchair for mobility. care home facility placement is being arranged and patient can be discharged at any time. social service coordinator working with family to arrange this. (3) Chronic anemia: Code(s): D64.9 - Anemia, unspecified Status: Acute Assessment and Plan: Hgb 10 and at baseline. Recent iron studies in January were normal. Cont ferrous sulfate for now. (4) Benign essential hypertension: Code(s): I10 - Essential (primary) hypertension Status: Acute Assessment and Plan: Patient's blood pressure was reviewed on 05/09 Blood pressure elevated at times Will continue current home medications of Coreg, Lisinopril, Amlodipine (5) BPH (benign prostatic hyperplasia): Qualifiers: Lower urinary tract symptom detail: urinary frequency Lower urinary tract symptom presence: symptoms present Qualified Code(s): N40.1 - Benign prostatic hyperplasia with lower urinary tract symptoms; R35.0 - Frequency of micturition Code(s): N40.0 - Benign prostatic hyperplasia without lower urinary tract symptoms Status: Acute Assessment and Plan: Chiu catheter secured. Chiu placed overnight on 05/06 for retention but unclear on volume. Neurogenic related to his spinal disease? Urology consulted and they recommended continuing Proscar and to keep Hciu in place for 7-10 days before doing a voiding trial in the urologist's office. Plan Right hip pain - probably sciatic symptoms. Xray showing no occult fracture. Subjective Date/time seen: 05/09/22 14:54 Interval history: 82yo male with a history of dementia, HTN and CKD admitted for worsening confusion and gait issues. He feels 'stiff' but otherwise no complaints. No CP or SOB. No n/v. Eating okay. Exam Narrative: AF 97.2 169/68 63 18 97% ra Gen - NARD Chest - right base crackles o/w clear. nml RR CV - RRR S1/S2 Abd - soft, ND, +BS - Chiu secured draining clear yellow urine Ext - No pedal edema. Psych - Nml mood and affect Skin - Warm and dry Objective Data Vital Signs Vital Signs: Vital Signs - 24 hr 05/08/22 21:46 05/09/22 06:00 05/09/22 09:30 Temperature 97.6 F 96.8 F L Pulse Rate 63 62 64 Respiratory Rate 20 16 Blood Pressure 157/75 H 176/71 H Pulse Oximetry 96 98 05/09/22 14:00 Temperature 97.2 F L Pulse Rate 63 Respiratory Rate 18 Blood Pressure 169/68 H Pulse Oximetry 97 Intake/Output Intake/Output: Intake & Output 05/06/22 05/07/22 05/08/22 05/09/22 23:59 23:59 23:59 23:59 Intake Total 1830 4030 2802 930 Output Total 200 2150 3700 1850 Balance 1630 6730 -497 -950 Meds/Results Medications: Active Medications Generic Name Dose Rout
[2022-05-09] MEDS: OMEGA 3 POLYUNSAT FATTY ACIDS 1 GM CAP PO (17:31)
[2022-05-09] MEDS: ACETAMINOPHEN 325 MG TABLET 650 MG PO (20:28)
[2022-05-09] MEDS: DONEPEZIL HCL 5 MG TABLET PO (20:29)
[2022-05-09] MEDS: PRAVASTATIN SODIUM 20 MG TABLET PO (20:29)
[2022-05-09 21:11] VITALS: BP 168/85; PULSE 65; RESP 20; TEMP 36.6; O2SAT 96
[2022-05-10 05:26] VITALS: BP 130/59; PULSE 56; RESP 20; TEMP 36.2; O2SAT 92
--- NOTE | 2022-05-10 06:20 | PC.NURSE ---
Patient slept throughout night. Arouses easily but would drift back off to sleep. Patient remains confused to situation and place. Does know name and birthdate. Patient VSS with some mild hypertension at intervals before medications due. Patient otherwise reported no SOB or CP and none was observed. Patient condition stable and unchanged throughout night.
[2022-05-10] MEDS: PYRIDOXINE HCL 25 MG TABLET PO (08:48)
[2022-05-10] MEDS: polyethylene glycoL 3350 17 GM POWD.PACK PO (08:48)
[2022-05-10] MEDS: FINASTERIDE 5 MG TABLET PO (08:48)
[2022-05-10] MEDS: ASPIRIN 81 MG ENTERIC TABLET PO (08:48)
[2022-05-10] MEDS: FERROUS SULFATE 324 MG TABLET PO ×2 (08:48→16:56)
[2022-05-10] MEDS: amLODIPine BESYLATE 2.5 MG TABLET PO (08:48)
[2022-05-10] MEDS: CYANOCOBALAMIN 500 MCG TABLET PO (08:48)
[2022-05-10] MEDS: FOLIC ACID 1 MG TABLET PO (08:48)
[2022-05-10] MEDS: lisinopriL 20 MG TABLET 40 MG PO ×2 (08:48→16:56)
[2022-05-10 11:22] VITALS: PULSE 60
[2022-05-10] MEDS: MULTIVITAMINS THERAPEUTIC TAB (*BKC) 1 TABLET PO (11:22)
[2022-05-10] MEDS: carvediloL 12.5 MG TABLET PO ×2 (11:22→21:03)
--- NOTE | 2022-05-10 12:14 | PM.IMPN ---
Progress Note: A&P Assessment and Plan (1) Dementia: Code(s): F03.90 - Unspecified dementia, unspecified severity, without behavioral disturbance, psychotic disturbance, mood disturbance, and anxiety Status: Chronic Assessment and Plan: Patient presents for worsening confusion and weakness. CT head/neck showing no significant abnormalities. Brain MRI showing no acute abnormalities. Echocardiogram showing normal LV size and systolic function but has grade I diastolic dysfunction. B12, folate, CK and TSH normal. Patient does have a history of dementia but is mostly alert and appropriate. Neuro was consulted and appreciate their input. Aricept was recommended and was started. Suspect patient had transient symptoms and is now back to baseline. No evidence of seizures (2) Weakness: Code(s): R53.1 - Weakness Status: Acute Assessment and Plan: CT of the lumbar spine shows probable severe thecal sac compression and spinal canal stenosis at L4-L5 with more moderate compression at L3-L4. PT and OT ordered. Patient may need neuro surgery evaluation but this can be done as an outpatient. Patient already has severe underlying debility. He has 24 hour a day caregivers and uses a walker and wheelchair for mobility. shelter facility placement is being arranged and patient can be discharged at any time. patient services coordinator working with family to arrange this. (3) Chronic anemia: Code(s): D64.9 - Anemia, unspecified Status: Acute Assessment and Plan: Hgb 10 and at baseline. Recent iron studies in January were normal. Cont ferrous sulfate for now. (4) Benign essential hypertension: Code(s): I10 - Essential (primary) hypertension Status: Acute Assessment and Plan: Patient's blood pressure was reviewed on 05/09 Blood pressure elevated at times Will continue current home medications of Coreg, Lisinopril, Amlodipine (5) BPH (benign prostatic hyperplasia): Qualifiers: Lower urinary tract symptom presence: symptoms present Lower urinary tract symptom detail: urinary frequency Qualified Code(s): N40.1 - Benign prostatic hyperplasia with lower urinary tract symptoms; R35.0 - Frequency of micturition Code(s): N40.0 - Benign prostatic hyperplasia without lower urinary tract symptoms Status: Acute Assessment and Plan: Chiu catheter secured. Chiu placed overnight on 05/06 for retention but unclear on volume. Neurogenic related to his spinal disease? Urology consulted and they recommended continuing Proscar and to keep Chiu in place for 7-10 days before doing a voiding trial in the urologist's office. Plan Right hip pain - probably sciatic symptoms. Xray showing no occult fracture. Subjective Date/time seen: 05/10/22 12:14 Interval history: 82yo male with a history of dementia, HTN and CKD admitted for worsening confusion and gait issues. No complaints. No problems overnight. Exam Narrative: AF 130/59 60 20 92% ra Gen - NARD Chest - clear anteriorly. nml RR CV - irregularly irregular Abd - soft, ND, +BS - Chiu secured draining clear yellow urine Ext - No pedal edema. Psych - Nml mood and affect Skin - Warm and dry Objective Data Vital Signs Vital Signs: Vital Signs - 24 hr 05/09/22 14:00 05/09/22 21:11 05/10/22 05:26 Temperature 97.2 F L 97.9 F 97.2 F L Pulse Rate 63 65 56 L Respiratory Rate 18 20 20 Blood Pressure 169/68 H 168/85 H 130/59 L Pulse Oximetry 97 96 92 Oxygen Delivery 05/10/22 09:50 05/10/22 11:22 Temperature Pulse Rate 60 Respiratory Rate Blood Pressure Pulse Oximetry Oxygen Delivery Room Air Intake/Output Intake/Output: Intake & Output 05/07/22 05/08/22 05/09/22 05/10/22 23:59 23:59 23:59 23:59 Intake Total 4030 2802 1410 220 Output Total 2150 3700 1850 600 Balance 1880 -898 -440 -380 Meds/Results Medications: Active Medications G
[2022-05-10 14:20] VITALS: BP 152/62; PULSE 52; RESP 18; TEMP 35.7; O2SAT 98
--- NOTE | 2022-05-10 16:22 | PM.DS ---
DS: Admitting Diagnosis Discharge Date 05/10/22 Admitting Diagnosis Confusion DS: Discharge Diagnosis Discharge Diagnosis (1) Dementia: Code(s): F03.90 - Unspecified dementia, unspecified severity, without behavioral disturbance, psychotic disturbance, mood disturbance, and anxiety Status: Chronic (2) Weakness: Code(s): R53.1 - Weakness Status: Acute (3) Chronic anemia: Code(s): D64.9 - Anemia, unspecified Status: Acute (4) Benign essential hypertension: Code(s): I10 - Essential (primary) hypertension Status: Acute (5) BPH (benign prostatic hyperplasia): Qualifiers: Lower urinary tract symptom presence: symptoms present Lower urinary tract symptom detail: urinary frequency Qualified Code(s): N40.1 - Benign prostatic hyperplasia with lower urinary tract symptoms; R35.0 - Frequency of micturition Code(s): N40.0 - Benign prostatic hyperplasia without lower urinary tract symptoms Status: Acute DS: Summary Hospital Course Reason for hospitalization: 82yo male with a history of dementia, HTN and CKD admitted for worsening confusion and gait issues. Please see H&P for details. Hospital Course: Patient presents for worsening confusion and weakness. CT head/neck showing no significant abnormalities. Brain MRI showing no acute abnormalities.? Echocardiogram showing normal LV size and systolic function but has grade I diastolic dysfunction. B12, folate, CK and TSH normal. Patient does have a history of dementia but is mostly alert and appropriate.? Neuro was consulted and appreciate their input.? Aricept was recommended and this was started. Suspect patient had transient symptoms and is now back to baseline. No evidence of seizures. Chiu catheter secured. Chiu placed overnight on 05/06 for retention but unclear on volume. Neurogenic related to his spinal disease? Urology consulted and they recommended continuing Proscar and to keep Chiu in place for 7-10 days before doing a voiding trial in the urologist's office. CT of the lumbar spine shows probable severe thecal sac compression and spinal canal stenosis at L4-L5 with more moderate compression at L3-L4.? PT and OT ordered. Patient may need neuro surgery evaluation but this can be done as an outpatient.? Patient already has severe underlying debility.? He has 24 hour a day caregivers and uses a walker and wheelchair for mobility.? [facility] facility placement was arranged. He overall did well. He was able to be discharged 05/10/2022. Status at Discharge Cognitive/behavioral status at discharge: Stable Time Spent with Patient Time attestation: Total time spent providing and/or coordinating discharge services: 34 minute Time spent: Greater than 30 minutes Exam Narrative: AF 130/59 60 20 92% ra Gen - NARD Chest - clear anteriorly. nml RR CV - irregularly irregular Abd - soft, ND, +BS - Chiu secured draining clear yellow urine Ext - No pedal edema. Psych - Nml mood and affect Skin - Warm and dry DS: Data Data Completed and Pending Labs on day of discharge: Labs from last 24 hours 05/06/22 14:40 Thiamine (Vit B1) Luz TNP Discharge Plan Discharge Attending physician on discharge: Yves Kilgore Consulting providers: Destiney Ramirez ; Amie Mosqueda Discharging Clinician: Yves Kilgore Anticipated Discharge Date/Time: 05/10/22 16:26 Patient Disposition: SNF Activity: as tolerated Diet: heart healthy Discharge Instructions: Routine Chiu care. Take precautions to avoid falls. Rise slowly from a lying or sitting position. Pause before standing or walking. Follow-up with the provider at the facility Follow-up with Urology in 7-10 days for voiding trial. Please call for an appointment. Follow-up with Neurology in 4-6 weeks. Please call for an appointment. Follow-up with Neurosurgery in 4-6 weeks. Please call for an appointment.
[2022-05-10] MEDS: OMEGA 3 POLYUNSAT FATTY ACIDS 1 GM CAP PO (16:56)
[2022-05-10 17:15] LABS: EDCOVIDSCREEN Negative (Negative)
--- NOTE | 2022-05-10 19:05 | PC.NURSE ---
Report given to JONO Godfrey at [facility] at [id number]. All questions answered during report. Orders faxed over and received per fax transmission.
[2022-05-10] MEDS: DONEPEZIL HCL 5 MG TABLET PO (21:03)
[2022-05-10] MEDS: ACETAMINOPHEN 325 MG TABLET 650 MG PO (21:03)
[2022-05-10] MEDS: PRAVASTATIN SODIUM 20 MG TABLET PO (21:03)
[2022-05-10 21:55] VITALS: BP 131/76; PULSE 54; RESP 17; TEMP 36.5; O2SAT 98
--- NOTE | 2022-05-10 22:02 | PC.NURSE ---
Patient's Kasie notified of patient being loaded onto EMS stretcher for transfer. Patient tolerated well. Patient voicing no complaints. Patient condition stable and unchanged.
== END 2022-05-10 21:59 ==
LOC: ANHED 18:44 → ANH3MEDSUR 05-06 06:55
PROVIDERS: Internal Medicine; Nurse Practitioner; Student in an Organized Health Care Education/Training Program; Admitting Provider Family Medicine; Emergency Provider Family Medicine; PCP Internal Medicine; Visit Provider Physician Assistant
DX: F03.90 Unspecified dementia, unspecified severity, without behavioral disturbance, psychotic disturbance, mood disturbance, and anxiety (principal); R53.1 Weakness; D64.9 Anemia, unspecified; I12.9 Hypertensive chronic kidney disease with stage 1 through stage 4 chronic kidney disease, or unspecified chronic kidney disease; N18.9 Chronic kidney disease, unspecified; N40.1 Benign prostatic hyperplasia with lower urinary tract symptoms; R35.0 Frequency of micturition; H40.9 Unspecified glaucoma; E78.5 Hyperlipidemia, unspecified; Z20.822 Contact with and (suspected) exposure to COVID-19; I35.8 Other nonrheumatic aortic valve disorders; R41.0 Disorientation, unspecified; Z99.3 Dependence on wheelchair; E87.8 Other disorders of electrolyte and fluid balance, not elsewhere classified; M15.9 Polyosteoarthritis, unspecified; R79.1 Abnormal coagulation profile; G89.29 Other chronic pain; M79.661 Pain in right lower leg; E02 Subclinical iodine-deficiency hypothyroidism; I51.89 Other ill-defined heart diseases; M54.41 Lumbago with sciatica, right side; M85.80 Other specified disorders of bone density and structure, unspecified site; M21.969 Unspecified acquired deformity of unspecified lower leg; R26.89 Other abnormalities of gait and mobility; M25.551 Pain in right hip; Z96.641 Presence of right artificial hip joint; M48.00 Spinal stenosis, site unspecified; G93.40 Encephalopathy, unspecified; Z96.0 Presence of urogenital implants; M43.06 Spondylolysis, lumbar region; R63.4 Abnormal weight loss; R90.82 White matter disease, unspecified; Z68.28 Body mass index [BMI] 28.0-28.9, adult; E53.8 Deficiency of other specified B group vitamins; E55.9 Vitamin D deficiency, unspecified; Z79.52 Long term (current) use of systemic steroids; Z79.82 Long term (current) use of aspirin; Z79.899 Other long term (current) drug therapy; Z82.49 Family history of ischemic heart disease and other diseases of the circulatory system; Z83.511 Family history of glaucoma
CPT/HCPCS: 36415; 70496; 70498; 70551; 71045; 72132; 73502; 80048; 80053; 81003; 82550; 82607; 82746; 83605; 83735; 84425; 84443; 85025; 87426; 87636; 93005; 96361; 96374; 97110; 97161; 97165; 97530; 97535; 99285; A9270; C8929; C9803; G0378; G0379; J7030; Q9957; Q9967

== ENCOUNTER 2022-05-12 11:58 | Emergency (ER) | payer MEDICARE, SELFPAY ==
[2022-05-12] VITALS (7 sets, daily range): BP systolic 91–136; BP diastolic 66–88; PULSE 57–88; RESP 11–19; TEMP 36.3; O2SAT 97–100
--- NOTE | ~2022-05-12 | XR_ITS ---
Portable chest x-ray Comparison: 05/06/2022 Clinical History: Cough Findings: Lungs are clear, without focal consolidation or pleural effusion. Cardiomediastinal silho uette is stable. Bones and soft tissues are unremarkable. Impression: Clear lungs. Reviewed, dictated and finalized at location . NSICS ANALYST Impression: Clear lungs.
--- NOTE | 2022-05-12 12:05 | ECG_ITS ---
Measurements Intervals [place] Rate: 58 P: 38 WI: 204 QRS: -4 QRSD: 85 T: 9 QT: 412 QTc: 405 Interpretive Statements SINUS BRADYCARDIA WITH SINUS ARRHYTHMIA BORDERLINE AV CONDUCTION DELAY VOLTAGE CRITERIA FOR LVH BASELINE ARTIFACT- I, II, III, AVR, AVL, AVF, V1-V2 BORDERLINE ECG COMPARED TO ECG 05/05/2022 16:34:55 SINUS BRADYCARDIA NOW PRESENT Electronically Signed On 05-12-2022 13:00:24 [employer] by Dennys Burdick D.O.
--- NOTE | 2022-05-12 12:13 | ED.AMS ---
HPI - Altered Mental Status General Chief Complaint: Altered Mental Status Stated Complaint: AMS Time Seen by Provider: 05/12/22 12:00 History of Present Illness HPI narrative: Patient is an 82-year-old male with a history of dementia, CKD, hypertension presenting with altered mental status. Patient was discharged from this facility 2 days ago after being admitted for physical debility and declining cognitive abilities. He was started on dementia medications and he was able to be discharged to a [place] [facility] with 24-hour care. Today, EMS was called for reports of cardiac arrest. When EMS arrived, the patient was awake with a pulse. He became alert with loud verbal stimuli. Currently, the patient states that he feels tired. He is following commands in all 4 extremities. He denies chest pain, abdominal pain, nausea, headache, numbness, focal weakness. Related Data Home Medications Medication Instructions Recorded Confirmed aspirin 81 mg tablet,delayed 81 mg PO DAILY 03/14/19 05/05/22 release (Adult Low Dose Aspirin) multivitamin 1 tablet PO 1200 03/14/19 05/05/22 polyethylene glycol 3350 17 17 gm PO DAILY PRN Constipation 12/10/19 05/05/22 gram/dose oral powder (Miralax) acetaminophen 500 mg tablet 500 mg PO Q6H PRN Pain 08/14/20 05/05/22 (Tylenol Extra Strength) cranberry fruit concentrate 250 mg 250 mg PO BID 11/09/21 05/05/22 chewable tablet (Azo Cranberry) ctwhvccxegm-pyobctxmz-efy C-Mn 500 1 cap PO BID 11/09/21 05/05/22 mg-400 mg capsule (Glucosamine Chondroitin Maximum Strength) omega 8-aqv-oit-fish oil 1,000 mg 1,000 cap PO 1700 11/09/21 05/05/22 (120 mg-180 mg) capsule (Fish Oil) pravastatin 20 mg tablet 20 mg PO HS 11/09/21 05/05/22 lisinopril 40 mg tablet 40 mg PO BID 02/06/22 05/05/22 amlodipine 2.5 mg tablet 2.5 mg PO DAILY 05/05/22 05/05/22 carvedilol 12.5 mg tablet 12.5 mg PO BID 05/05/22 05/05/22 finasteride 5 mg tablet 5 mg PO DAILY 01/18/23 01/18/23 folic acid-vit B6-vit B12 2.2 0.5 tablet PO DAILY 05/05/22 05/05/22 mg-25 mg-0.5 mg tablet (Folplex) food supplemt, lactose-reduced 8 ea PO DAILY 05/05/22 05/05/22 (Ensure oral liquid) peg 400-propylene glycol 0.4 %-0.3 1 drp BID 05/05/22 05/05/22 % eye drops (Systane Ultra) Allergies Allergy/AdvReac Type Severity Reaction Status Date / Time hydrochlorothiazide Allergy Unknown Hyponatremi Verified 05/05/22 22:26 a Review of Systems Review of Systems: All systems reviewed & are unremarkable except as noted in HPI and below PMFSH Past Medical History Medical History Acquired ankle/foot deformity Aftercare following right hip joint replacement surgery Arthralgia Benign essential hypertension Bilateral sacroiliitis Blood in stool BMI 25.0-25.9,adult BPH (benign prostatic hyperplasia) Chronic anemia Chronic pain of right lower extremity CKD (chronic kidney disease) COVID-19 Dementia Disequilibrium syndrome DJD (degenerative joint disease), multiple sites Elevated d-dimer Encounter for routine adult health examination without abnormal findings Fall at home [facility]-up Hyperlipidemia Hypersomnolence Midline low back pain with right-sided sciatica On snf drug therapy Osteopenia Pneumonia Prostate cancer screening Spinal stenosis Subclinical hyperthyroidism Unexplained weight loss Unresponsive episode UTI (urinary tract infection) Vitamin B12 deficiency Vitamin D deficiency Surgical History Surgical History History of cataract extraction History of removal of pigmented skin lesion History of total right hip arthroplasty Presence of right artificial hip joint S/P tonsillectomy Family History Family History Mother Family history of cardiovascular disease Diabetes mellitus Family history of a
[2022-05-12 12:25] LABS: Basophils Percent Auto 0.4 % (0.2-1.2); Eosinophils Absolute Auto 0.1 K/mm3 (0-0.3); Eosinophils Percent Auto 1.3 % (0-4.4); Hematocrit 37.4 % (42.0-52.0); Hemoglobin 12.2 g/dL (14.0-18.0); Immature Granulocyte Absolute 0.04 K/mm3 (0.00-0.031); Immature Granulocyte Percent A 0.6 % (0-0.5); Lymphocytes Absolute Auto 1.06 K/mm3 (0.9-3.2); Lymphocytes Percent Auto 15.5 % (18.3-44.2); Mean Corpuscular HGB Conc 32.6 g/dl (32-36); Mean Corpuscular Volume 95.2 fl (80-100); Mean Platelet Volume 10.4 fl (7.4-10.4); Monocytes Absolute Auto 0.6 K/mm3 (0.1-0.6); Monocytes Percent Auto 8.7 % (2.6-8.5); Neutrophils Percent Auto 73.5 % (45.5-73.1); Platelet Count Result 211 k/mm3 (150-375); Red Blood Count 3.93 M/mm3 (4.6-6.20); Red Cell Distribution Width 15.1 % (11.5-14.5); White Blood Count 6.9 K/mm3 (4.5-10.0)
[2022-05-12] MEDS: SODIUM CHLORIDE 0.9% IV 1,000 ML 999 ML IV CONT ×2 (12:31→13:14)
[2022-05-12 12:36] LABS: Alanine Aminotransferase 26 U/L (6-50); Alkaline Phosphatase 85 U/L (38-126); Anion Gap 5 mmol/L (8-16); Aspartate Amino Transferase 28 U/L (17-59); Bilirubin,Total 0.6 mg/dL (0.2-1.3); Blood Urea Nitrogen 32 mg/dL (9-20); Calcium 9.2 mg/dL (8.4-10.2); Carbon Dioxide 28 mmol/L (22-30); Chloride 101 mmol/L (98-107); Estimated CRCL calculation 35 ml/min; Estimated Glomerular Filt Rate 42; Glucose 120 mg/dL (65-110); INR 1.2; Partial Thromboplastin Time 32.5 SECONDS (22.3-36.8); Prothrombin Time 14.3 Seconds (11.1-14.7); Sodium 134 mmol/L (137-145)
[2022-05-12 12:57] LABS: Appearance Urine Cloudy (Clear); Bilirubin Urine 3+ (Negative); Blood Urine Trace-intact (Negative); Color Urine Yellow (Yellow); Glucose Urine UA Negative (Negative); Ketones Urine 1+ mg/dL (Negative); Leukocyte Esterase Ur Trace LEU/UL (Negative); Nitrate Urine Negative (Negative); Protein Urine 3+ mg/dL (Negative); Specific Grav Ur >= 1.030 (1.001-1.035); pH Urine 5.5 (5.0-9.0)
[2022-05-12 13:01] LABS: Influenza A QL RT-PCR Negative (Negative); Influenza B QL RT-PCR Negative (Negative); SARS-CoV-2 RNA PCR Negative
[2022-05-12 13:06] LABS: Bacteria Urine Trace /hpf; Hyaline Casts Urine 20-29 /lpf; Mucus Urine Heavy /lpf; Squamous Epithelial Cell Urine Occasional /hpf (Few); WBC Urine 21-30 /hpf
[2022-05-12 13:09] LABS: Add Urine Microscopic? YES
--- NOTE | 2022-05-12 19:24 | PC.NURSE ---
Assumed care of pt. Report from WESTLEY Gastelum
== END 2022-05-12 22:39 ==
PROVIDERS: Emergency Provider Emergency Medicine; PCP Internal Medicine
DX: E86.0 Dehydration (principal); Z20.822 Contact with and (suspected) exposure to COVID-19; I12.9 Hypertensive chronic kidney disease with stage 1 through stage 4 chronic kidney disease, or unspecified chronic kidney disease; N18.9 Chronic kidney disease, unspecified; F03.90 Unspecified dementia, unspecified severity, without behavioral disturbance, psychotic disturbance, mood disturbance, and anxiety; Z86.16 Personal history of COVID-19
CPT/HCPCS: 36415; 71045; 80053; 81001; 83605; 85025; 85610; 85730; 87086; 87636; 93005; 96360; 96361; 99284; J7030

== ENCOUNTER 2022-07-14 20:50 | Observation (INO) | payer MEDICARE, SELFPAY ==
[2022-07-14 20:53] VITALS: BP 161/83; PULSE 70; RESP 18; TEMP 36.6; O2SAT 99
[2022-07-14 21:28] LABS: Appearance Urine Turbid (Clear); Bacteria Urine 4+ /hpf; Bilirubin Urine Negative (Negative); Blood Urine 3+ (Negative); Color Urine Yellow (Yellow); Glucose Urine UA Negative (Negative); Ketones Urine Negative (Negative); Leukocyte Esterase Ur 3+ LEU/UL (Negative); Need Manual Microscopic Reviewed; Nitrate Urine Positive (Negative); Protein Urine Trace mg/dL (Negative); RBC Urine >100 /hpf (0-2); Specific Grav Ur 1.007 (1.001-1.035); Squamous Epithelial Cell Urine None seen /hpf (Few); Urobilinogen Urine 0.2 mg/dL (<2.0); WBC Urine >100 /hpf
[2022-07-14 21:30] LABS: Add Urine Microscopic? YES
--- NOTE | 2022-07-14 21:55 | ECG_ITS ---
Measurements Intervals [place] Rate: 68 P: 55 AR: 220 QRS: -4 QRSD: 81 T: 14 QT: 336 QTc: 359 Interpretive Statements SINUS RHYTHM WITH FIRST DEGREE AV BLOCK LOW QRS VOLTAGE IN PRECORDIAL LEADS LEFT VENTRICULAR HYPERTROPHY BASELINE ARTIFACT- I, II, III, AVR, AVL, AVF, V1-V6 BORDERLINE ECG COMPARED TO ECG 05/12/2022 12:07:04 SINUS RHYTHM NOW PRESENT FIRST DEGREE AV BLOCK NOW PRESENT Electronically Signed On 07-15-2022 6:51:58 CDT by Dennys Burdick D.O.
--- NOTE | 2022-07-14 21:58 | ED.GENADULT ---
HPI - General Adult General Chief complaint: Urogenital-Male Stated complaint: catheter change Time Seen by Provider: 07/14/22 21:37 History of Present Illness HPI narrative: This is an 82-year-old male presenting ED with a chief complaint of catheter malfunction and abdominal pain. Starting yesterday the family noticed that his chronic indwelling catheter had stopped draining. There is leakage of urine around the Chiu insertion site. It was foul smelling. Patient was also complaining of pain in the suprapubic area. Patient denies fever chills chest pain difficulty breathing. His abdominal pain improved after his Chiu was replaced and is bladder was drained. Patient is also noted the family has seemed more confused and weak over the last several days. Related Data Home Medications Medication Instructions Recorded Confirmed aspirin 81 mg tablet,delayed 81 mg PO DAILY 03/14/19 06/23/22 release (Adult Low Dose Aspirin) polyethylene glycol 3350 17 17 gm PO DAILY PRN Constipation 12/10/19 06/23/22 gram/dose oral powder (Miralax) cranberry fruit concentrate 250 mg 250 mg PO BID 11/09/21 06/23/22 chewable tablet (Azo Cranberry) jzqrqfeivih-ocwlhdxrw-cfg C-Mn 500 1 cap PO BID 11/09/21 06/23/22 mg-400 mg capsule (Glucosamine Chondroitin Maximum Strength) pravastatin 20 mg tablet 20 mg PO HS 11/09/21 06/23/22 finasteride 5 mg tablet 5 mg PO DAILY 05/05/22 06/23/22 folic acid-vit B6-vit B12 2.2 0.5 tablet PO DAILY 05/05/22 06/23/22 mg-25 mg-0.5 mg tablet (Folplex) calcium carbonate 600 mg calcium 600 mg PO DAILY 06/08/22 06/23/22 (1,500 mg) tablet (Calcium) glucosamine telg-wplad-2-vit E 500 cap PO BID 06/08/22 06/23/22 mg-400 mg-5 unit capsule (Glucosamine-Fish Oil) magnesium 200 mg tablet 200 mg PO DAILY 06/08/22 06/23/22 sulfamethoxazole 800 1 tablet PO Q12H 06/08/22 06/23/22 mg-trimethoprim 160 mg tablet (Bactrim DS) vitamin E (dl, acetate) 180 mg 180 mg PO DAILY 06/08/22 06/23/22 (400 unit) capsule fresh kote topical 06/23/22 06/23/22 tamsulosin 0.4 mg capsule 0.4 mg PO QHS 06/23/22 06/23/22 Allergies Allergy/AdvReac Type Severity Reaction Status Date / Time hydrochlorothiazide Allergy Unknown Hyponatremi Verified 07/14/22 21:19 a [facility] Past Medical History Medical History Acquired ankle/foot deformity Aftercare following right hip joint replacement surgery Arthralgia Benign essential hypertension Bilateral sacroiliitis Blood in stool BMI 25.0-25.9,adult BPH (benign prostatic hyperplasia) CHF (congestive heart failure) Chronic anemia Chronic pain of right lower extremity CKD (chronic kidney disease) COVID-19 Dementia Disequilibrium syndrome DJD (degenerative joint disease), multiple sites Elevated d-dimer Encounter for routine adult health examination without abnormal findings Fall at home [facility] follow-up Hyperlipidemia Hypersomnolence Midline low back pain with right-sided sciatica On terminal manager drug therapy Osteopenia Pneumonia Prostate cancer screening Spinal stenosis Subclinical hyperthyroidism Unexplained weight loss Unresponsive episode UTI (urinary tract infection) Vitamin B12 deficiency Vitamin D deficiency Surgical History Surgical History History of cataract extraction History of removal of pigmented skin lesion History of total right hip arthroplasty Presence of right artificial hip joint S/P tonsillectomy Family History Family History Mother Family history of cardiovascular disease Diabetes mellitus Family history of arthritis Family history of coronary artery disease Hypertension Acute myocardial infarction Father Family history of arthritis Family history of coronary artery disease Sibling Glaucoma Hypertension Social History Social His
[2022-07-14] MEDS: SODIUM CHLORIDE 0.9% IV 1,000 ML 999 ML IV CONT (22:11)
[2022-07-14 22:14] LABS: Basophils Percent Auto 0.2 % (0.2-1.2); Eosinophils Absolute Auto 0.2 K/mm3 (0-0.3); Eosinophils Percent Auto 4.1 % (0-4.4); Hematocrit 34.4 % (42.0-52.0); Hemoglobin 11.4 g/dL (14.0-18.0); Immature Granulocyte Absolute 0.02 K/mm3 (0.00-0.031); Immature Granulocyte Percent A 0.4 % (0-0.5); Lymphocytes Absolute Auto 1.44 K/mm3 (0.9-3.2); Lymphocytes Percent Auto 26.8 % (18.3-44.2); Mean Corpuscular HGB Conc 33.1 g/dl (32-36); Mean Corpuscular Hemoglobin 31.9 pg (26-34); Mean Corpuscular Volume 96.4 fl (80-100); Mean Platelet Volume 10.4 fl (7.4-10.4); Monocytes Absolute Auto 0.7 K/mm3 (0.1-0.6); Monocytes Percent Auto 12.3 % (2.6-8.5); Neutrophils Percent Auto 56.2 % (45.5-73.1); Platelet Count Result 226 k/mm3 (150-375); Red Blood Count 3.57 M/mm3 (4.6-6.20); White Blood Count 5.4 K/mm3 (4.5-10.0)
[2022-07-14 22:24] LABS: Anion Gap 6 mmol/L (8-16); Blood Urea Nitrogen 25 mg/dL (9-20); Calcium 9.9 mg/dL (8.4-10.2); Carbon Dioxide 29 mmol/L (22-30); Chloride 100 mmol/L (98-107); Estimated CRCL calculation 45 ml/min; Estimated Glomerular Filt Rate > 60; Glucose 96 mg/dL (65-110); Potassium 4.2 mmol/L (3.4-5.0); Sodium 135 mmol/L (137-145)
[2022-07-15 01:15] VITALS: PULSE 68; O2SAT 98
--- NOTE | 2022-07-15 02:27 | PM.IMHP ---
H&P: HPI History of Present Illness Date/Time: 07/15/22 02:27 Chief Complaint: Catheter malfunction Narrative: Patient is an 82-year-old male coming from home with past medical history of hypertension hyperlipidemia diastolic CHF coming in for catheter malfunction and leakage. Patient was admitted about a month ago for a UTI and was found to have some urinary retention for which he was discharged with a Chiu catheter. The original plan was for him to follow-up with urology however patient never got to do so. He is unsure if his catheter was never changed. On arrival to the emergency room supposedly patient was noted to have his catheter not draining anything today with some leakage around the tube. He supposedly complained of minimal abdominal pain. His catheter was exchanged in the ER and foul-smelling cloudy urine was obtained. Patient is seen in his room. He is oriented to person place and knew it was June 2022. He denies any headache, fever, nausea or vomiting. Denies any chest pain or abdominal pain. He said he lives at home with his and is able to ambulate by himself without any assistive device. Patient feels generalized weakness without any focal deficit. On review his last discharge summary the original plan was for him to go to a residential as recommended by the physical therapist, however his family insisted on just bring him home. There is a question if the family is able to continue caring for this patient with his Chiu catheter in place. We will consult physical therapy and casework supervisor to assist with discharge needs. Review of Systems Review of Systems: no fever or weight loss no vision changes, no eye discharge no throat pain, no hoarseness, no lymphadenopathy no chest pain, no palpitations no coughing, no wheezing no abdominal pain, no diarrhea, no nausea, no vomiting no dysuria, no vaginal discharge no leg swelling, no edema no suicidal or homicidal ideation PMF Past Medical History Medical History Acquired ankle/foot deformity Aftercare following right hip joint replacement surgery Arthralgia Benign essential hypertension Bilateral sacroiliitis Blood in stool BMI 25.0-25.9,adult BPH (benign prostatic hyperplasia) CHF (congestive heart failure) Chronic anemia Chronic pain of right lower extremity CKD (chronic kidney disease) COVID-19 Dementia Disequilibrium syndrome DJD (degenerative joint disease), multiple sites Elevated d-dimer Encounter for routine adult health examination without abnormal findings Fall at home [facility] follow-up Hyperlipidemia Hypersomnolence Midline low back pain with right-sided sciatica On ore charger drug therapy Osteopenia Pneumonia Prostate cancer screening Spinal stenosis Subclinical hyperthyroidism Unexplained weight loss Unresponsive episode UTI (urinary tract infection) Vitamin B12 deficiency Vitamin D deficiency Surgical History Surgical History History of cataract extraction History of removal of pigmented skin lesion History of total right hip arthroplasty Presence of right artificial hip joint S/P tonsillectomy Family History Family History Mother Family history of cardiovascular disease Diabetes mellitus Family history of arthritis Family history of coronary artery disease Hypertension Acute myocardial infarction Father Family history of arthritis Family history of coronary artery disease Sibling Glaucoma Hypertension Social History Social History Social History: He is retired from [employer]. He lives at home with his . He has no children. His PCP is Dr. Orta. He has designated his , Kasie, as his surrogate decision maker. code status full code Smoking status: Never s
--- NOTE | 2022-07-15 03:50 | PC.NURSE ---
Pt admitted to 323[facility]2 from ER via cart spouse and caregiver with pt. Pt alert to self, place, forgetful, orientation varies per spouse. Pt calm flat affect , cooperative. Limited ability to move self. Chronic palmer that stopped draining and proceeded to cause UTI -palmer changed in ER. Room air lungs decreased. SL skin intact. Pt obese, very difficult to move and change pt position. Per spouse pt needs to have food cut and be fed. BM 07/14/22. Fall precautions HOB elevated bed alarm on. Room across from nursing station.
[2022-07-15 06:00] VITALS: BP 151/78; PULSE 72; RESP 20; TEMP 36.4; O2SAT 98
[2022-07-15] MEDS: TAMSULOSIN HCL 0.4 MG CAPSULE PO (08:09)
[2022-07-15] MEDS: lisinopriL 20 MG TABLET PO ×2 (08:09→18:26)
[2022-07-15] MEDS: ASPIRIN 81 MG CHEWABLE TABLET PO (08:09)
[2022-07-15] MEDS: PRAVASTATIN SODIUM 20 MG TABLET PO (08:09)
[2022-07-15] MEDS: FINASTERIDE 5 MG TABLET PO (08:09)
[2022-07-15] MEDS: ENOXAPARIN 40 MG/0.4 ML SYRINGE SUB-Q (08:10)
--- NOTE | 2022-07-15 10:15 | P.PNIM_ITS ---
Progress Note: A&P Assessment and Plan (1) Acute UTI: Code(s): N39.0 - Urinary tract infection, site not specified Status: Acute Assessment and Plan: * Recent insertion of Chiu catheter due to urinary retention * Presented with weakness, abdominal pain cloudy foul smelling urine * Continue with ceftriaxone. * Urine cultures have been obtained * adjust antibiotics according to sensitivities (2) Dementia: Code(s): F03.90 - Unspecified dementia, unspecified severity, without behavioral disturbance, psychotic disturbance, mood disturbance, and anxiety Status: Acute Assessment and Plan: * Questionable dementia * Supposedly has been having progressive decline over the past few months. * Walks at home although on ER discussion with family members patient able to move minimally only and requires a Nick lift to to move around. * Currently appears stable, oriented to person and place. * Frequent reorientation (3) Generalized weakness: Code(s): R53.1 - Weakness Status: Acute Assessment and Plan: * No focal deficits, able to follow commands. * As per review of previous discharge summary was recommended by Physical therapy to get rehab * family refused SNF at that time * Re-consult Physical therapy for further rehab recommendations and will most likely need OT as well will consult for them to see in the am * residence manager will need to be involved in case family unable to take care of this patient at home (4) BPH (benign prostatic hyperplasia): Qualifiers: Lower urinary tract symptom presence: symptoms present Lower urinary tract symptom detail: urinary frequency Qualified Code(s): N40.1 - Benign prostatic hyperplasia with lower urinary tract symptoms; R35.0 - Frequency of micturition Code(s): N40.0 - Benign prostatic hyperplasia without lower urinary tract symptoms Status: Acute Assessment and Plan: * Noted urinary retention last hospitalization * Chronic catheter inserted * Unknown last change date * Urology follow up was warranted however did not follow up * Flomax initiated at that visit * Will need a void trail at sometime * trend urine output * Adjust therapy as indicated Time Spent With Patient Time: 46 minutes Time with patient: Greater than 35 minutes Subjective Date/time seen: 07/15/22 1015 Interval history: 07/15/22 1015 patient is lying in bed. Patient does know the date the year. He also knew that he was in the hospital. He stated that he has had the Chiu for a couple weeks however it appears that it was from his last hospitalization at [place] On 06/08/2022. Urine was noted to be pretty dirty in the ED. Catheter was changed. He denies any current chest pain, shortness a breath, nausea, vomiting, diarrhea or constipation. He did state that his legs are pretty weak, and feels constipated. 07/15/22? 02:27 Patient is an 82-year-old male coming from home with past medical history of hypertension hyperlipidemia diastolic CHF coming in for catheter malfunction and leakage.? Patient was admitted about a month ago for a UTI and was found to have some urinary retention for which he was discharged with a Chiu catheter.? The original plan was for him to follow-up with urology however patient never got to do so.? He is unsure if his catheter was never changed.? On arrival to the emergency room supposedly patient was noted to have his catheter n
--- NOTE | 2022-07-15 10:15 | PM.IMPN ---
Progress Note: A&P Assessment and Plan (1) Acute UTI: Code(s): N39.0 - Urinary tract infection, site not specified Status: Acute Assessment and Plan: Recent insertion of Chiu catheter due to urinary retention Presented with weakness, abdominal pain cloudy foul smelling urine Continue with ceftriaxone. Urine cultures have been obtained adjust antibiotics according to sensitivities (2) Dementia: Code(s): F03.90 - Unspecified dementia, unspecified severity, without behavioral disturbance, psychotic disturbance, mood disturbance, and anxiety Status: Acute Assessment and Plan: Questionable dementia Supposedly has been having progressive decline over the past few months. Walks at home although on ER discussion with family members patient able to move minimally only and requires a Nick lift to to move around. Currently appears stable, oriented to person and place. Frequent reorientation (3) Generalized weakness: Code(s): R53.1 - Weakness Status: Acute Assessment and Plan: No focal deficits, able to follow commands. As per review of previous discharge summary was recommended by Physical therapy to get rehab family refused SNF at that time Re-consult Physical therapy for further rehab recommendations and will most likely need OT as well will consult for them to see in the am clinic office manager will need to be involved in case family unable to take care of this patient at home (4) BPH (benign prostatic hyperplasia): Qualifiers: Lower urinary tract symptom presence: symptoms present Lower urinary tract symptom detail: urinary frequency Qualified Code(s): N40.1 - Benign prostatic hyperplasia with lower urinary tract symptoms; R35.0 - Frequency of micturition Code(s): N40.0 - Benign prostatic hyperplasia without lower urinary tract symptoms Status: Acute Assessment and Plan: Noted urinary retention last hospitalization Chronic catheter inserted Unknown last change date Urology follow up was warranted however did not follow up Flomax initiated at that visit Will need a void trail at sometime trend urine output Adjust therapy as indicated Time Spent With Patient Time: 46 minutes Time with patient: Greater than 35 minutes Subjective Date/time seen: 07/15/22 1015 Interval history: 07/15/22 1015 patient is lying in bed. Patient does know the date the year. He also knew that he was in the hospital. He stated that he has had the Chiu for a couple weeks however it appears that it was from his last hospitalization at [place] On 06/08/2022. Urine was noted to be pretty dirty in the ED. Catheter was changed. He denies any current chest pain, shortness a breath, nausea, vomiting, diarrhea or constipation. He did state that his legs are pretty weak, and feels constipated. 07/15/22? 02:27 Patient is an 82-year-old male coming from home with past medical history of hypertension hyperlipidemia diastolic CHF coming in for catheter malfunction and leakage.? Patient was admitted about a month ago for a UTI and was found to have some urinary retention for which he was discharged with a Chiu catheter.? The original plan was for him to follow-up with urology however patient never got to do so.? He is unsure if his catheter was never changed.? On arrival to the emergency room supposedly patient was noted to have his catheter not draining anything today with some leakage around the tube.? He supposedly complained of minimal abdominal pain.? His catheter was exchanged in the ER and foul-smelling cloudy urine was obtained. Patient is seen in his room.? He is oriented to person place and knew it was June 2022.? He denies any headache, fever, nausea or vomiting.? Denies any chest pain or abdominal pain.? He said he lives at home with his and is able to ambulate by himself without an
[2022-07-15 14:00] VITALS: BP 148/75; PULSE 66; RESP 17; TEMP 36.6; O2SAT 98
[2022-07-15] MEDS: FERROUS SULFATE 324 MG TABLET PO (18:25)
--- NOTE | 2022-07-15 19:40 | PC.NURSE ---
Pt has been sleeping periodically throughout shift. Pt is A&O to person when answering questions today. Pt requires assistance with meals. Pt was unable to participate and contribute in care. Pt was monitored for any changes in status during the shift.
[2022-07-15 20:35] VITALS: PULSE 67; RESP 18; O2SAT 97
[2022-07-15 22:00] VITALS: BP 146/75; PULSE 67; RESP 18; TEMP 36.2; O2SAT 97
[2022-07-16 06:00] VITALS: BP 180/83; PULSE 77; RESP 18; TEMP 36; O2SAT 98
[2022-07-16 07:23] LABS: Basophils Percent Auto 0.6 % (0.2-1.2); Eosinophils Absolute Auto 0.2 K/mm3 (0-0.3); Eosinophils Percent Auto 3.7 % (0-4.4); Hematocrit 31.8 % (42.0-52.0); Hemoglobin 10.2 g/dL (14.0-18.0); Immature Granulocyte Absolute 0.02 K/mm3 (0.00-0.031); Immature Granulocyte Percent A 0.4 % (0-0.5); Lymphocytes Absolute Auto 1.46 K/mm3 (0.9-3.2); Lymphocytes Percent Auto 31.5 % (18.3-44.2); Mean Corpuscular HGB Conc 32.1 g/dl (32-36); Mean Corpuscular Hemoglobin 31.5 pg (26-34); Mean Corpuscular Volume 98.1 fl (80-100); Mean Platelet Volume 10.4 fl (7.4-10.4); Monocytes Absolute Auto 0.5 K/mm3 (0.1-0.6); Monocytes Percent Auto 11.4 % (2.6-8.5); Neutrophils Absolute Auto 2.4 K/mm3 (1.3-6.7); Neutrophils Percent Auto 52.4 % (45.5-73.1); Platelet Count Result 205 k/mm3 (150-375); Red Blood Count 3.24 M/mm3 (4.6-6.20); Red Cell Distribution Width 14.9 % (11.5-14.5); White Blood Count 4.6 K/mm3 (4.5-10.0)
[2022-07-16 07:42] LABS: Alanine Aminotransferase 27 U/L (6-50); Albumin Level 3.6 g/dL (3.5-5.1); Alkaline Phosphatase 87 U/L (38-126); Anion Gap 6 mmol/L (8-16); Aspartate Amino Transferase 28 U/L (17-59); Bilirubin,Total 0.6 mg/dL (0.2-1.3); Blood Urea Nitrogen 19 mg/dL (9-20); Calcium 9.5 mg/dL (8.4-10.2); Carbon Dioxide 30 mmol/L (22-30); Chloride 102 mmol/L (98-107); Estimated CRCL calculation 42 ml/min; Estimated Glomerular Filt Rate 58; Glucose 80 mg/dL (65-110); Sodium 138 mmol/L (137-145)
[2022-07-16] MEDS: FERROUS SULFATE 324 MG TABLET PO ×2 (09:19→18:44)
[2022-07-16] MEDS: ASPIRIN 81 MG ENTERIC TABLET PO (09:20)
[2022-07-16] MEDS: ENOXAPARIN 40 MG/0.4 ML SYRINGE SUB-Q (09:20)
[2022-07-16] MEDS: FINASTERIDE 5 MG TABLET PO (09:20)
[2022-07-16] MEDS: VITAMIN B CMPLX/VIT C/FOLIC AC 1 CAPSULE 1 CAP PO (09:21)
[2022-07-16] MEDS: lisinopriL 20 MG TABLET PO ×2 (09:21→18:44)
[2022-07-16 14:00] VITALS: BP 150/75; PULSE 73; RESP 20; TEMP 36.2; O2SAT 97
--- NOTE | 2022-07-16 14:13 | P.PNIM_ITS ---
Progress Note: A&P Assessment and Plan (1) Acute UTI: Code(s): N39.0 - Urinary tract infection, site not specified Status: Acute Assessment and Plan: * Recent insertion of Chiu catheter due to urinary retention. Plan to remove Chiu catheter and have voiding trial. If patient fails voiding trial will reinsert catheter and advise urology follow-up. * Presented with weakness, abdominal pain cloudy foul smelling urine * Continue with ceftriaxone. * Urine cultures positive for Citrobacter farmeri. Awaiting sensitivity. * adjust antibiotics according to sensitivities (2) Dementia: Code(s): F03.90 - Unspecified dementia, unspecified severity, without behavioral disturbance, psychotic disturbance, mood disturbance, and anxiety Status: Acute Assessment and Plan: * Questionable dementia * Supposedly has been having progressive decline over the past few months. * Walks at home although on ER discussion with family members patient able to move minimally only and requires a Nick lift to to move around. * Currently appears stable, oriented to person and place. * Frequent reorientation (3) Generalized weakness: Code(s): R53.1 - Weakness Status: Acute Assessment and Plan: * No focal deficits, able to follow commands. * As per review of previous discharge summary was recommended by Physical therapy to get rehab * family refused SNF at that time * Re-consult Physical therapy for further rehab recommendations and will most likely need OT as well will consult for them to see in the am * assistant store manager trainee will need to be involved in case family unable to take care of this patient at home (4) BPH (benign prostatic hyperplasia): Qualifiers: Lower urinary tract symptom detail: urinary frequency Lower urinary tract symptom presence: symptoms present Qualified Code(s): N40.1 - Benign prostatic hyperplasia with lower urinary tract symptoms; R35.0 - Frequency of micturition Code(s): N40.0 - Benign prostatic hyperplasia without lower urinary tract symptoms Status: Acute Assessment and Plan: * Noted urinary retention last hospitalization * Chronic catheter inserted * Unknown last change date * Urology follow up was warranted however did not follow up * Flomax initiated at that visit * Will need a void trail at sometime * trend urine output * Adjust therapy as indicated Subjective Date/time seen: 07/16/22 14:13 Interval history: patient appears confused although he is able to answer name, situation, place and time. Patient does have difficulty following instructions although unsure if this is due to his hearing and/or inability to be mobile. Patient does not have any complaints at this time. Discussed with nurse and plan to remove Chiu catheter and have a voiding trial. Awaiting for culture sensitivity to return. Review of Systems Review of Systems: All systems reviewed & are unremarkable except as noted in HPI and below Exam Narrative: GENERAL: Comfortable, no acute distress HENMT: moist mucous membranes EYES: EOM intact b/l NECK: no lymphadenopathy RESPIRATORY: clear to auscultation CARDIO: RRR GI: soft, nontender, bowel sounds present SKIN: no rashes EXTREMITIES: no edema, redness or tenderness Objective Data Vital Signs Vital Signs: Vital Signs - 2
--- NOTE | 2022-07-16 14:13 | PM.IMPN ---
Progress Note: A&P Assessment and Plan (1) Acute UTI: Code(s): N39.0 - Urinary tract infection, site not specified Status: Acute Assessment and Plan: Recent insertion of Chiu catheter due to urinary retention. Plan to remove Chiu catheter and have voiding trial. If patient fails voiding trial will reinsert catheter and advise urology follow-up. Presented with weakness, abdominal pain cloudy foul smelling urine Continue with ceftriaxone. Urine cultures positive for Citrobacter farmeri. Awaiting sensitivity. adjust antibiotics according to sensitivities (2) Dementia: Code(s): F03.90 - Unspecified dementia, unspecified severity, without behavioral disturbance, psychotic disturbance, mood disturbance, and anxiety Status: Acute Assessment and Plan: Questionable dementia Supposedly has been having progressive decline over the past few months. Walks at home although on ER discussion with family members patient able to move minimally only and requires a Nick lift to to move around. Currently appears stable, oriented to person and place. Frequent reorientation (3) Generalized weakness: Code(s): R53.1 - Weakness Status: Acute Assessment and Plan: No focal deficits, able to follow commands. As per review of previous discharge summary was recommended by Physical therapy to get rehab family refused SNF at that time Re-consult Physical therapy for further rehab recommendations and will most likely need OT as well will consult for them to see in the am social media campaign manager will need to be involved in case family unable to take care of this patient at home (4) BPH (benign prostatic hyperplasia): Qualifiers: Lower urinary tract symptom detail: urinary frequency Lower urinary tract symptom presence: symptoms present Qualified Code(s): N40.1 - Benign prostatic hyperplasia with lower urinary tract symptoms; R35.0 - Frequency of micturition Code(s): N40.0 - Benign prostatic hyperplasia without lower urinary tract symptoms Status: Acute Assessment and Plan: Noted urinary retention last hospitalization Chronic catheter inserted Unknown last change date Urology follow up was warranted however did not follow up Flomax initiated at that visit Will need a void trail at sometime trend urine output Adjust therapy as indicated Subjective Date/time seen: 07/16/22 14:13 Interval history: patient appears confused although he is able to answer name, situation, place and time. Patient does have difficulty following instructions although unsure if this is due to his hearing and/or inability to be mobile. Patient does not have any complaints at this time. Discussed with nurse and plan to remove Chiu catheter and have a voiding trial. Awaiting for culture sensitivity to return. Review of Systems Review of Systems: All systems reviewed & are unremarkable except as noted in HPI and below Exam Narrative: GENERAL: Comfortable, no acute distress HENMT: moist mucous membranes EYES: EOM intact b/l NECK: no lymphadenopathy RESPIRATORY: clear to auscultation CARDIO: RRR GI: soft, nontender, bowel sounds present SKIN: no rashes EXTREMITIES: no edema, redness or tenderness Objective Data Vital Signs Vital Signs: Vital Signs - 24 hr 07/15/22 22:00 07/15/22 20:35 07/16/22 06:00 Temperature 97.1 F L 96.8 F L Pulse Rate 67 67 77 Respiratory Rate 18 18 18 Blood Pressure 146/75 H 180/83 H Pulse Oximetry 97 97 98 Oxygen Delivery Room Air 07/16/22 09:20 Temperature Pulse Rate Respiratory Rate Blood Pressure Pulse Oximetry Oxygen Delivery Room Air Intake/Output Intake/Output: Intake & Output 07/13/22 07/14/22 07/15/22 07/16/22 23:59 23:59 23:59 23:59 Intake Total 1050 50 480 Output Total 1000 700 Balance 1050 -950 -220 Meds/Results Medicat
[2022-07-16 14:42] VITALS: O2SAT 95
--- NOTE | 2022-07-16 17:40 | PC.NURSE ---
Patient urinated small amount during incontinent episode post palmer discontinuation. Left voicemail to inform TAMIKA Trammell.
[2022-07-16 20:00] VITALS: PULSE 73; RESP 20; O2SAT 95
[2022-07-16 21:33] VITALS: BP 176/72; PULSE 66; RESP 18; TEMP 36.6; O2SAT 98
[2022-07-16] MEDS: TAMSULOSIN HCL 0.4 MG CAPSULE PO (22:00)
[2022-07-16] MEDS: PRAVASTATIN SODIUM 20 MG TABLET PO (22:00)
[2022-07-17 06:00] VITALS: BP 186/88; PULSE 68; RESP 16; TEMP 36.4; O2SAT 93
[2022-07-17] MEDS: hydrALAZINE HCL 20 MG/ML VIAL 10 MG IV PUSH (06:58)
[2022-07-17 07:09] LABS: Basophils Percent Auto 0.4 % (0.2-1.2); Eosinophils Absolute Auto 0.2 K/mm3 (0-0.3); Hematocrit 32.4 % (42.0-52.0); Hemoglobin 10.5 g/dL (14.0-18.0); Immature Granulocyte Absolute 0.02 K/mm3 (0.00-0.031); Immature Granulocyte Percent A 0.4 % (0-0.5); Lymphocytes Absolute Auto 1.39 K/mm3 (0.9-3.2); Lymphocytes Percent Auto 27.7 % (18.3-44.2); Mean Corpuscular HGB Conc 32.4 g/dl (32-36); Mean Corpuscular Hemoglobin 31.3 pg (26-34); Mean Corpuscular Volume 96.4 fl (80-100); Mean Platelet Volume 10.6 fl (7.4-10.4); Monocytes Absolute Auto 0.6 K/mm3 (0.1-0.6); Monocytes Percent Auto 12.2 % (2.6-8.5); Neutrophils Absolute Auto 2.8 K/mm3 (1.3-6.7); Neutrophils Percent Auto 56.3 % (45.5-73.1); Platelet Count Result 219 k/mm3 (150-375); Red Blood Count 3.36 M/mm3 (4.6-6.20); Red Cell Distribution Width 14.4 % (11.5-14.5)
[2022-07-17 07:22] LABS: Alanine Aminotransferase 26 U/L (6-50); Albumin Level 3.8 g/dL (3.5-5.1); Alkaline Phosphatase 84 U/L (38-126); Anion Gap 7 mmol/L (8-16); Aspartate Amino Transferase 28 U/L (17-59); Bilirubin,Total 0.5 mg/dL (0.2-1.3); Blood Urea Nitrogen 20 mg/dL (9-20); Calcium 9.7 mg/dL (8.4-10.2); Carbon Dioxide 28 mmol/L (22-30); Chloride 103 mmol/L (98-107); Estimated CRCL calculation 50 ml/min; Estimated Glomerular Filt Rate > 60; Glucose 90 mg/dL (65-110); Potassium 3.8 mmol/L (3.4-5.0); Sodium 138 mmol/L (137-145)
[2022-07-17] MEDS: FINASTERIDE 5 MG TABLET PO (08:51)
[2022-07-17] MEDS: lisinopriL 20 MG TABLET PO (08:51)
[2022-07-17] MEDS: ENOXAPARIN 40 MG/0.4 ML SYRINGE SUB-Q (08:51)
[2022-07-17] MEDS: ASPIRIN 81 MG ENTERIC TABLET PO (08:51)
[2022-07-17] MEDS: VITAMIN B CMPLX/VIT C/FOLIC AC 1 CAPSULE 1 CAP PO (08:51)
[2022-07-17] MEDS: FERROUS SULFATE 324 MG TABLET PO (08:51)
--- NOTE | 2022-07-17 13:19 | PM.DS ---
DS: Admitting Diagnosis Discharge Date 07/17/22 Admitting Diagnosis Urinary catheter malfunction, UTI DS: Discharge Diagnosis Discharge Diagnosis (1) Acute UTI: Code(s): N39.0 - Urinary tract infection, site not specified Status: Acute Assessment and Plan: Recent insertion of Chiu catheter due to urinary retention. Plan to remove Chiu catheter and have voiding trial. If patient fails voiding trial will reinsert catheter and advise urology follow-up. Presented with weakness, abdominal pain cloudy foul smelling urine Continue with ceftriaxone. Urine cultures positive for Citrobacter farmeri and sensitive to ceftriaxone. Patient transition to cefdinir for total antibiotic therapy of 7 days. (2) Dementia: Code(s): F03.90 - Unspecified dementia, unspecified severity, without behavioral disturbance, psychotic disturbance, mood disturbance, and anxiety Status: Acute Assessment and Plan: Questionable dementia Supposedly has been having progressive decline over the past few months. Walks at home although on ER discussion with family members patient able to move minimally only and requires a Nick lift to to move around. Currently appears stable, oriented to person and place. Frequent reorientation (3) Generalized weakness: Code(s): R53.1 - Weakness Status: Acute Assessment and Plan: No focal deficits, able to follow commands. As per review of previous discharge summary was recommended by Physical therapy to get rehab family refused SNF at that time Patient being discharged home health. (4) BPH (benign prostatic hyperplasia): Qualifiers: Lower urinary tract symptom detail: urinary frequency Lower urinary tract symptom presence: symptoms present Qualified Code(s): N40.1 - Benign prostatic hyperplasia with lower urinary tract symptoms; R35.0 - Frequency of micturition Code(s): N40.0 - Benign prostatic hyperplasia without lower urinary tract symptoms Status: Acute Assessment and Plan: Noted urinary retention last hospitalization Patient presented to the hospital with chronic urinary catheter and was supposed to follow-up with urology to have it removed and this was not done. Catheter was removed and patient passed voiding trial. Flomax initiated at that visit DS: Summary Hospital Course Reason for hospitalization: Urinary catheter malfunction, UTI Hospital Course: This is an 82-year-old man presenting to the ED on 07/15/2022 with chief complaint of catheter malfunction and leakage. Patient has a past medical history significant for hypertension, hyperlipidemia and diastolic congestive heart failure. Patient recently admitted 1 month ago and was having some urinary retention where a catheter was placed. Patient was supposed to follow-up with urology to have catheter removed but there was no evidence of this being done. On arrival to the ED patient's catheter had not drained anything that day although there was leakage around the tube being. Patient also had some abdominal pain as well. The catheter was exchanged in the ER and there was foul-smelling cloudy urine obtained at that time that was sent for culture. Patient alert oriented to person place time and situation. Patient was started on Rocephin. Urine culture came back positive for Citrobacter farmeri which was sensitive to Rocephin. Recommend that patient be transitioned to p.o. cefdinir and continue antibiotic therapy for a total of 7 days. Patient's catheter was removed and voiding trial performed. Patient passed his voiding trial with flying colors and no longer requiring catheter. It was discussed with the patient that catheters are used if someone is unable to urinate not if they are incontinent. Patient did verbalizes understanding. Communication with family made that patient is no longer using a catheter. It
[2022-07-17 14:00] VITALS: BP 128/68; PULSE 65; RESP 14; TEMP 36.3; O2SAT 100
== END 2022-07-17 16:05 | disposition home health service (06) ==
LOC: ANHED 22:34 → ANH3MEDSUR 07-15 09:59
PROVIDERS: Internal Medicine Critical Care Medicine; Nurse Practitioner; Admitting Provider Internal Medicine; Emergency Provider Emergency Medicine; PCP Internal Medicine; Visit Provider Student in an Organized Health Care Education/Training Program
DX: T83.018A Breakdown (mechanical) of other urinary catheter, initial encounter (principal); N39.0 Urinary tract infection, site not specified; B95.7 Other staphylococcus as the cause of diseases classified elsewhere; N40.1 Benign prostatic hyperplasia with lower urinary tract symptoms; R35.0 Frequency of micturition; I13.0 Hypertensive heart and chronic kidney disease with heart failure and stage 1 through stage 4 chronic kidney disease, or unspecified chronic kidney disease; N18.9 Chronic kidney disease, unspecified; I50.9 Heart failure, unspecified; R53.1 Weakness; D64.9 Anemia, unspecified; F03.90 Unspecified dementia, unspecified severity, without behavioral disturbance, psychotic disturbance, mood disturbance, and anxiety; E87.8 Other disorders of electrolyte and fluid balance, not elsewhere classified; H40.9 Unspecified glaucoma; E78.5 Hyperlipidemia, unspecified; E55.9 Vitamin D deficiency, unspecified; M85.80 Other specified disorders of bone density and structure, unspecified site; Z86.16 Personal history of COVID-19; Z79.82 Long term (current) use of aspirin; Z79.899 Other long term (current) drug therapy; Z82.49 Family history of ischemic heart disease and other diseases of the circulatory system; Z83.511 Family history of glaucoma
CPT/HCPCS: 36415; 51702; 80048; 80053; 81001; 83735; 85025; 87077; 87086; 87186; 93005; 96361; 96365; 96366; 96372; 96375; 97162; 99285; A9270; G0378; J0360; J0696; J1650; J7030

== ENCOUNTER 2022-07-30 09:27 | Outpatient (NON) | payer MEDICARE, SELFPAY ==
[2022-07-30 09:48] LABS: Basophils Percent Auto 0.4 % (0.2-1.2); Eosinophils Absolute Auto 0.2 K/mm3 (0-0.3); Hematocrit 34.5 % (42.0-52.0); Hemoglobin 11.4 g/dL (14.0-18.0); Immature Granulocyte Absolute 0.01 K/mm3 (0.00-0.031); Immature Granulocyte Percent A 0.2 % (0-0.5); Lymphocytes Absolute Auto 1.27 K/mm3 (0.9-3.2); Lymphocytes Percent Auto 28.4 % (18.3-44.2); Mean Corpuscular Volume 96.9 fl (80-100); Mean Platelet Volume 10.4 fl (7.4-10.4); Monocytes Absolute Auto 0.4 K/mm3 (0.1-0.6); Monocytes Percent Auto 9.6 % (2.6-8.5); Neutrophils Absolute Auto 2.6 K/mm3 (1.3-6.7); Neutrophils Percent Auto 57.4 % (45.5-73.1); Platelet Count Result 234 k/mm3 (150-375); Red Blood Count 3.56 M/mm3 (4.6-6.20); White Blood Count 4.5 K/mm3 (4.5-10.0)
[2022-07-30 09:59] LABS: Alanine Aminotransferase 26 U/L (6-50); Albumin Level 3.9 g/dL (3.5-5.1); Alkaline Phosphatase 86 U/L (38-126); Anion Gap 5 mmol/L (8-16); Aspartate Amino Transferase 27 U/L (17-59); Bilirubin,Total 0.5 mg/dL (0.2-1.3); Blood Urea Nitrogen 19 mg/dL (9-20); Calcium 9.9 mg/dL (8.4-10.2); Carbon Dioxide 32 mmol/L (22-30); Chloride 101 mmol/L (98-107); Cholesterol 173 mg/dL (0-200); Estimated Glomerular Filt Rate > 60; Glucose 93 mg/dL (65-110); HDL Direct 55 mg/dL; Potassium 3.9 mmol/L (3.4-5.0); Sodium 138 mmol/L (137-145); Triglycerides 114 mg/dL (<150)
[2022-07-30 10:06] LABS: Iron 65 ug/dL (49-181)
[2022-07-30 10:10] LABS: LDL Cholesterol Direct 78 mg/dL
[2022-07-30 10:16] LABS: Percent Iron Saturation 23 % (20-50)
[2022-07-30 10:25] LABS: Free T4 Free Thyroxine 1.66 ng/mL (0.78-2.19)
[2022-07-30 10:30] LABS: Thyroid Stimulating Hormone 0.159 uIU/mL (0.465-4.680)
[2022-07-30 10:32] LABS: Hemoglobin A1C 5.1 % (<5.7)
[2022-07-30 11:06] LABS: Folic Acid > 20.0 ng/mL (2.76->20); Vitamin B12 > 1000.0 pg/mL (239-931)
== END 2022-07-30 09:28 | disposition home or self-care (01) ==
LOC: ANHLAB 09:32 → HOME HLTH 09:34
PROVIDERS: PCP Internal Medicine; Referring Provider Internal Medicine Hematology & Oncology; Visit Provider Internal Medicine
DX: Z13.220 Encounter for screening for lipoid disorders (principal); Z13.29 Encounter for screening for other suspected endocrine disorder; I10 Essential (primary) hypertension; D64.9 Anemia, unspecified; Z79.899 Other long term (current) drug therapy
CPT/HCPCS: 80053; 80061; 82607; 82728; 82746; 83036; 83540; 83550; 84439; 84443; 85025

== ENCOUNTER 2022-11-04 16:31 | Emergency (ER) | payer MEDICARE, SELFPAY ==
[2022-11-04] VITALS (26 sets, daily range): BP systolic 132–180; BP diastolic 81–101; PULSE 61–67; RESP 16–18; TEMP 37; O2SAT 95–100
--- NOTE | ~2022-11-04 | XR_ITS ---
EXAMINATION: XR chest 2V Exam Date/Time: 11/04/2022 17:45 CDT HISTORY: weakness WITH UTI Comparison: 05/12/2022. RESULT: Lines, tubes, and devices: None. Lungs and pleura: Left lower lung scar,, mild right posterior costophrenic angle blunting otherwise clear. Cardiomediastinal silhouette: Stable. Moderate hiatal hernia Other: No acute osseous or upper abdominal finding. IMPRESSION: Small right pleural effusion versus chronic pleural parenchymal scarring. Reviewed, dictated and finalized at location K.
--- NOTE | 2022-11-04 16:38 | ECG_ITS ---
Measurements Intervals [place] Rate: 62 P: 45 NC: 209 QRS: -8 QRSD: 97 T: 13 QT: 407 QTc: 415 Interpretive Statements SINUS RHYTHM VOLTAGE CRITERIA FOR LVH CONSIDER ANTERIOR INFARCT, AGE INDETERMINATE BASELINE ARTIFACT- I, II, III, AVR, AVL, AVF, V1-V2 ABNORMAL ECG COMPARED TO ECG 07/14/2022 22:05:43 CONSIDER ANTERIOR INFARCT NOW PRESENT Electronically Signed On 11-04-2022 16:48:23 CDT by Dennys Burdick D.O.
[2022-11-04 16:58] LABS: Basophils Percent Auto 0.4 % (0.2-1.2); Eosinophils Absolute Auto 0.1 K/mm3 (0-0.3); Eosinophils Percent Auto 2.6 % (0-4.4); Hematocrit 34.1 % (42.0-52.0); Hemoglobin 11.1 g/dL (14.0-18.0); Immature Granulocyte Absolute 0.01 K/mm3 (0.00-0.031); Immature Granulocyte Percent A 0.2 % (0-0.5); Lymphocytes Absolute Auto 1.39 K/mm3 (0.9-3.2); Lymphocytes Percent Auto 28.3 % (18.3-44.2); Mean Corpuscular HGB Conc 32.6 g/dl (32-36); Mean Corpuscular Hemoglobin 30.7 pg (26-34); Mean Corpuscular Volume 94.5 fl (80-100); Mean Platelet Volume 10.2 fl (7.4-10.4); Monocytes Absolute Auto 0.6 K/mm3 (0.1-0.6); Monocytes Percent Auto 12.2 % (2.6-8.5); Neutrophils Absolute Auto 2.8 K/mm3 (1.3-6.7); Neutrophils Percent Auto 56.3 % (45.5-73.1); Platelet Count Result 214 k/mm3 (150-375); Red Blood Count 3.61 M/mm3 (4.6-6.20); Red Cell Distribution Width 15.4 % (11.5-14.5); White Blood Count 4.9 K/mm3 (4.5-10.0)
[2022-11-04 17:09] LABS: Alanine Aminotransferase 32 U/L (6-50); Albumin Level 4.2 g/dL (3.5-5.1); Alkaline Phosphatase 94 U/L (38-126); Anion Gap 7 mmol/L (8-16); Aspartate Amino Transferase 33 U/L (17-59); Bilirubin,Total 0.4 mg/dL (0.2-1.3); Blood Urea Nitrogen 27 mg/dL (9-20); Calcium 9.5 mg/dL (8.4-10.2); Carbon Dioxide 27 mmol/L (22-30); Chloride 102 mmol/L (98-107); Estimated CRCL calculation 48 ml/min; Estimated Glomerular Filt Rate > 60; Glucose 105 mg/dL (65-110); Potassium 4.4 mmol/L (3.4-5.0); Sodium 136 mmol/L (137-145)
--- NOTE | 2022-11-04 18:44 | PC.NURSE ---
RN in room to straight cath patient.
[2022-11-04 18:53] LABS: Appearance Urine Cloudy (Clear); Bacteria Urine None Seen /hpf; Bilirubin Urine Negative (Negative); Blood Urine Negative (Negative); Color Urine Yellow (Yellow); Glucose Urine UA Negative (Negative); Ketones Urine Negative (Negative); Leukocyte Esterase Ur 3+ LEU/UL (Negative); Nitrate Urine Negative (Negative); Non Pathogenic Casts 0-2; Protein Urine Negative (Negative); RBC Urine 0-2 /hpf (0-2); Squamous Epithelial Cell Urine None seen /hpf (Few); Urobilinogen Urine 0.2 mg/dL (<2.0); WBC Urine >100 /hpf
[2022-11-04 18:58] LABS: Add Urine Microscopic? YES
[2022-11-04] MEDS: NITROFURANTOIN MONOHYD MACROCR 100 MG CAP PO (19:53)
--- NOTE | 2022-11-04 20:58 | ED.MALEGU ---
HPI - Male Genitourinary General Chief complaint: Urogenital-Male Stated complaint: uti Time Seen by Provider: 11/04/22 18:03 History of Present Illness HPI Narrative: Patient is an 82-year-old male who presents ER with concerns for UTI. He recently finished ciprofloxacin 2 days ago. He then redeveloped dysuria. No urinary frequency or urgency. No fevers or chills or sweats. No lower abdominal pain. Has history of recurrent UTI. Related Data Home Medications Medication Instructions Recorded Confirmed aspirin 81 mg tablet,delayed 81 mg PO DAILY 03/14/19 08/18/22 release (Adult Low Dose Aspirin) polyethylene glycol 3350 17 17 gm PO DAILY PRN Constipation 12/10/19 08/18/22 gram/dose oral powder (Miralax) cranberry fruit concentrate 250 mg 250 mg PO BID 11/09/21 08/18/22 chewable tablet (Azo Cranberry) [id number] C-Mn 500 1 cap PO BID 11/09/21 08/18/22 mg-400 mg capsule (Glucosamine Chondroitin Maximum Strength) finasteride 5 mg tablet 5 mg PO DAILY 05/05/22 08/18/22 folic acid-vit B6-vit B12 2.2 0.5 tablet PO DAILY 05/05/22 08/18/22 mg-25 mg-0.5 mg tablet (Folplex) calcium carbonate 600 mg calcium 600 mg PO BID 06/08/22 08/18/22 (1,500 mg) tablet (Calcium) vitamin E (dl, acetate) 180 mg 180 mg PO HS 06/08/22 08/18/22 (400 unit) capsule fresh kote 1 - 2 drp EACH EYE DAILY PRN Dry 06/23/22 08/18/22 Eyes tamsulosin 0.4 mg capsule 0.4 mg PO QHS 06/23/22 08/18/22 ferrous sulfate 325 mg (65 mg 325 mg PO BIDWM 07/15/22 08/18/22 iron) tablet nystatin-triamcinolone 100,000 1 applic topical PRN 07/15/22 08/18/22 unit/g-0.1 % topical cream acetaminophen 500 mg tablet 1,000 mg PO Q6H PRN 07/22/22 08/18/22 (Tylenol Extra Strength) magnesium 250 mg tablet 250 mg PO DAILY 07/22/22 08/18/22 multivitamin 1 tablet PO DAILY 07/22/22 08/18/22 omega-3 fatty acids 500 mg capsule 500 mg PO DAILY 07/22/22 08/18/22 sodium chloride 5 % eye drops 1 drp EACH EYE BID 07/22/22 08/18/22 (Robel 128) tolnaftate 1 % topical spray powder 1 spray topical DAILY 07/22/22 08/18/22 Allergies Allergy/AdvReac Type Severity Reaction Status Date / Time hydrochlorothiazide Allergy Unknown Hyponatremi Verified 08/17/22 11:06 a Review of Systems Constitutional: Constitutional: Denies chills, Denies fatigue and Denies fever(s) Gastrointestinal: Gastrointestinal: Denies abdominal pain, Denies nausea and Denies vomiting Genitourinary: Genitourinary: Reports dysuria, Denies testicular pain, Denies urinary frequency and Reports urinary incontinence (Chronic) [facility] Past Medical History Medical History (Updated 11/04/22 @ 21:00 by Kristofer Leonard MD) Acquired ankle/foot deformity Aftercare following right hip joint replacement surgery Arthralgia Benign essential hypertension Bilateral sacroiliitis Blood in stool BMI 25.0-25.9,adult BPH (benign prostatic hyperplasia) CHF (congestive heart failure) Chronic anemia Chronic pain of right lower extremity CKD (chronic kidney disease) Cough COVID-19 Dementia Disequilibrium syndrome DJD (degenerative joint disease), multiple sites Elevated d-dimer Encounter for routine adult health examination without abnormal findings Fall at home [facility] follow-up Hyperlipidemia Hypersomnolence Midline low back pain with right-sided sciatica 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
== END 2022-11-04 22:15 | disposition home or self-care (01) ==
PROVIDERS: Emergency Medicine; Emergency Provider Emergency Medicine; PCP Internal Medicine
DX: N39.0 Urinary tract infection, site not specified (principal); F03.90 Unspecified dementia, unspecified severity, without behavioral disturbance, psychotic disturbance, mood disturbance, and anxiety; I13.0 Hypertensive heart and chronic kidney disease with heart failure and stage 1 through stage 4 chronic kidney disease, or unspecified chronic kidney disease; N18.9 Chronic kidney disease, unspecified; I50.9 Heart failure, unspecified; E78.5 Hyperlipidemia, unspecified
CPT/HCPCS: 36415; 71046; 80053; 81001; 85025; 87086; 87147; 87181; 87186; 93005; 99283; A9270

== ENCOUNTER 2022-12-03 12:55 | Observation (INO) | payer MEDICARE, SELFPAY ==
[2022-12-03] VITALS (36 sets, daily range): BP systolic 98–139; BP diastolic 50–82; PULSE 61–93; RESP 11–20; TEMP 36.4–36.7; O2SAT 93–100
--- NOTE | ~2022-12-03 | CT_ITS ---
EXAMINATION: CT abdomen pelvis w con DATE: 12/03/2022 15:29 INDICATION: Altered mental status. Abdominal pain. TECHNIQUE: Computed tomography (CT) of the abdomen and pelvis was performed with 100 mL Omnipaque-350 intravenous contrast. Automated exposure control and iterative reconstruction technique were employe d. The dose-length product was 1439.83 mGy-cm. COMPARISON: None FINDINGS: Small bilateral pleural effusions with dependent compressive atelectasis in the bilateral lower lobes . Heart size is normal. Atherosclerotic coronary artery calcific lesion. Mitral annular calcification . No pericardial effusion. Thoracic aorta is normal in caliber with no dissection. Moderate-sized sli ding-type hiatal hernia. Liver, gallbladder, spleen, pancreas, bilateral adrenal glands and kidneys a re normal. Large amount of colonic stool most prominent at the rectum which measures up to 8.6 x 8.2 cm in transaxial diameter consistent with constipation and fecal impaction. There is mild wall thicke salome at the sigmoid colon and mild stranding in the adjacent presacral fat consistent with stercoral colitis. This exerts mass effect upon the partially decompressed bladder. Small bowel and appendix ar e normal. No free intraperitoneal gas or fluid. No pathologically enlarged abdominal or pelvic adenop athy. Severe lumbar and thoracic spondylosis. Right total hip arthroplasty. IMPRESSION: 1. Large amount of colonic stool with large ball of stool at rectum and mild associated wall thickeni ng and perirectal stranding consistent constipation, fecal impaction and associated stercoral colitis . 2. Small bilateral pleural effusions. 3. Moderate-sized sliding-type hiatal hernia. Reviewed, dictated and finalized at location A. IMPRESSION: 1. Large amount of colonic stool with large ball of stool at rectum and mild as sociated wall thickening and perirectal stranding consistent constipation, feca l impaction and associated stercoral colitis. 2. Small bilateral pleural effusions. 3. Moderate-sized sliding-type hiatal hernia.
--- NOTE | ~2022-12-03 | XR_ITS ---
EXAMINATION: XR abdomen/kub 1V INDICATION: Fecal impaction TECHNIQUE: Supine view of the abdomen is obtained. COMPARISON: CT from yesterday FINDINGS: Contrast from yesterday's CT examination opacifies the urinary bladder which is moderately distended. There appears to be a decrease in volume of stool in the rectum which is obscured by bladd er contrast material. There are no dilated bowel. Changes of right hip arthroplasty are noted. There is moderate osteoarthritis of the left hip. A moderate volume of stool is present in the proximal col on. IMPRESSION: 1. Apparent decrease in volume of stool in the rectum which is somewhat obscured by contrast material in the urinary bladder. Reviewed, dictated and finalized at location F. IMPRESSION: 1. Apparent decrease in volume of stool in the rectum which is somewhat obscure d by contrast material in the urinary bladder.
--- NOTE | ~2022-12-03 | CT_ITS ---
EXAMINATION: CT brain wo con DATE: 12/03/2022 15:29 INDICATION: AMS . TECHNIQUE: Computed tomography (CT) of the head was performed without intravenous contrast. The mA wa s adjusted according to patient size. Iterative reconstruction technique was employed. The dose-lengt h product was 681.00 mGy-cm. COMPARISON: CTA brain carotid 05/06/2022; CT brain 02/04/2022. FINDINGS: No acute intracranial hemorrhage or extra-axial fluid collection. No hydrocephalus, mass, or herniation. No acute ischemic infarct. Unremarkable dural venous sinus attenuation. No acute osseous abnormality. The aerated spaces are clear. Moderate atrophy and chronic white matter change. Atherosclerotic intracranial calcification. Bilater al lens replacements. IMPRESSION: No acute intracranial process. Reviewed, dictated and finalized at location K.
--- NOTE | 2022-12-03 13:07 | ECG_ITS ---
Measurements Intervals [place] Rate: 59 P: 53 [place]: 223 QRS: -9 QRSD: 102 T: 7 QT: 399 QTc: 398 Interpretive Statements SINUS BRADYCARDIA WITH FIRST DEGREE AV BLOCK VOLTAGE CRITERIA FOR LVH [MEETS CRITERIA IN ONE OF: R(aVL), S(V1), R(V5), R(V5/V6)+S(V1)] INFERIOR MYOCARDIAL INFARCTION , PROBABLY OLD [40+ ms Q WAVE AND/OR ST/T ABNORMALITY IN II/aVF] COMPARED TO ECG 11/04/2022 16:43:26 NO SIGNIFICANT CHANGE, SLIGHTLY DIFFERENT PRECORDIAL LEAD POSITION Electronically Signed On 12-03-2022 16:09:36 CDT by Harjit Wahl M.D.
[2022-12-03 13:22] LABS: Basophils Percent Auto 0.5 % (0.2-1.2); Eosinophils Absolute Auto 0.3 K/mm3 (0-0.3); Eosinophils Percent Auto 3.5 % (0-4.4); Hemoglobin 9.5 g/dL (14.0-18.0); Immature Granulocyte Absolute 0.03 K/mm3 (0.00-0.031); Immature Granulocyte Percent A 0.3 % (0-0.5); Lymphocytes Absolute Auto 1.19 K/mm3 (0.9-3.2); Lymphocytes Percent Auto 13.8 % (18.3-44.2); Mean Corpuscular HGB Conc 32.8 g/dl (32-36); Mean Corpuscular Hemoglobin 31.5 pg (26-34); Mean Platelet Volume 10.7 fl (7.4-10.4); Monocytes Absolute Auto 0.9 K/mm3 (0.1-0.6); Neutrophils Absolute Auto 6.2 K/mm3 (1.3-6.7); Neutrophils Percent Auto 71.9 % (45.5-73.1); Platelet Count Result 199 k/mm3 (150-375); Red Blood Count 3.02 M/mm3 (4.6-6.20); Red Cell Distribution Width 14.6 % (11.5-14.5); White Blood Count 8.6 K/mm3 (4.5-10.0)
[2022-12-03 13:31] LABS: Alanine Aminotransferase 30 U/L (6-50); Albumin Level 3.7 g/dL (3.5-5.1); Alkaline Phosphatase 91 U/L (38-126); Anion Gap 4 mmol/L (8-16); Aspartate Amino Transferase 30 U/L (17-59); Bilirubin,Total 0.6 mg/dL (0.2-1.3); Blood Urea Nitrogen 37 mg/dL (9-20); Calcium 9.2 mg/dL (8.4-10.2); Carbon Dioxide 28 mmol/L (22-30); Chloride 103 mmol/L (98-107); Estimated CRCL calculation 44 ml/min; Estimated Glomerular Filt Rate 58; Glucose 108 mg/dL (65-110); Potassium 4.5 mmol/L (3.4-5.0); Sodium 135 mmol/L (137-145)
[2022-12-03 13:35] LABS: INR 1.1; Prothrombin Time 14.5 Seconds (11.1-14.7)
[2022-12-03 13:36] LABS: Partial Thromboplastin Time 31.9 SECONDS (22.3-36.8)
[2022-12-03 15:09] LABS: Appearance Urine Clear (Clear); Bilirubin Urine Negative (Negative); Blood Urine Negative (Negative); Color Urine Dark Yellow (Yellow); Glucose Urine UA Negative (Negative); Ketones Urine Negative (Negative); Leukocyte Esterase Ur Negative LEU/UL (Negative); Nitrate Urine Negative (Negative); Protein Urine Negative (Negative); Specific Grav Ur 1.015 (1.001-1.035); pH Urine 5.5 (5.0-9.0)
--- NOTE | 2022-12-03 15:09 | ED.AMS ---
HPI - Altered Mental Status General Chief Complaint: Altered Mental Status Stated Complaint: syncope Time Seen by Provider: 12/03/22 13:46 History of Present Illness HPI narrative: 82-year-old male presented the emergency department for evaluation of altered mental status. Patient was getting his haircut when he had an episode of unresponsiveness. Patient states this does sometimes happen while ambulating but this episode happened at rest. Patient states he does have some lower abdominal pain but did have some urinary retention while in the ED and did require a straight cath for the urinary analysis. Patient's family and caregiver state that he has been treated multiple times for urinary tract infections. Patient also reports he has had decreased bowel movements over the last few days. Patient described pain in the bladder that was improved after the urinary cath. Related Data Home Medications Medication Instructions Recorded Confirmed aspirin 81 mg tablet,delayed 81 mg PO DAILY 03/14/19 08/18/22 release (Adult Low Dose Aspirin) polyethylene glycol 3350 17 17 gm PO DAILY PRN Constipation 12/10/19 08/18/22 gram/dose oral powder (Miralax) cranberry fruit concentrate 250 mg 250 mg PO BID 11/09/21 08/18/22 chewable tablet (Azo Cranberry) iuazcilhxiv-qljtlcrjl-xji C-Mn 500 1 cap PO BID 11/09/21 08/18/22 mg-400 mg capsule (Glucosamine Chondroitin Maximum Strength) finasteride 5 mg tablet 5 mg PO DAILY 05/05/22 08/18/22 folic acid-vit B6-vit B12 2.2 0.5 tablet PO DAILY 05/05/22 08/18/22 mg-25 mg-0.5 mg tablet (Folplex) calcium carbonate 600 mg calcium 600 mg PO BID 06/08/22 08/18/22 (1,500 mg) tablet (Calcium) vitamin E (dl, acetate) 180 mg 180 mg PO HS 06/08/22 08/18/22 (400 unit) capsule fresh kote 1 - 2 drp EACH EYE DAILY PRN Dry 06/23/22 08/18/22 Eyes tamsulosin 0.4 mg capsule 0.4 mg PO QHS 06/23/22 08/18/22 ferrous sulfate 325 mg (65 mg 325 mg PO BIDWM 07/15/22 08/18/22 iron) tablet nystatin-triamcinolone 100,000 1 applic topical PRN 07/15/22 08/18/22 unit/g-0.1 % topical cream acetaminophen 500 mg tablet 1,000 mg PO Q6H PRN 07/22/22 08/18/22 (Tylenol Extra Strength) magnesium 250 mg tablet 250 mg PO DAILY 07/22/22 08/18/22 multivitamin 1 tablet PO DAILY 07/22/22 08/18/22 omega-3 fatty acids 500 mg capsule 500 mg PO DAILY 07/22/22 08/18/22 sodium chloride 5 % eye drops 1 drp EACH EYE BID 07/22/22 08/18/22 (Robel 128) tolnaftate 1 % topical spray powder 1 spray topical DAILY 07/22/22 08/18/22 Allergies Allergy/AdvReac Type Severity Reaction Status Date / Time hydrochlorothiazide AdvReac Unknown Hyponatremi Verified 12/03/22 20:39 a Review of Systems Review of Systems: All systems reviewed & are unremarkable except as noted in HPI and below PMFSH Past Medical History Medical History (Updated 12/03/22 @ 17:33 by Thong Vasquez MD) Acquired ankle/foot deformity Aftercare following right hip joint replacement surgery Arthralgia Benign essential hypertension Bilateral sacroiliitis Blood in stool BMI 25.0-25.9,adult BPH (benign prostatic hyperplasia) CHF (congestive heart failure) Chronic anemia Chronic pain of right lower extremity CKD (chronic kidney disease) Cough COVID-19 Dementia Disequilibrium syndrome DJD (degenerative joint disease), multiple sites Elevated d-dimer Encounter for routine adult health examination without abnormal findings Fall at home [facility] follow-up Hyperlipidemia Hypersomnolence Midline low back pain with right-sided sciatica 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
[2022-12-03 15:38] LABS: Add Urine Microscopic? NO
--- NOTE | 2022-12-03 18:01 | PM.IMHP ---
H&P: HPI History of Present Illness Date/Time: 12/03/22 17:30 Chief Complaint: Altered mental status. Narrative: This is an 82-year-old male with history of dementia, hypertension, hyperlipidemia, benign prostatic hyperplasia, iron deficiency anemia, who presented to the emergency department via private vehicle for evaluation of altered mental status. The patient provides some of the following history however his not the greatest historian his provides additional information with the patient's permission. A yazidism member was at the house today trimming his hair when he reportedly went unresponsive for a few minutes. indicates that this is not necessarily an unusual phenomenon and it sounds as though he has near-syncope or syncopal episodes related to drops in blood pressures. Once he came to he told his that he was not feeling good but was unable to specify what it was he was feeling. He was able to tell me that his appetite has been decreased recently and that his stomach has been bloated. Overall he just feels weak. He also mentions having a recent urinary tract infection for which he was treated with antibiotics. He denies fever, chills, sweats, chest and pleuritic pain, shortness a breath, nausea, vomiting, diarrhea, melena, and hematochezia. He was afebrile on arrival to the emergency department with blood pressures initially at the lower end of normal. Labs were significant for a hemoglobin of 9.5 which is 1.6 g lower than what it was on labs 1 month ago and his BUN was elevated at 37. His stool was Hemoccult positive on rectal exam per ED physician. Brain CT showed no acute process. CT of the abdomen and pelvis showed a large amount of colonic stool with a large ball of stool at the rectum and mild associated wall thickening and perirectal stranding consistent with constipation, fecal impaction, and associated stercoral colitis. Urinalysis was unremarkable. He is being admitted in this setting for further treatment and evaluation. Review of Systems Review of Systems: Twelve systems were reviewed and are negative except for as per HPI. [facility] Past Medical History Medical History (Updated 12/04/22 @ 00:42 by Clemencia Coello PA-C) Benign essential hypertension Benign prostatic hyperplasia Chronic anemia Chronic kidney disease COVID-19 Degenerative joint disease Dementia Disequilibrium syndrome Glaucoma Hyperlipidemia Hypersomnolence Osteopenia Seasonal allergies Spinal stenosis Subclinical hyperthyroidism Vitamin B12 deficiency Vitamin D deficiency Surgical History Surgical History (Updated 12/04/22 @ 00:38 by Clemencia Coello PA-C) History of cataract extraction History of removal of pigmented skin lesion History of tonsillectomy History of total right hip arthroplasty Family History Family History Mother Family history of cardiovascular disease Diabetes mellitus Family history of arthritis Family history of coronary artery disease Hypertension Acute myocardial infarction Father Family history of arthritis Family history of coronary artery disease Sibling Glaucoma Hypertension Social History Social History (Updated 12/04/22 @ 00:39 by Clemencia Coello PA-C) Social History: Surrogate medical decision maker: Kasie Nava, spouse. Code status: Full code. Smoking status: Never smoker Second hand tobacco smoke exposure: No Alcohol intake: former Drinks per week: 10 Alcohol use details: non-alcoholic Substance use: never Substance use type: does not use Lack of Transportation: No Lack of Food: Never True Current Housing: I Have Housing Concerned About Future Housing: No Difficulty Paying Gas/Electric Bills: No Difficulty Paying for Meds: No Currently Unemployed: No Education: Bachelor's Degree Difficulty w/ Childcare or Family Care: No Living arrangements: with family Additional tj
--- NOTE | 2022-12-03 19:30 | ADMGEN ---
This patient, Fernando Nava, was admitted to Medical Room 346-01. Patient/family oriented to hospital policies and general routines including ID bracelet, bed and alarms, visiting hours, pain management, procedures, bathroom and other care routines, personal items, smoking policy, room service/diet, and visiting hours. Information on how to activate the Rapid Response Team has been discussed. Patient/Family are encouraged to report perceived risks to care and to ask questions if they do not understand what they are told or what they should do.
[2022-12-04] VITALS (10 sets, daily range): BP systolic 126–144; BP diastolic 70–82; PULSE 67–94; RESP 16–20; TEMP 36.3–36.8; O2SAT 93–99
[2022-12-04] MEDS: BISACODYL 10 MG SUPPOSITORY RECTAL (01:46)
[2022-12-04 05:51] LABS: Hematocrit 27.4 % (42.0-52.0); Mean Corpuscular HGB Conc 32.8 g/dl (32-36); Mean Corpuscular Hemoglobin 30.8 pg (26-34); Mean Corpuscular Volume 93.8 fl (80-100); Mean Platelet Volume 10.6 fl (7.4-10.4); Platelet Count Result 181 k/mm3 (150-375); Red Blood Count 2.92 M/mm3 (4.6-6.20); Red Cell Distribution Width 13.9 % (11.5-14.5); White Blood Count 6.3 K/mm3 (4.5-10.0)
[2022-12-04 06:05] LABS: Anion Gap 5 mmol/L (8-16); Blood Urea Nitrogen 33 mg/dL (9-20); Calcium 9.3 mg/dL (8.4-10.2); Carbon Dioxide 27 mmol/L (22-30); Chloride 104 mmol/L (98-107); Estimated CRCL calculation 51 ml/min; Estimated Glomerular Filt Rate > 60; Glucose 96 mg/dL (65-110); Magnesium 2.3 mg/dL (1.6-2.3); Sodium 136 mmol/L (137-145)
[2022-12-04] MEDS: lisinopriL 20 MG TABLET PO ×2 (08:29→17:29)
[2022-12-04] MEDS: polyethylene glycoL 3350 17 GM POWD.PACK PO ×2 (08:29→17:29)
[2022-12-04] MEDS: calcium polycarbophiL 625 MG TABLET PO ×2 (08:29→17:29)
[2022-12-04] MEDS: PRAVASTATIN SODIUM 20 MG TABLET PO (08:29)
[2022-12-04] MEDS: FINASTERIDE 5 MG TABLET PO (08:29)
[2022-12-04] MEDS: FAMOTIDINE 20 MG/2 ML VIAL IV PUSH ×2 (08:29→20:11)
[2022-12-04] MEDS: MAGNESIUM OXIDE 200 MG TABLET PO (08:30)
--- NOTE | 2022-12-04 14:26 | PCPTNOTE ---
Patient seen by occupational therapist and found to be at baseline. Occupational therapist called doctor and getting both disciplines orders cancelled.
--- NOTE | 2022-12-04 14:30 | PM.IMPN ---
Progress Note: A&P Assessment and Plan (1) Unresponsive episode: Code(s): R40.4 - Transient alteration of awareness Status: Acute Assessment and Plan: It sounds as though it is not necessarily unusual for him to have these episodes and reports that in the past it has been related to a drop in his blood pressure. Blood pressures stable. Monitor orthostatic vital signs. Initiate fall precautions. Monitored on telemetry to rule out cardiac dysrhythmia which seems less likely. Vasovagal reaction is a consideration as well. Hemoccult positive on rectal exam today. (2) Fecal impaction: Code(s): K56.41 - Fecal impaction Status: Acute Assessment and Plan: CT scan shows constipation, fecal impaction, and evidence of stercoral colitis. He has been started on MiraLax and Dulcolax suppositories have been ordered. Hemoccult positive on rectal exam today. His hemoglobin and hematocrit will be trended. Depending on his course, GI consult may be appropriate. Bowel movement 12/04/2022. KUB ordered to assess impaction. (3) Stercoral colitis: Code(s): K52.89 - Other specified noninfective gastroenteritis and colitis Status: Acute Assessment and Plan: See above (4) Constipation: Code(s): K59.00 - Constipation, unspecified Status: Acute Assessment and Plan: See above (5) Chronic anemia: Code(s): D64.9 - Anemia, unspecified Status: Acute Plan His home medications will be reviewed and resumed as appropriate. Subjective Date/time seen: 12/04/22 14:30 Interval history: Patient states that he typically has a bowel movement every day although it on how accurate this is because patient has history of dementia and is intermittently confused. He lives at home with around the clock caregivers. He has not had episode of unresponsiveness since remitted the hospital. He has not shown any signs of dysrhythmia. He did have 1 bowel movement today and will get KUB to assess his constipation status. He denies any abdominal pain, nausea or vomiting. He is in good spirits and has no complaints at this time. Exam Narrative: GENERAL: Comfortable, no acute distress HENMT: moist mucous membranes EYES: EOM intact b/l NECK: no lymphadenopathy RESPIRATORY: clear to auscultation CARDIO: RRR GI: soft, nontender, bowel sounds present SKIN: no rashes EXTREMITIES: no edema, redness or tenderness Objective Data Vital Signs Vital Signs: Vital Signs - 24 hr 12/03/22 14:36 12/03/22 14:31 12/03/22 14:45 Temperature Pulse Rate 61 66 Respiratory Rate 16 11 L 15 Blood Pressure 98/51 L Pulse Oximetry 98 95 Oxygen Delivery 12/03/22 14:46 12/03/22 15:00 12/03/22 15:01 Temperature Pulse Rate 66 73 67 Respiratory Rate 13 16 14 Blood Pressure 104/62 111/65 Pulse Oximetry 98 100 Oxygen Delivery 12/03/22 15:30 12/03/22 15:31 12/03/22 16:07 Temperature Pulse Rate 79 77 71 Respiratory Rate 12 14 11 L Blood Pressure 128/69 Pulse Oximetry 100 100 100 Oxygen Delivery 12/03/22 16:35 12/03/22 16:45 12/03/22 16:46 Temperature Pulse Rate 74 77 76 Respiratory Rate 14 13 15 Blood Pressure 139/74 Pulse Oximetry 99 99 99 Oxygen Delivery 12/03/22 17:00 12/03/22 17:15 12/03/22 17:16 Temperature Pulse Rate 77 76 77 Respiratory Rate 16 11 L 13 Blood Pressure 117/72 Pulse Oximetry 99 100 97 Oxygen Delivery 12/03/22 17:30 12/03/22 17:31 12/03/22 17:32 Temperature Pulse Rate 79 81 80 Respiratory Rate 12 13 12 Blood Pressure 133/82 Pulse Oximetry 99 98 98 Oxygen Delivery 12/03/22 17:54 12/03/22 18:00 12/03/22 18:01 Temperature Pulse Rate 80 81 83 Respiratory Rate 12 12 12 Blood Pressure 135/76 Pulse Oximetry 98 98 98 Oxygen Delivery 12/03/22 18:27 12/03/22 18:30 12/03/22 18:31 Temperature Pulse Rate 82 82 83 Respiratory Rate 12 12 12
--- NOTE | 2022-12-04 16:08 | PC.NURSE ---
soap suds enema not administered. PT had a large bowel movement after order was placed. MD notified.
[2022-12-04 18:06] LABS: Hematocrit 30.4 % (42.0-52.0); Hemoglobin 9.8 g/dL (14.0-18.0)
[2022-12-04] MEDS: TAMSULOSIN HCL 0.4 MG CAPSULE PO (20:11)
[2022-12-04] MEDS: VITAMIN E 400 UNIT CAPSULE PO (20:14)
[2022-12-05] VITALS (9 sets, daily range): BP systolic 120–165; BP diastolic 62–86; PULSE 72–115; RESP 16–20; TEMP 36.1–36.7; O2SAT 97–100
[2022-12-05 05:59] LABS: Hematocrit 27.1 % (42.0-52.0); Hemoglobin 8.9 g/dL (14.0-18.0); Mean Corpuscular HGB Conc 32.8 g/dl (32-36); Mean Corpuscular Hemoglobin 30.9 pg (26-34); Mean Corpuscular Volume 94.1 fl (80-100); Mean Platelet Volume 10.7 fl (7.4-10.4); Platelet Count Result 197 k/mm3 (150-375); Red Blood Count 2.88 M/mm3 (4.6-6.20); Red Cell Distribution Width 13.9 % (11.5-14.5); White Blood Count 5.9 K/mm3 (4.5-10.0)
[2022-12-05 06:29] LABS: Alanine Aminotransferase 26 U/L (6-50); Albumin Level 3.6 g/dL (3.5-5.1); Alkaline Phosphatase 90 U/L (38-126); Anion Gap 4 mmol/L (8-16); Aspartate Amino Transferase 27 U/L (17-59); Bilirubin,Total 0.5 mg/dL (0.2-1.3); Blood Urea Nitrogen 33 mg/dL (9-20); Calcium 9.2 mg/dL (8.4-10.2); Carbon Dioxide 27 mmol/L (22-30); Chloride 105 mmol/L (98-107); Estimated CRCL calculation 44 ml/min; Estimated Glomerular Filt Rate 53; Glucose 92 mg/dL (65-110); Sodium 136 mmol/L (137-145)
[2022-12-05 08:40] LABS: Iron 46 ug/dL (49-181)
[2022-12-05 08:50] LABS: Percent Iron Saturation 16 % (20-50)
[2022-12-05 09:12] LABS: Thyroid Stimulating Hormone Reflex 0.482 uIU/mL (0.465-4.68)
[2022-12-05] MEDS: MAGNESIUM OXIDE 200 MG TABLET PO (09:16)
[2022-12-05] MEDS: polyethylene glycoL 3350 17 GM POWD.PACK PO ×2 (09:16→17:26)
[2022-12-05] MEDS: lisinopriL 20 MG TABLET PO ×2 (09:17→17:27)
[2022-12-05] MEDS: FAMOTIDINE 20 MG/2 ML VIAL IV PUSH ×2 (09:17→20:51)
[2022-12-05] MEDS: PRAVASTATIN SODIUM 20 MG TABLET PO (09:17)
[2022-12-05] MEDS: calcium polycarbophiL 625 MG TABLET PO ×2 (09:17→17:27)
[2022-12-05] MEDS: FINASTERIDE 5 MG TABLET PO (09:17)
[2022-12-05 09:55] LABS: Folic Acid > 20.0 ng/mL (2.76->20); Vitamin B12 > 1000.0 pg/mL (239-931)
--- NOTE | 2022-12-05 13:53 | PM.IMPN ---
Progress Note: A&P Assessment and Plan (1) Unresponsive episode: Code(s): R40.4 - Transient alteration of awareness Status: Acute Assessment and Plan: It sounds as though it is not necessarily unusual for him to have these episodes and reports that in the past it has been related to a drop in his blood pressure. Blood pressures stable. Monitor orthostatic vital signs. Initiate fall precautions. Monitored on telemetry to rule out cardiac dysrhythmia which seems less likely. Vasovagal reaction is a consideration as well. Has not had an occurrence since in the hospital. (2) Fecal impaction: Code(s): K56.41 - Fecal impaction Status: Acute Assessment and Plan: CT scan shows constipation, fecal impaction, and evidence of stercoral colitis. He has been started on MiraLax and Dulcolax suppositories have been ordered. Hemoccult positive on rectal exam today. His hemoglobin and hematocrit has remained stable. Bowel movement 12/04/2022. KUB revealing decreased volume of stool in the rectum. (3) Stercoral colitis: Code(s): K52.89 - Other specified noninfective gastroenteritis and colitis Status: Acute Assessment and Plan: See above (4) Constipation: Code(s): K59.00 - Constipation, unspecified Status: Acute Assessment and Plan: See above (5) Chronic anemia: Code(s): D64.9 - Anemia, unspecified Status: Acute Assessment and Plan: stable. Plan His home medications will be reviewed and resumed as appropriate. Subjective Date/time seen: 12/05/22 13:53 Interval history: Patient doing well today. Patient still has some stool in his rectum and will attempt an enema today. Patient has not had any episodes of syncope since his time in the hospital. I suspect that when he is home he has some vasovagal responses and or hypotension. He has been alert awake while in the hospital. His hemoglobin hematocrit have remained stable and he does have a history of chronic anemia. Exam Narrative: GENERAL: Comfortable, no acute distress HENMT: moist mucous membranes EYES: EOM intact b/l RESPIRATORY: clear to auscultation CARDIO: RRR GI: soft, nontender, bowel sounds present SKIN: no rashes EXTREMITIES: no edema, redness or tenderness Objective Data Vital Signs Vital Signs: Vital Signs - 24 hr 12/04/22 14:00 12/04/22 16:00 12/04/22 19:38 Temperature 97.3 F L 98.0 F Pulse Rate 81 76 88 Respiratory Rate 16 20 Blood Pressure 133/70 126/70 Pulse Oximetry 96 99 Oxygen Delivery 12/04/22 20:00 12/04/22 20:00 12/05/22 00:00 Temperature Pulse Rate 94 72 Respiratory Rate Blood Pressure Pulse Oximetry Oxygen Delivery Room Air 12/05/22 04:00 12/05/22 04:41 Temperature 98.1 F Pulse Rate 80 82 Respiratory Rate 20 Blood Pressure 120/62 Pulse Oximetry 100 Oxygen Delivery Intake/Output Intake/Output: Intake & Output 12/02/22 12/03/22 12/04/22 12/05/22 23:59 23:59 23:59 23:59 Intake Total 900 440 Output Total 300 450 Balance -300 900 -10 Meds/Results Medications: Active Medications Generic Name Dose Route Start Last Admin Trade Name Freq PRN Reason Stop Dose Admin Acetaminophen 1,000 mg 12/04/22 00:46 Acetaminophen 500 Mg Tablet PO Q6H PRN Pain Rated 1-3 Calcium Polycarbophil 625 mg 12/04/22 09:00 12/05/22 09:17 Calcium Polycarbophil 625 Mg Tablet PO 625 mg BID MENDEL Administration Famotidine 20 mg 12/04/22 09:00 12/05/22 09:17 Famotidine 20 Mg/2 Ml Vial IV PUSH 20 mg Q12HR MENDEL Administration Finasteride 5 mg 12/04/22 09:00 12/05/22 09:17 Finasteride 5 Mg Tablet PO 5 mg DAILY MENDEL Administration Lisinopril 20 mg 12/04/22 09:00 12/05/22 09:17 Lisinopril 20 Mg Tablet PO 20 mg BID MENDEL Administration Magnesium Oxide 200 mg 12/04/22 09:00 12/05/22 09:16 Magnesium Oxide 200
[2022-12-05] MEDS: TAMSULOSIN HCL 0.4 MG CAPSULE PO (20:51)
[2022-12-05] MEDS: VITAMIN E 400 UNIT CAPSULE PO (20:51)
[2022-12-06] VITALS: PULSE 68
[2022-12-06 04:00] VITALS: PULSE 63
[2022-12-06 04:47] VITALS: BP 131/75; PULSE 76; RESP 18; TEMP 36.6; O2SAT 99
[2022-12-06 06:45] LABS: Hematocrit 27.6 % (42.0-52.0); Hemoglobin 8.9 g/dL (14.0-18.0); Mean Corpuscular HGB Conc 32.2 g/dl (32-36); Mean Corpuscular Hemoglobin 30.8 pg (26-34); Mean Corpuscular Volume 95.5 fl (80-100); Mean Platelet Volume 10.8 fl (7.4-10.4); Platelet Count Result 206 k/mm3 (150-375); Red Blood Count 2.89 M/mm3 (4.6-6.20); White Blood Count 4.9 K/mm3 (4.5-10.0)
[2022-12-06 07:06] LABS: Anion Gap 5 mmol/L (8-16); Blood Urea Nitrogen 29 mg/dL (9-20); Calcium 9.7 mg/dL (8.4-10.2); Carbon Dioxide 27 mmol/L (22-30); Chloride 105 mmol/L (98-107); Estimated CRCL calculation 44 ml/min; Estimated Glomerular Filt Rate 53; Glucose 90 mg/dL (65-110); Potassium 4.1 mmol/L (3.4-5.0); Sodium 137 mmol/L (137-145)
--- NOTE | 2022-12-06 08:44 | PCPTNOTE ---
Spoke with current hospitalist regarding pt being at functional baseline - hospitalist RENAE ROGERS of PT orders at this time.
[2022-12-06] MEDS: calcium polycarbophiL 625 MG TABLET PO ×2 (09:26→17:34)
[2022-12-06] MEDS: FAMOTIDINE 20 MG/2 ML VIAL IV PUSH (09:26)
[2022-12-06] MEDS: lisinopriL 20 MG TABLET PO ×2 (09:26→17:34)
[2022-12-06] MEDS: PRAVASTATIN SODIUM 20 MG TABLET PO (09:26)
[2022-12-06] MEDS: MAGNESIUM OXIDE 200 MG TABLET PO (09:26)
[2022-12-06] MEDS: polyethylene glycoL 3350 17 GM POWD.PACK PO ×2 (09:27→17:34)
[2022-12-06] MEDS: FINASTERIDE 5 MG TABLET PO (09:27)
[2022-12-06 09:30] VITALS: O2SAT 98
--- NOTE | 2022-12-06 11:04 | PM.DS ---
DS: Admitting Diagnosis Discharge Date 12/06/22 Admitting Diagnosis Fecal impaction DS: Discharge Diagnosis Discharge Diagnosis (1) Unresponsive episode: Code(s): R40.4 - Transient alteration of awareness Status: Acute (2) Fecal impaction: Code(s): K56.41 - Fecal impaction Status: Acute (3) Stercoral colitis: Code(s): K52.89 - Other specified noninfective gastroenteritis and colitis Status: Acute (4) Constipation: Code(s): K59.00 - Constipation, unspecified Status: Acute (5) Chronic anemia: Code(s): D64.9 - Anemia, unspecified Status: Acute DS: Summary Hospital Course Hospital Course: This is an 82-year-old male past medical history of dementia, hypertension, hyperlipidemia, BPH and iron deficiency anemia who presents to the ED on 12/03/2022 due to patient having a unresponsive event that was noticed by a zoroastrianism member while cutting the patient's hair. According to the this is common for him and they have been told in the past that is due to his blood pressure. The patient had told his that he was not feeling good and when he was questioned he stated that he had had a decreased appetite and some abdominal bloating at that time. He was found to have hemoglobin of 9.5 and elevated BUN of 37. Lab significant for hemoglobin of 9.5 and elevated BUN of 37. His stool was Hemoccult positive on rectal exam in the ED. Brain CT negative for acute process. CT abdomen pelvis revealed large amount of colonic stool with large ball of stool at the rectum and mild associated wall thickening and perirectal stranding consistent with constipation, fecal impaction and associated stercoral colitis. UA unremarkable. Patient's orthostatics are monitor but remain negative. Blood pressure stable during hospitalization. he was monitored on telemetry to rule out cardiac dysrhythmia. His heart rate remained normal during his hospital stay. Vasovagal reaction considered and possible. His H&H was stable during his hospital stay. Hemoccult likely positive due to large amount of stool in the rectum and or hemorrhoids. He was started on MiraLax and Dulcolax suppositories. He also was given a soapsuds enema. Patient had large 2 bowel movements while in the hospital and repeat x-ray showed clearing of the fecal impaction. Patient was alert oriented did not have any episodes of near-syncope/syncope during his hospital stay. Recommended that patient continue MiraLax up to 3 times a day to have daily healthy bowel movements. This is explained the discharge instructions. Patient's labs and vital signs are stable and he is medically clear for discharge at this time. Time Spent with Patient Time attestation: Total time spent providing and/or coordinating discharge services: Exam Narrative: GENERAL: Comfortable, no acute distress HENMT: moist mucous membranes EYES: EOM intact b/l RESPIRATORY: clear to auscultation CARDIO: RRR GI: soft, nontender, bowel sounds present SKIN: no rashes EXTREMITIES: no edema, redness or tenderness DS: Data Data Completed and Pending Labs on day of discharge: Labs from last 24 hours 12/06/22 12/05/22 05:58 05:42 WBC 4.9 RBC 2.89 L Hgb 8.9 L Hct 27.6 L MCV 95.5 MCH 30.8 MCHC 32.2 RDW 14.0 Plt Count 206 MPV 10.8 H Sodium 137 Potassium 4.1 Chloride 105 Carbon Dioxide 27 Anion Gap 5 L BUN 29 H Creatinine 1.30 Estim Creat Clear Calc 44 Estimated GFR 53 L Glucose 90 Calcium 9.7 % Saturation 16 L Discharge Plan Discharge Attending physician on discharge: Valeri Hernandez Discharging Clinician: Julio Jay Patient Disposition: Home, Self-Care Activity: as tolerated Diet: regular Discharge Instructions: Recommendation for constipation: Recommend patient continue MiraLax 17 g up to 3 times a day. Dulcolax suppository 10 mg as needed Colace tablet as needed
[2022-12-06 14:00] VITALS: BP 162/70; PULSE 70; RESP 18; TEMP 36.4; O2SAT 100
--- NOTE | 2022-12-06 19:41 | PC.NURSE ---
Patient was picked up by EMS to be transported back home for Discharge. Patients was notified and discharge packet provided.
== END 2022-12-06 19:40 | disposition home or self-care (01) ==
LOC: ANHED 17:33 → ANH3MED 18:38
PROVIDERS: Internal Medicine Critical Care Medicine; Physician Assistant; Admitting Provider Hospitalist; Emergency Provider Emergency Medicine; PCP Internal Medicine; Visit Provider Hospitalist
DX: R40.4 Transient alteration of awareness (principal); K56.41 Fecal impaction; K52.89 Other specified noninfective gastroenteritis and colitis; D50.0 Iron deficiency anemia secondary to blood loss (chronic); R33.9 Retention of urine, unspecified; I13.0 Hypertensive heart and chronic kidney disease with heart failure and stage 1 through stage 4 chronic kidney disease, or unspecified chronic kidney disease; N18.9 Chronic kidney disease, unspecified; D63.1 Anemia in chronic kidney disease; N40.0 Benign prostatic hyperplasia without lower urinary tract symptoms; G89.29 Other chronic pain; M79.661 Pain in right lower leg; E87.8 Other disorders of electrolyte and fluid balance, not elsewhere classified; K44.9 Diaphragmatic hernia without obstruction or gangrene; H40.9 Unspecified glaucoma; E78.5 Hyperlipidemia, unspecified; I25.2 Old myocardial infarction; J90 Pleural effusion, not elsewhere classified; F03.90 Unspecified dementia, unspecified severity, without behavioral disturbance, psychotic disturbance, mood disturbance, and anxiety; E05.90 Thyrotoxicosis, unspecified without thyrotoxic crisis or storm; R63.4 Abnormal weight loss; E53.8 Deficiency of other specified B group vitamins; E55.9 Vitamin D deficiency, unspecified; Z68.26 Body mass index [BMI] 26.0-26.9, adult; Z79.82 Long term (current) use of aspirin; Z87.440 Personal history of urinary (tract) infections; Z86.16 Personal history of COVID-19; Z79.1 Long term (current) use of non-steroidal anti-inflammatories (NSAID); Z79.899 Other long term (current) drug therapy; Z82.49 Family history of ischemic heart disease and other diseases of the circulatory system; Z83.511 Family history of glaucoma
CPT/HCPCS: 36415; 70450; 74018; 74177; 80048; 80053; 81003; 82607; 82728; 82746; 83540; 83550; 83735; 84443; 85014; 85018; 85025; 85027; 85610; 85730; 93005; 96374; 96376; 97165; 99285; A9270; G0378; Q9967

== ENCOUNTER 2022-12-11 15:42 | Observation (INO) | payer MEDICARE, SELFPAY ==
[2022-12-11] VITALS (19 sets, daily range): BP systolic 114–151; BP diastolic 56–107; PULSE 66–89; RESP 12–21; TEMP 35.9–36.8; O2SAT 93–100; BMI 27.1
--- NOTE | ~2022-12-11 | CT_ITS ---
EXAMINATION: CT abdomen pelvis wo con DATE: 12/11/2022 16:39 INDICATION: Constipation. Evaluate for possible bowel obstruction. The patient has not urinated and o cristóbal 24 hours. TECHNIQUE: Computed tomography (CT) of the abdomen and pelvis was performed without intravenous contr ast. Automated exposure control and iterative reconstruction technique were employed. Exam dose: 123 4.43 mGy-cm total exam DLP. COMPARISON: 12/04/2022 KUB 12/03/2022 CT abdomen pelvis FINDINGS: Mild bilateral pleural effusions, right greater than left. There is bibasilar dependent low er lobe atelectasis. Heart size is within normal limits. There is moderately large sliding hiatal hernia. The liver, gallbladder, bile ducts, pancreas, pancreatic duct, spleen are unremarkable. No renal mass lesion is noted. There is moderate left hydronephrosis and proximal to mid left hydroureter, which change normal calib er of the distal ureter. No urinary tract calculi are noted. Consider CT abdomen pelvis examination w ith IV contrast material and/or left retrograde pyelography. Large rectal stool ball extending into the sigmoid: Prominent amount of fecal material throughout the colon. The rectal stool ball measures up to 8 cm diameter. There is some rectal wall thickening with rectal and sigmoid colon wall emphysema, suggesting stercor al proctocolitis. No bowel obstruction or intraperitoneal free air is detected. Diverticulosis of the colon; no CT evidence of diverticulitis. Normal appendix; no evidence of appendicitis. Chiu catheter in it evacuated urinary bladder. Mildly low attenuation of the aortic blood pool suggesting anemia. There is mild abdominal and iliac arterial calcification, mild calcification at the origins of the celiac and superior mesenteric arter ies. No abdominal aortic aneurysm. No intraperitoneal or retroperitoneal or pelvic mass lesion or silvio nopathy or ascites. There is a Chiu catheter in the evacuated urinary bladder. There is a prominent apparent prostate ca lcifications. Degenerative changes of the lower thoracic and lumbar spine Status post right total hip arthroplasty. Osteoarthritis of the left hip. Diffuse osteopenia. IMPRESSION: Rectal fecal impaction and stercoral proctocolitis Mild bilateral pleural effusions, right greater than left and bibasilar dependent lower lobe atelecta sis Moderately large sliding hiatal hernia Moderate left hydroureteronephrosis with transition in the distal left ureter, with out urinary tract calculus; consider CT abdomen pelvis with IV contrast material and/or left retrograde pyelography Diverticulosis of the colon; no evidence of diverticulitis Normal appendix Prostate calcifications Reviewed, dictated and finalized at [facility]. Reviewed, dictated and finalized at [facility]. IMPRESSION: Rectal fecal impaction and stercoral proctocolitis Mild bilateral pleural effusions, right greater than left and bibasilar depende nt lower lobe atelectasis Moderately large sliding hiatal hernia Moderate left hydroureteronephrosis with transition in the distal left ureter, with out urinary tract calculus; consider CT abdomen pelvis with IV contrast ma terial and/or left retrograde pyelography Diverticulosis of the colon; no evidence of diverticulitis Normal appendix Prostate calcifications
--- NOTE | ~2022-12-11 | XR_ITS ---
XR chest 1V DATE: 12/11/2022 16:43 INDICATION: Cough, lower extremity edema TECHNIQUE: AP chest COMPARISON: 11/04/2022 AP and lateral chest FINDINGS: Heart size is within normal range. There is aortic unfolding and calcification. No hilar or mediastinal enlargement is evident. Mild bilateral lower lung infiltrate and/atelectasis, left greater than right. No pleural effusion or pulmonary vascular congestion or pneumothorax is detected. Osteopenia. Degenerative spurring of the thoracic and lumbar spine. IMPRESSION: Mild infiltrate or atelectasis in the lower lung zones Reviewed, dictated and finalized at location A.
--- NOTE | ~2022-12-11 | US_ITS ---
US venous doppler [facility] DATE: 12/12/2022 11:25 INDICATION: Lower extremity swelling TECHNIQUE: Real-time and color flow imaging and Doppler analysis of the veins of both lower extremiti es COMPARISON: None FINDINGS: The greater saphenous veins are patent. There is spontaneous and phasic flow and normal aug mentation and color flow signal and normal compression of the deep veins of both lower extremities. IMPRESSION: Negative; no evidence of deep venous thrombosis of the lower extremities Reviewed, dictated and finalized at Location A. Reviewed, dictated and finalized at location A. IMPRESSION: Negative; no evidence of deep venous thrombosis of the lower extrem ities
--- NOTE | ~2022-12-11 | XR_ITS ---
EXAMINATION: XR abdomen/kub 1V DATE: 12/13/2022 15:29 INDICATION: Fecal impaction. TECHNIQUE: A supine view of the abdomen on 2 radiographs was obtained. COMPARISON: Abdomen radiograph 12/04/2022, CT abdomen and pelvis 12/11/2022 FINDINGS: There are no dilated loops of bowel. There is a small volume of stool in the colon. There i s a total right hip arthroplasty. IMPRESSION: 1. Normal bowel gas pattern. Reviewed, dictated and finalized at location E.
--- NOTE | 2022-12-11 15:51 | ED.MALEGU ---
HPI - Male Genitourinary General Chief complaint: Urogenital-Male Stated complaint: retention, cough. abd pain Time Seen by Provider: 12/11/22 15:48 Source: patient, family and EMS Mode of arrival: EMS Limitations: dementia History of Present Illness HPI Narrative: 82 years old white male came to the ED by ambulance from home with his and caregiver complaining of that the patient been coughing up phlegm for a while, no urine output for the last 24 hours, have manual fecal disimpaction 3 days ago with quite a bit of stool output, followed by Fleet enema, the is telling me that patient had generalized diaphoresis and pale after sitting at the edge of the bed after having bed exercise at noon today. Patient has been at the alf for at least 4 times so far. History of dementia. Currently patient complaint is not feeling well. He denies any shortness of breath or chest pain. Related Data Home Medications Medication Instructions Recorded Confirmed aspirin 81 mg tablet,delayed 81 mg PO DAILY 03/14/19 12/03/22 release (Adult Low Dose Aspirin) cranberry fruit concentrate 250 mg 250 mg PO BID 11/09/21 12/03/22 chewable tablet (Azo Cranberry) finasteride 5 mg tablet 5 mg PO DAILY 05/05/22 12/03/22 folic acid-vit B6-vit B12 2.2 0.5 tablet PO DAILY 05/05/22 12/03/22 mg-25 mg-0.5 mg tablet (Folplex) vitamin E (dl, acetate) 180 mg 180 mg PO HS 06/08/22 12/03/22 (400 unit) capsule fresh kote 1 - 2 drp EACH EYE PRN PRN Dry Eyes 06/23/22 12/03/22 tamsulosin 0.4 mg capsule 0.4 mg PO QHS 06/23/22 12/03/22 nystatin-triamcinolone 100,000 1 applic topical PRN PRN MACERATION 07/15/22 12/03/22 unit/g-0.1 % topical cream acetaminophen 500 mg tablet 1,000 mg PO Q6H PRN Pain 07/22/22 12/03/22 (Tylenol Extra Strength) magnesium 250 mg tablet 250 mg PO DAILY 07/22/22 12/03/22 omega-3 fatty acids 500 mg capsule 500 mg PO QHS 07/22/22 12/03/22 tolnaftate 1 % topical spray powder 1 spray topical PRN Y 07/22/22 12/03/22 calcium polycarbophil 625 mg 625 mg PO BID 12/03/22 12/03/22 tablet (FiberCon) pravastatin 20 mg tablet 20 mg PO DAILY 12/03/22 12/03/22 Allergies Allergy/AdvReac Type Severity Reaction Status Date / Time hydrochlorothiazide AdvReac Unknown Hyponatremi Verified 12/03/22 20:39 [facility] Past Medical History Medical History (Updated 12/11/22 @ 17:52 by Clemencia Coello PA-C) Benign essential hypertension Benign prostatic hyperplasia Chronic anemia Chronic kidney disease COVID-19 Degenerative joint disease Dementia Disequilibrium syndrome Glaucoma Hyperlipidemia Hypersomnolence Osteopenia Seasonal allergies Spinal stenosis Subclinical hyperthyroidism Vitamin B12 deficiency Vitamin D deficiency Surgical History Surgical History (Updated 12/04/22 @ 00:38 by Clemencia Coello PA-C) History of cataract extraction History of removal of pigmented skin lesion History of tonsillectomy History of total right hip arthroplasty Family History Family History Mother Family history of cardiovascular disease Diabetes mellitus Family history of arthritis Family history of coronary artery disease Hypertension Acute myocardial infarction Father Family history of arthritis Family history of coronary artery disease Sibling Glaucoma Hypertension Social History Social History (Updated 12/04/22 @ 00:39 by Clemencia Coello PA-C) Social History: Surrogate medical decision maker: Kasie Nava, spouse. Code status: Full code. Smoking status: Never smoker Second hand tobacco smoke exposure: No Alcohol intake: former Drinks per week: 10 Alcohol use details: non-alcoholic Substance use: never Substance use type: does not use Lack of Transportation: No Lack of Food: Never True Current Housing: I Have Housing Concerned About Future Housing: No Difficulty Paying Gas/Electric Bills: No Difficulty Paying
--- NOTE | 2022-12-11 15:53 | ECG_ITS ---
Measurements Intervals [place] Rate: 72 P: 48 DC: 194 QRS: -1 QRSD: 98 T: 45 QT: 368 QTc: 404 Interpretive Statements SINUS RHYTHM MINIMAL VOLTAGE CRITERIA FOR LVH, CONSIDER NORMAL VARIANT [MEETS CRITERIA IN ONE OF: R(aVL), S(V1), R(V5), R(V5/V6)+S(V1)] MINIMAL ST DEPRESSION [0.025+ mV ST DEPRESSION] COMPARED TO ECG 12/03/2022 14:07:23 [address] NOW PRESENT [address] (T WAVE) DEVIATION NOW PRESENT Electronically Signed On 12-12-2022 11:12:09 CDT by Amrita Kevin MD
[2022-12-11 16:05] LABS: Basophils Percent Auto 0.3 % (0.2-1.2); Eosinophils Absolute Auto 0.3 K/mm3 (0-0.3); Eosinophils Percent Auto 2.5 % (0-4.4); Hematocrit 31.3 % (42.0-52.0); Hemoglobin 10.2 g/dL (14.0-18.0); Immature Granulocyte Absolute 0.03 K/mm3 (0.00-0.031); Immature Granulocyte Percent A 0.3 % (0-0.5); Lymphocytes Absolute Auto 0.97 K/mm3 (0.9-3.2); Lymphocytes Percent Auto 8.6 % (18.3-44.2); Mean Corpuscular HGB Conc 32.6 g/dl (32-36); Mean Corpuscular Hemoglobin 31.2 pg (26-34); Mean Corpuscular Volume 95.7 fl (80-100); Mean Platelet Volume 10.6 fl (7.4-10.4); Monocytes Percent Auto 8.5 % (2.6-8.5); Neutrophils Percent Auto 79.8 % (45.5-73.1); Platelet Count Result 250 k/mm3 (150-375); Red Blood Count 3.27 M/mm3 (4.6-6.20); White Blood Count 11.2 K/mm3 (4.5-10.0)
[2022-12-11 16:15] LABS: Carbon Dioxide 28 mmol/L (22-30); Chloride 99 mmol/L (98-107); Potassium 4.5 mmol/L (3.4-5.0); Sodium 133 mmol/L (137-145)
[2022-12-11 16:16] LABS: Alanine Aminotransferase 25 U/L (6-50); Albumin Level 4.2 g/dL (3.5-5.1); Alkaline Phosphatase 122 U/L (38-126); Anion Gap 6 mmol/L (8-16); Aspartate Amino Transferase 26 U/L (17-59); Bilirubin,Total 0.6 mg/dL (0.2-1.3); Blood Urea Nitrogen 27 mg/dL (9-20); Calcium 9.5 mg/dL (8.4-10.2); Estimated CRCL calculation 55 ml/min; Estimated Glomerular Filt Rate > 60; Glucose 113 mg/dL (65-110); Lipase 78 U/L (23-300)
[2022-12-11 16:21] LABS: Partial Thromboplastin Time 33.9 SECONDS (22.3-36.8)
[2022-12-11 16:32] LABS: NT Pro B Type Natriuretic Pept 600 pg/mL (19.9-100); Troponin I 0.135 ng/mL (0.000-0.034)
[2022-12-11 16:38] LABS: Appearance Urine Clear (Clear); Bacteria Urine None Seen /hpf; Bilirubin Urine Negative (Negative); Blood Urine Negative (Negative); Color Urine Yellow (Yellow); Glucose Urine UA Negative (Negative); Ketones Urine Negative (Negative); Leukocyte Esterase Ur Trace LEU/UL (Negative); Nitrate Urine Negative (Negative); Non Pathogenic Casts 0-2; Protein Urine Negative (Negative); RBC Urine 0-2 /hpf (0-2); Specific Grav Ur 1.018 (1.001-1.035); Squamous Epithelial Cell Urine None seen /hpf (Few); Urobilinogen Urine 0.2 mg/dL (<2.0); WBC Urine 0-5 /hpf; pH Urine 5.5 (5.0-9.0)
[2022-12-11 16:43] LABS: Add Urine Microscopic? YES
--- NOTE | 2022-12-11 17:49 | PM.IMHP ---
H&P: HPI History of Present Illness Date/Time: 12/11/22 21:00 Chief Complaint: Constipation and urinary retention. Narrative: This is an 82-year-old male with history of dementia, hypertension, hyperlipidemia, benign prostatic hyperplasia, iron deficiency anemia, who presented to the emergency department with complaints of constipation and urinary retention. He is known to myself and the hospitalist service from a recent admission just last week at which time he was admitted with fecal impaction and stercoral colitis after he presented for evaluation of an unresponsive episode. He was started on MiraLax and Dulcolax suppositories and received a soapsuds enema. He had 2 large bowel movements while in the hospital repeat abdominal x-ray showed apparent improvement in the amount of stool in his colon. The episode of unresponsiveness was attributed to orthostatic hypotension and unfortunately he continues to have frequent ?weak episodes.? It is to the point where he does not really even get up to walk any longer because he is not safe. His niece is an occupational therapist and she does therapy with him frequently. On exam he does have some findings concerning for Parkinson including mask face, retropulsion gait, and bradykinesia. He has never been diagnosed with such however and has been referred to Neurology though that appointment is not for many months. In any event, he has continued to take MiraLax 3 times a day and he has not had a bowel movement since discharge on 12/06/2022. He then took a Fleet's enema the other day and he only passed a small amount of soft stool thereafter. His appetite is poor and he has not been eating much. His abdomen is distended and uncomfortable and he has not been able to urinate for the last 24 hours. Additionally he reports a cough for the last several days which is occasionally productive of dark, almost rust-colored phlegm; family members are concerned it may have contained blood. He returned to the emergency department for evaluation of all of the above. While going from a lying to sitting position in the ED, he had another 1 of his ?weak episodes? where he became lightheaded, pale, diaphoretic, and nauseated. There was no loss of consciousness though he felt as though he was going to pass out. Blood pressures have been stable since arrival; orthostatic vital signs have not been obtained. Labs were significant for a WBC count of 11.2, sodium 133, BUN 27, troponin 0.135, proBNP 600. A Chiu catheter was inserted for urinary retention and 800 mL of urine was drained before it was clamped. CT of the abdomen and pelvis showed rectal fecal impaction, stercoral proctocolitis, mild bilateral pleural effusions with dependent atelectasis, and moderate left hydroureteronephrosis with transition point in the distal ureter without urinary calculus. EKG showed sinus rhythm with mild ST depressions. With further questioning he has not had any episodes of chest pain, pleuritic pain, palpitations, or sensations of racing heart. He has noticed some swelling in his left leg in particular which is new. No orthopnea or paroxysmal nocturnal dyspnea. He has not had fever, chills, or sweats. No sick contacts. No dysphagia or concerns for aspiration. Appetite has been poor as above but he has not had any episodes of emesis. No saddle anesthesia, focal weakness, or new paresthesias. Review of Systems Review of Systems: Twelve systems were reviewed and are negative except for as per HPI. [facility] Past Medical History Medical History (Updated 12/12/22 @ 00:58 by Clemencia Coello PA-C) Benign essential hypertension Benign prostatic hyperplasia Chronic anemia Chronic kidney disease COVID-19 Degenerative joint disease Dementia Disequilibrium syndrome Glaucoma Hyperlipidemia Hypersomnolence Osteopenia Seasonal allergies Spinal stenosis Subclinical hyperthyroidism Vitamin B12 deficiency Vitamin D deficiency Surgical History Surgical History (
[2022-12-11] MEDS: ASPIRIN 81 MG CHEWABLE TABLET 324 MG PO (18:24)
--- NOTE | 2022-12-11 18:38 | ADMGEN ---
This patient, Fernando Nava, was admitted to IMU Room 231-01 at 1833. Patient/family oriented to hospital policies and general routines including ID bracelet, bed and alarms, visiting hours, pain management, procedures, bathroom and other care routines, personal items, smoking policy, room service/diet, and visiting hours. Information on how to activate the Rapid Response Team has been discussed. Patient/Family are encouraged to report perceived risks to care and to ask questions if they do not understand what they are told or what they should do.
[2022-12-11 20:41] LABS: Troponin I 0.131 ng/mL (0.000-0.034)
[2022-12-12] VITALS (12 sets, daily range): BP systolic 109–124; BP diastolic 54–84; PULSE 48–81; RESP 16–22; TEMP 36.3–36.6; O2SAT 96–99
[2022-12-12 00:07] LABS: Troponin I 0.107 ng/mL (0.000-0.034)
[2022-12-12] MEDS: AZITHROMYCIN 250 MG TABLET 500 MG PO (03:37)
[2022-12-12 04:02] LABS: Hematocrit 25.7 % (42.0-52.0); Hemoglobin 8.5 g/dL (14.0-18.0); Mean Corpuscular HGB Conc 33.1 g/dl (32-36); Mean Corpuscular Hemoglobin 31.6 pg (26-34); Mean Corpuscular Volume 95.5 fl (80-100); Mean Platelet Volume 10.3 fl (7.4-10.4); Platelet Count Result 211 k/mm3 (150-375); Red Blood Count 2.69 M/mm3 (4.6-6.20); Red Cell Distribution Width 13.9 % (11.5-14.5); White Blood Count 6.9 K/mm3 (4.5-10.0)
[2022-12-12 04:15] LABS: Anion Gap -1 mmol/L (8-16); Blood Urea Nitrogen 27 mg/dL (9-20); Calcium 8.8 mg/dL (8.4-10.2); Carbon Dioxide 29 mmol/L (22-30); Chloride 102 mmol/L (98-107); Estimated CRCL calculation 50 ml/min; Estimated Glomerular Filt Rate > 60; Glucose 97 mg/dL (65-110); Potassium 4.2 mmol/L (3.4-5.0); Sodium 130 mmol/L (137-145)
[2022-12-12 04:17] LABS: Influenza A QL RT-PCR Negative (Negative); Influenza B QL RT-PCR Negative (Negative); SARS-CoV-2 RNA PCR Negative (Negative)
[2022-12-12 05:36] LABS: Folic Acid > 20.0 ng/mL (2.76->20); Vitamin B12 > 1000.0 pg/mL (239-931)
--- NOTE | 2022-12-12 07:28 | PM.IMPN ---
Progress Note: A&P Assessment and Plan (1) Elevated troponin: Code(s): R77.8 - Other specified abnormalities of plasma proteins Status: Acute Assessment and Plan: Trend troponin, monitor telemetry, do not suspect acute cardiac etiology (2) Stercoral colitis: Code(s): K52.89 - Other specified noninfective gastroenteritis and colitis Status: Acute Assessment and Plan: Consult GI, severe stercoral colitis Initiate MiraLax cleanout (3) Fecal impaction: Code(s): K56.41 - Fecal impaction Status: Acute Assessment and Plan: As above (4) Constipation: Code(s): K59.00 - Constipation, unspecified Status: Acute Assessment and Plan: See above (5) Urinary retention: Code(s): R33.9 - Retention of urine, unspecified Status: Acute Assessment and Plan: Appreciate urology consultation (6) Hydroureteronephrosis: Code(s): N13.30 - Unspecified hydronephrosis Status: Acute (7) Multiple neurological symptoms: Code(s): R29.90 - Unspecified symptoms and signs involving the nervous system Status: Acute Assessment and Plan: Appreciate neurology consultation, concern for Parkinson's (8) History of orthostatic hypotension: Code(s): Z86.79 - Personal history of other diseases of the circulatory system Status: Acute Assessment and Plan: Blood pressures reviewed 12/12 (9) Cough: Code(s): R05.9 - Cough, unspecified Status: Acute Plan DVT prophylaxis with SCDs GI prophylaxis not indicated Code status full code Subjective Date/time seen: 12/12/22 07:28 Interval history: 82-year-old male with history of dementia, hypertension, hyperlipidemia among other comorbidities is presenting with constipation and urinary retention. No overnight events noted. No chest pain or shortness of breath. No nausea, vomiting or diarrhea. No fevers or chills. Patient is c/o significant abdominal pain. Review of Systems Review of Systems: 12 point review of systems was assessed and was negative except as noted in the HPI Exam Narrative: General: Appears acutely uncomfortable, seems to be alert and oriented per baseline HEENT: Atraumatic, normocephalic, mucous membranes moist CV: Regular rate and rhythm, S1, S2 Lungs: Clear to auscultation bilaterally, no rales or crackles noted, no wheezes, good air entry Abdomen: TTP, distended, no peritoneal signs Extremities: Normal to inspection Skin: No rashes noted, no lesions or wounds seen Psych: Unable to assess Objective Data Vital Signs Vital Signs: Vital Signs - 24 hr 12/11/22 15:42 12/11/22 15:50 12/11/22 15:50 Temperature 96.7 F L Pulse Rate 73 75 Respiratory Rate 16 14 Blood Pressure 151/80 H Pulse Oximetry 97 Oxygen Delivery Room Air Room Air 12/11/22 15:51 12/11/22 16:00 12/11/22 16:01 Temperature Pulse Rate 73 71 75 Respiratory Rate 16 13 18 Blood Pressure 151/80 H 130/107 H Pulse Oximetry 100 97 93 Oxygen Delivery 12/11/22 16:23 12/11/22 16:45 12/11/22 16:46 Temperature Pulse Rate 71 66 74 Respiratory Rate 13 21 H 12 Blood Pressure 130/72 Pulse Oximetry 100 100 100 Oxygen Delivery 12/11/22 17:04 12/11/22 17:15 12/11/22 17:16 Temperature Pulse Rate 71 72 74 Respiratory Rate 13 15 13 Blood Pressure 118/77 Pulse Oximetry 100 99 100 Oxygen Delivery 12/11/22 17:49 12/11/22 18:00 12/11/22 18:25 Temperature Pulse Rate 76 71 79 Respiratory Rate 14 15 16 Blood Pressure 127/75 Pulse Oximetry 99 98 Oxygen Delivery 12/11/22 18:53 12/11/22 19:42 12/11/22 20:00 Temperature 96.9 F L 98.2 F Pulse Rate 78 89 71 Respiratory Rate 14 18 Blood Pressure 136/69 114/56 L Pulse Oximetry 97 100 Oxygen Delivery 12/11/22 22:00 12/12/22 00:00 12/12/22 00:00 Temperature 97.8 F Pulse Rate 70 58 L 67 Respiratory
--- NOTE | 2022-12-12 09:36 | WPDURCON ---
Urology Consult Note HPI Date Seen: 12/12/22 Requesting Physician: Harjit Lezama MD Primary Care Provider: Jarrod Orta MD Consult Narrative Narrative: Fernando Nava is a 82 year old male known to our practice with a long history of BPH and episodes of urinary retention in the past. He is status post TURP in June 2020. Presents to the emergency department with recurrent constipation/ fecal impaction and urinary retention. Imaging demonstrates, in addition to the fecal impaction, mild left hydronephrosis. The catheter is in currently and draining clear urine. Patient can supply much for reliable history due to his mental status. Review of Systems Review of Systems: ROS unobtainable: Yes unobtainable due to mental status PMFSH Past Medical History Medical History (Updated 12/12/22 @ 00:58 by Clemencia Coello PA-C) Benign essential hypertension Benign prostatic hyperplasia Chronic anemia Chronic kidney disease COVID-19 Degenerative joint disease Dementia Disequilibrium syndrome Glaucoma Hyperlipidemia Hypersomnolence Osteopenia Seasonal allergies Spinal stenosis Subclinical hyperthyroidism Vitamin B12 deficiency Vitamin D deficiency Surgical History Surgical History (Updated 12/04/22 @ 00:38 by Clemencia Coello PA-C) History of cataract extraction History of removal of pigmented skin lesion History of tonsillectomy History of total right hip arthroplasty Family History Family History Mother Family history of cardiovascular disease Diabetes mellitus Family history of arthritis Family history of coronary artery disease Hypertension Acute myocardial infarction Father Family history of arthritis Family history of coronary artery disease Sibling Glaucoma Hypertension Social History Social History (Updated 12/04/22 @ 00:39 by Clemencia Coello PA-C) Social History: Surrogate medical decision maker: Kasie Nvaa, spouse. Code status: Full code. Smoking status: Never smoker Second hand tobacco smoke exposure: No Alcohol intake: former Drinks per week: 10 Alcohol use details: non-alcoholic Substance use: never Substance use type: does not use Lack of Transportation: No Lack of Food: Never True Current Housing: I Have Housing Concerned About Future Housing: No Difficulty Paying Gas/Electric Bills: No Difficulty Paying for Meds: No Currently Unemployed: No Education: Bachelor's Degree Difficulty w/ Childcare or Family Care: No Living arrangements: with family Additional living arrangements comments: Lives with in [place]. 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 Spiritual care concerns: No Meds Home Medications and Allergies Home Medications Medication Instructions Recorded Confirmed Type aspirin 81 mg tablet,delayed 81 mg PO DAILY 03/14/19 12/11/22 History release (Adult Low Dose Aspirin) cranberry fruit concentrate 250 mg 250 mg PO BID 11/09/21 12/11/22 History chewable tablet (Azo Cranberry) finasteride 5 mg tablet 5 mg PO DAILY 05/05/22 12/11/22 History folic acid-vit B6-vit B12 2.2 0.5 tablet PO DAILY 05/05/22 12/11/22 History mg-25 mg-0.5 mg tablet (Folplex) vitamin E (dl, acetate) 180 mg 180 mg PO HS 06/08/22 12/11/22 History (400 unit) capsule fresh kote 1 - 2 drp EACH EYE PRN PRN Dry Eyes 06/23/22 12/11/22 History tamsulosin 0.4 mg capsule 0.4 mg PO QHS 06/23/22 12/11/22 History nystatin-triamcinolone 100,000 1 applic topical PRN PRN MACERATION 07/15/22 12/11/22 History unit/g-0.1 % topical cream acetaminophen 500 mg tablet 1,000 mg PO Q6H PRN Pain 07/22/22 12/11/22 History (Tylenol Extra Strength) tolnaftate 1 % topical spray powder 1 spray topical PRN Y 07/22/22 12/11/22 History lisinopril 20 mg tablet 20 mg PO BID #180 tabs 10/25/22 12/11/22 Rx calcium polycarbophil 625 mg 625 mg PO BID 12/03/22 0
--- NOTE | 2022-12-12 10:49 | PCPTNOTE ---
Attempted to see for physical therapy evaluation, pt was in Echo and nursing staff was waiting for the Echo to finish to see pt for meds, ect. Asked therapy to come back later. Will continue to follow.
--- NOTE | 2022-12-12 10:49 | PCOTNOTE ---
Attempted occupational therapy evaluation, patient was in ECHO and nursing staff was waiting to see patient first. Asked therapy to return later. Following.
[2022-12-12] MEDS: ENOXAPARIN 40 MG/0.4 ML SYRINGE SUB-Q (11:10)
[2022-12-12] MEDS: calcium polycarbophiL 625 MG TABLET PO ×2 (11:10→18:37)
[2022-12-12] MEDS: guaiFENesin 12 HR 600 MG TABCR PO ×2 (11:10→21:24)
[2022-12-12] MEDS: DOCUSATE SODIUM 400 MG/400 ML ENEMA RECTAL (11:10)
[2022-12-12] MEDS: FINASTERIDE 5 MG TABLET PO (11:10)
[2022-12-12] MEDS: ASPIRIN 81 MG CHEWABLE TABLET PO (11:10)
[2022-12-12] MEDS: VITAMIN B CMPLX/VIT C/FOLIC AC 1 CAPSULE 1 CAP PO (11:11)
--- NOTE | 2022-12-12 11:41 | PCPTNOTE ---
Attempted to see for physical therapy evaluation, pt was unarousable at this time.
--- NOTE | 2022-12-12 11:41 | PCOTNOTE ---
Attempted occupational therapy evaluation, pt was unarousable at this time. Following.
--- NOTE | 2022-12-12 11:51 | WPDNEURCNPN ---
Assessment and Plan Assessment and plan (1) Multiple neurological symptoms: Code(s): R29.90 - Unspecified symptoms and signs involving the nervous system Status: Acute Plan question has been raised regarding the possibility of normal pressure hydrocephalus but the CT scan is negative, can be reexamined when he is able to the instructions bed for the possibility of the Parkinson's disease as the question has been raised though he does not have any resting tremor at this particular time Consult date: 12/12/22 HPI: Fernando Nava is a 82 year old male admitted to the hospital through the emergency room where he was brought by ambulance from home with the complaints of cough and decreased urinary output, patient's reported to the ER personnel that he was sitting at the edge of the bed after having exercises at noon on the day of admission he has been [facility] the [facility] at least 4 times so far and carries the diagnosis of ongoing dementia. Medications included aspirin 81 mg daily, test right 5 mg daily, tamsulosin 0.4 mg at night, and pravastatin 20 mg daily, has ongoing history of multiple medical problems such as hypertension, chronic anemia, chronic renal disease, spinal stenosis, and B12 and D deficiency. He is not substance user and non alcoholic by history, initial evaluation revealed him to be afebrile with blood pressure 151/80 with normal CBC except hemoglobin 10.2 basic metabolic panel with sodium [address] scan with rectal fecal impaction and moderate large sliding hiatal hernia EKG without atrial fibrillation, subsequently noted to have gait dysfunction and bradykinesia raising the possibility of Parkinson's disease versus normal pressure hydrocephalus though still he is wheelchair-bound most recent CT scan without any hydrocephalus mass or herniation intra or extra-axial fluid collection his stroke or any osseous abnormality Review of Systems Review of Systems: chronically ill appearing but able to follow the verbal commands his speech of low volume not dysphasic not dysarthric head normocephalic neck supple with no meningeal signs heart regular lungs clear abdomen is soft nontender he is able to follow the verbal commands to his name and oriented in being in the hospital his speech is of low volume extraocular movements are full spontaneously with no nystagmus facial sensation intact face symmetrical tongue midline motor examination revealed him to have decreased strength with symmetrical reflexes and downgoing plantar responses PMFSH Past Medical History Medical History (Updated 12/12/22 @ 00:58 by Clemencia G Gerling, PA-C) Benign essential hypertension Benign prostatic hyperplasia Chronic anemia Chronic kidney disease COVID-19 Degenerative joint disease Dementia Disequilibrium syndrome Glaucoma Hyperlipidemia Hypersomnolence Osteopenia Seasonal allergies Spinal stenosis Subclinical hyperthyroidism Vitamin B12 deficiency Vitamin D deficiency Surgical History Surgical History (Updated 12/04/22 @ 00:38 by Clemencia Coello PA-C) History of cataract extraction History of removal of pigmented skin lesion History of tonsillectomy History of total right hip arthroplasty Family History Family History Mother Family history of cardiovascular disease Diabetes mellitus Family history of arthritis Family history of coronary artery disease Hypertension Acute myocardial infarction Father Family history of arthritis Family history of coronary artery disease Sibling Glaucoma Hypertension Social History Social History (Updated 12/04/22 @ 00:39 by Clemencia Coello PA-C) Social History: Surrogate medical decision maker: Kasie Nava, spouse. Code status: Full code. Smoking status: Never smoker Second hand tobacco smoke exposure: No Alcohol intake: former Drinks per week: 10 Alcohol use details: non
[2022-12-12] MEDS: polyethylene glycoL 3350 238 GM BOTTLE PO (13:44)
[2022-12-12] MEDS: VITAMIN E 400 UNIT CAPSULE PO (21:24)
[2022-12-12] MEDS: TAMSULOSIN HCL 0.4 MG CAPSULE PO (21:25)
[2022-12-13] VITALS (9 sets, daily range): BP systolic 100–137; BP diastolic 46–74; PULSE 74–85; RESP 16–22; TEMP 36.3–36.8; O2SAT 95–99
--- NOTE | 2022-12-13 08:29 | PM.IMPN ---
Progress Note: A&P Assessment and Plan (1) Elevated troponin: Code(s): R77.8 - Other specified abnormalities of plasma proteins Status: Acute Assessment and Plan: Trend troponin, monitor telemetry, do not suspect acute cardiac etiology, flattened curve (2) Stercoral colitis: Code(s): K52.89 - Other specified noninfective gastroenteritis and colitis Status: Acute Assessment and Plan: Consult GI pending, severe stercoral colitis Initiate MiraLax cleanout 12/12, improving w/ BM on 12/13, monitor (3) Fecal impaction: Code(s): K56.41 - Fecal impaction Status: Acute Assessment and Plan: As above (4) Constipation: Code(s): K59.00 - Constipation, unspecified Status: Acute Assessment and Plan: See above (5) Urinary retention: Code(s): R33.9 - Retention of urine, unspecified Status: Acute Assessment and Plan: Appreciate urology consultation, recommending flomax and palmer remain in place until constipation resolves (6) Hydroureteronephrosis: Code(s): N13.30 - Unspecified hydronephrosis Status: Acute (7) Multiple neurological symptoms: Code(s): R29.90 - Unspecified symptoms and signs involving the nervous system Status: Acute Assessment and Plan: Appreciate neurology consultation, concern for Parkinson's, follow up outpatient for further care (8) History of orthostatic hypotension: Code(s): Z86.79 - Personal history of other diseases of the circulatory system Status: Acute Assessment and Plan: Blood pressures reviewed 12/13 Check orthostatic BP when more stable (9) Cough: Code(s): R05.9 - Cough, unspecified Status: Acute Plan DVT prophylaxis with SCDs GI prophylaxis not indicated Code status full code Subjective Date/time seen: 12/13/22 08:29 Interval history: 82-year-old male with history of dementia, hypertension, hyperlipidemia among other comorbidities is presenting with constipation/stercoral colitis and urinary retention. No overnight events noted. No chest pain or shortness of breath. No nausea, vomiting or diarrhea. No fevers or chills. Patient had a bowel movement yesterday and states he feels a little better than yesterday, still uncomfortable. Review of Systems Review of Systems: 12 point review of systems was assessed and was negative except as noted in the HPI Exam Narrative: General: Appears acutely comfortable, seems to be alert and oriented per baseline HEENT: Atraumatic, normocephalic, mucous membranes moist CV: Regular rate and rhythm, S1, S2 Lungs: Clear to auscultation bilaterally, no rales or crackles noted, no wheezes, good air entry Abdomen: Less tender and distended than yesterday Extremities: Normal to inspection Skin: No rashes noted, no lesions or wounds seen Psych: Flattened affect Objective Data Vital Signs Vital Signs: Vital Signs - 24 hr 12/12/22 12:00 12/12/22 12:00 12/12/22 14:00 Temperature 97.6 F Pulse Rate 72 71 71 Respiratory Rate 16 Blood Pressure 109/54 L Pulse Oximetry 99 12/12/22 16:00 12/12/22 16:00 12/12/22 18:00 Temperature 97.6 F Pulse Rate 71 71 75 Respiratory Rate 16 Blood Pressure 123/68 Pulse Oximetry 97 12/12/22 20:00 12/12/22 20:00 12/12/22 20:00 Temperature 97.9 F Pulse Rate 77 81 Respiratory Rate 20 Blood Pressure 116/69 116/69 Pulse Oximetry 97 12/12/22 22:00 12/12/22 23:31 12/13/22 00:00 Temperature 97.8 F Pulse Rate 76 77 78 Respiratory Rate 18 Blood Pressure 124/70 Pulse Oximetry 96 12/13/22 02:00 12/13/22 04:00 12/13/22 04:00 Temperature 97.9 F Pulse Rate 82 81 78 Respiratory Rate 20 Blood Pressure 109/53 L Pulse Oximetry 95 12/13/22 06:00 Temperature Pulse Rate 83 Respiratory Rate Blood Pressure Pulse Oximetry Intake/Output Intake/Output: Inta
[2022-12-13] MEDS: VITAMIN B CMPLX/VIT C/FOLIC AC 1 CAPSULE 1 CAP PO (09:14)
[2022-12-13] MEDS: ASPIRIN 81 MG ENTERIC TABLET PO (09:14)
[2022-12-13] MEDS: FINASTERIDE 5 MG TABLET PO (09:14)
[2022-12-13] MEDS: AZITHROMYCIN 250 MG TABLET PO (09:15)
[2022-12-13] MEDS: ENOXAPARIN 40 MG/0.4 ML SYRINGE SUB-Q (09:15)
[2022-12-13] MEDS: guaiFENesin 12 HR 600 MG TABCR PO ×2 (09:15→22:23)
[2022-12-13] MEDS: calcium polycarbophiL 625 MG TABLET PO ×2 (09:15→17:14)
[2022-12-13] MEDS: ONDANSETRON INJ 4 MG/2 ML VIAL IV PUSH (10:18)
--- NOTE | 2022-12-13 14:26 | WPDGICN ---
Assessment and Plan Assessment and plan (1) Fecal impaction: Code(s): K56.41 - Fecal impaction Status: Acute Assessment and Plan: by CT scan he had a large impaction with a stool ball floating above the rectum. Hopefully the bowel movements he had this morning included passage of that. We will obtain KUB to follow-up. He will need a better regimen for his bowels when he goes home, particularly because he is becoming very inactive. I will start him on Linzess here. (2) Stercoral colitis: Code(s): K52.89 - Other specified noninfective gastroenteritis and colitis Status: Acute Assessment and Plan: On colonoscopy last year to investigate anemia he did have some proctitis. I suspect he has had intermittent impaction causing inflammation in the rectum. (3) Chronic anemia: Code(s): D64.9 - Anemia, unspecified Status: Acute Assessment and Plan: His hemoglobin runs in the nines. Last year he had endoscopy and colonoscopy to investigate anemia nothing particular was found. He had also then had a bone marrow biopsy which showed normal maturation of hemopoietic cell lines. He had a megaloblastic peripheral smear. (4) Multiple neurological symptoms: Code(s): R29.90 - Unspecified symptoms and signs involving the nervous system Status: Acute Assessment and Plan: He apparently has been getting spells where he feels very weak and actually has fallen a couple of times as well. Neurology has been asked to see him. Their concerns they may have Parkinson's disease because of bradykinesia and other symptoms. Plan KUB today to assess fecal load Linzess 145 mcg per day. May need to increase to 290 continue MiraLax daily encouraged a high-fiber diet at discharge. GI Consult Note Consult date/time: 12/13/22 14:26 HPI: Fernando Nava is a 82 year old male who presents emergency room complaining that he is unable to urinate or have a bowel movement. Was hospitalized just a week or so ago when he had an episode of being unresponsive and was found to have a fecal impaction. He had large bowel movements after laxatives and enemas in went home taking MiraLax 2 or 3 times a day and also he states he is using FiberCon. Despite that he has not having bowel movements. He tells me he did have a very large bowel movement in fact a couple of them this morning common feels much better now. He had a colonoscopy exactly 1 year ago this month. That procedure was done because of dropping blood counts and was unremarkable in terms of any pathology the colon except that there was rectal inflammation and biopsies showed proctitis CT scan on admission shows among other things, a large rectal stool ball up to 8 cm in diameter Review of Systems Review of Systems: All systems reviewed & are unremarkable except as noted in HPI and below PMFSH Past Medical History Medical History Benign essential hypertension Benign prostatic hyperplasia Chronic anemia Chronic kidney disease COVID-19 Degenerative joint disease Dementia Disequilibrium syndrome Glaucoma Hyperlipidemia Hypersomnolence Osteopenia Seasonal allergies Spinal stenosis Subclinical hyperthyroidism Vitamin B12 deficiency Vitamin D deficiency Surgical History Surgical History History of cataract extraction History of removal of pigmented skin lesion History of tonsillectomy History of total right hip arthroplasty Family History Family History Mother Family history of cardiovascular disease Diabetes mellitus Family history of arthritis Family history of coronary artery disease Hypertension Acute myocardial infarction Father Family history of arthritis Family history of coronary artery disease Sibling Glaucoma Hypertension Social
--- NOTE | 2022-12-13 18:27 | PC.NURSE ---
Addendum entered by Aleah Roland RN 12/13/22 18:32: , Kasie, notified of room change Original Note: This patient, Fernando Nava, was transferred to [305-2 ] on 12/13/22 at 1827. Personal belongings sent with patient. Report given to [WESTLEY Garcia @ 1800 ]. Appropriate documentation sent with patient.
[2022-12-13] MEDS: TAMSULOSIN HCL 0.4 MG CAPSULE PO (22:23)
[2022-12-13] MEDS: VITAMIN E 400 UNIT CAPSULE PO (22:23)
--- NOTE | 2022-12-14 | ECHO_ITS ---
Patient Info Name: Fernando Nava Age: 82 years : 1940 Gender: Male Ht: 71 in Wt: 194 lbs BSA: 2.11 m2 HR: 76 bpm BP: 106 / 62 mmHg Technical Quality: Fair Exam Date: 12/14/2022 11:21 AM Exam Location: [facility] Patient Status: Inpatient Admit Date: 12/11/2022 Staff Ordering Physician: Clemencia Coello PA-C Test Engineering Manager: Ange Wong RDCS Attending Provider: Harjit Lezama MD Referring Physician: Mode HOWELL; Exam Type: CA echo dop color flow w con Study Info Indications - ELEVATED TROPONIN Complete two-dimensional, color flow and Doppler transthoracic echocardiogram is performed with contrast to opacify the left ventricle and to improve the deliniation of the left ventricle endocardial borders. Contrast/Agitated Saline Contrast/Ag. Saline: Definity Amount: 2.00 ml Administered By: Ange Wong RDCS Existing IV Access: Yes IV Access Condition: patent with no signs of infiltration Summary 1. Definity contrast administered improved wall motion interpretation. 2. Left ventricular chamber dimension is normal. 3. Left ventricular systolic function is normal, estimated at 60-65%. 4. The left ventricular diastolic function is grade I diastolic dysfunction. 5. E/e' 15 is elevated. 6. Left atrial chamber dimension is mildly enlarged. 7. There is mild aortic valve sclerosis. 8. The mitral valve has moderately calcified annulus. 9. There is mild tricuspid valve regurgitation. 10. No pulmonary hypertension, estimated pulmonary arterial systolic pressure is 39 mmHg. Left Ventricle Definity contrast administered improved wall motion interpretation. E/e' 15 is elevated. Left ventricular chamber dimension is normal. Left ventricular systolic function is normal, estimated at 60-65%. The left ventricular diastolic function is grade I diastolic dysfunction. Right Ventricle Right ventricular chamber dimension is not well visualized. Left Atria Left atrial chamber dimension is mildly enlarged. Right Atria Right atrial chamber dimension is normal. Aortic Valve The aortic valve is trileaflet. There is mild aortic valve sclerosis. There is no aortic valve stenosis. There is no aortic valve regurgitation. Pulmonic Valve There is no pulmonic regurgitation. Mitral Valve The mitral valve has moderately calcified annulus. There is no mitral valve stenosis. There is no mitral valve regurgitation. Tricuspid Valve There is mild tricuspid valve regurgitation. No pulmonary hypertension, estimated pulmonary arterial systolic pressure is 39 mmHg. Pericardium/Pleural There is no pericardial effusion. Inferior Vena Cava Inferior vena cava is not well visualized. Aorta The aortic root size at the sinus of Valsalva is normal. Left Ventricular Outflow Tract Name Value Normal LVOT 2D LVOT Diameter 2.13 cm LVOT Doppler LVOT Peak Gradient 7 mmHg LVOT Mean Gradient 4 mmHg LVOT VTI 26.91 cm LVOT VTI/AV VTI Ratio 0.98 LVOT Stroke Volume 95.85 ml LVOT CO 6.69 l/m
[2022-12-14 01:34] VITALS: RESP 20
[2022-12-14 04:56] VITALS: BP 106/62; PULSE 65; RESP 15; TEMP 36.2; O2SAT 98
--- NOTE | 2022-12-14 06:40 | WPDGIPROGNO ---
Progress Note: A&P Assessment and Plan (1) Fecal impaction: Code(s): K56.41 - Fecal impaction Status: Acute Assessment and Plan: by CT scan he had a large impaction with a stool ball floating above the rectum. Hopefully the bowel movements he had this morning included passage of that. We will obtain KUB to follow-up. He will need a better regimen for his bowels when he goes home, particularly because he is becoming very inactive. I will start him on Linzess here. (2) Stercoral colitis: Code(s): K52.89 - Other specified noninfective gastroenteritis and colitis Status: Acute Assessment and Plan: On colonoscopy last year to investigate anemia he did have some proctitis. I suspect he has had intermittent impaction causing inflammation in the rectum. he denies seen any blood her stools recently. (3) Chronic anemia: Code(s): D64.9 - Anemia, unspecified Status: Acute Assessment and Plan: His hemoglobin runs in the nines. Last year he had endoscopy and colonoscopy to investigate anemia nothing particular was found. He had also then had a bone marrow biopsy which showed normal maturation of hemopoietic cell lines. He had a megaloblastic peripheral smear. (4) Multiple neurological symptoms: Code(s): R29.90 - Unspecified symptoms and signs involving the nervous system Status: Acute Assessment and Plan: He apparently has been getting spells where he feels very weak and actually has fallen a couple of times as well. Neurology has been asked to see him. Their concerns they may have Parkinson's disease because of bradykinesia and other symptoms. Plan KUB today to assess fecal load Linzess 145 mcg per day. May need to increase to 290 continue MiraLax daily encouraged a high-fiber diet at discharge. Today he denies spoke about Linzess. She thinks it may have come up in discussion with his primary care provider in the past, and that was going to be too expensive for him. In that case the alternative would be for him to continue MiraLax taking at least 2 doses a day Subjective Date/time seen: 12/14/22 06:40 He is comfortable today. No bowel movements during the night. KUB show to the clearance of fecal impaction Exam Const: General: alert Orientation/consciousness: patient oriented x3 Resp: Auscultation: clear to auscultation bilaterally Cardio: Rhythm: regular rhythm GI: Inspection: obesity Auscultation: normal bowel sounds Neuro: General: patient oriented x3 Objective Data Vital Signs Vital Signs: Vital Signs - 24 hr 12/13/22 08:00 12/13/22 08:39 12/13/22 08:00 Temperature 36.5 C Pulse Rate 82 Respiratory Rate 20 Blood Pressure 137/63 Pulse Oximetry 98 98 Oxygen Delivery Room Air Room Air 12/13/22 08:00 12/13/22 10:00 12/13/22 12:00 Temperature 36.3 C L Pulse Rate 85 74 75 Respiratory Rate 22 H Blood Pressure 100/46 L Pulse Oximetry 98 Oxygen Delivery 12/13/22 16:35 12/13/22 21:11 12/14/22 01:34 Temperature 36.4 C 36.8 C Pulse Rate 74 76 Respiratory Rate 20 16 20 Blood Pressure 126/59 L 133/74 Pulse Oximetry 99 98 Oxygen Delivery 12/14/22 04:56 Temperature 36.2 C L Pulse Rate 65 Respiratory Rate 15 Blood Pressure 106/62 Pulse Oximetry 98 Oxygen Delivery Intake/Output Intake/Output: Intake & Output 12/11/22 12/12/22 12/13/22 12/14/22 23:59 23:59 23:59 23:59 Intake Total 540 570 Output Total 1050 508 650 Balance -745 -939 -980 Meds/Results Medications: Active Medications Generic Name Dose Route Start Last Admin Trade Name Freq PRN Reason Stop Dose Admin Acetaminophen 650 mg 12/11/22 17:35 Acetaminophen 325 Mg Tablet PO Q4H PRN Mild Pain (1-3) or Fever Artificial Tears 1 - 2 drop 12/12/22 01:51 Artificial Tears Ophth Soln 15 Ml Bottle EACH EYE Q12H PRN Dry Eye(s) Aspirin 81 mg 12/12/22 09:00 12/13/22 09:14
[2022-12-14] MEDS: polyethylene glycoL 3350 17 GM POWD.PACK PO (08:39)
[2022-12-14] MEDS: ENOXAPARIN 40 MG/0.4 ML SYRINGE SUB-Q (08:41)
[2022-12-14] MEDS: VITAMIN B CMPLX/VIT C/FOLIC AC 1 CAPSULE 1 CAP PO (08:43)
[2022-12-14] MEDS: FINASTERIDE 5 MG TABLET PO (08:43)
[2022-12-14] MEDS: AZITHROMYCIN 250 MG TABLET PO (08:43)
[2022-12-14] MEDS: ASPIRIN 81 MG ENTERIC TABLET PO (08:43)
[2022-12-14] MEDS: guaiFENesin 12 HR 600 MG TABCR PO ×2 (08:43→20:15)
[2022-12-14] MEDS: calcium polycarbophiL 625 MG TABLET PO ×2 (08:43→16:34)
--- NOTE | 2022-12-14 10:23 | PM.IMPN ---
Progress Note: A&P Assessment and Plan (1) Elevated troponin: Code(s): R77.8 - Other specified abnormalities of plasma proteins Status: Acute Assessment and Plan: Trend troponin, monitor telemetry, do not suspect acute cardiac etiology, flattened curve (2) Stercoral colitis: Code(s): K52.89 - Other specified noninfective gastroenteritis and colitis Status: Acute Assessment and Plan: Consult GI pending, severe stercoral colitis Initiate MiraLax cleanout 12/12, improving w/ BM on 12/13, monitor Start Linzess, d/c soon on miralax BID (3) Fecal impaction: Code(s): K56.41 - Fecal impaction Status: Acute Assessment and Plan: As above, resolving, check KUB (4) Constipation: Code(s): K59.00 - Constipation, unspecified Status: Acute Assessment and Plan: See above (5) Urinary retention: Code(s): R33.9 - Retention of urine, unspecified Status: Acute Assessment and Plan: Appreciate urology consultation, recommending flomax and palmer remain in place until constipation resolves Voiding trial prior to d/c after fecal impaction resolved (6) Hydroureteronephrosis: Code(s): N13.30 - Unspecified hydronephrosis Status: Acute (7) Multiple neurological symptoms: Code(s): R29.90 - Unspecified symptoms and signs involving the nervous system Status: Acute Assessment and Plan: Appreciate neurology consultation, concern for Parkinson's, follow up outpatient for further care (8) History of orthostatic hypotension: Code(s): Z86.79 - Personal history of other diseases of the circulatory system Status: Acute Assessment and Plan: Blood pressures reviewed 12/14 Check orthostatic BP when more stable (9) Cough: Code(s): R05.9 - Cough, unspecified Status: Acute Plan DVT prophylaxis with SCDs GI prophylaxis not indicated Code status full code Subjective Date/time seen: 12/14/22 10:23 Interval history: 82-year-old male with history of dementia, hypertension, hyperlipidemia among other comorbidities is presenting with constipation/stercoral colitis and urinary retention. No overnight events noted. No chest pain or shortness of breath. No nausea, vomiting or diarrhea. No fevers or chills. Feels about the same as yesterday. Review of Systems Review of Systems: 12 point review of systems was assessed and was negative except as noted in the HPI Exam Narrative: General: Appears acutely comfortable, seems to be alert and oriented per baseline HEENT: Atraumatic, normocephalic, mucous membranes moist CV: Regular rate and rhythm, S1, S2 Lungs: Clear to auscultation bilaterally, no rales or crackles noted, no wheezes, good air entry Abdomen: Less tender and distended than yesterday Extremities: Normal to inspection Skin: No rashes noted, no lesions or wounds seen Psych: Flattened affect Objective Data Vital Signs Vital Signs: Vital Signs - 24 hr 12/13/22 12:00 12/13/22 16:35 12/13/22 21:11 Temperature 97.3 F L 97.6 F 98.3 F Pulse Rate 75 74 76 Respiratory Rate 22 H 20 16 Blood Pressure 100/46 L 126/59 L 133/74 Pulse Oximetry 98 99 98 12/14/22 01:34 12/14/22 04:56 Temperature 97.2 F L Pulse Rate 65 Respiratory Rate 20 15 Blood Pressure 106/62 Pulse Oximetry 98 Intake/Output Intake/Output: Intake & Output 12/11/22 12/12/22 12/13/22 12/14/22 23:59 23:59 23:59 23:59 Intake Total 540 570 120 Output Total 1050 900 650 Balance -337 -636 -340 Meds/Results Medications: Active Medications Generic Name Dose Route Start Last Admin Trade Name Freq PRN Reason Stop Dose Admin Acetaminophen 650 mg 12/11/22 17:35 Acetaminophen 325 Mg Tablet PO Q4H PRN Mild Pain (1-3) or Fever Artificial Tears 1 - 2 drop 12/12/22 01:51 Artificial Tears Ophth Soln 15 Ml Bottle EACH EYE Q12H PRN
[2022-12-14] MEDS: PERFLUTREN LIPID MICROSPHERES 1.5 ML VIAL DILUTED TO 10 ML TOTAL VOLUME IV PUSH (11:47)
--- NOTE | 2022-12-14 11:59 | IVDEFINITY ---
Prior to administration of IV Definity the patient was educated on the risks and benefits of the imaging enhancing agent including potential adverse side effects. The patient verbalized understanding. Allergies were verified. No exclusion criteria were identified and at least one of the following inclusion criteria were met: 1) physician request, 2) patient technically difficult to image (per the [place] [employer] guidelines of two or more segments not discernable within the apical view), or 3) questionable left ventricular function. ?
[2022-12-14 14:00] VITALS: BP 126/65; PULSE 72; RESP 16; TEMP 35.5; O2SAT 100
[2022-12-14] MEDS: guaiFENesin 600 MG/DEXTROMETHORPHAN 30 MG SR TAB 12 HR 1 TAB PO ×2 (14:30→20:15)
[2022-12-14] MEDS: VITAMIN E 400 UNIT CAPSULE PO (20:15)
[2022-12-14] MEDS: TAMSULOSIN HCL 0.4 MG CAPSULE PO (20:15)
[2022-12-14 22:00] VITALS: BP 151/76; PULSE 75; RESP 18; TEMP 36.1; O2SAT 97
[2022-12-15] MEDS: LINACLOTIDE 145 MCG CAPSULE PO (05:56)
[2022-12-15 06:00] VITALS: BP 134/60; PULSE 68; RESP 16; TEMP 36; O2SAT 95
[2022-12-15] MEDS: ENOXAPARIN 40 MG/0.4 ML SYRINGE SUB-Q (08:13)
[2022-12-15] MEDS: polyethylene glycoL 3350 17 GM POWD.PACK PO (08:13)
[2022-12-15] MEDS: FINASTERIDE 5 MG TABLET PO (08:17)
[2022-12-15] MEDS: VITAMIN B CMPLX/VIT C/FOLIC AC 1 CAPSULE 1 CAP PO (08:17)
[2022-12-15] MEDS: AZITHROMYCIN 250 MG TABLET PO (08:17)
[2022-12-15] MEDS: calcium polycarbophiL 625 MG TABLET PO (08:17)
[2022-12-15] MEDS: guaiFENesin 600 MG/DEXTROMETHORPHAN 30 MG SR TAB 12 HR 1 TAB PO (08:17)
[2022-12-15] MEDS: ASPIRIN 81 MG ENTERIC TABLET PO (08:17)
[2022-12-15 09:33] VITALS: O2SAT 95
--- NOTE | 2022-12-15 11:11 | PM.DS ---
DS: Admitting Diagnosis Discharge Date 12/15/2022 Admitting Diagnosis Urinary retention Fecal impaction DS: Discharge Diagnosis Discharge Diagnosis (1) History of orthostatic hypotension: Code(s): Z86.79 - Personal history of other diseases of the circulatory system Status: Acute (2) Fecal impaction: Code(s): K56.41 - Fecal impaction Status: Acute (3) Acute urinary retention: Code(s): R33.8 - Other retention of urine Status: Acute DS: Summary Hospital Course Hospital Course: 82-year-old male with history of dementia, hypertension, hyperlipidemia among other comorbidities is presenting with constipation/stercoral colitis and urinary retention. He was also found to have elevated troponin, do not suspect acute cardiac etiology, flattened curve. For severe stercoral colitis, GI was consulted. Initiate MiraLax. Linzess was added by GI. For urinary retention urology was consulted. Appreciate urology consultation, recommending flomax and palmer remain in place. There was also concern for Parkinson's disease so Neurology was consulted. they recommended follow up outpatient for further care. Patient is clinically stable and is being discharged home with home health. Time Spent with Patient Time attestation: Total time spent providing and/or coordinating discharge services: DS: Data Data Completed and Pending Labs on day of discharge: Preliminary micro results at discharge 12/11/22 17:45 Blood Culture - Preliminary Blood 12/11/22 17:21 Blood Culture - Preliminary Blood Discharge Plan Discharge Consulting providers: Rishabh Woods; Sameer Conway; Jw Slaughter Discharging Clinician: Julio Jay Anticipated Discharge Date/Time: 12/15/22 11:08 Patient Disposition: Home Health Service Activity: no preference Diet: heart healthy Discharge Instructions: Per Care Coordination, patient to discharge with [facility] ([phone]) for PT/OT and long-term services. Agency will call to arrange the initial visit. Patient Instructions: Antibiotic Form, Heart Failure (DC), Urinary Retention in Men (GEN), Palmer Catheter Placement and Care (DC), Fecal Impaction (GEN) Stand Alone Forms: General Discharge Information Follow-up/Referrals: Jarrod Orta MD [Primary Care Provider] - Discharge Medications: New Linzess 145 mcg Capsule 145 mcg PO DAILY@0630 Qty: 30 0RF Continued aspirin [Adult Low Dose Aspirin] 81 mg tablet,delayed release (DR/EC) 81 mg PO DAILY fresh kote 2 drop lubricant 1 - 2 drp EACH EYE PRN PRN (Reason: Dry Eyes) tamsulosin 0.4 mg capsule 0.4 mg PO QHS Folplex 2.2 2.2-25-0.5 mg tablet 0.5 tablet PO DAILY finasteride 5 mg tablet 5 mg PO DAILY Azo Cranberry 250 mg Tablet,Chewable 250 mg PO BID nystatin-triamcinolone 100,000-0.1 unit/g-% cream 1 applic TOPICAL PRN PRN (Reason: MACERATION) Rx Instructions: APPLY TO GROIN calcium polycarbophil [FiberCon] 625 mg Tablet 625 mg PO BID pravastatin 20 mg tablet 20 mg PO DAILY Rx Instructions: Take 1 tablet by mouth once daily polyethylene glycol 3350 [Miralax] 17 gram/dose powder 17 gm PO TID PRN (Reason: Constipation) Qty: 30 0RF Rx Instructions: MIX WITH 8OZ OF FLUID. vitamin E (dl, acetate) 180 mg (400 unit) capsule 180 mg PO HS acetaminophen [Tylenol Extra Strength] 500 mg tablet 1,000 mg PO Q6H PRN (Reason: Pain) tolnaftate 1 % aerosol powder 1 spray topical PRN MDD RASH lisinopril 20 mg tablet 20 mg PO BID Qty: 180 1RF Date of admission: 12/11/22 17:38 Primary Care Provider: Jarrod Orta Admitting Provider: Harjit Lezama Attending physician on admission: Julio Jay Condition: Stable
== END 2022-12-15 13:30 | disposition home health service (06) ==
LOC: ANHED 15:51 → ANHIMU 18:26 → ANH3MEDSUR 12-13 18:26
PROVIDERS: Physician Assistant; Admitting Provider Chiropractor; Emergency Provider Emergency Medicine; PCP Internal Medicine; Visit Provider Hospitalist
DX: K56.41 Fecal impaction (principal); R77.8 Other specified abnormalities of plasma proteins; R33.8 Other retention of urine; K52.89 Other specified noninfective gastroenteritis and colitis; R29.90 Unspecified symptoms and signs involving the nervous system; N13.30 Unspecified hydronephrosis; K44.9 Diaphragmatic hernia without obstruction or gangrene; Z20.822 Contact with and (suspected) exposure to COVID-19; H04.129 Dry eye syndrome of unspecified lacrimal gland; R60.0 Localized edema; F03.90 Unspecified dementia, unspecified severity, without behavioral disturbance, psychotic disturbance, mood disturbance, and anxiety; N40.0 Benign prostatic hyperplasia without lower urinary tract symptoms; R05.9 Cough, unspecified; I12.9 Hypertensive chronic kidney disease with stage 1 through stage 4 chronic kidney disease, or unspecified chronic kidney disease; N18.9 Chronic kidney disease, unspecified; D63.1 Anemia in chronic kidney disease; I08.0 Rheumatic disorders of both mitral and aortic valves; Z86.79 Personal history of other diseases of the circulatory system; Z86.16 Personal history of COVID-19; M19.90 Unspecified osteoarthritis, unspecified site; H40.9 Unspecified glaucoma; G47.10 Hypersomnia, unspecified; M85.80 Other specified disorders of bone density and structure, unspecified site; J30.2 Other seasonal allergic rhinitis; R91.8 Other nonspecific abnormal finding of lung field; E78.5 Hyperlipidemia, unspecified; M48.00 Spinal stenosis, site unspecified; N42.0 Calculus of prostate; K57.90 Diverticulosis of intestine, part unspecified, without perforation or abscess without bleeding; E05.90 Thyrotoxicosis, unspecified without thyrotoxic crisis or storm; E53.8 Deficiency of other specified B group vitamins; E55.9 Vitamin D deficiency, unspecified; Z79.82 Long term (current) use of aspirin; Z79.1 Long term (current) use of non-steroidal anti-inflammatories (NSAID); Z79.899 Other long term (current) drug therapy; Z82.49 Family history of ischemic heart disease and other diseases of the circulatory system; Z83.511 Family history of glaucoma
CPT/HCPCS: 36415; 71045; 74018; 74176; 80048; 80053; 81001; 82607; 82746; 83690; 83880; 84484; 85025; 85027; 85610; 85730; 87040; 87636; 93005; 93970; 96372; 96374; 96375; 97161; 97165; 99285; A9270; C8929; G0378; J1650; J2405; Q9957

== ENCOUNTER 2022-12-24 09:50 | Outpatient (NON) | payer MEDICARE, SELFPAY ==
[2022-12-24 11:20] LABS: Basophils Percent Auto 0.4 % (0.2-1.2); Eosinophils Absolute Auto 0.2 K/mm3 (0-0.3); Eosinophils Percent Auto 2.1 % (0-4.4); Hematocrit 28.1 % (42.0-52.0); Immature Granulocyte Absolute 0.04 K/mm3 (0.00-0.031); Immature Granulocyte Percent A 0.6 % (0-0.5); Lymphocytes Absolute Auto 1.16 K/mm3 (0.9-3.2); Lymphocytes Percent Auto 16.2 % (18.3-44.2); Mean Corpuscular Hemoglobin 30.7 pg (26-34); Mean Corpuscular Volume 95.9 fl (80-100); Mean Platelet Volume 10.1 fl (7.4-10.4); Monocytes Absolute Auto 0.5 K/mm3 (0.1-0.6); Monocytes Percent Auto 6.5 % (2.6-8.5); Neutrophils Absolute Auto 5.3 K/mm3 (1.3-6.7); Neutrophils Percent Auto 74.2 % (45.5-73.1); Platelet Count Result 327 k/mm3 (150-375); Red Blood Count 2.93 M/mm3 (4.6-6.20); Red Cell Distribution Width 14.6 % (11.5-14.5); White Blood Count 7.2 K/mm3 (4.5-10.0)
[2022-12-24 11:27] LABS: Alanine Aminotransferase 29 U/L (6-50); Albumin Level 3.2 g/dL (3.5-5.1); Alkaline Phosphatase 80 U/L (38-126); Anion Gap 4 mmol/L (8-16); Aspartate Amino Transferase 26 U/L (17-59); Bilirubin,Total 0.3 mg/dL (0.2-1.3); Blood Urea Nitrogen 25 mg/dL (9-20); Calcium 8.8 mg/dL (8.4-10.2); Carbon Dioxide 26 mmol/L (22-30); Chloride 107 mmol/L (98-107); Cholesterol 156 mg/dL (0-200); Estimated Glomerular Filt Rate > 60; Glucose 76 mg/dL (65-110); HDL Direct 59 mg/dL; Potassium 4.7 mmol/L (3.4-5.0); Sodium 137 mmol/L (137-145); Triglycerides 82 mg/dL (<150)
[2022-12-24 11:37] LABS: LDL Cholesterol Direct 71 mg/dL
[2022-12-24 11:50] LABS: Hemoglobin A1C 4.9 % (<5.7)
[2022-12-24 11:57] LABS: Thyroid Stimulating Hormone 0.995 uIU/mL (0.465-4.680)
[2022-12-24 12:46] LABS: Free T4 Free Thyroxine 1.53 ng/mL (0.78-2.19); Vitamin D 25 Hydroxy 54.9 ng/mL
== END 2022-12-24 09:51 | disposition home or self-care (01) ==
LOC: ANHLAB 09:55 → HOME HLTH 09:55
PROVIDERS: PCP Internal Medicine; Visit Provider Internal Medicine
DX: K56.41 Fecal impaction (principal); K52.89 Other specified noninfective gastroenteritis and colitis; Z46.6 Encounter for fitting and adjustment of urinary device; I10 Essential (primary) hypertension; R79.89 Other specified abnormal findings of blood chemistry; E55.9 Vitamin D deficiency, unspecified
CPT/HCPCS: 80053; 80061; 82306; 83036; 84439; 84443; 85025

== ENCOUNTER 2023-01-11 12:00 | Emergency (ER) | payer MEDICARE, SELFPAY ==
[2023-01-11] VITALS (20 sets, daily range): BP systolic 105–138; BP diastolic 64–76; PULSE 64–75; RESP 11–15; TEMP 36.4; O2SAT 96–100
--- NOTE | ~2023-01-11 | XR_ITS ---
EXAMINATION: XR chest 1V portable DATE: 01/11/2023 13:00 INDICATION: Cough. Weakness. TECHNIQUE: A single frontal view of the chest was obtained on 2 radiographs. COMPARISON: Chest single view 12/11/2022 FINDINGS: There is no pneumonia, pleural effusion, or pneumothorax. The heart size is normal. IMPRESSION: 1. No acute cardiopulmonary disease. Reviewed, dictated and finalized at location A.
--- NOTE | 2023-01-11 12:08 | ECG_ITS ---
Measurements Intervals [place] Rate: 69 P: 35 SD: 198 QRS: -9 QRSD: 98 T: 15 QT: 366 QTc: 394 Interpretive Statements SINUS RHYTHM LOW QRS VOLTAGE IN PRECORDIAL LEADS LEFT VENTRICULAR HYPERTROPHY BORDERLINE R WAVE PROGRESSION, ANTERIOR LEADS INFERIOR INFARCT, AGE INDETERMINATE BASELINE ARTIFACT- I, II, III, AVR, AVL, AVF, V1 ABNORMAL ECG COMPARED TO ECG 12/11/2022 15:52:55 NO SIGNIFICANT CHANGES Electronically Signed On 01-11-2023 14:25:31 CDT by Dennys Burdick D.O.
[2023-01-11 12:54] LABS: Basophils Percent Auto 0.5 % (0.2-1.2); Eosinophils Absolute Auto 0.2 K/mm3 (0-0.3); Eosinophils Percent Auto 2.6 % (0-4.4); Hematocrit 29.7 % (42.0-52.0); Hemoglobin 9.6 g/dL (14.0-18.0); Immature Granulocyte Absolute 0.01 K/mm3 (0.00-0.031); Immature Granulocyte Percent A 0.2 % (0-0.5); Immature Reticulocyte Fraction 8.5 % (3.0-15.9); Lymphocytes Absolute Auto 0.86 K/mm3 (0.9-3.2); Lymphocytes Percent Auto 13.9 % (18.3-44.2); Mean Corpuscular HGB Conc 32.3 g/dl (32-36); Mean Corpuscular Hemoglobin 30.8 pg (26-34); Mean Corpuscular Volume 95.2 fl (80-100); Mean Platelet Volume 10.6 fl (7.4-10.4); Monocytes Absolute Auto 0.7 K/mm3 (0.1-0.6); Monocytes Percent Auto 10.5 % (2.6-8.5); Neutrophils Absolute Auto 4.5 K/mm3 (1.3-6.7); Neutrophils Percent Auto 72.3 % (45.5-73.1); Platelet Count Result 205 k/mm3 (150-375); Red Blood Count 3.12 M/mm3 (4.6-6.20); Red Cell Distribution Width 14.8 % (11.5-14.5); Reticulocyte Hemoglobin Conten 31.9 pg (28.2-35.7); Reticulocytes Absolute 0.04 M/mm3 (0.02-0.1); White Blood Count 6.2 K/mm3 (4.5-10.0)
[2023-01-11 13:07] LABS: Alanine Aminotransferase 26 U/L (6-50); Albumin Level 3.9 g/dL (3.5-5.1); Alkaline Phosphatase 103 U/L (38-126); Anion Gap 6 mmol/L (8-16); Aspartate Amino Transferase 27 U/L (17-59); Bilirubin,Total 0.5 mg/dL (0.2-1.3); Blood Urea Nitrogen 31 mg/dL (9-20); Calcium 9.4 mg/dL (8.4-10.2); Carbon Dioxide 22 mmol/L (22-30); Chloride 106 mmol/L (98-107); Estimated CRCL calculation 38 ml/min; Estimated Glomerular Filt Rate 49; Glucose 95 mg/dL (65-110); Lactic Acid Reflex 0.8 mmol/L (0.7-2.0); Magnesium 2.2 mg/dL (1.6-2.3); Potassium 4.8 mmol/L (3.4-5.0); Sodium 134 mmol/L (137-145)
[2023-01-11 13:15] LABS: INR 1.1; Prothrombin Time 14.7 Seconds (11.1-14.7)
[2023-01-11 13:31] LABS: Influenza A QL RT-PCR Negative (Negative); Influenza B QL RT-PCR Negative (Negative); SARS-CoV-2 RNA PCR Negative (Negative)
[2023-01-11 13:39] LABS: NT Pro B Type Natriuretic Pept 529 pg/mL (19.9-100); Troponin I < 0.012 ng/mL (0.000-0.034)
--- NOTE | 2023-01-11 14:06 | ED.WEAKNESS ---
HPI - Weakness General Chief complaint: Weakness Stated complaint: weakness/allergies Time Seen by Provider: 01/11/23 12:01 Source: patient, RN notes reviewed and old records reviewed Mode of arrival: EMS Limitations: other (poor historian) History of Present Illness HPI Narrative: This is an 82 year old male who presents for evaluation of weakness. EMS reports patient has been on Bactrim for 3 days. They report rash, cough and weakness. Patient states he has cough that his worse with sleeping. He denies chest pain, shortness of breath, nausea, vomiting fever. He denies abdominal pain. EMS reports patient was having burning with urination. Patient reports that he does not walk. Related Data Home Medications Medication Instructions Recorded Confirmed aspirin 81 mg tablet,delayed 81 mg PO DAILY 03/14/19 12/28/22 release (Adult Low Dose Aspirin) cranberry fruit concentrate 250 mg 250 mg PO BID 11/09/21 12/28/22 chewable tablet (Azo Cranberry) finasteride 5 mg tablet 5 mg PO DAILY 05/05/22 12/28/22 folic acid-vit B6-vit B12 2.2 0.5 tablet PO DAILY 05/05/22 12/28/22 mg-25 mg-0.5 mg tablet (Folplex) vitamin E (dl, acetate) 180 mg 180 mg PO HS 06/08/22 12/28/22 (400 unit) capsule fresh kote 1 - 2 drp EACH EYE PRN PRN Dry Eyes 06/23/22 12/28/22 tamsulosin 0.4 mg capsule 0.4 mg PO QHS 06/23/22 12/28/22 nystatin-triamcinolone 100,000 1 applic topical PRN PRN MACERATION 07/15/22 12/28/22 unit/g-0.1 % topical cream acetaminophen 500 mg tablet 1,000 mg PO Q6H PRN Pain 07/22/22 12/28/22 (Tylenol Extra Strength) calcium polycarbophil 625 mg 625 mg PO BID 12/03/22 12/28/22 tablet (FiberCon) pravastatin 20 mg tablet 20 mg PO DAILY 12/03/22 12/28/22 dextromethorphan-guaifenesin ER 60 1 tablet PO Q12H 12/28/22 12/28/22 mg-1,200 mg tab,extend release,12hr (Mucinex DM) guaifenesin 1,200 mg tablet, 1,200 mg PO BID 12/28/22 12/28/22 extended release 12 hr (Mucinex) sodium chloride 5 % eye ointment 1 applic EACH EYE QHS 12/28/22 12/28/22 (Robel 128) Allergies Allergy/AdvReac Type Severity Reaction Status Date / Time hydrochlorothiazide AdvReac Unknown Hyponatremi Verified 12/28/22 13:14 a Review of Systems Review of Systems: ROS unobtainable: Yes unobtainable due to medical condition [facility] Past Medical History Medical History Benign essential hypertension Benign prostatic hyperplasia Chronic anemia Chronic kidney disease COVID-19 Degenerative joint disease Dementia Disequilibrium syndrome Glaucoma Hyperlipidemia Hypersomnolence Osteopenia Seasonal allergies Spinal stenosis Subclinical hyperthyroidism Vitamin B12 deficiency Vitamin D deficiency Surgical History Surgical History History of cataract extraction History of removal of pigmented skin lesion History of tonsillectomy History of total right hip arthroplasty Family History Family History Mother Family history of cardiovascular disease Diabetes mellitus Family history of arthritis Family history of coronary artery disease Hypertension Acute myocardial infarction Father Family history of arthritis Family history of coronary artery disease Sibling Glaucoma Hypertension Social History Social History Social History: Surrogate medical decision maker: Kasie Nava, spouse. Code status: Full code. Smoking status: Never smoker Second hand tobacco smoke exposure: No Alcohol intake: former Drinks per week: 10 Alcohol use details: non-alcoholic Substance use: never Substance use type: does not use Lack of Transportation: No Lack of Food: Never True Current Housing: I Have Housing Concerned About Future Housing: No Difficulty Paying Gas/Electric Bills: No Difficulty Paying for Meds:
[2023-01-11 14:11] LABS: Appearance Urine Clear (Clear); Bilirubin Urine Negative (Negative); Blood Urine Negative (Negative); Color Urine Yellow (Yellow); Glucose Urine UA Negative (Negative); Ketones Urine Negative (Negative); Leukocyte Esterase Ur Negative LEU/UL (Negative); Nitrate Urine Negative (Negative); Protein Urine Negative (Negative); Specific Grav Ur 1.011 (1.001-1.035); Urobilinogen Urine 0.2 mg/dL (<2.0)
[2023-01-11 14:14] LABS: Add Urine Microscopic? NO
[2023-01-11] MEDS: SODIUM CHLORIDE 0.9% IV 500 ML 999 ML IV CONT (14:46)
== END 2023-01-11 16:18 | disposition home or self-care (01) ==
PROVIDERS: Emergency Provider General Practice; PCP Internal Medicine
DX: R53.1 Weakness (principal); I12.9 Hypertensive chronic kidney disease with stage 1 through stage 4 chronic kidney disease, or unspecified chronic kidney disease; N18.9 Chronic kidney disease, unspecified; D64.9 Anemia, unspecified; E78.5 Hyperlipidemia, unspecified; H40.9 Unspecified glaucoma; E55.9 Vitamin D deficiency, unspecified; E53.8 Deficiency of other specified B group vitamins; F03.90 Unspecified dementia, unspecified severity, without behavioral disturbance, psychotic disturbance, mood disturbance, and anxiety; N40.0 Benign prostatic hyperplasia without lower urinary tract symptoms; Z79.82 Long term (current) use of aspirin; Z20.822 Contact with and (suspected) exposure to COVID-19
CPT/HCPCS: 36415; 71045; 80053; 81003; 83605; 83735; 83880; 84484; 85025; 85046; 85610; 85730; 87636; 93005; 99284; J7040

== ENCOUNTER 2023-01-28 17:37 | Emergency (ER) | payer MEDICARE, SELFPAY ==
[2023-01-28] VITALS (20 sets, daily range): BP systolic 129–157; BP diastolic 62–75; PULSE 63–74; RESP 12–22; TEMP 36.3–37; O2SAT 99–100
[2023-01-28 18:14] LABS: Basophils Percent Auto 0.3 % (0.2-1.2); Eosinophils Absolute Auto 0.1 K/mm3 (0-0.3); Eosinophils Percent Auto 1.4 % (0-4.4); Hematocrit 30.6 % (42.0-52.0); Hemoglobin 9.8 g/dL (14.0-18.0); Immature Granulocyte Absolute 0.01 K/mm3 (0.00-0.031); Immature Granulocyte Percent A 0.2 % (0-0.5); Lymphocytes Absolute Auto 1.58 K/mm3 (0.9-3.2); Lymphocytes Percent Auto 26.8 % (18.3-44.2); Mean Corpuscular Hemoglobin 29.9 pg (26-34); Mean Corpuscular Volume 93.3 fl (80-100); Mean Platelet Volume 10.7 fl (7.4-10.4); Monocytes Absolute Auto 0.7 K/mm3 (0.1-0.6); Monocytes Percent Auto 11.5 % (2.6-8.5); Neutrophils Absolute Auto 3.5 K/mm3 (1.3-6.7); Neutrophils Percent Auto 59.8 % (45.5-73.1); Platelet Count Result 205 k/mm3 (150-375); Red Blood Count 3.28 M/mm3 (4.6-6.20); Red Cell Distribution Width 14.5 % (11.5-14.5); White Blood Count 5.9 K/mm3 (4.5-10.0)
[2023-01-28 18:21] LABS: Appearance Urine Cloudy (Clear); Bacteria Urine 4+ /hpf; Bilirubin Urine Negative (Negative); Color Urine Yellow (Yellow); Glucose Urine UA Negative (Negative); Ketones Urine Negative (Negative); Leukocyte Esterase Ur 3+ LEU/UL (Negative); Nitrate Urine Positive (Negative); Non Pathogenic Casts 0-2; Protein Urine Negative (Negative); RBC Urine 0-2 /hpf (0-2); Specific Grav Ur 1.008 (1.001-1.035); Squamous Epithelial Cell Urine None seen /hpf (Few); Urobilinogen Urine 0.2 mg/dL (<2.0); WBC Urine >100 /hpf; pH Urine 6.5 (5.0-9.0)
[2023-01-28 18:24] LABS: Add Urine Microscopic? YES
[2023-01-28 18:29] LABS: Alanine Aminotransferase 27 U/L (6-50); Albumin Level 3.9 g/dL (3.5-5.1); Alkaline Phosphatase 92 U/L (38-126); Anion Gap 3 mmol/L (8-16); Aspartate Amino Transferase 27 U/L (17-59); Bilirubin,Total 0.4 mg/dL (0.2-1.3); Blood Urea Nitrogen 29 mg/dL (9-20); Calcium 9.7 mg/dL (8.4-10.2); Carbon Dioxide 29 mmol/L (22-30); Chloride 105 mmol/L (98-107); Estimated CRCL calculation 46 ml/min; Estimated Glomerular Filt Rate > 60; Glucose 95 mg/dL (65-110); Potassium 4.1 mmol/L (3.4-5.0); Sodium 137 mmol/L (137-145)
--- NOTE | 2023-01-28 20:08 | ED.MALEGU ---
HPI - Male Genitourinary General Chief complaint: Urogenital-Male Stated complaint: urinary sx Time Seen by Provider: 01/28/23 20:07 Source: patient, family and EMS Mode of arrival: EMS History of Present Illness HPI Narrative: 83 years old white male came from home by ambulance with his and caregiver complaining of dark smelly urine over the last few days with burning urination. also reports some increased confusion, history of dementia and patient is awake and oriented to himself and situation. No fever, no chills, no nausea or vomiting. No abdominal pain or chest pain or coughing or shortness of breath Related Data Home Medications Medication Instructions Recorded Confirmed aspirin 81 mg tablet,delayed 81 mg PO DAILY 03/14/19 12/28/22 release (Adult Low Dose Aspirin) cranberry fruit concentrate 250 mg 250 mg PO BID 11/09/21 12/28/22 chewable tablet (Azo Cranberry) finasteride 5 mg tablet 5 mg PO DAILY 05/05/22 12/28/22 folic acid-vit B6-vit B12 2.2 0.5 tablet PO DAILY 05/05/22 12/28/22 mg-25 mg-0.5 mg tablet (Folplex) vitamin E (dl, acetate) 180 mg 180 mg PO HS 06/08/22 12/28/22 (400 unit) capsule fresh kote 1 - 2 drp EACH EYE PRN PRN Dry Eyes 06/23/22 12/28/22 tamsulosin 0.4 mg capsule 0.4 mg PO QHS 06/23/22 12/28/22 nystatin-triamcinolone 100,000 1 applic topical PRN PRN MACERATION 07/15/22 12/28/22 unit/g-0.1 % topical cream acetaminophen 500 mg tablet 1,000 mg PO Q6H PRN Pain 07/22/22 12/28/22 (Tylenol Extra Strength) calcium polycarbophil 625 mg 625 mg PO BID 12/03/22 12/28/22 tablet (FiberCon) pravastatin 20 mg tablet 20 mg PO DAILY 12/03/22 12/28/22 dextromethorphan-guaifenesin ER 60 1 tablet PO Q12H 12/28/22 12/28/22 mg-1,200 mg tab,extend release,12hr (Mucinex DM) guaifenesin 1,200 mg tablet, 1,200 mg PO BID 12/28/22 12/28/22 extended release 12 hr (Mucinex) sodium chloride 5 % eye ointment 1 applic EACH EYE QHS 12/28/22 12/28/22 (Robel 128) Allergies Allergy/AdvReac Type Severity Reaction Status Date / Time sulfamethoxazole Allergy Unknown Verified 01/28/23 17:53 [From Bactrim] trimethoprim [From Bactrim] Allergy Unknown Verified 01/28/23 17:53 hydrochlorothiazide AdvReac Unknown Hyponatremi Verified 01/28/23 17:53 a Review of Systems Review of Systems: All systems reviewed & are unremarkable except as noted in HPI and below PMFSH Past Medical History Medical History Benign essential hypertension Benign prostatic hyperplasia Chronic anemia Chronic kidney disease COVID-19 Degenerative joint disease Dementia Disequilibrium syndrome Glaucoma Hyperlipidemia Hypersomnolence Osteopenia Seasonal allergies Spinal stenosis Subclinical hyperthyroidism Vitamin B12 deficiency Vitamin D deficiency Surgical History Surgical History History of cataract extraction History of removal of pigmented skin lesion History of tonsillectomy History of total right hip arthroplasty Family History Family History Mother Family history of cardiovascular disease Diabetes mellitus Family history of arthritis Family history of coronary artery disease Hypertension Acute myocardial infarction Father Family history of arthritis Family history of coronary artery disease Sibling Glaucoma Hypertension Social History Social History Social History: Surrogate medical decision maker: Kasie Nava, spouse. Code status: Full code. Smoking status: Never smoker Second hand tobacco smoke exposure: No Alcohol intake: former Drinks per week: 10 Alcohol use details: non-alcoholic Substance use: never Substance use type: does not use Lack of Transportation: No Lack of Food: Never True Current Housing: I Have Housing Concerned About Future
== END 2023-01-28 21:31 | disposition home or self-care (01) ==
PROVIDERS: Emergency Provider Emergency Medicine; PCP Internal Medicine
DX: N39.0 Urinary tract infection, site not specified (principal); F03.90 Unspecified dementia, unspecified severity, without behavioral disturbance, psychotic disturbance, mood disturbance, and anxiety; N40.0 Benign prostatic hyperplasia without lower urinary tract symptoms; Z79.82 Long term (current) use of aspirin; I12.9 Hypertensive chronic kidney disease with stage 1 through stage 4 chronic kidney disease, or unspecified chronic kidney disease; N18.9 Chronic kidney disease, unspecified; D64.9 Anemia, unspecified; E78.5 Hyperlipidemia, unspecified; H40.9 Unspecified glaucoma; E53.8 Deficiency of other specified B group vitamins; E55.9 Vitamin D deficiency, unspecified; M85.80 Other specified disorders of bone density and structure, unspecified site; Z96.641 Presence of right artificial hip joint; Z86.16 Personal history of COVID-19; Z98.49 Cataract extraction status, unspecified eye
CPT/HCPCS: 36415; 80053; 81001; 85025; 87077; 87086; 87186; 96365; 99284; J0696

== ENCOUNTER 2023-02-27 10:43 | Observation (INO) | payer MEDICARE, SELFPAY ==
[2023-02-27] VITALS (9 sets, daily range): BP systolic 134–159; BP diastolic 68–87; PULSE 61–74; RESP 10–18; TEMP 36.5–36.6; O2SAT 98–100
--- NOTE | ~2023-02-27 | CT_ITS ---
EXAMINATION: CT brain wo con DATE: 02/27/2023 12:46 INDICATION: Transient alteration of awareness. TECHNIQUE: Computed tomography (CT) of the head was performed without intravenous contrast. The mA wa s adjusted according to patient size. Iterative reconstruction technique was employed. The dose-lengt h product was 681.00 mGy-cm. COMPARISON: Head CT 12/03/2022 FINDINGS: There are scattered areas of low attenuation in the cerebral white matter. There is no intr acranial hemorrhage, acute infarction, or abnormal intracranial mass lesion. The ventricles are dylon l in size. There are likely changes of ocular lens replacement surgeries. There is mild mucosal thick ening in the paranasal sinuses. The mastoid air cells are normal. IMPRESSION: 1. Stable mild nonspecific cerebral white matter disease, which likely represents chronic small vesse l ischemic disease. Reviewed, dictated and finalized at location A. ING INSPECTOR IMPRESSION: 1. Stable mild nonspecific cerebral white matter disease, which likely represen ts chronic small vessel ischemic disease.
--- NOTE | ~2023-02-27 | XR_ITS ---
EXAMINATION: XR chest 1V portable DATE: 02/27/2023 11:29 INDICATION: Altered mental status. TECHNIQUE: A single frontal view of the chest was obtained. COMPARISON: Chest single view 01/11/2023 FINDINGS: There is mild atelectasis in the lower lung zones. No pleural effusion or pneumothorax. The heart size is normal. There is a moderate-sized hiatal hernia. IMPRESSION: 1. Mild atelectasis in the lower lung zones. 2. Moderate-sized hiatal hernia. Reviewed, dictated and finalized at location A. HER ADJUSTER
[2023-02-27] MEDS: SODIUM CHLORIDE 0.9% IV 1,000 ML 999 ML IV CONT (11:05)
[2023-02-27 11:18] LABS: Basophils Percent Auto 0.3 % (0.2-1.2); Eosinophils Absolute Auto 0.1 K/mm3 (0-0.3); Eosinophils Percent Auto 1.2 % (0-4.4); Hemoglobin 9.6 g/dL (14.0-18.0); Immature Granulocyte Absolute 0.01 K/mm3 (0.00-0.031); Immature Granulocyte Percent A 0.2 % (0-0.5); Lymphocytes Absolute Auto 1.14 K/mm3 (0.9-3.2); Lymphocytes Percent Auto 19.5 % (18.3-44.2); Mean Corpuscular Hemoglobin 29.9 pg (26-34); Mean Corpuscular Volume 93.5 fl (80-100); Mean Platelet Volume 10.6 fl (7.4-10.4); Monocytes Absolute Auto 0.7 K/mm3 (0.1-0.6); Monocytes Percent Auto 12.3 % (2.6-8.5); Neutrophils Absolute Auto 3.9 K/mm3 (1.3-6.7); Neutrophils Percent Auto 66.5 % (45.5-73.1); Platelet Count Result 184 k/mm3 (150-375); Red Blood Count 3.21 M/mm3 (4.6-6.20); Red Cell Distribution Width 14.6 % (11.5-14.5); White Blood Count 5.8 K/mm3 (4.5-10.0)
[2023-02-27 11:33] LABS: Alanine Aminotransferase 26 U/L (6-50); Albumin Level 3.7 g/dL (3.5-5.1); Alkaline Phosphatase 102 U/L (38-126); Anion Gap 4 mmol/L (8-16); Aspartate Amino Transferase 25 U/L (17-59); Bilirubin,Total 0.6 mg/dL (0.2-1.3); Blood Urea Nitrogen 20 mg/dL (9-20); Calcium 9.7 mg/dL (8.4-10.2); Carbon Dioxide 28 mmol/L (22-30); Chloride 106 mmol/L (98-107); Estimated CRCL calculation 55 ml/min; Estimated Glomerular Filt Rate > 60; Glucose 81 mg/dL (65-110); Lactic Acid Reflex 0.7 mmol/L (0.7-2.0); Potassium 4.2 mmol/L (3.4-5.0); Sodium 138 mmol/L (137-145)
[2023-02-27 11:54] LABS: Appearance Urine Clear (Clear); Bilirubin Urine Negative (Negative); Blood Urine Negative (Negative); Color Urine Yellow (Yellow); Glucose Urine UA Negative (Negative); Ketones Urine Negative (Negative); Leukocyte Esterase Ur Negative LEU/UL (Negative); Nitrate Urine Negative (Negative); Protein Urine Negative (Negative); Specific Grav Ur 1.011 (1.001-1.035); Urobilinogen Urine 0.2 mg/dL (<2.0); pH Urine 6.5 (5.0-9.0)
[2023-02-27 11:54] LABS: Influenza A QL RT-PCR Negative (Negative); Influenza B QL RT-PCR Negative (Negative); SARS-CoV-2 RNA PCR Negative (Negative)
[2023-02-27 12:13] LABS: Add Urine Microscopic? NO
--- NOTE | 2023-02-27 13:06 | ED.GENADULT ---
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 Patient is been having decreased appetite and movement over the last 2 days. He is unable to stand today. He is also not able to speak. P.o. he is grunting appropriately but cannot provide any history nor tell me his name. No history of injury. Apparently patient has history of recurrent UTIs and they are concerned he may have 1. Related Data Home Medications Medication Instructions Recorded Confirmed aspirin 81 mg tablet,delayed 81 mg PO DAILY 03/14/19 02/27/23 release (Adult Low Dose Aspirin) cranberry fruit concentrate 250 mg 250 mg PO BID 11/09/21 02/27/23 chewable tablet (Azo Cranberry) finasteride 5 mg tablet 5 mg PO DAILY 05/05/22 02/27/23 folic acid-vit B6-vit B12 2.2 0.5 tablet PO DAILY 05/05/22 02/27/23 mg-25 mg-0.5 mg tablet (Folplex) fresh kote 1 - 2 drp EACH EYE PRN PRN Dry Eyes 06/23/22 02/27/23 tamsulosin 0.4 mg capsule 0.4 mg PO QHS 06/23/22 02/27/23 nystatin-triamcinolone 100,000 1 applic topical PRN PRN MACERATION 07/15/22 02/27/23 unit/g-0.1 % topical cream acetaminophen 500 mg tablet 1,000 mg PO Q6H PRN Pain 07/22/22 02/27/23 (Tylenol Extra Strength) calcium polycarbophil 625 mg 625 mg PO BID 12/03/22 02/27/23 tablet (FiberCon) pravastatin 20 mg tablet 20 mg PO DAILY 12/03/22 02/27/23 dextromethorphan-guaifenesin ER 60 See Rx Instructions .Route 12/28/22 02/27/23 mg-1,200 mg tab,extend .COMPLEX PRN Cough release,12hr (Mucinex DM) sodium chloride 5 % eye ointment 1 applic EACH EYE PRN PRN Dry Eyes 12/28/22 02/27/23 (Robel 128) polyethylene glycol 3350 17 17 gm PO HS 02/27/23 02/27/23 gram/dose oral powder (Miralax) Allergies Allergy/AdvReac Type Severity Reaction Status Date / Time sulfamethoxazole Allergy Unknown Verified 02/27/23 11:15 [From Bactrim] trimethoprim [From Bactrim] Allergy Unknown Verified 02/27/23 11:15 hydrochlorothiazide AdvReac Unknown Hyponatremi Verified 02/27/23 11:15 a Review of Systems Review of Systems: ROS unobtainable: Yes unobtainable due to mental status PMFSH Past Medical History Medical History Benign essential hypertension Benign prostatic hyperplasia Chronic anemia Chronic kidney disease COVID-19 Degenerative joint disease Dementia Disequilibrium syndrome Glaucoma Hyperlipidemia Hypersomnolence Osteopenia Seasonal allergies Spinal stenosis Subclinical hyperthyroidism Vitamin B12 deficiency Vitamin D deficiency Surgical History Surgical History History of cataract extraction History of removal of pigmented skin lesion History of tonsillectomy History of total right hip arthroplasty Family History Family History Mother Family history of cardiovascular disease Diabetes mellitus Family history of arthritis Family history of coronary artery disease Hypertension Acute myocardial infarction Father Family history of arthritis Family history of coronary artery disease Sibling Glaucoma Hypertension Social History Social History Social History: Surrogate medical decision maker: Kasie Nava, spouse. Code status: Full code. Smoking status: Never smoker Second hand tobacco smoke exposure: No Alcohol intake: former Drinks per week: 10 Alcohol use details: non-alcoholic Substance use: never Substance use type: does not use Lack of Transportation: No Lack of Food: Never True Current Housing: I Have Housing Concerned About Future Housing: No Difficulty Paying Gas/Electric Bills:
[2023-02-27] MEDS: SODIUM CHLORIDE 0.9% IV 1,000 ML 125 ML IV CONT (14:07)
--- NOTE | 2023-02-27 14:46 | ADMGEN ---
This patient, Fernando Nava, was admitted to Medical Room 343-01. Patient/family oriented to hospital policies and general routines including ID bracelet, bed and alarms, visiting hours, pain management, procedures, bathroom and other care routines, personal items, smoking policy, room service/diet, and visiting hours. Information on how to activate the Rapid Response Team has been discussed. Patient/Family are encouraged to report perceived risks to care and to ask questions if they do not understand what they are told or what they should do.
--- NOTE | 2023-02-27 16:31 | PM.IMHP ---
H&P: HPI History of Present Illness Date/Time: 02/27/23 16:30 Chief Complaint: Altered mental status. Narrative: This is an 83-year-old male with history of dementia, hypertension, hyperlipidemia, benign prostatic hyperplasia, iron deficiency anemia, who presented to the emergency department for evaluation of altered mental status. He is not the best historian due to underlying dementia and a majority of the following is obtained via a review of his EMR as well as information provided by his . He is known to myself and the hospitalist service from previous admissions. reports that he has been acting strange since Tuesday with increased confusion. His appetite has been poor and he has not been getting up and about. Today he would not even answer questions and was apparently grunting and they brought him in for evaluation as they were concerned that perhaps he had a UTI. He has a history of ?weak episodes? where it sounds like he goes briefly unresponsive, possibly due to drop in blood pressure. They deny loss of consciousness the last several days. He has not had any vomiting or diarrhea. By the time he arrived to the emergency department he was alert and oriented x4. He was afebrile on arrival and vital signs have been stable. CMP, CBC, UA were all pretty unremarkable. He tested negative for influenza and COVID. Brain CT showed no acute findings. Chest x-ray showed mild atelectasis in the lower lung zones and moderate hiatal hernia. He is being admitted in this setting for altered mental status and weakness. Review of Systems Review of Systems: Twelve systems were reviewed and are negative except for as per HPI. [facility] Past Medical History Medical History Benign essential hypertension Benign prostatic hyperplasia Chronic anemia Chronic kidney disease COVID-19 Degenerative joint disease Dementia Disequilibrium syndrome Glaucoma Hyperlipidemia Hypersomnolence Hypertension Osteopenia Seasonal allergies Spinal stenosis Subclinical hyperthyroidism Vitamin B12 deficiency Vitamin D deficiency Surgical History Surgical History History of cataract extraction History of removal of pigmented skin lesion History of tonsillectomy History of total right hip arthroplasty Family History Family History Mother Family history of cardiovascular disease Diabetes mellitus Family history of arthritis Family history of coronary artery disease Hypertension Acute myocardial infarction Father Family history of arthritis Family history of coronary artery disease Sibling Glaucoma Hypertension Social History Social History Social History: Surrogate medical decision maker: Kasie Nava, spouse. Code status: Full code. Smoking status: Never smoker Second hand tobacco smoke exposure: No Alcohol intake: former Drinks per week: 10 Alcohol use details: non-alcoholic Substance use: never Substance use type: does not use Lack of Transportation: No Lack of Food: Never True Current Housing: I Have Housing Concerned About Future Housing: No Difficulty Paying Gas/Electric Bills: No Difficulty Paying for Meds: No Currently Unemployed: No Education: Bachelor's Degree Difficulty w/ Childcare or Family Care: No Living arrangements: with family Additional living arrangements comments: Lives with in [place]. 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 Spiritual care concerns: No Meds Home Medications and Allergies Home Medications Medication Instructions Recorded Confirmed Type aspirin 81 mg tablet,delayed 81 mg PO DAILY 03/14/19 02/27/23 History release (Adult Low Dose Aspirin) cranberry fruit concentrate 250 mg 250 mg P
[2023-02-28] VITALS (9 sets, daily range): BP systolic 150–171; BP diastolic 81–90; PULSE 58–72; RESP 18–20; TEMP 36–36.9; O2SAT 98–100
[2023-02-28] MEDS: SODIUM CHLORIDE 0.9% IV 1,000 ML 125 ML IV CONT ×2 (00:01→07:28)
[2023-02-28 05:33] LABS: Hematocrit 30.5 % (42.0-52.0); Hemoglobin 9.9 g/dL (14.0-18.0); Mean Corpuscular HGB Conc 32.5 g/dl (32-36); Mean Corpuscular Hemoglobin 30.1 pg (26-34); Mean Corpuscular Volume 92.7 fl (80-100); Mean Platelet Volume 11.2 fl (7.4-10.4); Platelet Count Result 180 k/mm3 (150-375); Red Blood Count 3.29 M/mm3 (4.6-6.20); Red Cell Distribution Width 14.7 % (11.5-14.5); White Blood Count 4.8 K/mm3 (4.5-10.0)
[2023-02-28 05:50] LABS: Anion Gap 4 mmol/L (8-16); Blood Urea Nitrogen 15 mg/dL (9-20); Calcium 9.3 mg/dL (8.4-10.2); Carbon Dioxide 27 mmol/L (22-30); Chloride 107 mmol/L (98-107); Estimated CRCL calculation 68 ml/min; Estimated Glomerular Filt Rate > 60; Glucose 78 mg/dL (65-110); Magnesium 1.9 mg/dL (1.6-2.3); Potassium 4.3 mmol/L (3.4-5.0); Sodium 138 mmol/L (137-145)
[2023-02-28] MEDS: LINACLOTIDE 145 MCG CAPSULE PO (06:12)
[2023-02-28] MEDS: lisinopriL 20 MG TABLET PO ×2 (06:12→20:24)
[2023-02-28] MEDS: ASPIRIN 81 MG ENTERIC TABLET PO (07:40)
[2023-02-28] MEDS: calcium polycarbophiL 625 MG TABLET PO ×2 (07:40→16:20)
[2023-02-28] MEDS: PRAVASTATIN SODIUM 20 MG TABLET PO (07:41)
[2023-02-28] MEDS: ENOXAPARIN 40 MG/0.4 ML SYRINGE SUB-Q (07:41)
[2023-02-28] MEDS: FINASTERIDE 5 MG TABLET PO (07:41)
--- NOTE | 2023-02-28 13:18 | PM.IMPN ---
Progress Note: A&P Assessment and Plan (1) Acute alteration in mental status: Code(s): R41.82 - Altered mental status, unspecified Status: Acute (2) Dementia: Qualifiers: Dementia type: unspecified type Dementia severity: mild Dementia behavioral or psychological symptom: with mood disturbance Qualified Code(s): F03.A3 - Unspecified dementia, mild, with mood disturbance Code(s): F03.90 - Unspecified dementia, unspecified severity, without behavioral disturbance, psychotic disturbance, mood disturbance, and anxiety Status: Chronic (3) Hypertension: Code(s): I10 - Essential (primary) hypertension Status: Acute (4) Chronic anemia: Code(s): D64.9 - Anemia, unspecified Status: Acute (5) Chronic kidney disease: Qualifiers: Chronic kidney disease stage: unspecified stage Qualified Code(s): N18.9 - Chronic kidney disease, unspecified Code(s): N18.9 - Chronic kidney disease, unspecified Status: Acute (6) Benign prostatic hyperplasia: Code(s): N40.0 - Benign prostatic hyperplasia without lower urinary tract symptoms Status: Acute Plan The patient presented to the emergency department for evaluation of changes in behavior and weakness as detailed in HPI. Labs, imaging, EKG, and all reports were personally reviewed. He was alert and oriented by the time he arrived to the ED and his workup has really been unremarkable and are stable. He remains weak however and he is being admitted for PT/OT evaluation. Vital signs were reviewed and they are stable. No evidence to suggest underlying infection. Brain CT was without acute findings and there is no exam findings to suggest stroke. More than likely his behavioral changes are due to his dementia. His home medications will be reviewed and resumed as appropriate. Feb 28 - He feels well. No evidence of infectious process. CT head showing no acute findings. CXR showing atelectasis. Patient is awake and partially oriented. Willstop IV fluidsWill have ST evaluation given concern for dysphagia. PT/OT to make sure he is safe for discharge. Home anytime. Subjective Date/time seen: 02/28/23 13:18 Interval history: 83yo male with dementia, CKD, HTN and BPH here for altered mental status. Patient is alert but confused so hx is suspect. no CP or SOB. No nausea or vomiting. He does complain of dysphagia at times. Walks with walker normally. Exam Narrative: AF 96.8 150/84 58 18 100% ra Gen - NARD Chest - CTA bilaterally, nml RR CV - RRR S1/S2 Abd - Soft, NT/ND, Positive BS Ext - No pedal edema Neuro - Alert and appropriate. Oriented to location (not name of Hosp) and Krystle name. Masked facies. Nonfocal exam. Psych - Nml mood and affect Skin - Warm and dry Objective Data Vital Signs Vital Signs: Vital Signs - 24 hr 02/27/23 14:01 02/27/23 16:00 02/27/23 20:00 Temperature Pulse Rate 64 61 61 Respiratory Rate 12 12 Blood Pressure 152/70 H Pulse Oximetry 100 100 Oxygen Delivery Room Air 02/27/23 20:00 02/27/23 21:28 02/28/23 03:07 Temperature 97.7 F Pulse Rate 74 68 64 Respiratory Rate 18 Blood Pressure 159/77 H Pulse Oximetry 98 Oxygen Delivery 02/28/23 05:53 02/28/23 08:00 02/28/23 08:00 Temperature 96.8 F L Pulse Rate 66 61 Respiratory Rate 18 Blood Pressure 171/81 H Pulse Oximetry 100 100 Oxygen Delivery Room Air 02/28/23 08:00 02/28/23 11:42 02/28/23 12:00 Temperature Pulse Rate 58 L Respiratory Rate Blood Pressure 155/82 H 150/84 H Pulse Oximetry Oxygen Delivery Intake/Output Intake/Output: Intake & Output 02/25/23 02/26/23 02/27/23 02/28/23 23:59 23:59 23:59 23:59 Intake Total 2120 1360 Output Total 200 Balance 2120 1160 Meds/Results Medications: Active Medications Generic Name Dose Route Start Last Admin Trade Name Freq PRN Reason Stop Dose Admin Acetaminophen 650
--- NOTE | 2023-02-28 15:57 | PCOTNOTE ---
Received OT eval orders. Spoke with pt and his . They have 24/7 caregivers at home and pt has been a jayesh lift transfer for at least 3 months now. Pt has full assist with all other ADLs and is at his functional baseline at this time. No further skilled OT needs indicated at this time. notified.
[2023-02-28] MEDS: polyethylene glycoL 3350 17 GM POWD.PACK PO (20:24)
[2023-02-28] MEDS: TAMSULOSIN HCL 0.4 MG CAPSULE PO (20:24)
[2023-03-01] VITALS (7 sets, daily range): BP systolic 118–155; BP diastolic 60–82; PULSE 60–75; RESP 18–21; TEMP 36.3–36.7; O2SAT 98–100
[2023-03-01] MEDS: LINACLOTIDE 145 MCG CAPSULE PO (05:32)
[2023-03-01] MEDS: lisinopriL 20 MG TABLET PO ×2 (08:37→20:32)
[2023-03-01] MEDS: ENOXAPARIN 40 MG/0.4 ML SYRINGE SUB-Q (08:37)
[2023-03-01] MEDS: ASPIRIN 81 MG ENTERIC TABLET PO (08:37)
[2023-03-01] MEDS: calcium polycarbophiL 625 MG TABLET PO ×2 (08:37→16:11)
[2023-03-01] MEDS: FINASTERIDE 5 MG TABLET PO (08:37)
[2023-03-01] MEDS: PRAVASTATIN SODIUM 20 MG TABLET PO (08:37)
--- NOTE | 2023-03-01 09:53 | PCSTNOTE ---
Please refer to the Bedside Swallow Evaluation in the EMR. Please note, silent aspiration cannot be ruled out at bedside.
--- NOTE | 2023-03-01 10:00 | PCSTNOTE ---
Please refer to the Bedside Swallow Evaluation in the EMR. Please note, silent aspiration cannot be ruled out at bedside.
--- NOTE | 2023-03-01 10:23 | PCPTNOTE ---
Per OT, pt is dependent at baseline. OT notified MD of discharging therapy orders on 02/28/23 due to pt being at baseline.
--- NOTE | 2023-03-01 13:47 | WPDNEURCNPN ---
Assessment and Plan Assessment and plan (1) Acute alteration in mental status: Code(s): R41.82 - Altered mental status, unspecified Status: Acute Plan 1 change in mental status superimposed on the ongoing dementia2 chronic renal disease, plan is to involve him in the physical therapy and occupation therapy and monitor for any change in neurological status or any signs of acute infection his change in the behavior at present is at the booted to the underlying dementia and treatment will be continued as such Consult date: 03/01/23 HPI: Fernando Nava is a 83 year old male admitted to the hospital through the emergency room with the complaints of change in the mental status with decreasing responsiveness in addition to the ongoing history of underlying dementia. Patient lives at home with his with the help of the cloth weigher as well recently has been experiencing anorexia and decrease in the general movements over the last 48hours to the point that he was unable to stand on the day of admission though still he was also not able to speak. Initial medications included aspirin 81mg daily, finasteride 5mg daily, tamsulosin 0.4mg at night, pravastatin 20mg daily, he is also documented to be allergic to sulfa and hydrochlorothiazide, he does carries the history of hypertension, chronic renal disease, history of COVID-19, dementia, spinal stenosis, and B12 and D deficiencies, is never a smoker but used to former alcohol intake or at present non alcoholic PMFSH Past Medical History Medical History Benign essential hypertension Benign prostatic hyperplasia Chronic anemia Chronic kidney disease COVID-19 Degenerative joint disease Dementia Disequilibrium syndrome Glaucoma Hyperlipidemia Hypersomnolence Hypertension Osteopenia Seasonal allergies Spinal stenosis Subclinical hyperthyroidism Vitamin B12 deficiency Vitamin D deficiency Surgical History Surgical History History of cataract extraction History of removal of pigmented skin lesion History of tonsillectomy History of total right hip arthroplasty Family History Family History Mother Family history of cardiovascular disease Diabetes mellitus Family history of arthritis Family history of coronary artery disease Hypertension Acute myocardial infarction Father Family history of arthritis Family history of coronary artery disease Sibling Glaucoma Hypertension Social History Social History Social History: Surrogate medical decision maker: Kasie Nava, spouse. Code status: Full code. Smoking status: Never smoker Second hand tobacco smoke exposure: No Alcohol intake: former Drinks per week: 10 Alcohol use details: non-alcoholic Substance use: never Substance use type: does not use Lack of Transportation: No Lack of Food: Never True Current Housing: I Have Housing Concerned About Future Housing: No Difficulty Paying Gas/Electric Bills: No Difficulty Paying for Meds: No Currently Unemployed: No Education: Bachelor's Degree Difficulty w/ Childcare or Family Care: No Living arrangements: with family Additional living arrangements comments: Lives with in [place]. 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 Spiritual care concerns: No Meds Home Medications and Allergies Home Medications Medication Instructions Recorded Confirmed Type aspirin 81 mg tablet,delayed 81 mg PO DAILY 03/14/19 02/27/23 History release (Adult Low Dose Aspirin) cranberry fruit concentrate 250 mg 250 mg PO BID 11/09/21 02/27/23 History chewable tablet (Azo Cranberry) finasteride 5 mg tablet 5 mg PO DAILY 05/05/22 02/27/23 History fresh kote 1 - 2 drp EACH EYE PRN PRN
--- NOTE | 2023-03-01 16:31 | PM.DS ---
DS: Admitting Diagnosis Discharge Date 03/01/23 Admitting Diagnosis Altered mental status DS: Discharge Diagnosis Discharge Diagnosis (1) Acute alteration in mental status: Code(s): R41.82 - Altered mental status, unspecified Status: Acute (2) Dementia: Qualifiers: Dementia type: unspecified type Dementia severity: mild Dementia behavioral or psychological symptom: with mood disturbance Qualified Code(s): F03.A3 - Unspecified dementia, mild, with mood disturbance Code(s): F03.90 - Unspecified dementia, unspecified severity, without behavioral disturbance, psychotic disturbance, mood disturbance, and anxiety Status: Chronic (3) Hypertension: Code(s): I10 - Essential (primary) hypertension Status: Acute (4) Chronic anemia: Code(s): D64.9 - Anemia, unspecified Status: Acute (5) Chronic kidney disease: Qualifiers: Chronic kidney disease stage: unspecified stage Qualified Code(s): N18.9 - Chronic kidney disease, unspecified Code(s): N18.9 - Chronic kidney disease, unspecified Status: Acute (6) Benign prostatic hyperplasia: Code(s): N40.0 - Benign prostatic hyperplasia without lower urinary tract symptoms Status: Acute DS: Summary Hospital Course Reason for hospitalization: 83yo male with dementia, CKD, HTN and BPH here for altered mental status. Please see H&P for details. Hospital Course: In the ED the patient was afebrile and vital signs were stable. CMP, CBC, UA were unremarkable.? He tested negative for influenza and COVID. Brain CT showed no acute findings.? Chest x-ray showed mild atelectasis in the lower lung zones and moderate hiatal hernia. By the time he arrived at the ED, he returned to his baseline mental status. He was admitted for altered mental status and weakness. PT/OT evaluation ordered who felt he was at his baseline functional status. Speech therapy bedside evaluation showing patient could have regular diet with this liquids. Family requested neurology consult which was ordered. Neurology did not have any further recommendations and felt that his mental status change was related to his dementia. The patient overall did well and was able to be discharged home on 03/01/23. Spoke with by phone to inform her that the patient can be discharged. We talked about hospital course and follow up plan. She asked about therapy and if anything will change. Explained no change in the patient's current care. I did discuss comfort care as an option to her as well. After a long discussion, her takeaway was that we did not want the patient to come back to the hospital. Spoke about comfort measures and never once mentioned that we did not want the patient to come back to the hospital if needed. When the patient was first presented, she felt the ED provider did not want the patient to come back to the hospital in the future so suspect that she already felt on guard prior to my discussion. Profusely apologized for any misunderstanding and that we would be more than happy to care for her if he needs to return to the hospital. I also explained that it was my duty to explain all options available to her including comfort measures. She voiced understanding but sounded skeptical. Status at Discharge Cognitive/behavioral status at discharge: stable Time Spent with Patient Time attestation: Total time spent providing and/or coordinating discharge services: 45 minutes Time spent: Greater than 30 minutes Exam Narrative: AF 98.1 131/60 75 18 98% ra Gen - NARD Chest - clear anteriorly and in the flank CV - RRR S1/S2 Abd - Soft, NT/ND, Positive BS Ext - No pedal edema Neuro - Alert and appropriate. Oriented to month and Krystle name. Psych - Nml mood and affect Skin - Warm and dry Discharge Plan Discharge Attending physician on discharge: Yves Kilgore Consulting providers: Sameer Conway
[2023-03-01] MEDS: polyethylene glycoL 3350 17 GM POWD.PACK PO (20:32)
[2023-03-01] MEDS: TAMSULOSIN HCL 0.4 MG CAPSULE PO (20:32)
== END 2023-03-01 21:36 | disposition home or self-care (01) ==
LOC: ANHED 11:02 → ANH3MED 14:25
PROVIDERS: Physician Assistant; Admitting Provider Internal Medicine; Emergency Provider Emergency Medicine; PCP Internal Medicine; Visit Provider Internal Medicine
DX: R41.82 Altered mental status, unspecified (principal); R63.0 Anorexia; Z68.24 Body mass index [BMI] 24.0-24.9, adult; H04.129 Dry eye syndrome of unspecified lacrimal gland; T69.029A Immersion foot, unspecified foot, initial encounter; R05.9 Cough, unspecified; N40.0 Benign prostatic hyperplasia without lower urinary tract symptoms; I12.9 Hypertensive chronic kidney disease with stage 1 through stage 4 chronic kidney disease, or unspecified chronic kidney disease; N18.9 Chronic kidney disease, unspecified; Z86.16 Personal history of COVID-19; Z20.822 Contact with and (suspected) exposure to COVID-19; F03.90 Unspecified dementia, unspecified severity, without behavioral disturbance, psychotic disturbance, mood disturbance, and anxiety; E87.8 Other disorders of electrolyte and fluid balance, not elsewhere classified; H40.9 Unspecified glaucoma; R90.82 White matter disease, unspecified; E78.5 Hyperlipidemia, unspecified; M85.80 Other specified disorders of bone density and structure, unspecified site; J30.2 Other seasonal allergic rhinitis; E53.8 Deficiency of other specified B group vitamins; E55.9 Vitamin D deficiency, unspecified; J98.11 Atelectasis; K44.9 Diaphragmatic hernia without obstruction or gangrene; Z87.440 Personal history of urinary (tract) infections; Z79.82 Long term (current) use of aspirin; Z79.899 Other long term (current) drug therapy
CPT/HCPCS: 36415; 70450; 71045; 80048; 80053; 81003; 83605; 83735; 85025; 85027; 87636; 92610; 96360; 96372; 99285; A9270; G0378; J1650; J7030

== ENCOUNTER 2023-03-16 09:29 | Inpatient (IN) | payer MEDICARE, SELFPAY ==
[2023-03-16] VITALS (19 sets, daily range): BP systolic 149–166; BP diastolic 68–83; PULSE 74–93; RESP 12–18; TEMP 36.3–36.8; O2SAT 93–100; BMI 24.6
--- NOTE | ~2023-03-16 | XR_ITS ---
EXAMINATION: XR chest 1V DATE: 03/16/2023 10:34 INDICATION: Altered mental status. TECHNIQUE: A single frontal view of the chest was obtained. COMPARISON: Chest single view 02/27/2023, CT abdomen and pelvis 12/11/2022 FINDINGS: There are airspace opacities in right lower lung zone. No pleural effusion or pneumothorax. The heart size is normal. There is a moderate-sized hiatal hernia. IMPRESSION: 1. Airspace opacities in right lower lung zone, consistent with atelectasis versus pneumonia. 2. Moderate-sized hiatal hernia. Reviewed, dictated and finalized at location A. ONAL OPELINT ANALYST IMPRESSION: 1. Airspace opacities in right lower lung zone, consistent with atelectasis cristóbal matt pneumonia. 2. Moderate-sized hiatal hernia.
--- NOTE | ~2023-03-16 | MR_ITS ---
EXAMINATION: MR brain/brain stem wo/w con DATE: 03/16/2023 17:44 INDICATION: weakness, AMS, facial asymmetry TECHNIQUE: Magnetic resonance imaging (MRI) of the brain and brainstem was performed with 15 cc Multi Reina intravenous contrast. Sequences included sagittal and axial T1-weighted SE, axial diffusion-sue ghted FS EPI ASSET, axial T2*-weighted GRE, axial T2-weighted FLAIR Propeller, and axial T2-weighted Propeller. Postcontrast axial and coronal T1-weighted SE was obtained. Apparent diffusion coefficient (ADC) maps were created. COMPARISON: 05/06/2022; CT brain 03/16/2023 FINDINGS: No abnormal restricted diffusion to suggest acute ischemic infarct. No MRI evidence of hemorrhage or extra-axial collection. No suspicious foci of susceptibility to suggest prior intraparenchymal hemorr sydnee. Scattered foci of white matter hyperintensity, likely representing mild small vessel ischemic d isease. Moderate generalized parenchymal volume loss. The basilar cisterns are patent. Flow voids are preserved. Left anterior ethmoid air cell mucosal thickening, remaining aerated spaces are within no rmal limits. Bilateral lens replacements, globes and orbital contents are otherwise within normal archer its. IMPRESSION: No acute intracranial process. Reviewed, dictated and finalized at location K. H WIRE WEAVER
--- NOTE | ~2023-03-16 | CT_ITS ---
EXAMINATION: CT brain wo con DATE: 03/16/2023 10:24 INDICATION: Altered mental status TECHNIQUE: Computed tomography (CT) of the head was performed without intravenous contrast. The dose- length product was 681.00 mGy-cm. Automated exposure control and iterative reconstruction technique w ere employed. COMPARISON: CT dated 02/27/2023 FINDINGS: No ventriculomegaly or midline shift. Basilar cisterns are patent. No midline shift. There are scattered mild periventricular and subcortical white matter changes, most likely related to small vessel ischemic disease (microangiopathy). No acute intracranial hemorrhage, infarction, mass or mas s effect. There are changes of bilateral lens replacement surgery. Minimal mucosal thickening left et hmoid air cells. Mastoids are pneumatized. No depressed skull fractures. IMPRESSION: 1. No acute intracranial abnormality. Reviewed, dictated and finalized at location B. FACTURING INDUSTRIAL ENGINEER
--- NOTE | ~2023-03-16 | CT_ITS ---
EXAMINATION: CT abdomen pelvis w con DATE: 03/16/2023 12:28 INDICATION: Abdominal pain. Diarrhea. TECHNIQUE: Computed tomography (CT) of the abdomen and pelvis was performed with 100 cc Omnipaque 350 intravenous contrast. The dose-length product was 939.51 mGy-cm. Automated exposure control and iter ative reconstruction technique were employed. COMPARISON: CT dated 12/11/2022. FINDINGS: Small right pleural effusion. There is right basilar dependent atelectasis. Large hiatal he rnia. Heart size normal. The liver, spleen, pancreas, adrenal glands and left kidney are unremarkable . Small hypodense lesion of the right kidney, too small to characterize. Study limited by motion nena fact. Gallbladder is present. Nonobstructive bowel gas pattern. Large amount of retained fecal materi al in the distal colon and rectum. No definite obstruction. Colonic diverticulosis without evidence f or diverticulitis. There is a right total hip arthroplasty. IMPRESSION: 1. Large amount of retained fecal material in the distal colon or rectum. 2: Chronic small right pleural effusion with underlying compressive atelectasis. 3: Large hiatal hernia. Reviewed, dictated and finalized at location B. ITORY ACCOUNT MANAGER IMPRESSION: 1. Large amount of retained fecal material in the distal colon or rectum. 2: Chronic small right pleural effusion with underlying compressive atelectasis . 3: Large hiatal hernia.
--- NOTE | ~2023-03-16 | XR_ITS ---
MODIFIED ESOPHAGRAM HISTORY: Pneumonia. Assess for aspiration. TECHNIQUE: Modified barium esophagram was performed on 03/21/2023. I administered fluoroscopy and perf ormed the exam with speech pathologist. Patient was seated for lateral fluoroscopic imaging for [place] stion of thin liquids, pudding, solids and quantified amounts, followed by thin liquids in uncontroll ed amounts. This was recorded on tape. A single fluoroscopic spot image was also recorded. The DAP fo r this procedure was 0.3 Gycm2. The amount of fluoroscopy time used during this procedure was 0.4 min utes. FINDINGS: Oral stage: Reduced labial seal/attention was now transit of the small contrast bolus posterior to th e tongue and no triggering of the swallow. Pharyngeal stage: Unable to assess. Cervical/esophageal stage: Unable to assess. IMPRESSION: No triggering of the swallow with contrast remaining anterior to the tongue. Pharyngeal a nd cervical/esophageal stage is unable to be assessed. Please correlate with speech pathologist findi ngs and specific feeding recommendations. Reviewed, dictated and finalized at location A. RT PACKER IMPRESSION: No triggering of the swallow with contrast remaining anterior to th e tongue. Pharyngeal and cervical/esophageal stage is unable to be assessed. Pl ease correlate with speech pathologist findings and specific feeding recommenda tions.
--- NOTE | 2023-03-16 09:32 | ECG_ITS ---
Measurements Intervals [place] Rate: 93 P: 51 W[place]: 207 QRS: -7 QRSD: 89 T: 4 QT: 373 QTc: 465 Interpretive Statements SINUS RHYTHM DELAYED PRECORDIAL R/S TRANSITION LEFT VENTRICULAR HYPERTROPHY AND ST-T CHANGE INFERIOR INFARCT, AGE INDETERMINATE BORDERLINE ST-T WAVE ABNORMALITY- LATERAL LEADS BASELINE ARTIFACT- I, III, AVR, AVL, AVF, V1-V6 ABNORMAL ECG COMPARED TO ECG 01/11/2023 12:08:46 ST (T WAVE) DEVIATION NOW PRESENT Electronically Signed On 03-16-2023 9:54:40 LEARNING SUPPORT SERVICES DIRECTOR by Dennys Burdick D.O.
[2023-03-16 09:39] LABS: Glucose Point of Care 108 mg/dl (65-105)
[2023-03-16 10:00] LABS: Basophils Percent Auto 0.3 % (0.2-1.2); Eosinophils Percent Auto 0.1 % (0-4.4); Hemoglobin 10.6 g/dL (14.0-18.0); Immature Granulocyte Absolute 0.06 K/mm3 (0.00-0.031); Immature Granulocyte Percent A 0.8 % (0-0.5); Lymphocytes Absolute Auto 1.13 K/mm3 (0.9-3.2); Lymphocytes Percent Auto 14.8 % (18.3-44.2); Mean Corpuscular HGB Conc 31.2 g/dl (32-36); Mean Corpuscular Hemoglobin 29.1 pg (26-34); Mean Corpuscular Volume 93.4 fl (80-100); Mean Platelet Volume 9.7 fl (7.4-10.4); Monocytes Absolute Auto 0.8 K/mm3 (0.1-0.6); Monocytes Percent Auto 9.8 % (2.6-8.5); Neutrophils Absolute Auto 5.7 K/mm3 (1.3-6.7); Neutrophils Percent Auto 74.2 % (45.5-73.1); Platelet Count Result 375 k/mm3 (150-375); Red Blood Count 3.64 M/mm3 (4.6-6.20); Red Cell Distribution Width 14.3 % (11.5-14.5); White Blood Count 7.7 K/mm3 (4.5-10.0)
[2023-03-16 10:10] LABS: INR 1.1; Prothrombin Time 15.2 Seconds (11.1-14.7)
[2023-03-16 10:11] LABS: Alanine Aminotransferase 21 U/L (6-50); Albumin Level 3.8 g/dL (3.5-5.1); Alkaline Phosphatase 110 U/L (38-126); Anion Gap 9 mmol/L (8-16); Aspartate Amino Transferase 30 U/L (17-59); Bilirubin,Total 0.5 mg/dL (0.2-1.3); Blood Urea Nitrogen 17 mg/dL (9-20); Calcium 9.8 mg/dL (8.4-10.2); Carbon Dioxide 22 mmol/L (22-30); Chloride 128 mmol/L (98-107); Estimated CRCL calculation 52 ml/min; Estimated Glomerular Filt Rate > 60; Glucose 110 mg/dL (65-110); Partial Thromboplastin Time 32.7 SECONDS (22.3-36.8); Potassium 3.7 mmol/L (3.4-5.0); Sodium 159 mmol/L (137-145)
[2023-03-16 10:23] LABS: Troponin I 0.019 ng/mL (0.000-0.034)
--- NOTE | 2023-03-16 10:42 | ED.NEUROSD ---
HPI - Neuro Symptoms/Deficit General Chief Complaint: Neuro Symptoms/Deficit <Yissel Galeano PA-C - Last Filed: 03/16/23 16:23> Stated Complaint: slurred speech since yesterday at 1200 <Yissel Galeano PA-C - Last Filed: 03/16/23 16:23> Time Seen by Provider: 03/16/23 09:32 <Yissel Galeano PA-C - Last Filed: 03/16/23 16:23> Source: patient and family <Yissel Galeano PA-C - Last Filed: 03/16/23 16:23> Mode of arrival: EMS <Yissel Galeano PA-C - Last Filed: 03/16/23 16:23> Limitations: altered mental status <Yissel Galeano PA-C - Last Filed: 03/16/23 16:23> History of Present Illness HPI Narrative: This is a 83 year old male that presents to the ER for altered mental status. reports yesterday she noted him to have right sided facial droop. He has been more confused than usual since yesterday as well. Only mumbling largely unintelligible things. He also had some vomiting and diarrhea. Denies fevers. <Yissel Galeano PA-C - Last Filed: 03/16/23 16:23> Related Data Home Medications: Home Medications Medication Instructions Recorded Confirmed aspirin 81 mg tablet,delayed 81 mg PO DAILY 03/14/19 03/16/23 release (Adult Low Dose Aspirin) cranberry fruit concentrate 250 mg 250 mg PO BID 11/09/21 03/16/23 chewable tablet (Azo Cranberry) finasteride 5 mg tablet 5 mg PO DAILY 05/05/22 03/16/23 fresh kote 1 - 2 drp EACH EYE PRN PRN Dry Eyes 06/23/22 03/16/23 tamsulosin 0.4 mg capsule 0.4 mg PO QHS 06/23/22 03/16/23 nystatin-triamcinolone 100,000 1 applic topical PRN PRN MACERATION 07/15/22 03/16/23 unit/g-0.1 % topical cream acetaminophen 500 mg tablet 1,000 mg PO Q6H PRN Pain 07/22/22 03/16/23 (Tylenol Extra Strength) calcium polycarbophil 625 mg 625 mg PO BID 12/03/22 03/16/23 tablet (FiberCon) pravastatin 20 mg tablet 20 mg PO DAILY 12/03/22 03/16/23 dextromethorphan-guaifenesin ER 60 See Rx Instructions .Route 12/28/22 03/16/23 mg-1,200 mg tab,extend .COMPLEX PRN Cough release,12hr (Mucinex DM) polyethylene glycol 3350 17 17 gm PO HS 02/27/23 03/16/23 gram/dose oral powder (Miralax) folic acid-vit B6-vit B12 2.2 1 tablet PO DAILY 03/16/23 03/16/23 mg-25 mg-0.5 mg tablet (Folplex) <Yissel Galeano PA-C - Last Filed: 03/16/23 16:23> Allergies/Adverse Reactions: Allergies Allergy/AdvReac Type Severity Reaction Status Date / Time sulfamethoxazole Allergy Unknown Verified 03/16/23 11:25 [From Bactrim] trimethoprim [From Bactrim] Allergy Unknown Verified 03/16/23 11:25 hydrochlorothiazide AdvReac Unknown Hyponatremi Verified 03/16/23 11:25 a <Yissel Galeano PA-C - Last Filed: 03/16/23 16:23> Review of Systems Review of Systems: ROS unobtainable: Yes unobtainable due to mental status <Yissel Galeano PA-C - Last Filed: 03/16/23 16:23> [facility] Past Medical History Medical History: Medical History Benign essential hypertension Benign prostatic hyperplasia Chronic anemia Chronic kidney disease COVID-19 Degenerative joint disease Dementia Disequilibrium syndrome Glaucoma Hyperlipidemia Hypersomnolence Hypertension Osteopenia Seasonal allergies Spinal stenosis Subclinical hyperthyroidism Vitamin B12 deficiency Vitamin D deficiency <Yissel Galeano PA-C - Last Filed: 03/16/23 16:23> Surgical History Surgical History: Surgical History History of cataract extraction History of removal of pigmented skin lesion History of tonsillectomy History of total right hip arthroplasty <Yissel Galeano PA-C - Last Filed: 03/16/23 16:23> Family History Family History: Family History Mother Family history of cardiovascular disease Diabetes mellitus Family history of arthritis Family history of coronary artery disease Hypertension
[2023-03-16 11:19] LABS: Alanine Aminotransferase 22 U/L (6-50); Albumin Level 3.9 g/dL (3.5-5.1); Alkaline Phosphatase 122 U/L (38-126); Anion Gap 8 mmol/L (8-16); Aspartate Amino Transferase 26 U/L (17-59); Bilirubin,Total 0.5 mg/dL (0.2-1.3); Blood Urea Nitrogen 17 mg/dL (9-20); Calcium 9.9 mg/dL (8.4-10.2); Carbon Dioxide 23 mmol/L (22-30); Chloride 127 mmol/L (98-107); Estimated CRCL calculation 47 ml/min; Estimated Glomerular Filt Rate > 60; Glucose 111 mg/dL (65-110); Potassium 3.6 mmol/L (3.4-5.0); Sodium 158 mmol/L (137-145)
[2023-03-16 11:23] LABS: CRP 0.9 mg/dL (<1.0)
[2023-03-16 11:34] LABS: Lipase 53 U/L (23-300)
[2023-03-16 11:43] LABS: Influenza A QL RT-PCR Negative (Negative); Influenza B QL RT-PCR Negative (Negative); SARS-CoV-2 RNA PCR Negative (Negative)
[2023-03-16 12:01] LABS: Appearance Urine Clear (Clear); Bilirubin Urine Negative (Negative); Blood Urine Negative (Negative); Color Urine Yellow (Yellow); Glucose Urine UA Negative (Negative); Ketones Urine 1+ mg/dL (Negative); Leukocyte Esterase Ur Negative LEU/UL (Negative); Nitrate Urine Negative (Negative); Protein Urine Negative (Negative); Specific Grav Ur 1.016 (1.001-1.035); Urobilinogen Urine 0.2 mg/dL (<2.0); pH Urine 5.5 (5.0-9.0)
[2023-03-16 12:19] LABS: Add Urine Microscopic? NO
--- NOTE | 2023-03-16 12:21 | PC.NURSE ---
Called [facility] [employer] for Condom Cath
[2023-03-16] MEDS: LACTATED RINGERS 500 ML 999 ML IV CONT (12:51)
[2023-03-16] MEDS: DEXTROSE 5%/0.45% SOD CHL 1,000 ML 100 ML IV CONT (13:45)
--- NOTE | 2023-03-16 16:20 | PM.CNNEP ---
Assessment and Plan Assessment and plan (1) Hypernatremia: Code(s): E87.0 - Hyperosmolality and hypernatremia Status: Acute Assessment and Plan: suspect due to severe free water deficit on D5 1/2NS to provide free water and volume resuscitation suspect will eventually need D5W continue to follow trend of sodium (2) Altered mental status: Qualifiers: Altered mental status type: somnolence Qualified Code(s): R40.0 - Somnolence Code(s): R41.82 - Altered mental status, unspecified Status: Acute Assessment and Plan: known history of dementia... worsened by electrolytes issues and volume depletion along with possible infection follow mentation with ongoing treatment (3) Pneumonia: Qualifiers: Laterality: bilateral Lung location: lower lobe of lung Pneumonia type: due to unspecified organism Qualified Code(s): J18.9 - Pneumonia, unspecified organism Code(s): J18.9 - Pneumonia, unspecified organism Status: Acute Assessment and Plan: suggested by imaging findings follow culture results on antibiotics (4) Hypertension: Code(s): I10 - Essential (primary) hypertension Status: Acute Assessment and Plan: BP elevated resume oral medicatonos well (5) Hypokalemia: Code(s): E87.6 - Hypokalemia Status: Acute Assessment and Plan: presumable due to poor oral intake supplement as tolerated follow trend Long extensive discussion (greater than 20 minutes) with the patient's family at bedside regarding the above medical issues and my concern that if he is unable to tolerate oral intake reliably, he may need a feeding tube or Dobbhoff tube for enteric feeding insurance of adequate nutritional intake. I will continue follow patient with you while she remains hospitalized and make further recommendations. Thank you for allowing me to participate in the care of this patient. History of Present Illness Reason for Consult Consult date: 03/16/23 Reason for consult: hypernatremia Chief Complaint Chief complaint: ams,hypernatremia History of Present Illness Narrative: The patient is an 83-year-old male with a past medical history as outlined below who presents to [facility] Emergency Room for further evaluation of altered mental status. The patient reports that he has been quite lethargic and mumbling incoherently for the last 24-40 hours. He answer some questions appropriately but other times he cannot. She thought she noted some mild facial asymmetry but she is not sure. Given his complex medical history and the concern for some possible neurological event, the patient was brought to the emergency room for further assessment. Workup and evaluation emergency room demonstrated the patient be hemodynamically stable and routine blood tests did not show any elevated white blood cell count was stable hemoglobin/hematocrit by CBC. His chemistry was significant for hypernatremia with a sodium of 158 and his urinalysis was without evidence of infection. Chest x-ray showed airspace opacities consistent with atelectasis versus pneumonia and a CT scan of the abdomen pelvis showed just demonstrated constipation S will right pleural effusion with underlying compressive atelectasis. Given the concerns for volume depletion given his electrolyte disorders, he was started on D5 half normal saline to provide both free water as well as volume resuscitation and subsequently admitted to the hospital for further therapy. Renal consultation was requested due to his hyponatremia. As far as I am aware, the patient does not have a history of hyponatremia and the underlying etiology is likely that of a significant free water deficit and lack of oral intake in general. His sodium has improved to some degree with current IV fluids but he is getting serial BMPs to ensure that we are not over or under correcting h
[2023-03-16 18:25] LABS: Anion Gap 10 mmol/L (8-16); Blood Urea Nitrogen 18 mg/dL (9-20); Calcium 9.7 mg/dL (8.4-10.2); Carbon Dioxide 22 mmol/L (22-30); Chloride 124 mmol/L (98-107); Estimated CRCL calculation 52 ml/min; Estimated Glomerular Filt Rate > 60; Glucose 118 mg/dL (65-110); Potassium 3.8 mmol/L (3.4-5.0); Sodium 156 mmol/L (137-145)
--- NOTE | 2023-03-16 20:13 | PM.IMHP ---
H&P: HPI History of Present Illness Date/Time: 03/16/23 20:13 Chief Complaint: AMS Narrative: EXAMINATION: CT brain wo con DATE: 03/16/2023 10:24 INDICATION: Altered mental status TECHNIQUE: Computed tomography (CT) of the head was performed without intravenous contrast. The dose-length product was 681.00 mGy-cm. Automated exposure control and iterative reconstruction technique were employed. COMPARISON: CT dated 02/27/2023 FINDINGS: No ventriculomegaly or midline shift. Basilar cisterns are patent. No midline shift. There are scattered mild periventricular and subcortical white matter changes, most likely related to small vessel ischemic disease (microangiopathy). No acute intracranial hemorrhage, infarction, mass or mass effect. There are changes of bilateral lens replacement surgery. Minimal mucosal thickening left ethmoid air cells. Mastoids are pneumatized. No depressed skull fractures. IMPRESSION: 1. No acute intracranial abnormality. EXAMINATION: XR chest 1V DATE: 03/16/2023 10:34 INDICATION: Altered mental status. TECHNIQUE: A single frontal view of the chest was obtained. COMPARISON: Chest single view 02/27/2023, CT abdomen and pelvis 12/11/2022 FINDINGS: There are airspace opacities in right lower lung zone. No pleural effusion or pneumothorax. The heart size is normal. There is a moderate-sized hiatal hernia. IMPRESSION: 1. Airspace opacities in right lower lung zone, consistent with atelectasis versus pneumonia. 2. Moderate-sized hiatal hernia. EXAMINATION: CT abdomen pelvis w con DATE: 03/16/2023 12:28 INDICATION: Abdominal pain. Diarrhea. TECHNIQUE: Computed tomography (CT) of the abdomen and pelvis was performed with 100 cc Omnipaque 350 intravenous contrast. The dose-length product was 939.51 mGy-cm. Automated exposure control and iterative reconstruction technique were employed. COMPARISON: CT dated 12/11/2022. FINDINGS: Small right pleural effusion. There is right basilar dependent atelectasis. Large hiatal hernia. Heart size normal. The liver, spleen, pancreas, adrenal glands and left kidney are unremarkable. Small hypodense lesion of the right kidney, too small to characterize. Study limited by motion artifact. Gallbladder is present. Nonobstructive bowel gas pattern. Large amount of retained fecal material in the distal colon and rectum. No definite obstruction. Colonic diverticulosis without evidence for diverticulitis. There is a right total hip arthroplasty. IMPRESSION: 1. Large amount of retained fecal material in the distal colon or rectum. 2: Chronic small right pleural effusion with underlying compressive atelectasis. 3:? Large hiatal hernia. Review of Systems Review of Systems: ROS unobtainable: Yes unobtainable due to mental status (STUPOROUS) [facility] Past Medical History Medical History Benign essential hypertension Benign prostatic hyperplasia Chronic anemia Chronic kidney disease COVID-19 Degenerative joint disease Dementia Disequilibrium syndrome Glaucoma Hyperlipidemia Hypersomnolence Hypertension Osteopenia Seasonal allergies Spinal stenosis Subclinical hyperthyroidism Vitamin B12 deficiency Vitamin D deficiency Surgical History Surgical History History of cataract extraction History of removal of pigmented skin lesion History of tonsillectomy History of total right hip arthroplasty Family History Family History Mother Family history of cardiovascular disease Diabetes mellitus Family history of arthritis Family history of coronary artery disease Hypertension Acute myocardial infarction Father Family history of arthritis Family history of coronary artery disease Sibling Glaucoma Hypertension Social History Social History (Reviewed 02/27/23 @ 23:50 by TAMIKA Engel
[2023-03-17] VITALS (10 sets, daily range): BP systolic 115–162; BP diastolic 59–80; PULSE 69–93; RESP 17–18; TEMP 36.4–36.9; O2SAT 90–100
[2023-03-17] MEDS: DEXTROSE 5% 1,000 ML 1,000 ML 65 ML IV CONT ×2 (00:36→20:42)
[2023-03-17] MEDS: cefTRIAXone 2 GM/NS 100 ML 2 GM/100 ML BAG IVPB ×2 (00:39→20:50)
[2023-03-17] MEDS: AZITHROMYCIN 500 MG/NS 250 ML 500 MG/250 ML BAG 250 MG IVPB ×2 (01:13→21:24)
[2023-03-17 06:36] LABS: Alanine Aminotransferase 20 U/L (6-50); Albumin Level 2.9 g/dL (3.5-5.1); Alkaline Phosphatase 88 U/L (38-126); Anion Gap 6 mmol/L (8-16); Aspartate Amino Transferase 28 U/L (17-59); Bilirubin,Total 0.4 mg/dL (0.2-1.3); Blood Urea Nitrogen 16 mg/dL (9-20); Calcium 8.8 mg/dL (8.4-10.2); Carbon Dioxide 24 mmol/L (22-30); Chloride 121 mmol/L (98-107); Estimated CRCL calculation 57 ml/min; Estimated Glomerular Filt Rate > 60; Glucose 118 mg/dL (65-110); Potassium 2.8 mmol/L (3.4-5.0); Sodium 151 mmol/L (137-145)
[2023-03-17] MEDS: POTASSIUM CHLORIDE INJ 40 MEQ in SODIUM CHLORIDE 0.9% IV 500 ML 130 MEQ IVPB ×2 (06:45→22:38)
--- NOTE | 2023-03-17 07:20 | PM.IMPN ---
Progress Note: A&P Assessment and Plan (1) Acute hypernatremia: Code(s): E87.0 - Hyperosmolality and hypernatremia Status: Acute Assessment and Plan: 03/17: Sodium from 158 to 151 overnight, D5 1/2 was changed D5W at 65ml/hr. Free water deficit calculated at ~3L. With his rapid improvement in labs will continue on the new rate of 65ml/hr today. Nephrology is also consulted. Will await further recs from their service. (2) Altered mental status: Qualifiers: Altered mental status type: somnolence Qualified Code(s): R40.0 - Somnolence Code(s): R41.82 - Altered mental status, unspecified Status: Acute Assessment and Plan: 03/17: Chart review with recent hospitalization and confusion, underlying dementia, has had recent neurology consultation and evaluation. Last admission neurology notes dementia 2/2 chronic renal disease. . I am uncertain of his exact baseline. CT head and MRI do not have acute findings. I suspect he may be more confused d/t underlying infection and hypernatremia. (3) Hypertension: Code(s): I10 - Essential (primary) hypertension Status: Acute Assessment and Plan: 03/17: BP stable, elevated. Awaiting speech eval to ensure ok to take oral. (4) Dysphagia: Code(s): R13.10 - Dysphagia, unspecified Status: Acute Assessment and Plan: 03/17: Have discussed with speech - swallow function is somewhat compromised with poor oral motor control. Rec. for thick liquids and pureed. Medications in applesauce. They feel less than ideal rehab potential. A barium swallow could be considered if more aggressive management is desired. Chart review shows some historical discussion regarding hospice or comfort measures on last admit. (5) Pneumonia: Qualifiers: Laterality: bilateral Lung location: lower lobe of lung Pneumonia type: due to unspecified organism Qualified Code(s): J18.9 - Pneumonia, unspecified organism Code(s): J18.9 - Pneumonia, unspecified organism Status: Acute Assessment and Plan: 03/17: Noted imaging findings, confusion. On rocephin/zithromax which will continue. Basic labs and procal in the am. No O2 need. (6) Hypokalemia: Code(s): E87.6 - Hypokalemia Status: Acute Assessment and Plan: 03/17: 2.8, normal mag level today. Plan to replete 40meq IV, recheck in the am. (7) Constipation: Qualifiers: Constipation type: unspecified constipation type Qualified Code(s): K59.00 - Constipation, unspecified Code(s): K59.00 - Constipation, unspecified Status: Acute Assessment and Plan: 03/17: Chronic, on Linzess from home. Abd soft and nontender. Soap suds enemas ordered. Plan Diet: Speech eval - pureed diet, mod. thick liquids. Activity: Bedrest. Analgesia: Denies pain at this time. VTE prophylaxis: Lovenox. Disposition: Expect 24-48 hours of further management. Time Spent With Patient Time with patient: 25 - 35 minutes Subjective Date/time seen: 03/17/23 07:20 Interval history: 03/17: Fernando is rousable and does not endorse pain. He does attempt to converse but speech is grossly unintelligible. Review of Systems Review of Systems: Denies pain. All systems reviewed & are unremarkable except as noted in HPI and below Exam Narrative: GENERAL APPEARANCE: Appears to be in no acute distress. HEAD: normocephalic atraumatic ENT: Hearing grossly intact, no nasal discharge NECK: Neck supple, trachea midline. CARDIAC: Normal S1/S2. Rhythm is regular. No murmurs, rubs, or gallops. No cyanosis or pallor. Extremities are warm and well perfused. LUNGS: Right midlung with mild exp. wheezes. . Respirations even and unlabored. ABDOMEN: BS positive x 4 quadrants. Soft, nondistended, nontender. No guarding or rebound. MSK: No joint tenderness/swelling, fair strength in all extremities. PERIPHERAL VASCULAR: Peripheral pulses
--- NOTE | 2023-03-17 13:45 | PM.PNNEP ---
Progress Note: A&P Assessment and Plan (1) Hypernatremia: Code(s): E87.0 - Hyperosmolality and hypernatremia Status: Acute Assessment and Plan: suspect due to severe free water deficit on D5 1/2NS initially to provide free water and volume resuscitation switched over to D5W continue to follow trend of sodium (2) Altered mental status: Qualifiers: Altered mental status type: somnolence Qualified Code(s): R40.0 - Somnolence Code(s): R41.82 - Altered mental status, unspecified Status: Acute Assessment and Plan: some improvement noted known history of dementia... worsened by electrolytes issues and volume depletion along with possible infection follow mentation with ongoing treatment (3) Pneumonia: Qualifiers: Laterality: bilateral Lung location: lower lobe of lung Pneumonia type: due to unspecified organism Qualified Code(s): J18.9 - Pneumonia, unspecified organism Code(s): J18.9 - Pneumonia, unspecified organism Status: Acute Assessment and Plan: suggested by imaging findings follow culture results on antibiotics (4) Hypertension: Code(s): I10 - Essential (primary) hypertension Status: Acute Assessment and Plan: reasonable control follow trend of hemodynamics (5) Hypokalemia: Code(s): E87.6 - Hypokalemia Status: Acute Assessment and Plan: presumable due to poor oral intake supplement as tolerated follow trend Will continue to follow. Subjective Date/time seen: 03/17/23 13:45 Interval history: Follow-up for acute hypernatremia. Sodium doing better this AM after IVF adjustment (D5 1/2NS changed to D5W IVFs); mentation appears to be doing better as well per family; no apparent distress noted. Exam Narrative: General: elderly frail male in NAD Heart: normal S1 and S2; no rub Lungs: clear to auscultation Abdomen: soft, nontender, nondistended, positive bowel sounds Extremities: no cyanosis or clubbing; no edema Skin: warm and dry Objective Data Vital Signs Vital Signs: Vital Signs Temp Pulse Resp BP Pulse Ox O2 Del Method 03/17/23 12:28 97.5 F L 76 17 153/70 H 100 03/17/23 12:00 74 03/17/23 08:00 Room Air 03/17/23 08:00 69 03/17/23 08:27 97.5 F L 82 17 157/80 H 100 03/17/23 04:00 71 03/17/23 03:41 98.4 F 81 18 115/62 99 03/17/23 00:00 74 03/16/23 23:29 98.0 F 74 18 150/70 H 100 03/16/23 20:00 80 03/16/23 20:19 98.2 F 83 18 166/81 H 100 03/16/23 18:16 Room Air Intake/Output Intake/Output: Intake & Output 03/14/23 03/15/23 03/16/23 03/17/23 23:59 23:59 23:59 23:59 Intake Total 500 1350 Output Total 500 Balance 0 1350 Meds/Results Medications: Active Medications Generic Name Dose Route Start Last Admin Trade Name Freq PRN Reason Stop Dose Admin Aspirin 81 mg 03/18/23 09:00 Aspirin 81 Mg Enteric Tablet PO DAILY MENDEL Enoxaparin Sodium 40 mg 03/18/23 09:00 Enoxaparin 40 Mg/0.4 Ml Syringe SUB-Q DAILY MENDEL Finasteride 5 mg 03/18/23 09:00 Finasteride 5 Mg Tablet PO DAILY MENDEL Dextrose 1,000 mls @ 65 mls/hr 03/16/23 23:45 03/17/23 00:36 Dextrose 5% 1,000 Ml IV CONT 65 mls/hr .[id number] MENDEL Administration Ceftriaxone Sodium 2 gm in 100 mls @ 200 mls/hr 03/17/23 00:15 03/17/23 01:13 Rocephin 2 Gm/Ns 100 Ml IVPB Infused HS MENDEL Infusion Azithromycin 500 mg in 250 mls @ 250 mls/hr 03/17/23 00:15 03/17/23 02:15 Zithromax IVPB Infused HS MENDEL Infusion Linaclotide 145 mcg 03/18/23 06:30 Linaclotide 145 Mcg Capsule PO DAILY@0630 MENDEL Lisinopril 20 mg 03/17/23 17:00 03/17/23 16:31 Lisinopril 20 Mg Tablet PO 20 mg BID MENDEL Administration Mirtazapine 15 mg 03/17/23 21:00 Mirtazapine 15 Mg Tablet PO QHS MENDEL Modafinil 100 mg 03/18/23 09
--- NOTE | 2023-03-17 13:45 | P.PNNP_ITS ---
Progress Note: A&P Assessment and Plan (1) Hypernatremia: Code(s): E87.0 - Hyperosmolality and hypernatremia Status: Acute Assessment and Plan: * suspect due to severe free water deficit * on D5 1/2NS initially to provide free water and volume resuscitation * switched over to D5W * continue to follow trend of sodium (2) Altered mental status: Qualifiers: Altered mental status type: somnolence Qualified Code(s): R40.0 - Somnolence Code(s): R41.82 - Altered mental status, unspecified Status: Acute Assessment and Plan: * some improvement noted * known history of dementia... * worsened by electrolytes issues and volume depletion along with possible infection * follow mentation with ongoing treatment (3) Pneumonia: Qualifiers: Laterality: bilateral Lung location: lower lobe of lung Pneumonia type: due to unspecified organism Qualified Code(s): J18.9 - Pneumonia, unspecified organism Code(s): J18.9 - Pneumonia, unspecified organism Status: Acute Assessment and Plan: * suggested by imaging findings * follow culture results * on antibiotics (4) Hypertension: Code(s): I10 - Essential (primary) hypertension Status: Acute Assessment and Plan: * reasonable control * follow trend of hemodynamics (5) Hypokalemia: Code(s): E87.6 - Hypokalemia Status: Acute Assessment and Plan: * presumable due to poor oral intake * supplement as tolerated * follow trend Will continue to follow. Subjective Date/time seen: 03/17/23 13:45 Interval history: Follow-up for acute hypernatremia. Sodium doing better this AM after IVF adjustment (D5 1/2NS changed to D5W IVFs); mentation appears to be doing better as well per family; no apparent distress noted. Exam Narrative: General: elderly frail male in NAD Heart: normal S1 and S2; no rub Lungs: clear to auscultation Abdomen: soft, nontender, nondistended, positive bowel sounds Extremities: no cyanosis or clubbing; no edema Skin: warm and dry Objective Data Vital Signs Vital Signs: Vital Signs Temp Pulse Resp BP Pulse Ox O2 Del Method 03/17/23 12:28 97.5 F L 76 17 153/70 H 100 03/17/23 12:00 74 03/17/23 08:00 Room Air 03/17/23 08:00 69 03/17/23 08:27 97.5 F L 82 17 157/80 H 100 03/17/23 04:00 71 03/17/23 03:41 98.4 F 81 18 115/62 99 03/17/23 00:00 74 03/16/23 23:29 98.0 F 74 18 150/70 H 100 03/16/23 20:00 80 03/16/23 20:19 98.2 F 83 18 166/81 H 100 03/16/23 18:16 Room Air Intake/Output Intake/Output: Intake & Output 03/14/23 03/15/23 03/16/23 03/17/23 23:59 23:59 23:59 23:59 Intake Total 500 1350 Output Total 500 Balance 0 1350 Meds/Results Medications: Active Medications Generic Name Dose Route Start Last Admin Trade Name Freq PRN Reason Stop Dose Admin Aspirin 81 mg 03/18/23 09:00 Aspirin 81 Mg Enteric Tablet PO DAILY [facility] Enoxaparin Sodium 40 mg 03/18/23 09:00 Enoxaparin 40 Mg/0.4 Ml
--- NOTE | 2023-03-17 14:41 | PCSTNOTE ---
Bedside swallowing evaluation completed. Patient seen bedside sitting upright with head of bed elevated. Cursory oral peripheral examination results: weakness on left side of face including labia, severely impaired overall lingual strength, range of motion, and control. Able to clear throat on request but unable to produce a strong cough on request. A trial of thin liquid (water) by spoon was given and patient demonstrated wet gurgly vocal quality immediately afterwards. Other trials given include moderately thickened liquid by spoon and cup, and pureed consistency by spoon. Patient exhibited lengthy oral transit time with all consistencies, and also required multiple swallows to clear 3 mL bolus (approximately) of applesauce. Recommendations: pureed consistency food with moderately thickened liquids. Swallowing precaution recommendations placed in chart. Please note that silent aspiration cannot be ruled out at bedside but can be evaluated with a modified barium swallow study. No further speech therapy is recommended at this time. Thank you for the referral of this patient.
[2023-03-17] MEDS: lisinopriL 20 MG TABLET PO (16:31)
[2023-03-17 16:51] LABS: Anion Gap 10 mmol/L (8-16); Blood Urea Nitrogen 17 mg/dL (9-20); Calcium 9.3 mg/dL (8.4-10.2); Carbon Dioxide 21 mmol/L (22-30); Chloride 119 mmol/L (98-107); Estimated CRCL calculation 57 ml/min; Estimated Glomerular Filt Rate > 60; Glucose 111 mg/dL (65-110); Potassium 3.5 mmol/L (3.4-5.0); Sodium 150 mmol/L (137-145)
[2023-03-17] MEDS: MIRTAZAPINE 15 MG TABLET PO (20:47)
[2023-03-17] MEDS: TAMSULOSIN HCL 0.4 MG CAPSULE PO (20:47)
[2023-03-17] MEDS: polyethylene glycoL 3350 17 GM POWD.PACK PO (20:47)
[2023-03-18] VITALS (11 sets, daily range): BP systolic 145–174; BP diastolic 66–76; PULSE 64–83; RESP 16–18; TEMP 36.2–36.7; O2SAT 92–100
[2023-03-18] MEDS: LINACLOTIDE 145 MCG CAPSULE PO (05:50)
[2023-03-18 06:00] LABS: Hematocrit 30.3 % (42.0-52.0); Hemoglobin 9.3 g/dL (14.0-18.0); Mean Corpuscular HGB Conc 30.7 g/dl (32-36); Mean Corpuscular Hemoglobin 29.4 pg (26-34); Mean Corpuscular Volume 95.9 fl (80-100); Mean Platelet Volume 9.9 fl (7.4-10.4); Platelet Count Result 329 k/mm3 (150-375); Red Blood Count 3.16 M/mm3 (4.6-6.20); Red Cell Distribution Width 14.9 % (11.5-14.5); White Blood Count 8.1 K/mm3 (4.5-10.0)
[2023-03-18 06:19] LABS: Anion Gap 6 mmol/L (8-16); Blood Urea Nitrogen 17 mg/dL (9-20); Carbon Dioxide 22 mmol/L (22-30); Chloride 120 mmol/L (98-107); Estimated CRCL calculation 52 ml/min; Estimated Glomerular Filt Rate > 60; Glucose 105 mg/dL (65-110); Potassium 3.4 mmol/L (3.4-5.0); Sodium 148 mmol/L (137-145)
[2023-03-18 06:33] LABS: Procalcitonin 0.1 ng/mL
--- NOTE | 2023-03-18 10:52 | PM.PNNEP ---
Progress Note: A&P Assessment and Plan (1) Hypernatremia: Code(s): E87.0 - Hyperosmolality and hypernatremia Status: Acute Assessment and Plan: ongoing improvement noted suspect due to severe free water deficit on D5 1/2NS initially to provide free water and volume resuscitation switched over to D5W IVFs continue to follow trend of sodium (2) Altered mental status: Qualifiers: Altered mental status type: somnolence Qualified Code(s): R40.0 - Somnolence Code(s): R41.82 - Altered mental status, unspecified Status: Acute Assessment and Plan: improvement noted known history of dementia... worsened by electrolytes issues and volume depletion along with possible infection follow mentation with ongoing treatment (3) Pneumonia: Qualifiers: Laterality: bilateral Lung location: lower lobe of lung Pneumonia type: due to unspecified organism Qualified Code(s): J18.9 - Pneumonia, unspecified organism Code(s): J18.9 - Pneumonia, unspecified organism Status: Acute Assessment and Plan: suggested by imaging findings follow culture results on antibiotics (4) Hypertension: Code(s): I10 - Essential (primary) hypertension Status: Acute Assessment and Plan: reasonable control follow trend of hemodynamics (5) Hypokalemia: Code(s): E87.6 - Hypokalemia Status: Acute Assessment and Plan: presumable due to poor oral intake supplement as tolerated follow trend Will continue to follow. Subjective Date/time seen: 03/18/23 10:52 Interval history: Follow-up for acute hypernatremia. Mentation continue to improve in conjunction with sodium level -- more awake and conversive at this time; no apparent distress noted; no event/issues overnight or earlier this morning. Exam Narrative: General: elderly frail male in NAD Heart: normal S1 and S2; no rub Lungs: clear to auscultation Abdomen: soft, nontender, nondistended, positive bowel sounds Extremities: no cyanosis or clubbing; no edema Skin: warm and intact Objective Data Vital Signs Vital Signs: Vital Signs Temp Pulse Resp BP Pulse Ox O2 Del Method 03/18/23 10:24 97.4 F L 77 17 166/66 H 98 03/18/23 07:38 97.2 F L 77 17 174/73 H 100 03/18/23 04:00 74 03/18/23 03:37 97.8 F 66 18 154/76 H 92 03/18/23 00:00 68 03/17/23 23:31 97.7 F 70 18 139/59 L 100 03/17/23 20:00 Room Air 03/17/23 20:00 92 03/17/23 20:00 97.8 F 93 18 154/75 H 100 03/17/23 17:46 98.4 F 83 18 162/66 H 90 Intake/Output Intake/Output: Intake & Output 03/15/23 03/16/23 03/17/23 03/18/23 23:59 23:59 23:59 23:59 Intake Total 500 2940 520 Output Total 500 Balance 0 2940 520 Meds/Results Medications: Active Medications Generic Name Dose Route Start Last Admin Trade Name Freq PRN Reason Stop Dose Admin Aspirin 81 mg 03/18/23 11:16 03/18/23 11:49 Aspirin 81 Mg Chewable Tablet PO Not Given DAILY@0800 MENDEL Enoxaparin Sodium 40 mg 03/18/23 09:00 03/18/23 11:38 Enoxaparin 40 Mg/0.4 Ml Syringe SUB-Q 40 mg DAILY MENDEL Administration Finasteride 5 mg 03/18/23 09:00 03/18/23 11:31 Finasteride 5 Mg Tablet PO Not Given DAILY MENDEL Ceftriaxone Sodium 2 gm in 100 mls @ 200 mls/hr 03/17/23 00:15 03/17/23 21:20 Rocephin 2 Gm/Ns 100 Ml IVPB Infused HS MENDEL Infusion Azithromycin 500 mg in 250 mls @ 250 mls/hr 03/17/23 00:15 03/17/23 22:24 Zithromax IVPB Infused HS MENDEL Infusion Dextrose 1,000 mls @ 50 mls/hr 03/18/23 12:35 03/18/23 14:43 Dextrose 5% 1,000 Ml IV CONT 50 mls/hr .Q20H MENDEL Administration Linaclotide 145 mcg 03/18/23 06:30 03/18/23 05:50 Linaclotide 145 Mcg Capsule PO 145 mcg DAILY@0630 MENDEL Administration Lisinopril 20 mg 03/17/23 17:00 03/18/23 11:49 Lisinopril 20 Mg Tablet PO N
--- NOTE | 2023-03-18 10:52 | P.PNNP_ITS ---
Progress Note: A&P Assessment and Plan (1) Hypernatremia: Code(s): E87.0 - Hyperosmolality and hypernatremia Status: Acute Assessment and Plan: * ongoing improvement noted * suspect due to severe free water deficit * on D5 1/2NS initially to provide free water and volume resuscitation * switched over to D5W IVFs * continue to follow trend of sodium (2) Altered mental status: Qualifiers: Altered mental status type: somnolence Qualified Code(s): R40.0 - Somnolence Code(s): R41.82 - Altered mental status, unspecified Status: Acute Assessment and Plan: * improvement noted * known history of dementia... * worsened by electrolytes issues and volume depletion along with possible infection * follow mentation with ongoing treatment (3) Pneumonia: Qualifiers: Laterality: bilateral Lung location: lower lobe of lung Pneumonia type: due to unspecified organism Qualified Code(s): J18.9 - Pneumonia, unspecified organism Code(s): J18.9 - Pneumonia, unspecified organism Status: Acute Assessment and Plan: * suggested by imaging findings * follow culture results * on antibiotics (4) Hypertension: Code(s): I10 - Essential (primary) hypertension Status: Acute Assessment and Plan: * reasonable control * follow trend of hemodynamics (5) Hypokalemia: Code(s): E87.6 - Hypokalemia Status: Acute Assessment and Plan: * presumable due to poor oral intake * supplement as tolerated * follow trend Will continue to follow. Subjective Date/time seen: 03/18/23 10:52 Interval history: Follow-up for acute hypernatremia. Mentation continue to improve in conjunction with sodium level -- more awake and conversive at this time; no apparent distress noted; no event/issues overnight or earlier this morning. Exam Narrative: General: elderly frail male in NAD Heart: normal S1 and S2; no rub Lungs: clear to auscultation Abdomen: soft, nontender, nondistended, positive bowel sounds Extremities: no cyanosis or clubbing; no edema Skin: warm and intact Objective Data Vital Signs Vital Signs: Vital Signs Temp Pulse Resp BP Pulse Ox O2 Del Method 03/18/23 10:24 97.4 F L 77 17 166/66 H 98 03/18/23 07:38 97.2 F L 77 17 174/73 H 100 03/18/23 04:00 74 03/18/23 03:37 97.8 F 66 18 154/76 H 92 03/18/23 00:00 68 03/17/23 23:31 97.7 F 70 18 139/59 L 100 03/17/23 20:00 Room Air 03/17/23 20:00 92 03/17/23 20:00 97.8 F 93 18 154/75 H 100 03/17/23 17:46 98.4 F 83 18 162/66 H 90 Intake/Output Intake/Output: Intake & Output 03/15/23 03/16/23 03/17/23 03/18/23 23:59 23:59 23:59 23:59 Intake Total 500 2940 520 Output Total 500 Balance 0 2940 520 Meds/Results Medications: Active Medications Generic Name Dose Route Start Last Admin Trade Name Freq PRN Reason Stop Dose Admin Aspirin 81 mg 03/18/23 11:16 03/18/23 11:49 Aspirin 81 Mg Chewable Tablet PO Not Given DAILY@0800 [facility] Enoxaparin Sodium 40 mg 03/18/23 09:00 1
[2023-03-18] MEDS: ENOXAPARIN 40 MG/0.4 ML SYRINGE SUB-Q (11:38)
--- NOTE | 2023-03-18 11:51 | PC.NURSE ---
Attempted to give AM medications. Patient refused.
--- NOTE | 2023-03-18 13:06 | PM.IMPN ---
Progress Note: A&P Assessment and Plan (1) Acute hypernatremia: Code(s): E87.0 - Hyperosmolality and hypernatremia Status: Acute (2) Altered mental status: Qualifiers: Altered mental status type: somnolence Qualified Code(s): R40.0 - Somnolence Code(s): R41.82 - Altered mental status, unspecified Status: Acute (3) Hypertension: Code(s): I10 - Essential (primary) hypertension Status: Acute (4) Dysphagia: Code(s): R13.10 - Dysphagia, unspecified Status: Acute (5) Pneumonia: Qualifiers: Laterality: bilateral Lung location: lower lobe of lung Pneumonia type: due to unspecified organism Qualified Code(s): J18.9 - Pneumonia, unspecified organism Code(s): J18.9 - Pneumonia, unspecified organism Status: Acute (6) Hypokalemia: Code(s): E87.6 - Hypokalemia Status: Acute (7) Constipation: Qualifiers: Constipation type: unspecified constipation type Qualified Code(s): K59.00 - Constipation, unspecified Code(s): K59.00 - Constipation, unspecified Status: Acute Plan 83-year-old male presented from home with altered mental status. Noted right-sided facial droop. More confusion. Mumbling. Had some vomiting and diarrhea prior to admission. Cbc without leukocytosis. Hemoglobin 10.6 around baseline. Hyponatremia noted with sodium level of 158. CT scan of the brain negative. Chest x-ray with airspace opacities consistent with atelectasis versus pneumonia. CT abdomen pelvis showed constipation. Chronic small right pleural effusion with understood lying compressive atelectasis large hiatal hernia started on IV fluids. Sodium level has continued to improve since admission. His mental status has improved to some extent. MRI brain came back negative for stroke. Nephrology has been consulted. Conjunctival chemosis noted on evaluation. Will slow down IV fluid. D5 water at 50 cc an hour. Speech therapy has evaluated. May need MBS to further evaluate for aspiration related pneumonia. Currently on ceftriaxone and azithromycin. Underlying history of dementia neurology evaluated last admission. Dysphagia is new History of hypertension chronic renal disease spinal stenosis B12 and D deficiencies DVT prophylaxis Lovenox Code status full code Subjective Date/time seen: 03/18/23 13:06 Interval history: 03/17: Fernando is rousable and does not endorse pain. He does attempt to converse but speech is grossly unintelligible. 03/18/2023: Patient is awake slowly converses. Await that he is in the hospital. Has been having some cough. Sodium level reviewed. Getting bit puffy in his eyes Review of Systems Review of Systems: All systems reviewed & are unremarkable except as noted in HPI and below Exam Narrative: GENERAL APPEARANCE: Appears to be in no acute distress. HEAD: normocephalic atraumatic ENT: Hearing grossly intact, no nasal discharge NECK: Neck supple, trachea midline. CARDIAC: Normal S1/S2. Rhythm is regular. No murmurs, rubs, or gallops. No cyanosis or pallor. Extremities are warm and well perfused. LUNGS: Diminished breath sounds bilaterally. Respirations even and unlabored. ABDOMEN: BS positive x 4 quadrants. Soft, nondistended, nontender. No guarding or rebound. MSK: No joint tenderness/swelling, fair strength in all extremities. PERIPHERAL VASCULAR: Peripheral pulses palpable. Normal perfusion, cap refill <2 seconds. No edema. NEURO: Moves all extremities. Hypokinesia plus rigidity SKIN: [place] without lesions or eruptions. PSYCH: Cooperative Objective Data Vital Signs Vital Signs: Vital Signs - 24 hr 03/17/23 17:46 03/17/23 20:00 03/17/23 20:00 Temperature 98.4 F 97.8 F Pulse Rate 83 93 92 Respiratory Rate 18 18 Blood Pressure 162/66 H 154/75 H Pulse Oximetry 90 100 Oxygen Delivery 03/17/23 20:00 03/17/23 23:31 03/18/23 00:00 Temperature 97.7 F Pulse Rate 70
--- NOTE | 2023-03-18 13:46 | PC.NURSE ---
On 03/18/23, the student, [Nisha Bardales], provided care and [facility] on this [facility]. I have reviewed the student's documentation and agree with the findings.
[2023-03-18] MEDS: DEXTROSE 5% 1,000 ML 1,000 ML 50 ML IV CONT (14:43)
[2023-03-18] MEDS: lisinopriL 20 MG TABLET PO (17:25)
[2023-03-18] MEDS: cefTRIAXone 2 GM/NS 100 ML 2 GM/100 ML BAG IVPB (19:58)
[2023-03-18] MEDS: AZITHROMYCIN 500 MG/NS 250 ML 500 MG/250 ML BAG 250 MG IVPB (20:30)
[2023-03-19] VITALS (10 sets, daily range): BP systolic 152–176; BP diastolic 64–85; PULSE 52–81; RESP 12–16; TEMP 36.2–36.5; O2SAT 96–100
[2023-03-19 05:59] LABS: Basophils Percent Auto 0.5 % (0.2-1.2); Eosinophils Absolute Auto 0.2 K/mm3 (0-0.3); Hematocrit 29.4 % (42.0-52.0); Hemoglobin 9.2 g/dL (14.0-18.0); Immature Granulocyte Absolute 0.02 K/mm3 (0.00-0.031); Immature Granulocyte Percent A 0.4 % (0-0.5); Lymphocytes Absolute Auto 1.92 K/mm3 (0.9-3.2); Lymphocytes Percent Auto 34.4 % (18.3-44.2); Mean Corpuscular HGB Conc 31.3 g/dl (32-36); Mean Corpuscular Hemoglobin 28.8 pg (26-34); Mean Corpuscular Volume 91.9 fl (80-100); Mean Platelet Volume 10.3 fl (7.4-10.4); Monocytes Absolute Auto 0.5 K/mm3 (0.1-0.6); Monocytes Percent Auto 9.5 % (2.6-8.5); Neutrophils Absolute Auto 2.9 K/mm3 (1.3-6.7); Neutrophils Percent Auto 52.2 % (45.5-73.1); Platelet Count Result 316 k/mm3 (150-375); Red Cell Distribution Width 14.6 % (11.5-14.5); White Blood Count 5.6 K/mm3 (4.5-10.0)
[2023-03-19 06:14] LABS: Alanine Aminotransferase 45 U/L (6-50); Albumin Level 3.3 g/dL (3.5-5.1); Alkaline Phosphatase 105 U/L (38-126); Anion Gap 9 mmol/L (8-16); Aspartate Amino Transferase 47 U/L (17-59); Bilirubin,Total 0.4 mg/dL (0.2-1.3); Blood Urea Nitrogen 16 mg/dL (9-20); Calcium 8.9 mg/dL (8.4-10.2); Carbon Dioxide 24 mmol/L (22-30); Chloride 109 mmol/L (98-107); Estimated CRCL calculation 64 ml/min; Estimated Glomerular Filt Rate > 60; Glucose 106 mg/dL (65-110); Magnesium 1.9 mg/dL (1.6-2.3); Potassium 3.2 mmol/L (3.4-5.0); Sodium 142 mmol/L (137-145)
[2023-03-19] MEDS: modafiniL (*CRX) 100 MG TABLET PO (08:49)
[2023-03-19] MEDS: lisinopriL 20 MG TABLET PO ×2 (08:49→16:59)
[2023-03-19] MEDS: ASPIRIN 81 MG CHEWABLE TABLET PO (08:49)
[2023-03-19] MEDS: PRAVASTATIN SODIUM 20 MG TABLET PO (08:49)
[2023-03-19] MEDS: ENOXAPARIN 40 MG/0.4 ML SYRINGE SUB-Q (08:49)
--- NOTE | 2023-03-19 11:45 | P.PNNP_ITS ---
Progress Note: A&P Assessment and Plan (1) Hypernatremia: Code(s): E87.0 - Hyperosmolality and hypernatremia Status: Acute Assessment and Plan: * ongoing improvement noted * suspect due to severe free water deficit * on D5 1/2NS initially to provide free water and volume resuscitation * switched over to D5W IVFs * continue to follow trend of sodium (2) Altered mental status: Qualifiers: Altered mental status type: somnolence Qualified Code(s): R40.0 - Somnolence Code(s): R41.82 - Altered mental status, unspecified Status: Acute Assessment and Plan: * improvement noted * known history of dementia... * worsened by electrolytes issues and volume depletion along with possible infection * follow mentation with ongoing treatment (3) Pneumonia: Qualifiers: Laterality: bilateral Lung location: lower lobe of lung Pneumonia type: due to unspecified organism Qualified Code(s): J18.9 - Pneumonia, unspecified organism Code(s): J18.9 - Pneumonia, unspecified organism Status: Acute Assessment and Plan: * suggested by imaging findings * follow culture results * on antibiotics (4) Hypertension: Code(s): I10 - Essential (primary) hypertension Status: Acute Assessment and Plan: * reasonable control * follow trend of hemodynamics (5) Hypokalemia: Code(s): E87.6 - Hypokalemia Status: Acute Assessment and Plan: * presumable due to poor oral intake * supplement as tolerated * follow trend NOt much else to add -- will continue to follow from a distance. Subjective Date/time seen: 03/19/23 11:45 Interval history: Follow-up for acute hypernatremia. Sodium has normalized with current therapy/interventions; mentation seems stable but seems to fluctuate in general (presumably due to underlying dementia); no apparent distress noted. Exam Narrative: General: elderly frail male in NAD Heart: normal S1 and S2; no rub Lungs: clear to auscultation Abdomen: soft, nontender, nondistended, positive bowel sounds Extremities: no cyanosis or clubbing; no edema Skin: no rash Objective Data Vital Signs Vital Signs: Vital Signs Temp Pulse Resp BP Pulse Ox O2 Del Method 03/19/23 11:30 59 L 03/19/23 08:00 60 03/19/23 08:35 Room Air 03/19/23 08:45 56 L 14 174/64 H 100 03/19/23 04:00 97.7 F 81 14 176/85 H 96 03/19/23 04:00 66 03/19/23 00:00 57 L 03/19/23 00:00 97.2 F L 63 16 152/69 H 100 03/18/23 20:00 83 03/18/23 19:26 98 F 76 16 145/74 H 100 Intake/Output Intake/Output: Intake & Output 03/16/23 03/17/23 03/18/23 03/19/23 23:59 23:59 23:59 23:59 Intake Total 500 2940 1230 20 Output Total 500 Balance 0 2940 1230 20 Meds/Results Medications: Active Medications Generic Name Dose Route Start Last Admin Trade Name Freq PRN Reason Stop Dose Admin Aspirin 81 mg 03/18/23 11:16 03/19/23 08:49 Aspirin 81 Mg Chewable Tablet PO 81 mg DAILY@0800 MENDEL Administration Carbidopa/Levodopa 1 tablet 03/19/23 15:50
--- NOTE | 2023-03-19 11:45 | PM.PNNEP ---
Progress Note: A&P Assessment and Plan (1) Hypernatremia: Code(s): E87.0 - Hyperosmolality and hypernatremia Status: Acute Assessment and Plan: ongoing improvement noted suspect due to severe free water deficit on D5 1/2NS initially to provide free water and volume resuscitation switched over to D5W IVFs continue to follow trend of sodium (2) Altered mental status: Qualifiers: Altered mental status type: somnolence Qualified Code(s): R40.0 - Somnolence Code(s): R41.82 - Altered mental status, unspecified Status: Acute Assessment and Plan: improvement noted known history of dementia... worsened by electrolytes issues and volume depletion along with possible infection follow mentation with ongoing treatment (3) Pneumonia: Qualifiers: Laterality: bilateral Lung location: lower lobe of lung Pneumonia type: due to unspecified organism Qualified Code(s): J18.9 - Pneumonia, unspecified organism Code(s): J18.9 - Pneumonia, unspecified organism Status: Acute Assessment and Plan: suggested by imaging findings follow culture results on antibiotics (4) Hypertension: Code(s): I10 - Essential (primary) hypertension Status: Acute Assessment and Plan: reasonable control follow trend of hemodynamics (5) Hypokalemia: Code(s): E87.6 - Hypokalemia Status: Acute Assessment and Plan: presumable due to poor oral intake supplement as tolerated follow trend NOt much else to add -- will continue to follow from a distance. Subjective Date/time seen: 03/19/23 11:45 Interval history: Follow-up for acute hypernatremia. Sodium has normalized with current therapy/interventions; mentation seems stable but seems to fluctuate in general (presumably due to underlying dementia); no apparent distress noted. Exam Narrative: General: elderly frail male in NAD Heart: normal S1 and S2; no rub Lungs: clear to auscultation Abdomen: soft, nontender, nondistended, positive bowel sounds Extremities: no cyanosis or clubbing; no edema Skin: no rash Objective Data Vital Signs Vital Signs: Vital Signs Temp Pulse Resp BP Pulse Ox O2 Del Method 03/19/23 11:30 59 L 03/19/23 08:00 60 03/19/23 08:35 Room Air 03/19/23 08:45 56 L 14 174/64 H 100 03/19/23 04:00 97.7 F 81 14 176/85 H 96 03/19/23 04:00 66 03/19/23 00:00 57 L 03/19/23 00:00 97.2 F L 63 16 152/69 H 100 03/18/23 20:00 83 03/18/23 19:26 98 F 76 16 145/74 H 100 Intake/Output Intake/Output: Intake & Output 03/16/23 03/17/23 03/18/23 03/19/23 23:59 23:59 23:59 23:59 Intake Total 500 2940 1230 20 Output Total 500 Balance 0 2940 1230 20 Meds/Results Medications: Active Medications Generic Name Dose Route Start Last Admin Trade Name Hernandez PRN Reason Stop Dose Admin Aspirin 81 mg 03/18/23 11:16 03/19/23 08:49 Aspirin 81 Mg Chewable Tablet PO 81 mg DAILY@0800 MENDEL Administration Carbidopa/Levodopa 1 tablet 03/19/23 15:50 03/19/23 16:59 Carbidopa/Levodopa 25/100 Mg Tablet PO 1 tablet Q8HR MENDEL Administration Enoxaparin Sodium 40 mg 03/18/23 09:00 03/19/23 08:49 Enoxaparin 40 Mg/0.4 Ml Syringe SUB-Q 40 mg DAILY MENDEL Administration Finasteride 5 mg 03/18/23 09:00 03/18/23 11:31 Finasteride 5 Mg Tablet PO Not Given DAILY MENDEL Ceftriaxone Sodium 2 gm in 100 mls @ 200 mls/hr 03/17/23 00:15 03/18/23 20:30 Rocephin 2 Gm/Ns 100 Ml IVPB Infused HS MENDEL Infusion Azithromycin 500 mg in 250 mls @ 250 mls/hr 03/17/23 00:15 03/18/23 21:30 Zithromax IVPB Infused HS MENDEL Infusion Linaclotide 145 mcg 03/18/23 06:30 03/19/23 08:30 Linaclotide 145 Mcg Capsule PO Not Given DAILY@0630 MENDEL Lisinopril 20 mg 03/17/23 17:00 03/19/23 16:59 Lisinopril 20 Mg Tablet PO 20 mg B
[2023-03-19] MEDS: POTASSIUM CHLORIDE INJ 40 MEQ in SODIUM CHLORIDE 0.9% IV 500 ML 130 MEQ IVPB (12:46)
[2023-03-19] MEDS: SCOPOLAMINE 1.5 MG PATCH TRANSDERM (12:47)
--- NOTE | 2023-03-19 15:26 | PM.IMPN ---
Progress Note: A&P Assessment and Plan (1) Acute hypernatremia: Code(s): E87.0 - Hyperosmolality and hypernatremia Status: Acute (2) Altered mental status: Qualifiers: Altered mental status type: somnolence Qualified Code(s): R40.0 - Somnolence Code(s): R41.82 - Altered mental status, unspecified Status: Acute (3) Hypertension: Code(s): I10 - Essential (primary) hypertension Status: Acute (4) Dysphagia: Code(s): R13.10 - Dysphagia, unspecified Status: Acute (5) Pneumonia: Qualifiers: Laterality: bilateral Lung location: lower lobe of lung Pneumonia type: due to unspecified organism Qualified Code(s): J18.9 - Pneumonia, unspecified organism Code(s): J18.9 - Pneumonia, unspecified organism Status: Acute (6) Hypokalemia: Code(s): E87.6 - Hypokalemia Status: Acute (7) Constipation: Qualifiers: Constipation type: unspecified constipation type Qualified Code(s): K59.00 - Constipation, unspecified Code(s): K59.00 - Constipation, unspecified Status: Acute Plan 83-year-old male presented from home with altered mental status. Noted right-sided facial droop. More confusion. Mumbling. Had some vomiting and diarrhea prior to admission. Cbc without leukocytosis. Hemoglobin 10.6 around baseline. Hyponatremia noted with sodium level of 158. CT scan of the brain negative. Chest x-ray with airspace opacities consistent with atelectasis versus pneumonia. CT abdomen pelvis showed constipation. Chronic small right pleural effusion with understood lying compressive atelectasis large hiatal hernia started on IV fluids. Sodium level has continued to improve since admission. His mental status has improved to some extent. MRI brain came back negative for stroke. Nephrology has been consulted. Conjunctival chemosis noted on evaluation. Will slow down IV fluid. D5 water at 50 cc an hour. hypernatremia has resolved. will stop d5w Speech therapy has evaluated. May need MBS to further evaluate for aspiration related pneumonia. Currently on ceftriaxone and azithromycin. Underlying history of dementia neurology evaluated last admission. Dysphagia is new. upper resp secretions preent. will add scopolamine patch. Possible Parkinson's disease. With bradycardia media and rigidity. will Give a trial of Sinemet History of hypertension chronic renal disease spinal stenosis B12 and D deficiencies DVT prophylaxis Lovenox Code status full code Subjective Date/time seen: 03/19/23 15:26 Interval history: 03/17: Fernando is rousable and does not endorse pain. He does attempt to converse but speech is grossly unintelligible. 03/18/2023: Patient is awake slowly converses. Await that he is in the hospital. Has been having some cough. Sodium level reviewed. Getting bit puffy in his eyes 03/19/2023: No overnight events. Awake confusion persist. Mental status about the same. Still has intermittent cough and congestion Review of Systems Review of Systems: All systems reviewed & are unremarkable except as noted in HPI and below Exam Narrative: GENERAL APPEARANCE: Appears to be in no acute distress. HEAD: normocephalic atraumatic ENT: Hearing grossly intact, no nasal discharge NECK: Neck supple, trachea midline. CARDIAC: Normal S1/S2. Rhythm is regular. No murmurs, rubs, or gallops. No cyanosis or pallor. Extremities are warm and well perfused. LUNGS: Diminished breath sounds bilaterally. Respirations even and unlabored. ABDOMEN: BS positive x 4 quadrants. Soft, nondistended, nontender. No guarding or rebound. MSK: No joint tenderness/swelling, fair strength in all extremities. PERIPHERAL VASCULAR: Peripheral pulses palpable. Normal perfusion, cap refill <2 seconds. No edema. NEURO: Moves all extremities. Hypokinesia plus rigidity SKIN: [place] without lesions or eruptions. PSYCH: Cooperative Objective Data V
[2023-03-19] MEDS: CARBIDOPA/LEVODOPA 25/100 MG TABLET 1 TABLET PO ×2 (16:59→21:35)
[2023-03-19] MEDS: polyethylene glycoL 3350 17 GM POWD.PACK PO (20:20)
[2023-03-19] MEDS: cefTRIAXone 2 GM/NS 100 ML 2 GM/100 ML BAG IVPB (20:20)
[2023-03-19] MEDS: ACETAMINOPHEN 325 MG TABLET 650 MG PO (20:20)
[2023-03-19] MEDS: AZITHROMYCIN 500 MG/NS 250 ML 500 MG/250 ML BAG 250 MG IVPB (20:59)
[2023-03-20] VITALS (8 sets, daily range): BP systolic 105–159; BP diastolic 50–89; PULSE 48–67; RESP 12–18; TEMP 35.8–37; O2SAT 98–100
[2023-03-20 05:15] LABS: Basophils Percent Auto 0.3 % (0.2-1.2); Eosinophils Absolute Auto 0.1 K/mm3 (0-0.3); Eosinophils Percent Auto 1.9 % (0-4.4); Hematocrit 29.7 % (42.0-52.0); Hemoglobin 9.4 g/dL (14.0-18.0); Immature Granulocyte Absolute 0.02 K/mm3 (0.00-0.031); Immature Granulocyte Percent A 0.3 % (0-0.5); Lymphocytes Absolute Auto 1.31 K/mm3 (0.9-3.2); Lymphocytes Percent Auto 22.5 % (18.3-44.2); Mean Corpuscular HGB Conc 31.6 g/dl (32-36); Mean Corpuscular Hemoglobin 29.1 pg (26-34); Mean Platelet Volume 10.3 fl (7.4-10.4); Monocytes Absolute Auto 0.4 K/mm3 (0.1-0.6); Monocytes Percent Auto 6.2 % (2.6-8.5); Neutrophils Percent Auto 68.8 % (45.5-73.1); Platelet Count Result 304 k/mm3 (150-375); Red Blood Count 3.23 M/mm3 (4.6-6.20); Red Cell Distribution Width 14.6 % (11.5-14.5); White Blood Count 5.8 K/mm3 (4.5-10.0)
[2023-03-20 05:38] LABS: Potassium 3.8 mmol/L (3.4-5.0)
[2023-03-20 05:45] LABS: Alanine Aminotransferase 9 U/L (6-50); Albumin Level 3.2 g/dL (3.5-5.1); Alkaline Phosphatase 109 U/L (38-126); Anion Gap 5 mmol/L (8-16); Aspartate Amino Transferase 32 U/L (17-59); Bilirubin,Total 0.4 mg/dL (0.2-1.3); Blood Urea Nitrogen 13 mg/dL (9-20); Carbon Dioxide 25 mmol/L (22-30); Chloride 109 mmol/L (98-107); Estimated CRCL calculation 72 ml/min; Estimated Glomerular Filt Rate > 60; Glucose 98 mg/dL (65-110); Magnesium 1.9 mg/dL (1.6-2.3); Sodium 139 mmol/L (137-145)
[2023-03-20] MEDS: LINACLOTIDE 145 MCG CAPSULE PO (06:09)
[2023-03-20] MEDS: CARBIDOPA/LEVODOPA 25/100 MG TABLET 1 TABLET PO ×3 (06:09→20:26)
[2023-03-20] MEDS: lisinopriL 20 MG TABLET PO ×2 (09:11→17:27)
[2023-03-20] MEDS: PRAVASTATIN SODIUM 20 MG TABLET PO (09:11)
[2023-03-20] MEDS: modafiniL (*CRX) 100 MG TABLET PO (09:11)
[2023-03-20] MEDS: ASPIRIN 81 MG CHEWABLE TABLET PO (09:12)
[2023-03-20] MEDS: ENOXAPARIN 40 MG/0.4 ML SYRINGE SUB-Q (09:12)
--- NOTE | 2023-03-20 16:07 | PM.IMPN ---
Progress Note: A&P Assessment and Plan (1) Acute hypernatremia: Code(s): E87.0 - Hyperosmolality and hypernatremia Status: Acute (2) Altered mental status: Qualifiers: Altered mental status type: somnolence Qualified Code(s): R40.0 - Somnolence Code(s): R41.82 - Altered mental status, unspecified Status: Acute (3) Hypertension: Code(s): I10 - Essential (primary) hypertension Status: Acute (4) Dysphagia: Code(s): R13.10 - Dysphagia, unspecified Status: Acute (5) Pneumonia: Qualifiers: Laterality: bilateral Lung location: lower lobe of lung Pneumonia type: due to unspecified organism Qualified Code(s): J18.9 - Pneumonia, unspecified organism Code(s): J18.9 - Pneumonia, unspecified organism Status: Acute (6) Hypokalemia: Code(s): E87.6 - Hypokalemia Status: Acute (7) Constipation: Qualifiers: Constipation type: unspecified constipation type Qualified Code(s): K59.00 - Constipation, unspecified Code(s): K59.00 - Constipation, unspecified Status: Acute Plan 83-year-old male presented from home with altered mental status. Noted right-sided facial droop. More confusion. Mumbling. Had some vomiting and diarrhea prior to admission. Cbc without leukocytosis. Hemoglobin 10.6 around baseline. Hyponatremia noted with sodium level of 158. CT scan of the brain negative. Chest x-ray with airspace opacities consistent with atelectasis versus pneumonia. CT abdomen pelvis showed constipation. Chronic small right pleural effusion with understood lying compressive atelectasis large hiatal hernia started on IV fluids. Sodium level has continued to improve since admission. His mental status has improved to some extent. MRI brain came back negative for stroke. Nephrology has been consulted. Conjunctival chemosis noted on evaluation. Will slow down IV fluid. D5 water at 50 cc an hour. hypernatremia has resolved. Stop the D5 water. speech therapy has evaluated. Will order MBS to further evaluate for aspiration related pneumonia. Currently on ceftriaxone and azithromycin. Underlying history of dementia neurology evaluated last admission. Dysphagia is new. upper resp secretions preent. Added scopolamine patch. Possible Parkinson's disease. With bradykinesia and rigidity. will Give a trial of Sinemet. Somewhat improved today will continue to monitor tolerating Sinemet okay without any overdue completion History of hypertension chronic renal disease spinal stenosis B12 and D deficiencies these levels were normal in the system DVT prophylaxis Lovenox Code status full code Subjective Date/time seen: 03/20/23 16:07 Interval history: 03/17: Fernando is rousable and does not endorse pain. He does attempt to converse but speech is grossly unintelligible. 03/18/2023: Patient is awake slowly converses. Await that he is in the hospital. Has been having some cough. Sodium level reviewed. Getting bit puffy in his eyes 03/19/2023: No overnight events. Awake confusion persist. Mental status about the same. Still has intermittent cough and congestion 03/20/2023: No overnight events. Intermittent cough secretions calm down. More alert has been wheelchair-bound. Review of Systems Review of Systems: All systems reviewed & are unremarkable except as noted in HPI and below Exam Narrative: GENERAL APPEARANCE: Appears to be in no acute distress. HEAD: normocephalic atraumatic ENT: Hearing grossly intact, no nasal discharge NECK: Neck supple, trachea midline. CARDIAC: Normal S1/S2. Rhythm is regular. No murmurs, rubs, or gallops. No cyanosis or pallor. Extremities are warm and well perfused. LUNGS: Diminished breath sounds bilaterally. Respirations even and unlabored. ABDOMEN: BS positive x 4 quadrants. Soft, nondistended, nontender. No guarding or rebound. MSK: No joint tenderness/swelling, fair strength
[2023-03-20] MEDS: ACETAMINOPHEN 325 MG TABLET 650 MG PO (20:15)
[2023-03-20] MEDS: AZITHROMYCIN 500 MG/NS 250 ML 500 MG/250 ML BAG 250 MG IVPB (20:15)
[2023-03-20] MEDS: polyethylene glycoL 3350 17 GM POWD.PACK PO (20:15)
[2023-03-20] MEDS: cefTRIAXone 2 GM/NS 100 ML 2 GM/100 ML BAG IVPB (20:16)
[2023-03-21] VITALS (7 sets, daily range): BP systolic 148–176; BP diastolic 64–87; PULSE 57–79; RESP 18; TEMP 36.6–37; O2SAT 96–100
[2023-03-21] MEDS: CARBIDOPA/LEVODOPA 25/100 MG TABLET 1 TABLET PO (05:02)
[2023-03-21] MEDS: LINACLOTIDE 145 MCG CAPSULE PO (05:04)
[2023-03-21 06:26] LABS: Basophils Percent Auto 0.6 % (0.2-1.2); Eosinophils Absolute Auto 0.1 K/mm3 (0-0.3); Eosinophils Percent Auto 3.6 % (0-4.4); Hematocrit 31.7 % (42.0-52.0); Hemoglobin 9.8 g/dL (14.0-18.0); Immature Granulocyte Absolute 0.01 K/mm3 (0.00-0.031); Immature Granulocyte Percent A 0.3 % (0-0.5); Lymphocytes Absolute Auto 1.48 K/mm3 (0.9-3.2); Lymphocytes Percent Auto 41.3 % (18.3-44.2); Mean Corpuscular HGB Conc 30.9 g/dl (32-36); Mean Corpuscular Hemoglobin 28.7 pg (26-34); Mean Platelet Volume 10.3 fl (7.4-10.4); Monocytes Absolute Auto 0.4 K/mm3 (0.1-0.6); Monocytes Percent Auto 11.7 % (2.6-8.5); Neutrophils Absolute Auto 1.5 K/mm3 (1.3-6.7); Neutrophils Percent Auto 42.5 % (45.5-73.1); Platelet Count Result 292 k/mm3 (150-375); Red Blood Count 3.41 M/mm3 (4.6-6.20); Red Cell Distribution Width 14.8 % (11.5-14.5); White Blood Count 3.6 K/mm3 (4.5-10.0)
[2023-03-21 07:08] LABS: Alanine Aminotransferase 10 U/L (6-50); Albumin Level 3.1 g/dL (3.5-5.1); Alkaline Phosphatase 104 U/L (38-126); Anion Gap 7 mmol/L (8-16); Aspartate Amino Transferase 31 U/L (17-59); Bilirubin,Total 0.3 mg/dL (0.2-1.3); Blood Urea Nitrogen 16 mg/dL (9-20); Calcium 9.1 mg/dL (8.4-10.2); Carbon Dioxide 22 mmol/L (22-30); Chloride 109 mmol/L (98-107); Estimated CRCL calculation 72 ml/min; Estimated Glomerular Filt Rate > 60; Glucose 80 mg/dL (65-110); Magnesium 2.3 mg/dL (1.6-2.3); Potassium 3.6 mmol/L (3.4-5.0); Sodium 138 mmol/L (137-145)
[2023-03-21] MEDS: ENOXAPARIN 40 MG/0.4 ML SYRINGE SUB-Q (09:12)
--- NOTE | 2023-03-21 09:22 | PCSTNOTE ---
Please refer to the Modified Barium Swallow Evaluation in the EMR.
--- NOTE | 2023-03-21 16:19 | PM.IMPN ---
Progress Note: A&P Assessment and Plan (1) Acute hypernatremia: Code(s): E87.0 - Hyperosmolality and hypernatremia Status: Acute (2) Altered mental status: Qualifiers: Altered mental status type: somnolence Qualified Code(s): R40.0 - Somnolence Code(s): R41.82 - Altered mental status, unspecified Status: Acute (3) Hypertension: Code(s): I10 - Essential (primary) hypertension Status: Acute (4) Dysphagia: Code(s): R13.10 - Dysphagia, unspecified Status: Acute (5) Pneumonia: Qualifiers: Laterality: bilateral Lung location: lower lobe of lung Pneumonia type: due to unspecified organism Qualified Code(s): J18.9 - Pneumonia, unspecified organism Code(s): J18.9 - Pneumonia, unspecified organism Status: Acute (6) Hypokalemia: Code(s): E87.6 - Hypokalemia Status: Acute (7) Constipation: Qualifiers: Constipation type: unspecified constipation type Qualified Code(s): K59.00 - Constipation, unspecified Code(s): K59.00 - Constipation, unspecified Status: Acute Plan 83-year-old male presented from home with altered mental status. Noted right-sided facial droop. More confusion. Mumbling. Had some vomiting and diarrhea prior to admission. Cbc without leukocytosis. Hemoglobin 10.6 around baseline. Hypernatremia noted with sodium level of 158. CT scan of the brain negative. Chest x-ray with airspace opacities consistent with atelectasis versus pneumonia. CT abdomen pelvis showed constipation. Chronic small right pleural effusion with understood lying compressive atelectasis large hiatal hernia started on IV fluids. Sodium level has continued to improve since admission and has normalised sicne then with ivf treatment. His mental status has improved to some extent. MRI brain came back negative for stroke. Nephrology has been consulted. Conjunctival chemosis noted on evaluation 03/18/2023. speech therapy has evaluated. MBS with dysphagia. Currently on ceftriaxone and azithromycin. Underlying history of dementia neurology evaluated last admission. Dysphagia is new and continues to worsen. upper resp secretions preent. Added scopolamine patch. Possible Parkinson's disease. With bradykinesia and rigidity. Given a trial of Sinemet. Continues to be a problem. With ongoing failure to thrive dementia recommended hospice comfort care. If continued treatment desired will need G-tube placement. Family opting for hospice care and discuss different hospice options with the family. They want to go with [facility] hospice and will consult them. History of hypertension chronic renal disease spinal stenosis B12 and D deficiencies these levels were normal in the system DVT prophylaxis Lovenox Code status full code Subjective Date/time seen: 03/21/23 16:19 Interval history: 03/17: Fernando is rousable and does not endorse pain. He does attempt to converse but speech is grossly unintelligible. 03/18/2023: Patient is awake slowly converses. Await that he is in the hospital. Has been having some cough. Sodium level reviewed. Getting bit puffy in his eyes 03/19/2023: No overnight events. Awake confusion persist. Mental status about the same. Still has intermittent cough and congestion 03/20/2023: No overnight events. Intermittent cough secretions calm down. More alert has been wheelchair-bound. 03/21/2023: pateint failed swallow eval mo gonzalez. confusion persisits. no new compalint. discussed with patient's over the phone. discussed with Dr. Orta as well over the phone. Review of Systems Review of Systems: All systems reviewed & are unremarkable except as noted in HPI and below Exam Narrative: GENERAL APPEARANCE: Appears to be in no acute distress. confused HEAD: normocephalic atraumatic, temporal wasting NECK: Neck supple, trachea midline. CARDIAC: Normal S1/S2. Rhythm is regular. No mur
[2023-03-21] MEDS: DEXTROSE 5% 1,000 ML 1,000 ML 50 ML IV CONT (17:18)
[2023-03-21] MEDS: cefTRIAXone 2 GM/NS 100 ML 2 GM/100 ML BAG IVPB (21:03)
[2023-03-22 03:22] VITALS: BP 165/74; PULSE 77; RESP 18; TEMP 36.8; O2SAT 97
[2023-03-22 06:04] LABS: Basophils Percent Auto 0.8 % (0.2-1.2); Eosinophils Absolute Auto 0.1 K/mm3 (0-0.3); Eosinophils Percent Auto 2.1 % (0-4.4); Hematocrit 30.7 % (42.0-52.0); Hemoglobin 10.1 g/dL (14.0-18.0); Immature Granulocyte Absolute 0.01 K/mm3 (0.00-0.031); Immature Granulocyte Percent A 0.3 % (0-0.5); Lymphocytes Percent Auto 28.4 % (18.3-44.2); Mean Corpuscular HGB Conc 32.9 g/dl (32-36); Mean Corpuscular Hemoglobin 29.1 pg (26-34); Mean Corpuscular Volume 88.5 fl (80-100); Mean Platelet Volume 10.3 fl (7.4-10.4); Monocytes Absolute Auto 0.5 K/mm3 (0.1-0.6); Monocytes Percent Auto 12.7 % (2.6-8.5); Neutrophils Absolute Auto 2.2 K/mm3 (1.3-6.7); Neutrophils Percent Auto 55.7 % (45.5-73.1); Platelet Count Result 310 k/mm3 (150-375); Red Blood Count 3.47 M/mm3 (4.6-6.20); Red Cell Distribution Width 14.5 % (11.5-14.5); White Blood Count 3.9 K/mm3 (4.5-10.0)
[2023-03-22 06:13] LABS: Alanine Aminotransferase 28 U/L (6-50); Albumin Level 3.5 g/dL (3.5-5.1); Alkaline Phosphatase 109 U/L (38-126); Anion Gap 7 mmol/L (8-16); Aspartate Amino Transferase 33 U/L (17-59); Bilirubin,Total 0.4 mg/dL (0.2-1.3); Blood Urea Nitrogen 11 mg/dL (9-20); Calcium 9.5 mg/dL (8.4-10.2); Carbon Dioxide 27 mmol/L (22-30); Chloride 105 mmol/L (98-107); Estimated CRCL calculation 64 ml/min; Estimated Glomerular Filt Rate > 60; Glucose 110 mg/dL (65-110); Potassium 3.5 mmol/L (3.4-5.0); Sodium 139 mmol/L (137-145)
[2023-03-22 08:00] VITALS: BP 165/75; PULSE 74; RESP 17; TEMP 36.6; O2SAT 98
[2023-03-22] MEDS: ENOXAPARIN 40 MG/0.4 ML SYRINGE SUB-Q (08:06)
--- NOTE | 2023-03-22 13:07 | PM.DS ---
DS: Admitting Diagnosis Discharge Date 03/22/2023 Admitting Diagnosis Confusion DS: Discharge Diagnosis Discharge Diagnosis (1) Acute hypernatremia: Code(s): E87.0 - Hyperosmolality and hypernatremia Status: Acute (2) Altered mental status: Qualifiers: Altered mental status type: somnolence Qualified Code(s): R40.0 - Somnolence Code(s): R41.82 - Altered mental status, unspecified Status: Acute (3) Hypertension: Code(s): I10 - Essential (primary) hypertension Status: Acute (4) Dysphagia: Code(s): R13.10 - Dysphagia, unspecified Status: Acute (5) Pneumonia: Qualifiers: Laterality: bilateral Lung location: lower lobe of lung Pneumonia type: due to unspecified organism Qualified Code(s): J18.9 - Pneumonia, unspecified organism Code(s): J18.9 - Pneumonia, unspecified organism Status: Acute (6) Hypokalemia: Code(s): E87.6 - Hypokalemia Status: Acute (7) Constipation: Qualifiers: Constipation type: unspecified constipation type Qualified Code(s): K59.00 - Constipation, unspecified Code(s): K59.00 - Constipation, unspecified Status: Acute DS: Summary Hospital Course Hospital Course: 83-year-old male presented from home with altered mental status.? Noted right-sided facial droop.? More confusion.? Mumbling.? Had some vomiting and diarrhea prior to admission.? Cbc without leukocytosis.? Hemoglobin 10.6 around baseline.? Hypernatremia noted with sodium level of 158.? CT scan of the brain negative.? Chest x-ray with airspace opacities consistent with atelectasis versus pneumonia.? CT abdomen pelvis showed constipation.? Chronic small right pleural effusion with understood lying compressive atelectasis large hiatal hernia started on IV fluids.? Sodium level improved since admission and has normalised sicne then with ivf treatment.? His mental status has improved to some extent however still remained altered.? Is mRI brain came back negative for stroke.? Nephrology also consulted for his hypernatremia. Conjunctival chemosis noted on evaluation 03/18/2023. speech therapy has evaluated.? MBS with dysphagia severe and recommended NPO. He was noted to have potentially aspiration related and was treated with IV antibiotics during the hospital stay. He does have history of underlying dementia neurology evaluated last admission.? Dysphagia is new and continues to worsen. Possible Parkinson's disease.? With bradykinesia and rigidity.? Given a trial of Sinemet with not much improvement needing that possibility. With NPO and further discussion regarding goals of care with the family led to moving towards hospice care. Patient will need artificial nutrition via PEG tube placement if intent was to continue with treatment. Family as update moving with comfort measures and further discussion with hospice team was made. Hospice care was arranged at the time of discharge with the help of care coordination. He will be followed by [facility]. History of hypertension chronic renal disease spinal stenosis B12 and D deficiencies these levels were normal in the system DVT prophylaxis Lovenox Code status full code which will be changed to do not resuscitate Time Spent with Patient Time attestation: Total time spent providing and/or coordinating discharge services: 35 minutes Exam Narrative: GENERAL APPEARANCE: Appears to be in no acute distress. confused HEAD: normocephalic atraumatic, temporal wasting NECK: Neck supple, trachea midline. CARDIAC: Normal S1/S2. Rhythm is regular. No murmurs, rubs, or gallops. No cyanosis or pallor. Extremities are warm and well perfused. LUNGS: Diminished breath sounds bilaterally. Respirations even and unlabored. ABDOMEN: BS positive x 4 quadrants. Soft, nondistended, nontender. No guarding or rebound. MSK: No joint tenderness/swelling, fair strength in all extremities. PERIPHERAL VAS
== END 2023-03-22 13:55 | disposition hospice, home (50) | DRG 640 ==
LOC: ANHED 11:10 → ANH2MED 15:16
PROVIDERS: Internal Medicine Nephrology; Nurse Practitioner Family; Admitting Provider General Practice; Emergency Provider Physician Assistant; PCP Internal Medicine; Visit Provider Internal Medicine
DX: E87.0 Hyperosmolality and hypernatremia (principal); J69.0 Pneumonitis due to inhalation of food and vomit; D63.1 Anemia in chronic kidney disease; N40.0 Benign prostatic hyperplasia without lower urinary tract symptoms; E78.5 Hyperlipidemia, unspecified; E87.6 Hypokalemia; E55.9 Vitamin D deficiency, unspecified; E53.8 Deficiency of other specified B group vitamins; F03.90 Unspecified dementia, unspecified severity, without behavioral disturbance, psychotic disturbance, mood disturbance, and anxiety; H11.429 Conjunctival edema, unspecified eye; H40.9 Unspecified glaucoma; I12.9 Hypertensive chronic kidney disease with stage 1 through stage 4 chronic kidney disease, or unspecified chronic kidney disease; K59.00 Constipation, unspecified; K44.9 Diaphragmatic hernia without obstruction or gangrene; M48.00 Spinal stenosis, site unspecified; M85.80 Other specified disorders of bone density and structure, unspecified site; N18.9 Chronic kidney disease, unspecified; R40.0 Somnolence; R26.9 Unspecified abnormalities of gait and mobility; R13.10 Dysphagia, unspecified; R29.810 Facial weakness; Z11.52 Encounter for screening for COVID-19; Z79.82 Long term (current) use of aspirin; Z86.16 Personal history of COVID-19; Z96.641 Presence of right artificial hip joint
CPT/HCPCS: 36415; 70450; 70553; 71045; 74177; 80048; 80053; 81003; 82948; 83605; 83690; 83735; 84145; 84484; 85025; 85027; 85610; 85730; 86140; 87040; 87636; 92610; 92611; 93005; 96361; 96365; 96367; 96375; 99285; A9270; A9577; G0378; J0456; J0696; J1650; J3480; J7040; J7070; J7120; Q9967